=== PATIENT | male | born 1950 | race Caucasian/White ===

== ENCOUNTER 2021-03-04 07:46 | Outpatient (REF) | payer MEDICARE, BC, SELFPAY ==
[2021-03-04 09:03] LABS: MANUAL DIFF FLAG NO
[2021-03-04 09:13] LABS: Basophils Percent Auto 0.3 % (0-2); Eosinophils Absolute Auto 0.1 X10*3/uL (0.0-0.4); Eosinophils Percent Auto 2.2 % (0-4); Hematocrit 40.5 % (42-52); Hemoglobin 14.3 g/dl (14.0-18.0); Imm Gran Abs Auto 0.01 X10*3/uL (0.00-0.03); Imm Gran Pct Auto 0.2 % (0.0-0.4); Lymphocytes Absolute Auto 2.3 X10*3/uL (1.2-4.9); Lymphocytes Percent Auto 35.2 % (20-40); Mean Corpuscular HGB Conc 35.3 g/dl (31.0-36.0); Mean Corpuscular Hemoglobin 35.3 pg (27.0-33.0); Mean Platelet Volume 10.2 fL (9.4-12.4); Monocytes Absolute Auto 0.5 X10*3/uL (0.1-1.2); Monocytes Percent Auto 8.3 % (2-11); Neutrophils Absolute Auto 3.4 X10*3/uL (2.0-8.3); Neutrophils Percent Auto 53.8 % (45-73); Red Blood Count 4.05 X10*6/uL (4.60-5.80); Red Cell Distribution Width 14.3 % (11.0-16.0); White Blood Count 6.4 X10*3/uL (4.8-10.8)
[2021-03-04 09:30] LABS: Alanine Aminotransferase 22 U/L (0-40); Albumin Level 3.4 g/dL (3.5-5.0); Alkaline Phosphatase 81 U/L (39-117); Anion Gap 16 (12-20); Aspartate Amino Transferase 39 U/L (5-37); Bilirubin Total 2.1 mg/dL (0.0-1.0); Blood Urea Nitrogen 15 mg/dL (9-16); Calcium 8.9 mg/dL (8.4-10.2); Carbon Dioxide 22 mmol/L (22-29); Chloride 106 mmol/L (96-108); Cholesterol 153 mg/dL; Estimated Glomerular Filt Rate > 60; Glucose Fasting 100 mg/dL (60-99); HDL Cholesterol 60 mg/dL; LDL Cholesterol Calculated 81 mg/dl; Potassium 4.2 mmol/L (3.3-5.1); Sodium 140 mmol/L (135-145); Total Protein 6.5 g/dL (6.5-8.0); Triglycerides 60 mg/dL
[2021-03-04 09:51] LABS: Thyroid Stimulating Hormone 1.54 uIU/mL (0.32-4.0)
[2021-03-04 13:17] LABS: Platelet Count 86 X10*3/uL (160-400)
== END 2021-03-04 07:47 | disposition home or self-care (01) ==
LOC: HO.LAB 07:46
PROVIDERS: PCP Internal Medicine; Visit Provider Internal Medicine
DX: Z00.00 Encounter for general adult medical examination without abnormal findings (principal); E11.9 Type 2 diabetes mellitus without complications; E03.9 Hypothyroidism, unspecified
CPT/HCPCS: 36415; 80053; 80061; 84443; 85025

== ENCOUNTER 2021-04-08 08:14 | Outpatient (REF) | payer MEDICARE, BC, SELFPAY ==
[2021-04-08 09:02] LABS: MANUAL DIFF FLAG NO
[2021-04-08 09:12] LABS: Basophils Percent Auto 0.4 % (0-2); Eosinophils Absolute Auto 0.1 X10*3/uL (0.0-0.4); Hematocrit 39.3 % (42-52); Hemoglobin 13.9 g/dl (14.0-18.0); Imm Gran Abs Auto 0.02 X10*3/uL (0.00-0.03); Imm Gran Pct Auto 0.4 % (0.0-0.4); Lymphocytes Absolute Auto 1.7 X10*3/uL (1.2-4.9); Lymphocytes Percent Auto 31.8 % (20-40); Mean Corpuscular HGB Conc 35.4 g/dl (31.0-36.0); Mean Corpuscular Hemoglobin 35.5 pg (27.0-33.0); Mean Corpuscular Volume 100.3 fL (80-98); Mean Platelet Volume 9.7 fL (9.4-12.4); Monocytes Absolute Auto 0.4 X10*3/uL (0.1-1.2); Neutrophils Absolute Auto 3.1 X10*3/uL (2.0-8.3); Neutrophils Percent Auto 57.4 % (45-73); Red Blood Count 3.92 X10*6/uL (4.60-5.80); Red Cell Distribution Width 14.8 % (11.0-16.0); White Blood Count 5.4 X10*3/uL (4.8-10.8)
[2021-04-08 09:15] LABS: Platelet Count 84 X10*3/uL (160-400)
[2021-04-08 09:46] LABS: Alanine Aminotransferase 24 U/L (0-40); Albumin Level 3.2 g/dL (3.5-5.0); Alkaline Phosphatase 87 U/L (39-117); Anion Gap 11 (12-20); Aspartate Amino Transferase 35 U/L (5-37); Bilirubin Total 1.9 mg/dL (0.0-1.0); Blood Urea Nitrogen 13 mg/dL (9-16); Calcium 8.7 mg/dL (8.4-10.2); Carbon Dioxide 26 mmol/L (22-29); Chloride 107 mmol/L (96-108); Cholesterol 151 mg/dL; Estimated Glomerular Filt Rate 60; Glucose Fasting 116 mg/dL (60-99); HDL Cholesterol 57 mg/dL; LDL Cholesterol Calculated 82 mg/dl; Potassium 3.9 mmol/L (3.3-5.1); Sodium 140 mmol/L (135-145); Triglycerides 61 mg/dL
== END 2021-04-08 08:15 | disposition home or self-care (01) ==
LOC: HO.LAB 08:14
PROVIDERS: PCP Internal Medicine; Visit Provider Internal Medicine
DX: Z00.00 Encounter for general adult medical examination without abnormal findings (principal); E11.9 Type 2 diabetes mellitus without complications
CPT/HCPCS: 36415; 80053; 80061; 85025

== ENCOUNTER 2021-07-17 09:02 | Outpatient (REF) | payer MEDICARE, BC, SELFPAY ==
[2021-07-17 10:07] LABS: Cholesterol 151 mg/dL; HDL Cholesterol 51 mg/dL; LDL Cholesterol Calculated 86 mg/dl; Triglycerides 72 mg/dL
== END 2021-07-17 09:03 | disposition home or self-care (01) ==
LOC: HO.LAB 09:02
PROVIDERS: PCP Internal Medicine; Visit Provider Internal Medicine
DX: E11.9 Type 2 diabetes mellitus without complications (principal)
CPT/HCPCS: 36415; 80061

== ENCOUNTER 2022-01-10 12:50 | Outpatient (REF) | payer MEDICARE, BC, SELFPAY ==
[2022-01-10 13:10] LABS: MANUAL DIFF FLAG NO
[2022-01-10 13:33] LABS: Basophils Percent Auto 0.5 % (0-2); Eosinophils Absolute Auto 0.2 X10*3/uL (0.0-0.4); Eosinophils Percent Auto 2.6 % (0-4); Hematocrit 36.8 % (42.0-52.0); Imm Gran Abs Auto 0.03 X10*3/uL (0.00-0.03); Imm Gran Pct Auto 0.5 % (0.0-0.4); Lymphocytes Absolute Auto 1.6 X10*3/uL (1.2-4.9); Lymphocytes Percent Auto 25.8 % (20-40); Mean Corpuscular HGB Conc 35.3 g/dl (31.0-36.0); Mean Corpuscular Hemoglobin 34.5 pg (27.0-33.0); Mean Corpuscular Volume 97.6 fL (80.0-98.0); Mean Platelet Volume 9.8 fL (9.4-12.4); Monocytes Absolute Auto 0.5 X10*3/uL (0.1-1.2); Monocytes Percent Auto 8.7 % (2-11); Neutrophils Absolute Auto 3.9 x10*3/uL (2.0-8.3); Neutrophils Percent Auto 61.9 % (45-73); Red Blood Count 3.77 X10*6/uL (4.60-5.80); White Blood Count 6.2 X10*3/uL (4.8-10.8)
[2022-01-10 13:34] LABS: Platelet Count 91 X10*3/uL (160-400)
[2022-01-10 13:54] LABS: Alanine Aminotransferase 45 U/L (0-40); Alkaline Phosphatase 112 U/L (39-117); Anion Gap 10 (12-20); Aspartate Amino Transferase 52 U/L (5-37); Bilirubin Total 2.2 mg/dL (0.0-1.0); Blood Urea Nitrogen 17 mg/dL (9-16); Calcium 8.7 mg/dL (8.4-10.2); Carbon Dioxide 27 mmol/L (22-29); Chloride 104 mmol/L (96-108); Cholesterol 144 mg/dL; Estimated Glomerular Filt Rate > 60; Glucose Fasting 114 mg/dL (60-99); HDL Cholesterol 46 mg/dL; LDL Cholesterol Calculated 87 mg/dl; Potassium 4.1 mmol/L (3.3-5.1); Sodium 137 mmol/L (135-145); Total Protein 6.3 g/dL (6.5-8.0); Triglycerides 58 mg/dL
[2022-01-10 14:14] LABS: Thyroid Stimulating Hormone 1.53 uIU/mL (0.32-4.0)
== END 2022-01-10 12:51 | disposition home or self-care (01) ==
LOC: HO.LAB 12:50
PROVIDERS: PCP Internal Medicine; Visit Provider Internal Medicine
DX: Z00.00 Encounter for general adult medical examination without abnormal findings (principal); Z13.0 Encounter for screening for diseases of the blood and blood-forming organs and certain disorders involving the immune mechanism; E78.5 Hyperlipidemia, unspecified
CPT/HCPCS: 36415; 80053; 80061; 84443; 85025

== ENCOUNTER 2022-06-11 17:40 | Inpatient (IN) | payer MEDICARE, BC, SELFPAY ==
--- NOTE | ~2022-06-11 | XR_ITS ---
EXAMINATION: XR chest 1V CLINICAL INFORMATION: Reason for Exam chf COMPARISON: 03/11/2018 TECHNIQUE: XR chest 1V Tubes and lines: None Lungs and pleura: Prominence of the pulmonary vasculature vasculature suggesting mild congestion. Blunting of right costophrenic angle probably small pleural effusion.. Heart and mediastinum: The mediastinum is within normal limits for AP technique.. Bones/soft tissue: Skeletal structures included are normal for patient's age. XR/XR chest 1V IMPRESSION: Mild CHF. Blunting of costophrenic angle suggesting small subpulmonic pleural effusion.
[2022-06-11 17:45] VITALS: BP 118/53; BP 118/70; PULSE 88; PULSE 92; RESP 20; TEMP 36.6; O2SAT 93; O2SAT 99; BMI 46.6
--- NOTE | 2022-06-11 17:55 | ECG_ITS ---
Test Reason : CHF Blood Pressure : / mmHG Vent. Rate : 083 BPM Atrial Rate : 083 BPM P-R Int : 184 ms QRS Dur : 090 ms QT Int : 388 ms P-R-T Axes : 071 -21 044 degrees QTc Int : 455 ms Sinus rhythm with Premature supraventricular complexes Low voltage QRS Abnormal ECG When compared with ECG of 08-MAR-2018 00:31, Sinus rhythm has replaced Atrial fibrillation Vent. rate has decreased BY 73 BPM Referred By: Jennifer Garza Electronically Signed By:ROLAN HENRIQUEZ MD
--- NOTE | 2022-06-11 17:57 | ED_ITS ---
HPI - General Adult General Chief complaint: Extremity Problem Stated complaint: sob hx chf Time Seen by Provider: 06/11/22 17:41 Source: patient and EMS Mode of arrival: EMS Limitations: no limitations History of Present Illness HPI narrative: 72-year-old male with history of COPD and congestive heart failure on O2 home supplemental oxygen 2.5 L, patient brought in by ambulance for worsening of lower extremity swelling and edema, patient take Lasix 40 mg twice a day which he has been compliant with, patient reported blisters formation on bilateral lower extremities with clear fluid drainage, no fever or chills, no redness or hotness. Related Data Home Medications Medication Instructions Recorded Confirmed lactulose 20 gram/30 mL oral 20 g PO BID 06/11/22 06/11/22 solution Previous Rx's Medication Instructions Recorded albuterol sulfate 90 mcg/actuation 2 puff inhalation Q4-6H PRN 04/17/21 aerosol inhaler (Ventolin HFA) bronchospasm 30 days #8.5 grams spironolactone 25 mg tablet 25 mg PO DAILY #90 tabs 09/16/21 furosemide 80 mg tablet 40 mg PO BID #90 caps 02/17/22 folic acid 1 mg tablet 1 mg PO DAILY #90 tabs 02/19/22 tiotropium bromide 18 mcg capsule 1 cap inhalation DAILY #90 03/20/22 with inhalation device (Spiriva inhalations with HandiHaler) chair, wheel (Wheel chair) #1 ea 05/30/22 potassium chloride 20 mEq 20 meq PO BID #60 tabs 06/03/22 tablet,extended release(part/cryst) Allergies Allergy/AdvReac Type Severity Reaction Status Date / Time Penicillins [PENICILLINS] Allergy Unknown ASTHMA Verified 05/29/22 13:55 ATTACK Review of Systems Review of Systems: All other systems are reviewed and are negative Constitutional: Reports as per HPI and Reports no additional constitutional complaints Eyes: Reports as per HPI and Reports no additional eye complaints Reports system reviewed and no additional complaints, except as documented Cardiovascular: Reports as per HPI and Reports no additional cardiovascular complaints Respiratory: Reports as per HPI and Reports no additional respiratory complaints Gastrointestinal: Reports as per HPI and Reports no additional gastrointestinal complaints Genitourinary: Reports no additional female genitourinary complaints Musculoskeletal: Reports no additional musculoskeletal complaints Skin/Breast: Reports system reviewed and no additional complaints, except as docu Psychiatric: Reports no additional psychiatric complaints Endocrine: Reports no additional endocrine complaints Hematologic/Lymphatic: Reports no additional hematologic/lymphatic complaints Allergic/Immunologic: Reports no additional allergic/immunologic complaints Reports system reviewed and no additional complaints, except as documented and Reports Abnormal speech present [facility] Past Medical History Medical History CHF (congestive heart failure) COPD (chronic obstructive pulmonary disease) Hyperlipidemia Morbid obesity Surgical History History of tonsillectomy Family History Family History Father No problems noted. Mother No problems noted. Social History Social History Housing: House (mobile home) Alcohol intake: never Patient Tobacco Use Status: Former Tobacco user Tobacco use type: Cigarette e-Cigarette/Vaping Use: Never Used Second Hand Smoke Exposure: No Advance Directives: No Advance Directives Information Provided: Yes service: No Current occupational status: retired and disabled Cognitive needs: Yes (walker) Hearing needs: Yes (hearing aide) Vision needs: Yes (glasses) Physical Exam ED Vital Signs: Vital Signs - 24 hr 06/11/22 17:45 06/11/22 18:40 Temperature 97.9 F Pulse Rate 88 80 Respiratory Rate 20 18 Blood Pressure 118/53 L Pulse Oximetry 99 Oxygen Delivery Method Nasal Cannula BMI result Body Mass Index 46.6 Vital signs have been reviewed as appeared to be correct. Blood pressure abhay l. Heart rate normal. Respiration rate normal. Temperature normal. Oxygen saturation normal. Appearance: Alert. Oriented X3. No acute distress. Head: Normal external exam. Normocephalic. Atraumatic. No Valerio signs noted. No raccoon eyes noted Eyes: PERRLA. EOMI. Conjunctiva and sclera normal. Eyelids normal. ENT: TM's Normal. Pharynx normal. Uvula midline. Moist mucous membranes. No trismus noted. No drooling noted. No muffled voice noted. Neck: Normal inspection. Neck supple. FROM. No adenopathy. Thyroid Normal. No meningeal signs. No neck mass noted. CVS: Normal heart rate and rhythm. Heart sound normal. No murmurs noted. Pulses normal throughout. Respiratory: No respiratory distress. Painless inspiration. Breath sounds normal. Bilateral fine rales up to 1/3 of bilateral lung hansen.. Chest nontender. No accessory muscle usage noted or decreased air movement noted. Abdomen: Soft and nontender. Bowel sounds normal in all 4 quadrants. No diste ntion noted. No organomegaly noted. No visible injury noted. Back: No CVA tenderness. Full range of motion noted. Skin: Skin warm and dry. Normal skin color. Normal skin turgor. No rashes/lesions/lacerations noted. Extremities: Bilateral lower extremity edema +3, with blisters and clear fluid drainage.. Extremities exhibit normal range of motion. Extremities nontender. Neuro: Oriented X 3. Cranial nerve exam: II-XII are grossly intact No motor deficit. No sensory deficit. Reflexes normal. Course Course Course Narrative: 71-year-old male with history of COPD/congestive heart failure he is on daily Lasix 40 mg twice a day came in for increased ease edema to lower extremities wi th blistering and exudative fluid drainage, no definitive cellulitis, patient will need aggressive diuresis, patient also with mild COPD exacerbation that improved with bronchodilator treatment in the emergency department. Medications Administered Discontinued Medications Generic Name Dose Route Start Last Admin Trade Name Freq PRN Reason Stop Dose Admin Albuterol Sulfate 2.5 mg 06/11/22 18:30 06/11/22 18:39 Albuterol Sulfate (0.083%) 2.5 Mg/3 Ml Vial.Neb INHALE 06/11/22 18:31 2.5 mg ONCE ONE Administration Albuterol/Ipratropium 3 ml 06/11/22 18:30 06/11/22 18:39 Albuterol/Iprat 2.5/0.5mg 3 Ml Ampul.Neb INHALE 06/11/22 18:31 3 ml ONCE ONE Administration Furosemide 40 mg 06/11/22 17:55 06/11/22 18:30 Furosemide 40 Mg/4 Ml Vial IVPUSH 06/11/22 17:56 40 mg ONCE ONE Administration Protocol Medical Decision Making Medical Records Medical records reviewed: Yes I reviewed the patient's medical records. Lab Data Lab results reviewed: Yes I reviewed the patient's lab results. Result diagrams: 06/11/22 18:27 11/23/22 18:27 Labs: Lab Results 06/11/22 06/11/22 06/11/22 Range/Units 18:27 18:27 18:27 WBC 6.1 (4.8-10.8) X10*3/uL RBC 3.21 L (4.60-5.80) X10*6/uL Hgb 11.2 L (14.0-18.0) g/dl Hct 33.7 L (42.0-52.0) % MCV 105.0 H (80.0-98.0) fL MCH 34.9 H (27.0-33.0) pg MCHC 33.2 (31.0-36.0) g/dl RDW 15.8 (11.0-16.0) % Plt Count 91 L (160-400) X10*3/uL MPV 10.1 (9.4-12.4) fL Immature Gran % (Auto) 0.3 (0.0-0.4) % Neut % (Auto) 75.8 H (45-73) % Lymph % (Auto) 13.1 L (20-40) % [place] % (Auto) 8.9 (2-11) % Eos % (Auto) 1.6 (0-4) % Baso % (Auto) 0.3 (0-2) % Lymph # (Auto) 0.8 L (1.2-4.9) X10*3/uL [place] # (Auto) 0.5 (0.1-1.2) X10*3/uL Eos # (Auto) 0.1 (0.0-0.4) X10*3/uL Baso # (Auto) 0.0 (0.0-0.2) X10*3/uL Abs Immat Gran (auto) 0.02 (0.00-0.03) X10*3/uL Absolute Neuts (auto) 4.6 (2.0-8.3) x10*3/uL Absolute Nucleated RBC 0.000 (0.0-0.012) X10*3/uL Nucleated RBC % (auto) 0.0 (0.0-0.2) /100WBC Sodium 137 (135-145) mmol/L Potassium 4.7 D (3.3-5.1) mmol/L Chloride 105 (96-108) mmol/L Carbon Dioxide 25 (22-29) mmol/L Anion Gap 12 (12-20) BUN 14 (9-16) mg/dL Creatinine 0.93 (0.5-1.4) mg/dL Estim Creat Clear Calc 104.3 Estimated GFR > 60 Random Glucose 109 (60-115) mg/dL Calcium 8.2 L (8.4-10.2) mg/dL Total Bilirubin 1.9 H (0.0-1.0) mg/dL Direct Bilirubin 1.0 H (0.0-0.5) mg/dL AST 104 H (5-37) U/L ALT 80 H (0-40) U/L Alkaline Phosphatase 251 H (39-117) U/L Troponin I High Sens 6.4 (<3.5-35.0) ng/L B-Natriuretic Peptide (<100) pg/mL Total Protein 5.7 L (6.5-8.0) g/dL Albumin 2.1 L (3.5-5.0) g/dL Lipase 59 (8-78) U/L Urine Color Urine Appearance Urine pH (5.0-9.0) Ur Specific [place] (1.005-1.025) Urine Protein (Neg-Trace) mg/dL Urine Glucose (UA) (Negative) mg/dL Urine Ketones (Negative) mg/dL Urine Blood (Negative) Urine Nitrite (Negative) Ur Leukocyte Esterase (Negative) Urine RBC (0-2) /HPF Urine WBC (0-5) /HPF Ur Squamous Epith Cells (0-2) /HPF Urine Bacteria (None Seen) Hyaline Casts (0-2) /LPF 06/11/22 06/11/22 Range/Units 18:27 19:02 WBC (4.8-10.8) X10*3/uL RBC (4.60-5.80) X10*6/uL Hgb (14.0-18.0) g/dl Hct (42.0-52.0) % MCV (80.0-98.0) fL MCH (27.0-33.0) pg MCHC (31.0-36.0) g/dl RDW (11.0-16.0) % Plt Count (160-400) X10*3/uL MPV (9.4-12.4) fL Immature Gran % (Auto) (0.0-0.4) % Neut % (Auto) (45-73) % Lymph % (Auto) (20-40) % [place] % (Auto) (2-11) % Eos % (Auto) (0-4) % Baso % (Auto) (0-2) % Lymph # (Auto) (1.2-4.9) X10*3/uL [place] # (Auto) (0.1-1.2) X10*3/uL Eos # (Auto) (0.0-0.4) X10*3/uL Baso # (Auto) (0.0-0.2) X10*3/uL Abs Immat Gran (auto) (0.00-0.03) X10*3/uL Absolute Neuts (auto) (2.0-8.3) x10*3/uL Absolute Nucleated RBC (0.0-0.012) X10*3/uL Nucleated RBC % (auto) (0.0-0.2) /100WBC Sodium (135-145) mmol/L Potassium (3.3-5.1) mmol/L Chloride (96-108) mmol/L Carbon Dioxide (22-29) mmol/L Anion Gap (12-20) BUN (9-16) mg/dL Creatinine (0.5-1.4) mg/dL Estim Creat Clear Calc Estimated GFR Random Glucose (60-115) mg/dL Calcium (8.4-10.2) mg/dL Total Bilirubin (0.0-1.0) mg/dL Direct Bilirubin (0.0-0.5) mg/dL AST (5-37) U/L ALT (0-40) U/L Alkaline Phosphatase (39-117) U/L Troponin I High Sens (<3.5-35.0) ng/L B-Natriuretic Peptide 237 H (<100) pg/mL Total Protein (6.5-8.0) g/dL Albumin (3.5-5.0) g/dL Lipase (8-78) U/L Urine Color Yellow Urine Appearance Clear Urine pH 6.5 (5.0-9.0) Ur Specific [place] 1.015 (1.005-1.025) Urine Protein Negative (Neg-Trace) mg/dL Urine Glucose (UA) Negative (Negative) mg/dL Urine Ketones Negative (Negative) mg/dL Urine Blood Negative (Negative) Urine Nitrite Negative (Negative) Ur Leukocyte Esterase Trace H (Negative) Urine RBC 0-2 (0-2) /HPF Urine WBC 0-5 (0-5) /HPF Ur Squamous Epith Cells 0-2 (0-2) /HPF Urine Bacteria None Seen (None Seen) Hyaline Casts 0-2 (0-2) /LPF Imaging Data Chest x-ray: Attestation: I personally reviewed and interpreted this imaging study as follows: Radiologist's impression: Mild CHF. ? Blunting of costophrenic angle suggesting small subpulmonic pleural effusion. ECG Data Attestation: I personally reviewed and interpreted this ECG as follows: Interpretation: Normal sinus rhythm at 83 beats per minute, with occasional premature supraventricular complex, left axis deviation, normal intervals. Discharge Plan Discharge Clinical Impression: COPD (chronic obstructive pulmonary disease), CHF (congestive heart failure), Anasarca Patient Disposition: Admitted As Inpatient
--- NOTE | 2022-06-11 18:20 | PC.NURSE ---
PT reports increase BLL swelling for about a week. Reddened areas noted, +2 edema noted.
--- NOTE | 2022-06-11 18:20 | PHA.MEDREC ---
Pharmacy Consult ? Medication Reconciliation Pharmacy has completed the medication reconciliation. Patient on lactulose Sam
[2022-06-11] MEDS: Furosemide 40 MG/4 ML VIAL IVPUSH (18:30)
--- NOTE | 2022-06-11 18:30 | PC.NURSE ---
PT lung sounds wheezing. Provider notified. Resp tx ordered.
--- NOTE | 2022-06-11 18:30 | PC.NURSE ---
Meds given as documented.
[2022-06-11 18:31] LABS: MANUAL DIFF FLAG NO
[2022-06-11 18:33] LABS: Basophils Percent Auto 0.3 % (0-2); Eosinophils Absolute Auto 0.1 X10*3/uL (0.0-0.4); Eosinophils Percent Auto 1.6 % (0-4); Hematocrit 33.7 % (42.0-52.0); Hemoglobin 11.2 g/dl (14.0-18.0); Imm Gran Abs Auto 0.02 X10*3/uL (0.00-0.03); Imm Gran Pct Auto 0.3 % (0.0-0.4); Lymphocytes Absolute Auto 0.8 X10*3/uL (1.2-4.9); Lymphocytes Percent Auto 13.1 % (20-40); Mean Corpuscular HGB Conc 33.2 g/dl (31.0-36.0); Mean Corpuscular Hemoglobin 34.9 pg (27.0-33.0); Mean Platelet Volume 10.1 fL (9.4-12.4); Monocytes Absolute Auto 0.5 X10*3/uL (0.1-1.2); Monocytes Percent Auto 8.9 % (2-11); Neutrophils Absolute Auto 4.6 x10*3/uL (2.0-8.3); Neutrophils Percent Auto 75.8 % (45-73); Red Blood Count 3.21 X10*6/uL (4.60-5.80); Red Cell Distribution Width 15.8 % (11.0-16.0); White Blood Count 6.1 X10*3/uL (4.8-10.8)
[2022-06-11 18:36] LABS: Platelet Count 91 X10*3/uL (160-400)
[2022-06-11] MEDS: Albuterol Sulfate (0.083%) 2.5 MG/3 ML VIAL.NEB INHALE (18:39)
[2022-06-11] MEDS: Albuterol/Iprat 2.5/0.5MG 3 ML AMPUL.NEB INHALE (18:39)
[2022-06-11 18:40] VITALS: PULSE 80; RESP 18; O2SAT 98
--- NOTE | 2022-06-11 18:41 | PC.NURSE ---
Respiratory therapist at bedside.
[2022-06-11 18:53] LABS: Alanine Aminotransferase 80 U/L (0-40); Albumin Level 2.1 g/dL (3.5-5.0); Alkaline Phosphatase 251 U/L (39-117); Anion Gap 12 (12-20); Aspartate Amino Transferase 104 U/L (5-37); Bilirubin Total 1.9 mg/dL (0.0-1.0); Blood Urea Nitrogen 14 mg/dL (9-16); Calcium 8.2 mg/dL (8.4-10.2); Carbon Dioxide 25 mmol/L (22-29); Chloride 105 mmol/L (96-108); Creatinine Clr Calc Pharmacy 104.3; Estimated Glomerular Filt Rate > 60; Glucose Random 109 mg/dL (60-115); Lipase 59 U/L (8-78); Potassium 4.7 mmol/L (3.3-5.1); Sodium 137 mmol/L (135-145); Total Protein 5.7 g/dL (6.5-8.0)
[2022-06-11 18:56] LABS: B Type Natriuretic Peptide 237 pg/mL (<100)
[2022-06-11 18:57] LABS: Troponin-I High Sensitivity 6.4 ng/L (<3.5-35.0)
[2022-06-11 19:11] LABS: Appearance Urine Clear; Color Urine Yellow; Glucose Urine UA Negative (Negative); Leukocyte Esterase Urine Trace (Negative); Nitrite Urine Negative (Negative); PH 6.5 (5.0-9.0); Specific Gravity - Urine 1.015 (1.005-1.025); UMIC TRIGGER UACC YES; Urine Blood Negative (Negative); Urine Ketones Negative (Negative); Urine Protein Negative (Neg-Trace)
[2022-06-11 19:17] LABS: Bacteria Urine None Seen (None Seen); Hyaline Casts Urine 0-2 /LPF (0-2); RBC Urine 0-2 /HPF (0-2); Squamous Epithelial Cell Urine 0-2 /HPF (0-2); WBC Urine 0-5 /HPF (0-5)
[2022-06-11 20:28] LABS: COVID-19 Test Negative (Negative); IDNOW Serial# 16C4AD1C
--- NOTE | 2022-06-11 22:43 | P.HPHOSP_ITS ---
History of Present Illness Date of Service: 06/11/22 Chief Complaint: leg swelling 71-year-old male with past medical history of CHF, COPD, hyperlipidemia, morbid obesity, presents to the hospital with complaints of leg swelling. Patient reports that he noticed his leg swelling worsened in the past week. He denies any orthopnea, no PND, he has baseline shortness of breath with his history of COPD that has not worsened, no increased cough or sputum production. Denies any fever or chills. He reports that the swelling has gotten to the point that he has difficulty ambulating. Denies any chest pain, no palpitations, no abdominal pain nausea or vomiting, no urinary symptoms. Reports compliance with his furosemide, denies any increased salt intake On arrival to the ED patient hemodynamically stable with no significant abnormal vitals Labs are significant for WBC count of 6.1, hemoglobin of 11.2, medical stage III 0.7, MCV of 105, lactic acid of 2.1 resolved, total bili of 1.9, direct bili of 1.0, AST of 104, ALT of 80, alk-phos of 251, BNP of 237, troponin negative, UA shows trace leukocyte For chest x-ray shows mild CHF Patient given Lasix and will be admitted for further management Review of Systems Review of Systems: Yes all other systems are reviewed and are negative [facility] Medical History (Updated 06/12/22 @ 06:32 by Ti Staples MD) Acute exacerbation of CHF (congestive heart failure) CHF (congestive heart failure) COPD (chronic obstructive pulmonary disease) Hyperlipidemia Morbid obesity Family History Father No problems noted. Mother No problems noted. Surgical History History of tonsillectomy Social History Household Members: Spouse Housing: Other Housing Other:: mobile home Do you presently have visiting nurse or other home services: Yes Alcohol intake: never Patient Tobacco Use Status: Former Tobacco user Quit Date: years ago per pt Tobacco use type: Cigarette Smoked in Last 30 Days: No e-Cigarette/Vaping Use: Never Used Second Hand Smoke Exposure: No Use of substances other than those prescribed or required for medical reasons: No Currently Displaying Signs/Symptoms of Drug Intoxication Withdrawal: No Any prior treatment program specific to substance use: No Have you been hit, kicked, punched, or otherwise hurt by someone within the past year? If so, by whom?: No Do you feel safe in your current relationship?: Yes Is there a partner from a previous relationship who is making you feel unsafe now?: No Are you made to feel afraid or neglected: No Advance Directives: No Advance Directives Information Provided: Yes Do you have thoughts of harming others: None Do you have a plan to hurt others: No Plan Recently lost weight without trying: No Eating poorly because of decreased appetite: No Nutrition Risks: Difficulty chewing Poor oral hygiene: Yes (several missing natural teeth) service: No Current occupational status: retired and disabled Cognitive needs: Yes (walker) Hearing needs: Yes (hearing aide) Vision needs: Yes (glasses) Meds Allergies Allergy/AdvReac Type Severity Reaction Status Date / Time Penicillins [PENICILLINS] Allergy Unknown ASTHMA Verified 05/29/22 13:55 ATTACK Active Medications: Current Medications Acetaminophen (Acetaminophen 325 Mg Tablet) 650 mg PO Q6H PRN PRN Reason: Pain, Mild (Pain Scale 1-3) Albuterol/Ipratropium (Albuterol/Iprat 2.5/0.5mg 3 Ml Ampul.Neb) 3 ml INHALE RQ4H PRN PRN Reason: Shortness of Breath/Wheezing Docusate Sodium (Docusate Sodium 100 Mg Capsule) 100 mg PO DAILY PRN PRN Reason: Constipation Enoxaparin Sodium (Enoxaparin Sodium 40 Mg/0.4 Ml Syringe) 40 mg SUBCUT Q24H RUFUS Folic Acid (Folic Acid 1 Mg Tablet) 1 mg PO DAILY RUFUS Furosemide (Furosemide 100 Mg/10 Ml Vial) 80 mg IVPUSH Q12H RUFUS; Protocol Lactulose (Lactulose 20 Gm/30 Ml Solution) 20 gm PO BID RUFUS Ondansetron HCl (Ondansetron Hcl 4 Mg/2 Ml Vial) 4 mg IVPUSH Q8H PRN PRN Reason: Nausea and Vomiting Pharmacy Consult (Consult Rx Perform Med Rec) 1 each MISCELLANE ONCE PRN PRN Reason: Consult order Sodium Chloride (0.9 % Sodium Chloride Flush 3 Ml Syringe) 3 ml IVFLUSH QSHIFT RUFUS Spironolactone (Spironolactone 25 Mg Tablet) 25 mg PO DAILY [facility]; Protocol Tiotropium [place] (Tiotropium [place] 18 Mcg Cap.W.Dev) 1 puff INHALE RDAILY [facility] Home Medications Medication Instructions Recorded Confirmed Last Taken Type lactulose 20 gram/30 mL oral 20 g PO BID 06/11/22 06/11/22 06/11/22 History solution Physical Exam Vital Signs and Narrative: Vital Signs: Last Vital Signs Temp 97.9 F 06/11/22 17:45 Pulse 80 06/11/22 18:40 Resp 18 06/11/22 18:40 BP 118/53 L 06/11/22 17:45 Pulse Ox 99 06/11/22 17:45 O2 Del Method 06/11/22 17:45 Oxygen Flow Rate 3 06/11/22 17:45 BMI result Body Mass Index 46.6 Const: General: cooperative and no acute distress Orientation/consciousness: patient oriented x3 Eyes: General: appearance normal, both eyes and all related structures Resp: Other: Crackles bilaterally Effort & Inspection: normal respiratory effort Cardio: Rate: regular rate Rhythm: regular rhythm GI: Palpation (GI): Soft to palpation Auscultation: normal bowel sounds Skin: Other: Has skin changes of chronic venous stasis in the lower extremities Has also erythema, once, edema of right lower extremity Neuro: General: patient oriented x3 Cognition (Neuro): normal cognition Extrem: General: Yes normal to inspection and Yes no pedal edema Results Labs CBC and Chem 7: 06/12/22 05:22 06/12/22 05:22 Labs: Laboratory Results - last 24 hr 06/11/22 06/11/22 06/11/22 18:27 18:27 18:27 MCV 105.0 H MCH 34.9 H MCHC 33.2 RDW 15.8 Plt Count 91 L MPV 10.1 Immature Gran % (Auto) 0.3 Neut % (Auto) 75.8 H Lymph % (Auto) 13.1 L [place] % (Auto) 8.9 Eos % (Auto) 1.6 Baso % (Auto) 0.3 Lymph # (Auto) 0.8 L [place] # (Auto) 0.5 Eos # (Auto) 0.1 Baso # (Auto) 0.0 Abs Immat Gran (auto) 0.02 Absolute Neuts (auto) 4.6 Absolute Nucleated RBC 0.000 Nucleated RBC % (auto) 0.0 Anion Gap 12 Estim Creat Clear Calc 104.3 Estimated GFR > 60 Random Glucose 109 Calcium 8.2 L Total Bilirubin 1.9 H Direct Bilirubin 1.0 H AST 104 H ALT 80 H Alkaline Phosphatase 251 H Troponin I High Sens 6.4 B-Natriuretic Peptide Total Protein 5.7 L Albumin 2.1 L Lipase 59 Urine Color Urine Appearance Urine pH Ur Specific [place] Urine Protein Urine Glucose (UA) Urine Ketones Urine Blood Urine Nitrite Ur Leukocyte Esterase Urine RBC Urine WBC Ur Squamous Epith Cells Urine Bacteria Hyaline Casts COVID-19 (PATTI) COVID-19 Clin Com 06/11/22 06/11/22 06/11/22 18:27 19:02 20:06 MCV MCH MCHC RDW Plt Count MPV Immature Gran % (Auto) Neut % (Auto) Lymph % (Auto) [place] % (Auto) Eos % (Auto) Baso % (Auto) Lymph # (Auto) [place] # (Auto) Eos # (Auto) Baso # (Auto) Abs Immat Gran (auto) Absolute Neuts (auto) Absolute Nucleated RBC Nucleated RBC % (auto) Anion Gap Estim Creat Clear Calc Estimated GFR Random Glucose Calcium Total Bilirubin Direct Bilirubin AST ALT Alkaline Phosphatase Troponin I High Sens B-Natriuretic Peptide 237 H Total Protein Albumin Lipase Urine Color Yellow Urine Appearance Clear Urine pH 6.5 Ur Specific [place] 1.015 Urine Protein Negative Urine Glucose (UA) Negative Urine Ketones Negative Urine Blood Negative Urine Nitrite Negative Ur Leukocyte Esterase Trace H Urine RBC 0-2 Urine WBC 0-5 Ur Squamous Epith Cells 0-2 Urine Bacteria None Seen Hyaline Casts 0-2 COVID-19 (PATTI) Negative COVID-19 Clin Com See Note Imaging Radiologist's Impressions: Impressions Chest X-Ray 06/11/22 18:40 IMPRESSION: Mild CHF. Blunting of costophrenic angle suggesting small subpulmonic pleural effusion. Assessment and Plan (1) Acute exacerbation of CHF (congestive heart failure): Qualifiers: Heart failure type: unspecified Qualified Code(s): I50.9 - Heart failure, unspecified Status: Acute (2) Cellulitis of right lower extremity: Status: Acute (3) Morbid obesity: Status: Acute Plan This is a 71-year-old male with past medical history of CHF ( unknown ejection fraction) , COPD presents to the hospital with lower extremity swelling # acute CHF exacerbation - has increased lower extremity edema, as well as evidence of pulmonary congestion on checks x-ray - on baseline Lasix at home, will hold oral Lasix - will treat with IV Lasix - strict I&O, daily weight, low-sodium diet - cardiology consult, will obtain echocardiogram - monitor respiratory status # right lower extremity cellulitis - has wounds, erythema, as well as edema and tenderness of the right lower extremity - will treat with IV antibiotics - follow cultures # morbid obesity - follow plan for weight loss # hypertension - slightly on the lower end - will hold antihypertensives, monitor blood pressure improved, resume spironolactone DVT prophylaxis: Heparin subQ Given patient's acute CHF exacerbation requiring IV Lasix patient will require minimum 2 night inpatient hospital stay for further management and monitoring Quality Stroke Does the patient have a stroke diagnosis?: No VTE Prior VTE?: No VTE Risk Level:: Medical - moderate - high VTE Device Contraindication: Treatment Not Indicated VTE Drug Contraindication: N/A - Med Ordered
[2022-06-11] MEDS: Furosemide 100 MG/10 ML VIAL 80 MG IVPUSH (23:57)
[2022-06-11] MEDS: 0.9 % Sodium Chloride Flush 3 ML SYRINGE IVFLUSH (23:57)
[2022-06-11] MEDS: ceFAZolin Sodium/Dextrose,Iso 2 GM/50 ML PIGGYBACK IV (23:57)
[2022-06-11] MEDS: Enoxaparin Sodium 40 MG/0.4 ML SYRINGE SUBCUT (23:58)
[2022-06-12] VITALS (8 sets, daily range): BP systolic 101–138; BP diastolic 53–61; PULSE 67–86; RESP 18–20; TEMP 36.1–36.5; O2SAT 90–98; BMI 48.4; BMI 48.0
[2022-06-12 00:18] LABS: Lactic Acid 2.1 mmol/L (0.5-2.0)
[2022-06-12 01:45] LABS: Reflex Lactate? Lactic Acid Added
[2022-06-12 02:27] LABS: ~Lactic Acid-LAB USE ONLY 1.6 mmol/L (0.5-2.0)
[2022-06-12 05:48] LABS: MANUAL DIFF FLAG NO
[2022-06-12 05:58] LABS: Basophils Percent Auto 0.5 % (0-2); Eosinophils Absolute Auto 0.2 X10*3/uL (0.0-0.4); Hematocrit 33.4 % (42.0-52.0); Hemoglobin 11.1 g/dl (14.0-18.0); Imm Gran Abs Auto 0.03 X10*3/uL (0.00-0.03); Imm Gran Pct Auto 0.5 % (0.0-0.4); Lymphocytes Absolute Auto 0.8 X10*3/uL (1.2-4.9); Lymphocytes Percent Auto 14.2 % (20-40); Mean Corpuscular HGB Conc 33.2 g/dl (31.0-36.0); Mean Corpuscular Hemoglobin 34.8 pg (27.0-33.0); Mean Corpuscular Volume 104.7 fL (80.0-98.0); Mean Platelet Volume 10.7 fL (9.4-12.4); Monocytes Absolute Auto 0.6 X10*3/uL (0.1-1.2); Monocytes Percent Auto 10.5 % (2-11); Neutrophils Absolute Auto 4.1 x10*3/uL (2.0-8.3); Neutrophils Percent Auto 71.3 % (45-73); Platelet Count 101 X10*3/uL (160-400); Red Blood Count 3.19 X10*6/uL (4.60-5.80); Red Cell Distribution Width 15.7 % (11.0-16.0); White Blood Count 5.7 X10*3/uL (4.8-10.8)
[2022-06-12 06:19] LABS: Anion Gap 10 (12-20); Blood Urea Nitrogen 14 mg/dL (9-16); Carbon Dioxide 26 mmol/L (22-29); Chloride 105 mmol/L (96-108); Creatinine Clr Calc Pharmacy 96.3; Estimated Glomerular Filt Rate > 60; Glucose Random 116 mg/dL (60-115); Potassium 3.6 mmol/L (3.3-5.1); Sodium 137 mmol/L (135-145)
[2022-06-12] MEDS: Albuterol/Iprat 2.5/0.5MG 3 ML AMPUL.NEB INHALE (06:23)
[2022-06-12] MEDS: ceFAZolin Sodium/Dextrose,Iso 2 GM/50 ML PIGGYBACK IV ×3 (06:43→23:22)
--- NOTE | 2022-06-12 07:19 | P.PNIM_ITS ---
Subjective Subjective Date of Service: 06/12/22 Interval History: Seen in f/u for acute heart failure interval history: less sob, legs still swollen Review of Systems no sob swelling in limbs no chest pain Physical Exam Vital Signs: Vital Signs: Last Vital Signs Temp 97.1 F 06/12/22 04:00 Pulse 85 06/12/22 06:23 Resp 18 06/12/22 06:23 BP 120/56 L 06/12/22 04:00 Pulse Ox 97 06/12/22 04:00 O2 Del Method 06/12/22 04:00 O2 Flow Rate 2 06/12/22 04:00 Oxygen Flow Rate 3 06/11/22 17:45 BMI result Body Mass Index 48.4 Const: Other: General: AO X 3, no acute distress Resp: CTA bilateral CVS: S1,S2,RRR GI: +BS, NT, no distention Skin: No rash Neuro: motor grossly intact Psych: appropriate affect Objective Data Active Medications Acetaminophen (Acetaminophen 325 Mg Tablet) 650 mg PO Q6H PRN PRN Reason: Pain, Mild (Pain Scale 1-3) Albuterol/Ipratropium (Albuterol/Iprat 2.5/0.5mg 3 Ml Ampul.Neb) 3 ml INHALE RQ4H PRN PRN Reason: Shortness of Breath/Wheezing Last Admin: 06/12/22 06:23 Dose: 3 ml Documented By: ANGEL Docusate Sodium (Docusate Sodium 100 Mg Capsule) 100 mg PO DAILY PRN PRN Reason: Constipation Enoxaparin Sodium (Enoxaparin Sodium 40 Mg/0.4 Ml Syringe) 40 mg SUBCUT Q24H [facility] Last Admin: 06/11/22 23:58 Dose: 40 mg Documented By: GUME Folic Acid (Folic Acid 1 Mg Tablet) 1 mg PO DAILY [facility] Furosemide (Furosemide 100 Mg/10 Ml Vial) 80 mg IVPUSH Q12H [facility]; Protocol Last Admin: 06/11/22 23:57 Dose: 80 mg Documented By: GUME Cefazolin Sodium/Dextrose (Ancef) 2 gm in 50 mls @ 100 mls/hr IV Q8H [facility] Last Admin: 06/12/22 06:43 Dose: 100 mls/hr Documented By: GUME Lactulose (Lactulose 20 Gm/30 Ml Solution) 20 gm PO BID [facility] Ondansetron HCl (Ondansetron Hcl 4 Mg/2 Ml Vial) 4 mg IVPUSH Q8H PRN PRN Reason: Nausea and Vomiting Pharmacy Consult (Consult Rx Perform Med Rec) 1 each MISCELLANE ONCE PRN PRN Reason: Consult order Sodium Chloride (0.9 % Sodium Chloride Flush 3 Ml Syringe) 3 ml IVFLUSH QSHIFT [facility] Last Admin: 06/11/22 23:57 Dose: 3 ml Documented By: GUME Tiotropium [place] (Tiotropium [place] 18 Mcg Cap.W.Dev) 1 puff INHALE RDAILY [facility] Labs CBC & Chem 7: 06/12/22 05:22 06/12/22 05:22 Labs: Laboratory Results - last 24 hr 06/11/22 06/11/22 06/11/22 18:27 18:27 18:27 MCV 105.0 H MCH 34.9 H MCHC 33.2 RDW 15.8 Plt Count 91 L MPV 10.1 Immature Gran % (Auto) 0.3 Neut % (Auto) 75.8 H Lymph % (Auto) 13.1 L [place] % (Auto) 8.9 Eos % (Auto) 1.6 Baso % (Auto) 0.3 Lymph # (Auto) 0.8 L [place] # (Auto) 0.5 Eos # (Auto) 0.1 Baso # (Auto) 0.0 Abs Immat Gran (auto) 0.02 Absolute Neuts (auto) 4.6 Absolute Nucleated RBC 0.000 Nucleated RBC % (auto) 0.0 Anion Gap 12 Estim Creat Clear Calc 104.3 Estimated GFR > 60 Random Glucose 109 Lactic Acid Lactic Acid F/U @ 2Hr Calcium 8.2 L Total Bilirubin 1.9 H Direct Bilirubin 1.0 H AST 104 H ALT 80 H Alkaline Phosphatase 251 H Troponin I High Sens 6.4 B-Natriuretic Peptide Total Protein 5.7 L Albumin 2.1 L Lipase 59 Urine Color Urine Appearance Urine pH Ur Specific [place] Urine Protein Urine Glucose (UA) Urine Ketones Urine Blood Urine Nitrite Ur Leukocyte Esterase Urine RBC Urine WBC Ur Squamous Epith Cells Urine Bacteria Hyaline Casts COVID-19 (PATTI) COVID-19 Clin Com 06/11/22 06/11/22 06/11/22 18:27 19:02 20:06 MCV MCH MCHC RDW Plt Count MPV Immature Gran % (Auto) Neut % (Auto) Lymph % (Auto) [place] % (Auto) Eos % (Auto) Baso % (Auto) Lymph # (Auto) [place] # (Auto) Eos # (Auto) Baso # (Auto) Abs Immat Gran (auto) Absolute Neuts (auto) Absolute Nucleated RBC Nucleated RBC % (auto) Anion Gap Estim Creat Clear Calc Estimated GFR Random Glucose Lactic Acid Lactic Acid F/U @ 2Hr Calcium Total Bilirubin Direct Bilirubin AST ALT Alkaline Phosphatase Troponin I High Sens B-Natriuretic Peptide 237 H Total Protein Albumin Lipase Urine Color Yellow Urine Appearance Clear Urine pH 6.5 Ur Specific [place] 1.015 Urine Protein Negative Urine Glucose (UA) Negative Urine Ketones Negative Urine Blood Negative Urine Nitrite Negative Ur Leukocyte Esterase Trace H Urine RBC 0-2 Urine WBC 0-5 Ur Squamous Epith Cells 0-2 Urine Bacteria None Seen Hyaline Casts 0-2 COVID-19 (PATTI) Negative COVID-19 Clin Com See Note 06/11/22 06/12/22 06/12/22 23:39 02:12 05:22 MCV 104.7 H MCH 34.8 H MCHC 33.2 RDW 15.7 Plt Count 101 L MPV 10.7 Immature Gran % (Auto) 0.5 H Neut % (Auto) 71.3 Lymph % (Auto) 14.2 L [place] % (Auto) 10.5 Eos % (Auto) 3.0 Baso % (Auto) 0.5 Lymph # (Auto) 0.8 L [place] # (Auto) 0.6 Eos # (Auto) 0.2 Baso # (Auto) 0.0 Abs Immat Gran (auto) 0.03 Absolute Neuts (auto) 4.1 Absolute Nucleated RBC 0.000 Nucleated RBC % (auto) 0.0 Anion Gap Estim Creat Clear Calc Estimated GFR Random Glucose Lactic Acid 2.1 H* Lactic Acid F/U @ 2Hr 1.6 Calcium Total Bilirubin Direct Bilirubin AST ALT Alkaline Phosphatase Troponin I High Sens B-Natriuretic Peptide Total Protein Albumin Lipase Urine Color Urine Appearance Urine pH Ur Specific [place] Urine Protein Urine Glucose (UA) Urine Ketones Urine Blood Urine Nitrite Ur Leukocyte Esterase Urine RBC Urine WBC Ur Squamous Epith Cells Urine Bacteria Hyaline Casts COVID-19 (PATTI) COVID-19 Clin Com 06/12/22 05:22 MCV MCH MCHC RDW Plt Count MPV Immature Gran % (Auto) Neut % (Auto) Lymph % (Auto) [place] % (Auto) Eos % (Auto) Baso % (Auto) Lymph # (Auto) [place] # (Auto) Eos # (Auto) Baso # (Auto) Abs Immat Gran (auto) Absolute Neuts (auto) Absolute Nucleated RBC Nucleated RBC % (auto) Anion Gap 10 L Estim Creat Clear Calc 96.3 Estimated GFR > 60 Random Glucose 116 H Lactic Acid Lactic Acid F/U @ 2Hr Calcium 8.0 L Total Bilirubin Direct Bilirubin AST ALT Alkaline Phosphatase Troponin I High Sens B-Natriuretic Peptide Total Protein Albumin Lipase Urine Color Urine Appearance Urine pH Ur Specific [place] Urine Protein Urine Glucose (UA) Urine Ketones Urine Blood Urine Nitrite Ur Leukocyte Esterase Urine RBC Urine WBC Ur Squamous Epith Cells Urine Bacteria Hyaline Casts COVID-19 (PATTI) COVID-19 Clin Com Assessment and Plan (1) Acute exacerbation of CHF (congestive heart failure): Status: Acute Plan 71-year-old male with past medical history of CHF ( unknown ejection fraction) , COPD presents to the hospital with lower extremity swelling # Acute unspecified CHF exacerbation-- but suspect systolic -continue IV diuretics -track I/O, weight, limit salt intake -Get echo -Cardiology evaluation # riight lower extremity cellulitis - has wounds, erythema, as well as edema and tenderness of the right lower extremity - IV Cefazolin D2, change to PO Doxy by tomorrowf - follow cultures # morbid obesity--weight loss advised # HTN--nl, restart home meds need for inpatient: exacerbation of heart failure needing IV Lasix Quality Stroke Does the patient have a stroke diagnosis?: No VTE Prior VTE?: No VTE Risk Level:: Medical - moderate - high VTE Device Contraindication: Treatment Not Indicated VTE Drug Contraindication: N/A - Med Ordered
[2022-06-12] MEDS: Folic Acid 1 MG TABLET PO (08:57)
[2022-06-12] MEDS: Lactulose 20 GM/30 ML SOLUTION PO ×2 (08:57→20:28)
[2022-06-12] MEDS: Potassium Chloride ER 20 MEQ TAB.ER.PRT PO ×2 (08:57→20:28)
[2022-06-12] MEDS: Furosemide 100 MG/10 ML VIAL 80 MG IVPUSH ×2 (08:58→23:28)
[2022-06-12] MEDS: 0.9 % Sodium Chloride Flush 3 ML SYRINGE IVFLUSH ×2 (08:58→20:28)
--- NOTE | 2022-06-12 10:28 | PM.CNCAR ---
History of Present Illness History of Present Illness Date of Service: 06/12/22 Chief complaint: CHF exacerbation Narrative: This is a cardiology consultation regarding congestive heart failure. Listed to have multiple medical comorbidities including congestive heart failure, COPD, cirrhosis among others. He is morbidly obese. He states that he has legs have been having increasing swelling recently and that led to the hospitalization. He does have some baseline shortness of breath and cannot walk too much but he states that is at baseline. Shortness of breath is not any worse than in the past. No anginal-type chest pains. No history of any coronary disease. No history of any myocardial infarction. Review of Systems Review of Systems: Yes all other systems are reviewed and are negative Constitutional: Constitutional: Reports as per HPI Eyes: Eyes: Reports as per HPI ENT: Reports as per HPI Cardiovascular: Cardiovascular: Reports as per HPI, Denies acrocyanosis, Denies cool extremities, Denies chest pain, Reports leg edema, Denies lightheadedness, Denies palpitations and Denies dyspnea Respiratory: Respiratory: Reports as per HPI, Reports no additional respiratory complaints and Denies dyspnea Gastrointestinal: Gastrointestinal: Reports as per HPI and Reports no additional gastrointestinal complaints Genitourinary: Genitourinary: Reports no additional male genitourinary complaints and Reports as per HPI Musculoskeletal: Musculoskeletal: Reports no additional musculoskeletal complaints and Reports as per HPI Integumentary/Breasts: Skin/Breast: Reports system reviewed and no additional complaints, except as docu Neurologic: Reports system reviewed and no additional complaints, except as documented and Reports as per HPI Psychiatric: Psychiatric: Reports no additional psychiatric complaints and Reports as per HPI Endocrine: Endocrine: Reports no additional endocrine complaints, Reports as per HPI and Denies palpitations Hematologic/Lymphatic: Hematologic/Lymphatic: Reports no additional hematologic/lymphatic complaints and Reports as per HPI Allergic/Immunologic: Allergic/Immunologic: Reports no additional allergic/immunologic complaints and Reports as per HPI PMFSH Past Medical History Medical History (Updated 06/12/22 @ 10:33 by Joe Bravo MD) Acute exacerbation of CHF (congestive heart failure) CHF (congestive heart failure) Cirrhosis COPD (chronic obstructive pulmonary disease) Hyperlipidemia Morbid obesity Family History Family History Father No problems noted. Mother No problems noted. Surgical History Surgical History History of tonsillectomy Social History Social History Household Members: Spouse Housing: Other Housing Other:: mobile home Do you presently have visiting nurse or other home services: Yes Alcohol intake: never Patient Tobacco Use Status: Former Tobacco user Quit Date: years ago per pt Tobacco use type: Cigarette Smoked in Last 30 Days: No e-Cigarette/Vaping Use: Never Used Second Hand Smoke Exposure: No Use of substances other than those prescribed or required for medical reasons: No Currently Displaying Signs/Symptoms of Drug Intoxication Withdrawal: No Any prior treatment program specific to substance use: No Have you been hit, kicked, punched, or otherwise hurt by someone within the past year? If so, by whom?: No Do you feel safe in your current relationship?: Yes Is there a partner from a previous relationship who is making you feel unsafe now?: No Are you made to feel afraid or neglected: No Advance Directives: No Advance Directives Information Provided: Yes Do you have thoughts of harming others: None Do you have a plan to hurt others: No Plan Recently lost weight without trying: No Eating poorly because of decreased appetite: No Nutrition Risks: Difficulty chewing Poor oral hygiene: Yes (several missing natural teeth) service: No Current occupational status: retired and disabled Cognitive needs: Yes (walker) Hearing needs: Yes (hearing aide) Vision needs: Yes (glasses) Meds Allergies Allergy/AdvReac Type Severity Reaction Status Date / Time Penicillins [PENICILLINS] Allergy Unknown ASTHMA Verified 05/29/22 13:55 ATTACK Active Medications: Current Medications Acetaminophen (Acetaminophen 325 Mg Tablet) 650 mg PO Q6H PRN PRN Reason: Pain, Mild (Pain Scale 1-3) Albuterol Sulfate (Albuterol Sulfate 90 Mcg 8 Gm Inhaler) 2 puff INHALE Q4H PRN PRN Reason: bronchospasm Albuterol/Ipratropium (Albuterol/Iprat 2.5/0.5mg 3 Ml Ampul.Neb) 3 ml INHALE RQ4H PRN PRN Reason: Shortness of Breath/Wheezing Last Admin: 06/12/22 06:23 Dose: 3 ml Docusate Sodium (Docusate Sodium 100 Mg Capsule) 100 mg PO DAILY PRN PRN Reason: Constipation Enoxaparin Sodium (Enoxaparin Sodium 40 Mg/0.4 Ml Syringe) 40 mg SUBCUT Q24H [facility] Last Admin: 06/11/22 23:58 Dose: 40 mg Folic Acid (Folic Acid 1 Mg Tablet) 1 mg PO DAILY [facility] Last Admin: 06/12/22 08:57 Dose: 1 mg Furosemide (Furosemide 100 Mg/10 Ml Vial) 80 mg IVPUSH Q12H [facility]; Protocol Last Admin: 06/12/22 08:58 Dose: 80 mg Cefazolin Sodium/Dextrose (Ancef) 2 gm in 50 mls @ 100 mls/hr IV Q8H [facility] Last Infusion: 06/12/22 08:11 Dose: Infused Lactulose (Lactulose 20 Gm/30 Ml Solution) 20 gm PO BID [facility] Last Admin: 06/12/22 08:57 Dose: 20 gm Ondansetron HCl (Ondansetron Hcl 4 Mg/2 Ml Vial) 4 mg IVPUSH Q8H PRN PRN Reason: Nausea and Vomiting Pharmacy Consult (Consult Rx Perform Med Rec) 1 each MISCELLANE ONCE PRN PRN Reason: Consult order Potassium Chloride (Potassium Chloride Er 20 Meq Tab.Er.Prt) 20 meq PO BID [facility] Last Admin: 06/12/22 08:57 Dose: 20 meq Sodium Chloride (0.9 % Sodium Chloride Flush 3 Ml Syringe) 3 ml IVFLUSH QSHIFT [facility] Last Admin: 06/12/22 08:58 Dose: 3 ml Tiotropium [place] (Tiotropium [place] 18 Mcg Cap.W.Dev) 1 puff INHALE RDAILY [facility] Last Admin: 06/12/22 08:54 Dose: 1 puff Home Medications Medication Instructions Recorded Confirmed Last Taken Type lactulose 20 gram/30 mL oral 20 g PO BID 06/11/22 06/11/22 06/11/22 History solution Physical Exam Vital Signs: Vital Signs: Last Vital Signs Temp 97.1 F 06/12/22 07:54 Pulse 67 06/12/22 08:57 Resp 20 06/12/22 08:57 BP 113/53 L 06/12/22 07:54 Pulse Ox 98 06/12/22 07:54 O2 Del Method 06/12/22 07:54 O2 Flow Rate 2 06/12/22 07:54 Oxygen Flow Rate 3 06/11/22 17:45 BMI result Body Mass Index 48.0 Const: General: comfortable, no acute distress, ill appearing and poor hygiene Nutritional Appearance: obese Orientation/consciousness: patient oriented x3 HEENT: Other: Unremarkable Head: Yes normal to inspection Neck: Neck: Yes normal visual inspection Chest: Chest palpation & inspection: normal inspection of the chest Resp: Auscultation: clear to auscultation bilaterally Cardio: Palpation: normal PMI Heart sounds: S1 normal heart sound present, S2 normal heart sound present, no gallops, no murmurs and no rubs GI: Palpation (GI): Soft to palpation Back/Spine/Pelvis: Other: unremarkable Skin: General skin exam: no rashes or lesions noted Neuro: General: patient oriented x3 Extrem: Other: Bilateral, 3 to 4+ lower extremity edema with scratch smith. General: Yes normal to inspection Psych: Mental Status: mental status grossly normal Objective Labs and Meds Result diagrams: 06/12/22 05:22 06/12/22 05:22 Lab results: Laboratory Results - last 24 hr 06/11/22 06/11/22 06/11/22 18:27 18:27 18:27 WBC 6.1 RBC 3.21 L Hgb 11.2 L Hct 33.7 L MCV 105.0 H MCH 34.9 H MCHC 33.2 RDW 15.8 Plt Count 91 L MPV 10.1 Immature Gran % (Auto) 0.3 Neut % (Auto) 75.8 H Lymph % (Auto) 13.1 L [place] % (Auto) 8.9 Eos % (Auto) 1.6 Baso % (Auto) 0.3 Lymph # (Auto) 0.8 L [place] # (Auto) 0.5 Eos # (Auto) 0.1 Baso # (Auto) 0.0 Abs Immat Gran (auto) 0.02 Absolute Neuts (auto) 4.6 Absolute Nucleated RBC 0.000 Nucleated RBC % (auto) 0.0 Sodium 137 Potassium 4.7 D Chloride 105 Carbon Dioxide 25 Anion Gap 12 BUN 14 Creatinine 0.93 Estim Creat Clear Calc 104.3 Estimated GFR > 60 Random Glucose 109 Lactic Acid Lactic Acid F/U @ 2Hr Calcium 8.2 L Total Bilirubin 1.9 H Direct Bilirubin 1.0 H AST 104 H ALT 80 H Alkaline Phosphatase 251 H Troponin I High Sens 6.4 B-Natriuretic Peptide Total Protein 5.7 L Albumin 2.1 L Lipase 59 Urine Color Urine Appearance Urine pH Ur Specific [place] Urine Protein Urine Glucose (UA) Urine Ketones Urine Blood Urine Nitrite Ur Leukocyte Esterase Urine RBC Urine WBC Ur Squamous Epith Cells Urine Bacteria Hyaline Casts COVID-19 (PATTI) COVID-19 Clin Com 06/11/22 06/11/22 06/11/22 18:27 19:02 20:06 WBC RBC Hgb Hct MCV MCH MCHC RDW Plt Count MPV Immature Gran % (Auto) Neut % (Auto) Lymph % (Auto) [place] % (Auto) Eos % (Auto) Baso % (Auto) Lymph # (Auto) [place] # (Auto) Eos # (Auto) Baso # (Auto) Abs Immat Gran (auto) Absolute Neuts (auto) Absolute Nucleated RBC Nucleated RBC % (auto) Sodium Potassium Chloride Carbon Dioxide Anion Gap BUN Creatinine Estim Creat Clear Calc Estimated GFR Random Glucose Lactic Acid Lactic Acid F/U @ 2Hr Calcium Total Bilirubin Direct Bilirubin AST ALT Alkaline Phosphatase Troponin I High Sens B-Natriuretic Peptide 237 H Total Protein Albumin Lipase Urine Color Yellow Urine Appearance Clear Urine pH 6.5 Ur Specific [place] 1.015 Urine Protein Negative Urine Glucose (UA) Negative Urine Ketones Negative Urine Blood Negative Urine Nitrite Negative Ur Leukocyte Esterase Trace H Urine RBC 0-2 Urine WBC 0-5 Ur Squamous Epith Cells 0-2 Urine Bacteria None Seen Hyaline Casts 0-2 COVID-19 (PATTI) Negative COVID-19 Clin Com See Note 06/11/22 06/12/22 06/12/22 23:39 02:12 05:22 WBC 5.7 RBC 3.19 L Hgb 11.1 L Hct 33.4 L MCV 104.7 H MCH 34.8 H MCHC 33.2 RDW 15.7 Plt Count 101 L MPV 10.7 Immature Gran % (Auto) 0.5 H Neut % (Auto) 71.3 Lymph % (Auto) 14.2 L [place] % (Auto) 10.5 Eos % (Auto) 3.0 Baso % (Auto) 0.5 Lymph # (Auto) 0.8 L [place] # (Auto) 0.6 Eos # (Auto) 0.2 Baso # (Auto) 0.0 Abs Immat Gran (auto) 0.03 Absolute Neuts (auto) 4.1 Absolute Nucleated RBC 0.000 Nucleated RBC % (auto) 0.0 Sodium Potassium Chloride Carbon Dioxide Anion Gap BUN Creatinine Estim Creat Clear Calc Estimated GFR Random Glucose Lactic Acid 2.1 H* Lactic Acid F/U @ 2Hr 1.6 Calcium Total Bilirubin Direct Bilirubin AST ALT Alkaline Phosphatase Troponin I High Sens B-Natriuretic Peptide Total Protein Albumin Lipase Urine Color Urine Appearance Urine pH Ur Specific [place] Urine Protein Urine Glucose (UA) Urine Ketones Urine Blood Urine Nitrite Ur Leukocyte Esterase Urine RBC Urine WBC Ur Squamous Epith Cells Urine Bacteria Hyaline Casts COVID-19 (PATTI) COVID-19 [place] Com 06/12/22 05:22 WBC RBC Hgb Hct MCV MCH MCHC RDW Plt Count MPV Immature Gran % (Auto) Neut % (Auto) Lymph % (Auto) [place] % (Auto) Eos % (Auto) Baso % (Auto) Lymph # (Auto) [place] # (Auto) Eos # (Auto) Baso # (Auto) Abs Immat Gran (auto) Absolute Neuts (auto) Absolute Nucleated RBC Nucleated RBC % (auto) Sodium 137 Potassium 3.6 D Chloride 105 Carbon Dioxide 26 Anion Gap 10 L BUN 14 Creatinine 1.03 Estim Creat Clear Calc 96.3 Estimated GFR > 60 Random Glucose 116 H Lactic Acid Lactic Acid F/U @ 2Hr Calcium 8.0 L Total Bilirubin Direct Bilirubin AST ALT Alkaline Phosphatase Troponin I High Sens B-Natriuretic Peptide Total Protein Albumin Lipase Urine Color Urine Appearance Urine pH Ur Specific [place] Urine Protein Urine Glucose (UA) Urine Ketones Urine Blood Urine Nitrite Ur Leukocyte Esterase Urine RBC Urine WBC Ur Squamous Epith Cells Urine Bacteria Hyaline Casts COVID-19 (PATTI) COVID-19 Clin Com ECG Interpretation: EKG with sinus rhythm at 83/Min with premature atrial complexes; low-voltage complexes. Imaging Radiologist's impression: Impressions Chest X-Ray 06/11/22 18:40 IMPRESSION: Mild CHF. Blunting of costophrenic angle suggesting small subpulmonic pleural effusion. Assessment and Plan (1) Anasarca: Status: Acute (2) Acute exacerbation of CHF (congestive heart failure): Qualifiers: Heart failure type: unspecified Qualified Code(s): I50.9 - Heart failure, unspecified Status: Acute (3) COPD (chronic obstructive pulmonary disease): Status: Acute (4) Morbid obesity: Status: Acute (5) Cirrhosis: Status: Acute Plan Chest x-ray reported to have mild CHF. High sensitivity troponin within normal limits. Cardiac BNP is 237. Low albumin at 2.1. Lower extremity edema could be multifactorial from some combination of cor pulmonale/cirrhosis. Difficult to say which is more prominent. Can plan on Lasix drip with metolazone. Monitor renal function and electrolytes and correct accordingly. Echocardiogram can be performed to assess cardiac function. Discussed with Dr. Shea. Procedures Date of Service Date of Service: 06/12/22
[2022-06-12] MEDS: Furosemide 200 MG in 0.9 % Sodium Chloride 80 ML IVCONT (11:37)
[2022-06-12] MEDS: metOLazone 5 MG TABLET PO (13:27)
--- NOTE | 2022-06-12 14:27 | MHC.CM.PN ---
PT REPORTS HE LIVES AT HOME WITH HIS AND SON HE HAS HOME O2 AND A WALKER-IS WAITING FOR A BARIATRIC BED AND W/C HE REPORTS HE HAS A VNA THAT WAS SET UP BY THE STR THAT JUST DISCHARGED HIM HE DOES NOT KNOW THE NAME OF THE AGENCY PT REPORTS HE IS VAX WITH [facility] HE SAYS HE HAS A HCP NAMING HIS AND DAUGHTER, COPY REQUESTED PCP: PATRICIA WIGGINS IMM DELIVERED PT REPORTS HE IS FEELING BETTER AND WOULD LIKE TO DC HOME HE DOES HAVE STAIRS TO ENTER HOWEVER SO WILL NEED A PT EVAL WITH STIR TRIAL PRIOR TO DC IF CLEARED, CAN TRANSPORT
--- NOTE | 2022-06-12 16:00 | PC.NURSE ---
report received from morning RN, pt A+O, no c/o pain. BLE edema - pitting +3 noted, lasix gtt running per SEP. call bailey within reach, safety precautions taken.
[2022-06-12] MEDS: Enoxaparin Sodium 40 MG/0.4 ML SYRINGE SUBCUT (23:22)
[2022-06-13] VITALS (7 sets, daily range): BP systolic 105–130; BP diastolic 50–73; PULSE 81–120; RESP 16–18; TEMP 36.1–36.4; O2SAT 90–97; BMI 45.9
--- NOTE | 2022-06-13 | ECG_ITS ---
Test Reason : Tachycardia Blood Pressure : / mmHG Vent. Rate : 101 BPM Atrial Rate : 000 BPM P-R Int : 000 ms QRS Dur : 090 ms QT Int : 356 ms P-R-T Axes : 000 -33 030 degrees QTc Int : 461 ms Atrial fibrillation with rapid ventricular response Left axis deviation Intra-ventricular conduction delay Nonspecific ST abnormality Abnormal ECG When compared with ECG of 11-JUN-2022 18:07, Atrial fibrillation has replaced Sinus rhythm Referred By: Ti Staples Electronically Signed By:ROLAN HENRIQUEZ MD
--- NOTE | 2022-06-13 00:28 | PC.NURSE ---
Patient heart rate 113-125 on cardiac tech, no fever, Pt denies SOB or lightheadedness. Hospitalist is aware. Will continue to monitor.
--- NOTE | 2022-06-13 04:52 | PM.EVENT ---
Event Note Date of Service: 06/13/22 Event Note: pt HR in the 120s. Monitor reading A fib. will obtain ekg, give 2.5 lopressor. no hx of arrhythmias
--- NOTE | 2022-06-13 05:00 | PC.NURSE ---
Pt is AFIB on monitoring tech at a rate of 120-125, Dr. Staples aware, 2.5 mg Metoprolol given and EKG completed, pt denies SOB or chest pain. Will continue to monitor.
[2022-06-13] MEDS: Metoprolol Tartrate 5 MG/5 ML VIAL 2.5 MG IVPUSH (05:01)
[2022-06-13] MEDS: ceFAZolin Sodium/Dextrose,Iso 2 GM/50 ML PIGGYBACK IV ×3 (06:28→22:51)
--- NOTE | 2022-06-13 07:00 | CA_ITS ---
Transthoracic Echocardiogram Patient (Last, First, Middle): Elgin Salvador E Gender: Male Date of : 1950 Age: 71 Procedure Date: 06/13/2022 Procedure Type: Transthoracic Echocardiogram Location: S3E Height: 177.8 cm Weight: 145.15 kg BSA: 2.55 m2 Heart Rate: 109 bpm BP: 107 / 63 mmHg Development Technologist: SB Referring MD: Ti Staples MD Symptoms: CHF Study Quality: Technically Difficult/BSA/Restricted mobility ECG Rhythm: Sinus Conclusions: - The left ventricular systolic function is normal. The visually estimated ejection fraction is between 55-60%. - No obvious valvular pathology seen on this study.(poor visualization) Findings Procedure Information Contrast agent, definity, is being given per protocol without apparent complications. Left Ventricle Normal left ventricular cavity size. There is normal left ventricular wall thickness. The left ventricular systolic function is normal. The visually estimated ejection fraction is between 55-60%. Regional wall motion abnormalities can not be excluded due to suboptimal endocardial definition. Diastolic function is indeterminate on the basis of available data. Right Ventricle The right ventricle was not well visualized. Atria The left atrium was not well visualized. The right atrium is normal in size. Aortic Valve The aortic valve was not well visualized. There is no aortic valve stenosis. There is no aortic valve regurgitation. Mitral Valve The mitral valve was not well visualized. Pulmonic Valve The pulmonic valve was not well visualized. Tricuspid Valve The tricuspid valve was not well visualized. There is trace tricuspid valve regurgitation. Tricuspid regurgitation envelope is inadequate for calculation of right ventricular systolic pressure. Great Vessels The asc aorta is normal in size. Venous The inferior vena cava is normal in size and collapses greater than 50% with inspiration. Pericardium/Pleural The pericardium was not well visualized. Prior Study Comparison No significant change compared to prior study dated: 03/08/2018. Recommendations, Care & Conclusions No obvious valvular pathology seen on this study. Measurements 2D Linear Measurements IVSd: 0.89 0.6-0.9/0.6-1.0 cm LVIDd: 4.81 3.9-5.3/4.2-5.9 cm LVIDd Index: 1.89 2.4-3.2/2.2-3.1 cm/m2 LVIDs: 3.44 2.0-3.6 cm LVPWd: 0.96 0.7-1.1 cm LV Mass: 192.32 67-162/88-224 g LV Mass Index: 75.42 43-95/49-115 g/m2 LVOT Diam: 2.40 3.0+(-)1.3 cm 2D Systolic Function EF 4C: 64.60 >55% Mitral Valve MV Pk E: 0.78 MV PK A: 0.70 MV Decel Time: 140.00 E/A: 1.10 PHT: 41.00 MVA PHT: 5.37 Decel Tyrrell: 5.56 Aortic Valve AoV Pk En: 1.50 AoV Mn En: 0.99 AoV VTI: 0.25 AoV Pk Grad: 9.00 Aov Mn Grad: 5.00 ABEL Cont.VTI: 3.52 LVOT LVOT Pk En: 1.22 LVOT Mn En: 0.80 LVOT VTI: 0.19 LVOT Pk Grad: 6.00 LVOT Mn Grad: 3.00 LVOT Diam: 2.40 LVOT Area: 4.52 Diastolic Function MV Pk E: 0.78 MV Pk A: 0.70 E/A: 1.10 Tricuspid Valve RA Press: 3.00 Great Vessels Aorta Sinus of Valsalva: 3.80 2.0-3.5 cm Ao Asc: 3.50 2.1-3.4 cm Pulmonary Valve PV Pk En: 0.88 Peak PV Grad: 3.00 Updated in Other Vendor System with Status of Final Joe Bravo MD electronically signed on 06/13/2022 12:51:09 PM with status of Final
[2022-06-13 08:14] LABS: Anion Gap 13 (12-20); Blood Urea Nitrogen 15 mg/dL (9-16); Carbon Dioxide 30 mmol/L (22-29); Chloride 97 mmol/L (96-108); Creatinine Clr Calc Pharmacy 76.3; Estimated Glomerular Filt Rate 56; Glucose Random 106 mg/dL (60-115); Potassium 3.2 mmol/L (3.3-5.1); Sodium 137 mmol/L (135-145)
[2022-06-13 08:23] LABS: Calcium 8.8 mg/dL (8.4-10.2)
[2022-06-13] MEDS: 0.9 % Sodium Chloride Flush 3 ML SYRINGE IVFLUSH ×3 (09:43→23:56)
[2022-06-13] MEDS: Lactulose 20 GM/30 ML SOLUTION PO ×2 (09:44→21:22)
[2022-06-13] MEDS: Potassium Chloride ER 20 MEQ TAB.ER.PRT PO ×2 (09:44→21:34)
[2022-06-13] MEDS: Folic Acid 1 MG TABLET PO (09:44)
--- NOTE | 2022-06-13 09:46 | HO.PM.IMPN ---
Subjective Subjective Date of Service: 06/13/22 Interval History: Seen in f/u for acute heart failure interval history: feels better, negative 7 liters Review of Systems no sob swelling in limbs no chest pain Physical Exam Vital Signs: Vital Signs: Last Vital Signs Temp 97.5 F 06/13/22 08:00 Pulse 101 H 06/13/22 08:19 Resp 18 06/13/22 08:19 BP 105/58 L 06/13/22 08:00 Pulse Ox 90 L 06/13/22 08:00 O2 Del Method 06/13/22 08:00 O2 Flow Rate 2 06/13/22 00:00 Oxygen Flow Rate 3 06/11/22 17:45 BMI result Body Mass Index 45.9 Const: Other: General: AO X 3, no acute distress Resp: CTA bilateral CVS: S1,S2,RRR GI: +BS, NT, no distention Skin: No rash Neuro: motor grossly intact Psych: appropriate affect Objective Data Active Medications Acetaminophen (Acetaminophen 325 Mg Tablet) 650 mg PO Q6H PRN PRN Reason: Pain, Mild (Pain Scale 1-3) Albuterol Sulfate (Albuterol Sulfate 90 Mcg 8 Gm Inhaler) 2 puff INHALE Q4H PRN PRN Reason: bronchospasm Albuterol/Ipratropium (Albuterol/Iprat 2.5/0.5mg 3 Ml Ampul.Neb) 3 ml INHALE RQ4H PRN PRN Reason: Shortness of Breath/Wheezing Last Admin: 06/12/22 06:23 Dose: 3 ml Documented By: ANGEL Docusate Sodium (Docusate Sodium 100 Mg Capsule) 100 mg PO DAILY PRN PRN Reason: Constipation Enoxaparin Sodium (Enoxaparin Sodium 40 Mg/0.4 Ml Syringe) 40 mg SUBCUT Q24H [facility] Last Admin: 06/12/22 23:22 Dose: 40 mg Documented By: RAEANN Folic Acid (Folic Acid 1 Mg Tablet) 1 mg PO DAILY [facility] Last Admin: 06/13/22 09:44 Dose: 1 mg Documented By: PAXTON Furosemide (Furosemide 100 Mg/10 Ml Vial) 80 mg IVPUSH Q12H [facility]; Protocol Last Admin: 06/13/22 09:45 Dose: Not Given Documented By: PAXTON Non-Admin Reason: per md Cefazolin Sodium/Dextrose (Ancef) 2 gm in 50 mls @ 100 mls/hr IV Q8H [facility] Last Infusion: 06/13/22 07:15 Dose: 100 mls/hr Documented By: PAXTON Furosemide 200 mg/ Sodium (Chloride) 100 mls @ 2.5 mls/hr IVCONT .Q24H [facility] Last Admin: 06/12/22 11:37 Dose: 5 mg/hr, 2.5 mls/hr Documented By: PAXTON Lactulose (Lactulose 20 Gm/30 Ml Solution) 20 gm PO BID [facility] Last Admin: 06/13/22 09:44 Dose: 20 gm Documented By: PAXTON Ondansetron HCl (Ondansetron Hcl 4 Mg/2 Ml Vial) 4 mg IVPUSH Q8H PRN PRN Reason: Nausea and Vomiting Pharmacy Consult (Consult Rx Perform Med Rec) 1 each MISCELLANE ONCE PRN PRN Reason: Consult order Potassium Chloride (Potassium Chloride Er 20 Meq Tab.Er.Prt) 20 meq PO BID [facility] Last Admin: 06/13/22 09:44 Dose: 20 meq Documented By: PAXTON Sodium Chloride (0.9 % Sodium Chloride Flush 3 Ml Syringe) 3 ml IVFLUSH QSHIFT [facility] Last Admin: 06/13/22 09:43 Dose: 3 ml Documented By: PAXTON Tiotropium [place] (Tiotropium [place] 18 Mcg Cap.W.Dev) 1 puff INHALE RDAILY [facility] Last Admin: 06/13/22 08:17 Dose: 1 puff Documented By: JACLYN Labs CBC & Chem 7: 06/12/22 05:22 06/13/22 07:41 Labs: Laboratory Results - last 24 hr 06/13/22 07:41 Anion Gap 13 Estim Creat Clear Calc 76.3 Estimated GFR 56 Random Glucose 106 Calcium 8.8 D Microbiology Microbiology Results: Microbiology 06/11/22 23:39 Blood Culture - Preliminary Blood - Venous No growth after 24 hours. 06/11/22 23:39 Blood Culture - Preliminary Blood - Venous No growth after 24 hours. Assessment and Plan (1) Acute exacerbation of CHF (congestive heart failure): Status: Acute Plan 71-year-old male with past medical history of CHF ( unknown ejection fraction) , COPD presents to the hospital with lower extremity swelling # Acute unspecified CHF exacerbation-- but suspect systolic -continue IV lasix drip -track I/O, weight, limit salt intake -Get echo -follow bmp #Hypokalemia--replace with PO K #mild VALERIE--monitor while on diuretics # riight lower extremity cellulitis - has wounds, erythema, as well as edema and tenderness of the right lower extremity - IV Cefazolin D2, change to PO Doxy by tomorrowf - follow cultures # morbid obesity--weight loss advised # HTN--nl, restart home meds need for inpatient: exacerbation of heart failure needing IV Lasix Quality Stroke Does the patient have a stroke diagnosis?: No VTE Prior VTE?: No VTE Risk Level:: Medical - moderate - high VTE Device Contraindication: Treatment Not Indicated VTE Drug Contraindication: N/A - Med Ordered
[2022-06-13] MEDS: Furosemide 200 MG in 0.9 % Sodium Chloride 80 ML IVCONT (14:15)
--- NOTE | 2022-06-13 15:43 | MHC.CM.PN ---
[facility]. WILL DETERMINE ONCE PATIENT TRIALS STAIRS.
[2022-06-13] MEDS: Enoxaparin Sodium 40 MG/0.4 ML SYRINGE SUBCUT (21:24)
[2022-06-14] VITALS (8 sets, daily range): BP systolic 103–136; BP diastolic 49–60; PULSE 82–132; RESP 16–18; TEMP 35.9–37.1; O2SAT 88–97; BMI 45.3
[2022-06-14] MEDS: ceFAZolin Sodium/Dextrose,Iso 2 GM/50 ML PIGGYBACK IV ×3 (06:01→22:32)
[2022-06-14] MEDS: ondansetron HCL 4 MG/2 ML VIAL IVPUSH (06:44)
[2022-06-14] MEDS: Lactulose 20 GM/30 ML SOLUTION PO ×2 (07:49→19:56)
[2022-06-14] MEDS: Folic Acid 1 MG TABLET PO (07:50)
[2022-06-14] MEDS: 0.9 % Sodium Chloride Flush 3 ML SYRINGE IVFLUSH ×3 (07:50→19:56)
[2022-06-14] MEDS: Potassium Chloride ER 20 MEQ TAB.ER.PRT PO ×2 (07:57→19:56)
--- NOTE | 2022-06-14 10:34 | PC.NURSE ---
IV lasix drip hung 06/13/22 at 1415, next bag scheduled for 1100 06/14/22. First bag still running. Called pharmacy and spoke to microbiological laboratory technician Bradford who confirmed with Pharmacist that new lasix IV bag does not need to be hung now.
--- NOTE | 2022-06-14 10:37 | P.PNIM_ITS ---
Subjective Subjective Date of Service: 06/14/22 Interval History: Seen in f/u for acute heart failure interval history: breathing is better, continues to diuresse well Review of Systems no sob swelling in limbs no chest pain Physical Exam Vital Signs: Vital Signs: Last Vital Signs Temp 98.6 F 06/14/22 08:00 Pulse 132 H 06/14/22 08:14 Resp 16 06/14/22 08:14 BP 103/55 L 06/14/22 08:00 Pulse Ox 97 06/14/22 08:00 O2 Del Method 06/14/22 08:00 O2 Flow Rate 3.0 06/14/22 08:00 Oxygen Flow Rate 3 06/11/22 17:45 BMI result Body Mass Index 45.3 Const: Other: General: AO X 3, no acute distress Resp: CTA bilateral CVS: S1,S2,RRR GI: +BS, NT, no distention Skin: No rash Neuro: motor grossly intact Psych: appropriate affect Objective Data Active Medications Acetaminophen (Acetaminophen 325 Mg Tablet) 650 mg PO Q6H PRN PRN Reason: Pain, Mild (Pain Scale 1-3) Albuterol Sulfate (Albuterol Sulfate 90 Mcg 8 Gm Inhaler) 2 puff INHALE Q4H PRN PRN Reason: bronchospasm Albuterol/Ipratropium (Albuterol/Iprat 2.5/0.5mg 3 Ml Ampul.Neb) 3 ml INHALE RQ4H PRN PRN Reason: Shortness of Breath/Wheezing Last Admin: 06/12/22 06:23 Dose: 3 ml Documented By: ANGEL Docusate Sodium (Docusate Sodium 100 Mg Capsule) 100 mg PO DAILY PRN PRN Reason: Constipation Enoxaparin Sodium (Enoxaparin Sodium 40 Mg/0.4 Ml Syringe) 40 mg SUBCUT Q24H [facility] Last Admin: 06/13/22 21:24 Dose: 40 mg Documented By: NYDIA Folic Acid (Folic Acid 1 Mg Tablet) 1 mg PO DAILY [facility] Last Admin: 06/14/22 07:50 Dose: 1 mg Documented By: HÉCTOR Cefazolin Sodium/Dextrose (Ancef) 2 gm in 50 mls @ 100 mls/hr IV Q8H [facility] Last Infusion: 06/14/22 06:43 Dose: 0 mls/hr Documented By: CLAUS Furosemide 200 mg/ Sodium (Chloride) 100 mls @ 2.5 mls/hr IVCONT .Q24H [facility] Last Admin: 06/14/22 10:34 Dose: Not Given Documented By: HÉCTOR Non-Admin Reason: IV Running Lactulose (Lactulose 20 Gm/30 Ml Solution) 20 gm PO BID [facility] Last Admin: 06/14/22 07:49 Dose: 20 gm Documented By: HÉCTOR Ondansetron HCl (Ondansetron Hcl 4 Mg/2 Ml Vial) 4 mg IVPUSH Q8H PRN PRN Reason: Nausea and Vomiting Last Admin: 06/14/22 06:44 Dose: 4 mg Documented By: CLAUS Pharmacy Consult (Consult Rx Perform Med Rec) 1 each MISCELLANE ONCE PRN PRN Reason: Consult order Potassium Chloride (Potassium Chloride Er 20 Meq Tab.Er.Prt) 20 meq PO BID [facility] Last Admin: 06/14/22 07:57 Dose: 20 meq Documented By: HÉCTOR Sodium Chloride (0.9 % Sodium Chloride Flush 3 Ml Syringe) 3 ml IVFLUSH QSHIFT [facility] Last Admin: 06/14/22 07:50 Dose: 3 ml Documented By: HÉCTOR Tiotropium [place] (Tiotropium [place] 18 Mcg Cap.W.Dev) 1 puff INHALE RDAILY [facility] Last Admin: 06/14/22 08:14 Dose: 1 puff Documented By: JACLYN Labs CBC & Chem 7: 06/12/22 05:22 06/13/22 07:41 Microbiology Microbiology Results: Microbiology 06/11/22 23:39 Blood Culture - Preliminary Blood - Venous No growth after 48 hours. 06/11/22 23:39 Blood Culture - Preliminary Blood - Venous No growth after 48 hours. Assessment and Plan (1) Acute exacerbation of CHF (congestive heart failure): Status: Acute Plan 71-year-old male with past medical history of CHF ( unknown ejection fraction) , COPD presents to the hospital with lower extremity swelling # Acute unspecified CHF exacerbation-- but suspect systolic -continue IV lasix drip -track I/O, weight, limit salt intake -Get echo -follow bmp -check BMP -negative 9.6L #Hypokalemia--replace with PO K #mild VALERIE--monitor while on diuretics # riight lower extremity cellulitis - has wounds, erythema, as well as edema and tenderness of the right lower extremity - IV Cefazolin D2, change to PO Doxy by tomorrowf - follow cultures # morbid obesity--weight loss advised # HTN--nl, restart home meds need for inpatient: exacerbation of heart failure needing IV Lasix Quality Stroke Does the patient have a stroke diagnosis?: No VTE Prior VTE?: No VTE Risk Level:: Medical - moderate - high VTE Device Contraindication: Treatment Not Indicated VTE Drug Contraindication: N/A - Med Ordered
--- NOTE | 2022-06-14 11:33 | PM.PNCARD ---
Subjective Subjective Date of Service: 06/14/22 Interval history: He states he is feeling better. No new complaints from cardiac. Review of Systems Review of Systems Yes all other systems are reviewed and are negative Constitutional: Reports as per HPI Eyes: Reports as per HPI Reports as per HPI Cardiovascular: Reports as per HPI, Denies acrocyanosis, Denies cool extremities, Denies chest pain, Reports pedal edema, Denies leg edema, Denies lightheadedness, Denies palpitations and Reports dyspnea Respiratory: Reports as per HPI, Reports no additional respiratory complaints and Reports dyspnea Gastrointestinal: Reports as per HPI and Reports no additional gastrointestinal complaints Genitourinary: Reports no additional male genitourinary complaints and Reports as per HPI Musculoskeletal: Reports no additional musculoskeletal complaints and Reports as per HPI Skin/Breast: Reports system reviewed and no additional complaints, except as docu Reports system reviewed and no additional complaints, except as documented and Reports as per HPI Psychiatric: Reports no additional psychiatric complaints and Reports as per HPI Endocrine: Reports no additional endocrine complaints, Reports as per HPI and Denies palpitations Hematologic/Lymphatic: Reports no additional hematologic/lymphatic complaints and Reports as per HPI Allergic/Immunologic: Reports no additional allergic/immunologic complaints and Reports as per HPI Physical Exam Vital Signs: Last Vital Signs Temp 98.7 F 06/14/22 11:24 Pulse 87 06/14/22 11:24 Resp 17 06/14/22 11:24 BP 136/54 L 06/14/22 11:24 Pulse Ox 97 06/14/22 08:00 O2 Del Method 06/14/22 11:24 O2 Flow Rate 3.0 06/14/22 08:00 Oxygen Flow Rate 3 06/11/22 17:45 BMI result Body Mass Index 45.3 Const General: comfortable, no acute distress, ill appearing and poor hygiene Nutritional Appearance: obese Orientation/consciousness: patient oriented x3 HEENT Other: Unremarkable Head: Yes normal to inspection Neck Neck: Yes normal visual inspection Chest Chest palpation & inspection: normal inspection of the chest Resp Auscultation: clear to auscultation bilaterally Cardio Palpation: normal PMI Heart sounds: S1 normal heart sound present, S2 normal heart sound present, no gallops, no murmurs and no rubs GI Palpation (GI): Soft to palpation Back/Spine/Pelvis Other: unremarkable Skin General skin exam: no rashes or lesions noted Neuro General: patient oriented x3 Extrem Other: Bilateral, 2-3+ lower extremity edema with scratch smith. General: Yes normal to inspection Psych Mental Status: mental status grossly normal Objective Labs and Meds Result diagrams: 06/12/22 05:22 06/13/22 07:41 Progress Note: A&P Assessment and plan (1) Anasarca: Status: Acute (2) COPD (chronic obstructive pulmonary disease): Status: Acute (3) Morbid obesity: Status: Acute (4) Cirrhosis: Status: Acute Plan Chest x-ray reported to have mild CHF. High sensitivity troponin within normal limits. Cardiac BNP is 237. Low albumin at 2.1. Echocardiogram with LVEF of 55-60%. Right ventricle was not well visualized. No obvious valvular issues but again not much of visualization due to body habitus. IVC seems normal size with normal respiratory variability. Based on the above, less likely cardiac etiology for his edema. More to be from cirrhosis as well as hypoalbuminemia, morbid obesity. With regard diuretic management, when he is a bit more euvolemic, can convert to oral diuretics. Discussed with Dr. Shea. Time Spent With Patient Time: Total time spent is greater than 50% in coordination of care (as documented) at patient's floor/unit and/or counseling patient: 30min. Progress Note: Quality Stroke Does the patient have a stroke diagnosis?: No Procedures Date of Service Date of Service: 06/14/22
[2022-06-14 11:42] LABS: Anion Gap 13 (12-20); Blood Urea Nitrogen 17 mg/dL (9-16); Calcium 8.5 mg/dL (8.4-10.2); Carbon Dioxide 32 mmol/L (22-29); Chloride 93 mmol/L (96-108); Creatinine Clr Calc Pharmacy 78.3; Estimated Glomerular Filt Rate 58; Glucose Random 134 mg/dL (60-115); Potassium 2.9 mmol/L (3.3-5.1); Sodium 135 mmol/L (135-145)
[2022-06-14] MEDS: Furosemide 200 MG in 0.9 % Sodium Chloride 80 ML IVCONT (15:36)
[2022-06-14] MEDS: Enoxaparin Sodium 40 MG/0.4 ML SYRINGE SUBCUT (21:17)
[2022-06-15 03:59] VITALS: BP 136/60; PULSE 80; RESP 16; TEMP 36.4; O2SAT 93
[2022-06-15 06:00] VITALS: BMI 45.5
[2022-06-15] MEDS: ceFAZolin Sodium/Dextrose,Iso 2 GM/50 ML PIGGYBACK IV (06:02)
[2022-06-15] MEDS: 0.9 % Sodium Chloride Flush 3 ML SYRINGE IVFLUSH ×2 (07:43→16:17)
[2022-06-15] MEDS: Lactulose 20 GM/30 ML SOLUTION PO ×2 (07:43→21:21)
[2022-06-15] MEDS: Potassium Chloride ER 20 MEQ TAB.ER.PRT PO ×2 (07:43→21:21)
[2022-06-15] MEDS: Folic Acid 1 MG TABLET PO (07:43)
[2022-06-15 08:00] VITALS: BP 92/68; PULSE 71; RESP 17; TEMP 36.4; O2SAT 93
[2022-06-15 08:29] LABS: Anion Gap 13 (12-20); Blood Urea Nitrogen 20 mg/dL (9-16); Calcium 8.4 mg/dL (8.4-10.2); Carbon Dioxide 34 mmol/L (22-29); Chloride 91 mmol/L (96-108); Creatinine Clr Calc Pharmacy 76.6; Estimated Glomerular Filt Rate 57; Glucose Random 107 mg/dL (60-115); Potassium 2.5 mmol/L (3.3-5.1); Sodium 135 mmol/L (135-145)
[2022-06-15 08:37] VITALS: PULSE 71; RESP 20; O2SAT 93
--- NOTE | 2022-06-15 08:48 | HO.PM.IMPN ---
Subjective Subjective Date of Service: 06/15/22 Physical Exam Vital Signs: Vital Signs: Last Vital Signs Temp 97.6 F 06/15/22 08:00 Pulse 71 06/15/22 08:37 Resp 20 06/15/22 08:37 BP 92/68 06/15/22 08:00 Pulse Ox 93 06/15/22 08:00 O2 Del Method 06/15/22 08:00 O2 Flow Rate 2.0 06/15/22 08:00 Oxygen Flow Rate 3 06/11/22 17:45 BMI result Body Mass Index 45.5 Objective Data Active Medications Acetaminophen (Acetaminophen 325 Mg Tablet) 650 mg PO Q6H PRN PRN Reason: Pain, Mild (Pain Scale 1-3) Albuterol Sulfate (Albuterol Sulfate 90 Mcg 8 Gm Inhaler) 2 puff INHALE Q4H PRN PRN Reason: bronchospasm Albuterol/Ipratropium (Albuterol/Iprat 2.5/0.5mg 3 Ml Ampul.Neb) 3 ml INHALE RQ4H PRN PRN Reason: Shortness of Breath/Wheezing Last Admin: 06/12/22 06:23 Dose: 3 ml Documented By: ANGEL Docusate Sodium (Docusate Sodium 100 Mg Capsule) 100 mg PO DAILY PRN PRN Reason: Constipation Enoxaparin Sodium (Enoxaparin Sodium 40 Mg/0.4 Ml Syringe) 40 mg SUBCUT Q24H [facility] Last Admin: 06/14/22 21:17 Dose: 40 mg Documented By: NYDIA Folic Acid (Folic Acid 1 Mg Tablet) 1 mg PO DAILY [facility] Last Admin: 06/15/22 07:43 Dose: 1 mg Documented By: HÉCTOR Cefazolin Sodium/Dextrose (Ancef) 2 gm in 50 mls @ 100 mls/hr IV Q8H [facility] Last Infusion: 06/15/22 06:34 Dose: 0 mls/hr Documented By: NYDIA Furosemide 200 mg/ Sodium (Chloride) 100 mls @ 2.5 mls/hr IVCONT .Q24H [facility] Last Admin: 06/14/22 15:36 Dose: 5 mg/hr, 2.5 mls/hr Documented By: HÉCTOR Potassium Chloride (Potassium Chloride/H20) 10 meq in 100 mls @ 100 mls/hr IV Q1H [facility] Stop: 06/15/22 10:44 Lactulose (Lactulose 20 Gm/30 Ml Solution) 20 gm PO BID [facility] Last Admin: 06/15/22 07:43 Dose: 20 gm Documented By: HÉCTOR Ondansetron HCl (Ondansetron Hcl 4 Mg/2 Ml Vial) 4 mg IVPUSH Q8H PRN PRN Reason: Nausea and Vomiting Last Admin: 06/14/22 06:44 Dose: 4 mg Documented By: CLAUS Pharmacy Consult (Consult Rx Perform Med Rec) 1 each MISCELLANE ONCE PRN PRN Reason: Consult order Potassium Chloride (Potassium Chloride Er 20 Meq Tab.Er.Prt) 20 meq PO BID [facility] Last Admin: 06/15/22 07:43 Dose: 20 meq Documented By: HÉCTOR Sodium Chloride (0.9 % Sodium Chloride Flush 3 Ml Syringe) 3 ml IVFLUSH QSHIFT [facility] Last Admin: 06/15/22 07:43 Dose: 3 ml Documented By: HÉCTOR Tiotropium [place] (Tiotropium [place] 18 Mcg Cap.W.Dev) 1 puff INHALE RDAILY [facility] Last Admin: 06/15/22 08:37 Dose: 1 puff Documented By: JACLYN Labs CBC & Chem 7: 06/12/22 05:22 06/15/22 07:50 Labs: Laboratory Results - last 24 hr 06/14/22 06/15/22 10:49 07:50 Anion Gap 13 13 Estim Creat Clear Calc 78.3 76.6 Estimated GFR 58 57 Random Glucose 134 H 107 Calcium 8.5 8.4 Assessment and Plan (1) Acute exacerbation of CHF (congestive heart failure): Status: Acute Plan 71-year-old male with past medical history of CHF ( unknown ejection fraction) , COPD presents to the hospital with lower extremity swelling # Acute unspecified CHF exacerbation-- but suspect systolic -continue IV lasix drip -track I/O, weight, limit salt intake -Get echo -follow bmp -check BMP -negative 10.6 L #Hypokalemia--replace with IV and PO K and check Mag #mild VALERIE--monitor while on diuretics, stabe # iight lower extremity cellulitis - has wounds, erythema, as well as edema and tenderness of the right lower extremity - IV Cefazolin D3, change to PO Doxy - follow cultures # morbid obesity--weight loss advised # HTN--nl, restart home meds need for inpatient: exacerbation of heart failure needing IV Lasix and monitoring of electrolytes DVT P: LMWH Quality Stroke Does the patient have a stroke diagnosis?: No VTE Prior VTE?: No VTE Risk Level:: Medical - moderate - high VTE Device Contraindication: Treatment Not Indicated VTE Drug Contraindication: N/A - Med Ordered
[2022-06-15] MEDS: Potassium Chloride Packet 20 MEQ PACKET PO (08:54)
[2022-06-15] MEDS: Potassium Chloride/H20 10 MEQ/100 ML PIGGYBACK 100 MEQ IV ×2 (08:54→09:55)
[2022-06-15 08:57] LABS: Magnesium 1.8 mg/dL (1.6-2.6)
[2022-06-15] MEDS: Doxycycline Monohydrate 100 MG CAPSULE PO ×2 (09:55→21:21)
[2022-06-15 11:22] VITALS: BP 119/57; PULSE 84; RESP 17; TEMP 36.3; O2SAT 92
[2022-06-15] MEDS: Furosemide 200 MG in 0.9 % Sodium Chloride 80 ML IVCONT (11:29)
[2022-06-15 15:28] VITALS: BP 127/56; PULSE 89; RESP 17; TEMP 36.4; O2SAT 95
[2022-06-15 19:45] VITALS: BP 116/58; PULSE 83; RESP 16; TEMP 36.6; O2SAT 95
[2022-06-15] MEDS: Enoxaparin Sodium 40 MG/0.4 ML SYRINGE SUBCUT (21:30)
[2022-06-16] VITALS (8 sets, daily range): BP systolic 95–123; BP diastolic 52–65; PULSE 78–90; RESP 16–18; TEMP 35.6–36.4; O2SAT 91–97; BMI 45.1
[2022-06-16] MEDS: 0.9 % Sodium Chloride Flush 3 ML SYRINGE IVFLUSH ×4 (00:15→20:42)
[2022-06-16] MEDS: Potassium Chloride ER 20 MEQ TAB.ER.PRT PO ×2 (07:51→20:41)
[2022-06-16] MEDS: Lactulose 20 GM/30 ML SOLUTION PO ×2 (07:52→20:42)
[2022-06-16] MEDS: Folic Acid 1 MG TABLET PO (07:52)
[2022-06-16] MEDS: Doxycycline Monohydrate 100 MG CAPSULE PO ×2 (07:52→20:41)
--- NOTE | 2022-06-16 09:04 | P.PNIM_ITS ---
Subjective Subjective Date of Service: 06/16/22 Interval History: Seen in f/u for acute heart failure interval history: breathing is easier, continues to diuresse well, feels weak Review of Systems no sob swelling in limbs no chest pain Physical Exam Vital Signs: Vital Signs: Last Vital Signs Temp 97 F 06/16/22 07:09 Pulse 87 06/16/22 08:11 Resp 18 06/16/22 08:11 BP 95/52 L 06/16/22 07:09 Pulse Ox 94 06/16/22 07:09 O2 Del Method 06/16/22 07:09 O2 Flow Rate 2 06/16/22 07:09 Oxygen Flow Rate 3 06/11/22 17:45 BMI result Body Mass Index 45.1 Const: Other: General: AO X 3, no acute distress Resp: CTA bilateral CVS: S1,S2,RRR, 2+ leg edema GI: +BS, NT, no distention Skin: No rash Neuro: motor grossly intact Psych: appropriate affect Objective Data Active Medications Acetaminophen (Acetaminophen 325 Mg Tablet) 650 mg PO Q6H PRN PRN Reason: Pain, Mild (Pain Scale 1-3) Albuterol Sulfate (Albuterol Sulfate 90 Mcg 8 Gm Inhaler) 2 puff INHALE Q4H PRN PRN Reason: bronchospasm Albuterol/Ipratropium (Albuterol/Iprat 2.5/0.5mg 3 Ml Ampul.Neb) 3 ml INHALE RQ4H PRN PRN Reason: Shortness of Breath/Wheezing Last Admin: 06/12/22 06:23 Dose: 3 ml Documented By: ANGEL Docusate Sodium (Docusate Sodium 100 Mg Capsule) 100 mg PO DAILY PRN PRN Reason: Constipation Doxycycline Monohydrate (Doxycycline Monohydrate 100 Mg Capsule) 100 mg PO Q12H [facility] Last Admin: 06/16/22 07:52 Dose: 100 mg Documented By: PAXTON Enoxaparin Sodium (Enoxaparin Sodium 40 Mg/0.4 Ml Syringe) 40 mg SUBCUT Q24H [facility] Last Admin: 06/15/22 21:30 Dose: 40 mg Documented By: ZACH Folic Acid (Folic Acid 1 Mg Tablet) 1 mg PO DAILY [facility] Last Admin: 06/16/22 07:52 Dose: 1 mg Documented By: PAXTON Furosemide 200 mg/ Sodium (Chloride) 100 mls @ 2.5 mls/hr IVCONT .Q24H [facility] Last Admin: 06/15/22 11:29 Dose: 5 mg/hr, 2.5 mls/hr Documented By: HÉCTOR Lactulose (Lactulose 20 Gm/30 Ml Solution) 20 gm PO BID [facility] Last Admin: 06/16/22 07:52 Dose: 20 gm Documented By: PAXTON Ondansetron HCl (Ondansetron Hcl 4 Mg/2 Ml Vial) 4 mg IVPUSH Q8H PRN PRN Reason: Nausea and Vomiting Last Admin: 06/14/22 06:44 Dose: 4 mg Documented By: CLAUS Pharmacy Consult (Consult Rx Perform Med Rec) 1 each MISCELLANE ONCE PRN PRN Reason: Consult order Potassium Chloride (Potassium Chloride Er 20 Meq Tab.Er.Prt) 20 meq PO BID [facility] Last Admin: 06/16/22 07:51 Dose: 20 meq Documented By: PAXTON Sodium Chloride (0.9 % Sodium Chloride Flush 3 Ml Syringe) 3 ml IVFLUSH QSHIFT [facility] Last Admin: 06/16/22 07:52 Dose: 3 ml Documented By: PAXTON Tiotropium [place] (Tiotropium [place] 18 Mcg Cap.W.Dev) 1 puff INHALE RDAILY [facility] Last Admin: 06/16/22 08:11 Dose: 1 puff Documented By: FÁTIMA Labs CBC & Chem 7: 06/12/22 05:22 06/15/22 07:50 Assessment and Plan (1) Acute exacerbation of CHF (congestive heart failure): Status: Acute Plan 71-year-old male with past medical history of CHF ( unknown ejection fraction) , COPD presents to the hospital with lower extremity swelling # Acute unspecified CHF exacerbation-- but suspect systolic -continue IV lasix drip to IV Push and later PO -track I/O, weight, limit salt intake -Get echo -follow bmp -check BMP -negative 11.5 L #Hypokalemia--replaced with IV and PO K, Mag 1.8 #mild VALERIE--monitor while on diuretics, stabe # iight lower extremity cellulitis - has wounds, erythema, as well as edema and tenderness of the right lower extremity - IV Cefazolin x D3, changed to PO Doxy D2/5 - follow cultures # morbid obesity--weight loss advised # HTN--nl, restart home meds need for inpatient: exacerbation of heart failure needing IV Lasix and monitori ng of electrolytes DVT P: LMWH Quality Stroke Does the patient have a stroke diagnosis?: No VTE Prior VTE?: No VTE Risk Level:: Medical - moderate - high VTE Device Contraindication: Treatment Not Indicated VTE Drug Contraindication: N/A - Med Ordered
[2022-06-16 09:31] LABS: Anion Gap 12 (12-20); Blood Urea Nitrogen 23 mg/dL (9-16); Calcium 8.3 mg/dL (8.4-10.2); Carbon Dioxide 31 mmol/L (22-29); Chloride 93 mmol/L (96-108); Creatinine Clr Calc Pharmacy 88.1; Estimated Glomerular Filt Rate > 60; Glucose Random 92 mg/dL (60-115); Potassium 2.8 mmol/L (3.3-5.1); Sodium 133 mmol/L (135-145)
[2022-06-16] MEDS: Potassium Chloride Packet 20 MEQ PACKET 40 MEQ PO ×2 (11:54→20:42)
[2022-06-16] MEDS: Potassium Chloride/H20 10 MEQ/100 ML PIGGYBACK 100 MEQ IV ×2 (12:10→12:59)
[2022-06-16] MEDS: Furosemide 200 MG in 0.9 % Sodium Chloride 80 ML IVCONT (12:40)
--- NOTE | 2022-06-16 13:31 | MHC.CM.PN ---
EMR REVIEWED, CM MET W/PT HOSPITALIST REPORTED HE WILL LIKELY NEED STR, CM MET W/PT TO DISCUSS DISPO AND PT REPORTS HIS PREFERRED [facility] IS [facility] HOWEVER PT DOES REPORT HE WAS ABLE TO WALK ALL AROUND THE ROOM TODAY AFTER HE HAD SEEN HOSPITALIST AND BELIEVES HE WILL BE ABLE TO D/C HOME W/SERVICES. CM WILL CONT TO FOLLOW.
[2022-06-16] MEDS: Milk of Magnesia 30 ML ORAL.SUSP PO (16:26)
[2022-06-16] MEDS: polyethylene glycoL 3350 17 GM POWD.PACK PO (16:26)
[2022-06-16 18:00] LABS: Anion Gap 12 (12-20); Carbon Dioxide 32 mmol/L (22-29); Chloride 91 mmol/L (96-108); Potassium 3.3 mmol/L (3.3-5.1); Sodium 132 mmol/L (135-145)
--- NOTE | 2022-06-16 18:54 | PC.NURSE ---
Patient reported no BM for few days stated he feels the urge but is unable to move bowels, msg was sent to Dr. Shea and order for Milk of Magnesia and Miralax was received, patient received both medications and was educated on how the administered medication should affect him.
[2022-06-16] MEDS: Enoxaparin Sodium 40 MG/0.4 ML SYRINGE SUBCUT (20:42)
[2022-06-17 06:00] VITALS: BMI 46.2
[2022-06-17 06:42] LABS: Anion Gap 11 (12-20); Blood Urea Nitrogen 26 mg/dL (9-16); Calcium 8.8 mg/dL (8.4-10.2); Carbon Dioxide 31 mmol/L (22-29); Chloride 94 mmol/L (96-108); Creatinine Clr Calc Pharmacy 83.2; Estimated Glomerular Filt Rate > 60; Glucose Random 108 mg/dL (60-115); Potassium 3.4 mmol/L (3.3-5.1); Sodium 133 mmol/L (135-145)
[2022-06-17 07:07] VITALS: BP 110/52; PULSE 81; RESP 18; TEMP 36.4; O2SAT 95
[2022-06-17 07:59] VITALS: PULSE 81; RESP 18; O2SAT 95
--- NOTE | 2022-06-17 08:14 | P.PNIM_ITS ---
Subjective Subjective Date of Service: 06/17/22 Interval History: Seen in f/u for acute heart failure interval history: no trouble breathing swelling is less in the legs, feels constipated Review of Systems no sob swelling in limbs no chest pain Physical Exam Vital Signs: Vital Signs: Last Vital Signs Temp 97.6 F 06/17/22 07:07 Pulse 81 06/17/22 07:59 Resp 18 06/17/22 07:59 BP 110/52 L 06/17/22 07:07 Pulse Ox 95 06/17/22 07:07 O2 Del Method 06/17/22 07:07 O2 Flow Rate 2 06/17/22 07:07 Oxygen Flow Rate 3 06/11/22 17:45 BMI result Body Mass Index 46.2 Const: Other: General: AO X 3, no acute distress Resp: CTA bilateral CVS: S1,S2,RRR, 2+ leg edema GI: +BS, NT, no distention Skin: No rash Neuro: motor grossly intact Psych: appropriate affect Objective Data Active Medications Acetaminophen (Acetaminophen 325 Mg Tablet) 650 mg PO Q6H PRN PRN Reason: Pain, Mild (Pain Scale 1-3) Albuterol Sulfate (Albuterol Sulfate 90 Mcg 8 Gm Inhaler) 2 puff INHALE Q4H PRN PRN Reason: bronchospasm Albuterol/Ipratropium (Albuterol/Iprat 2.5/0.5mg 3 Ml Ampul.Neb) 3 ml INHALE RQ4H PRN PRN Reason: Shortness of Breath/Wheezing Last Admin: 06/12/22 06:23 Dose: 3 ml Documented By: ANGEL Docusate Sodium (Docusate Sodium 100 Mg Capsule) 100 mg PO DAILY PRN PRN Reason: Constipation Doxycycline Monohydrate (Doxycycline Monohydrate 100 Mg Capsule) 100 mg PO Q12H [facility] Last Admin: 06/16/22 20:41 Dose: 100 mg Documented By: TEQUILA Enoxaparin Sodium (Enoxaparin Sodium 40 Mg/0.4 Ml Syringe) 40 mg SUBCUT Q24H [facility] Last Admin: 06/16/22 20:42 Dose: 40 mg Documented By: TEQUILA Folic Acid (Folic Acid 1 Mg Tablet) 1 mg PO DAILY [facility] Last Admin: 06/16/22 07:52 Dose: 1 mg Documented By: PAXTON Furosemide (Furosemide 100 Mg/10 Ml Vial) 60 mg IVPUSH BID@0900,1800 [facility]; Protocol Lactulose (Lactulose 20 Gm/30 Ml Solution) 20 gm PO BID [facility] Last Admin: 06/16/22 20:42 Dose: 20 gm Documented By: TEQUILA Ondansetron HCl (Ondansetron Hcl 4 Mg/2 Ml Vial) 4 mg IVPUSH Q8H PRN PRN Reason: Nausea and Vomiting Last Admin: 06/14/22 06:44 Dose: 4 mg Documented By: CLAUS Pharmacy Consult (Consult Rx Perform Med Rec) 1 each MISCELLANE ONCE PRN PRN Reason: Consult order Potassium Chloride (Potassium Chloride Er 20 Meq Tab.Er.Prt) 20 meq PO BID [facility] Last Admin: 06/16/22 20:41 Dose: 20 meq Documented By: TEQUILA Potassium Chloride (Potassium Chloride Packet 20 Meq Packet) 40 meq PO BID [facility] Last Admin: 06/16/22 20:42 Dose: 40 meq Documented By: TEQUILA Sodium Chloride (0.9 % Sodium Chloride Flush 3 Ml Syringe) 3 ml IVFLUSH QSHIFT [facility] Last Admin: 06/16/22 20:42 Dose: 3 ml Documented By: TEQUILA Tiotropium [place] (Tiotropium [place] 18 Mcg Cap.W.Dev) 1 puff INHALE RDAILY [facility] Last Admin: 06/17/22 07:57 Dose: 1 puff Documented By: FÁTIMA Labs CBC & Chem 7: 06/12/22 05:22 06/17/22 05:32 Labs: Laboratory Results - last 24 hr 06/16/22 06/16/22 06/17/22 05:23 17:17 05:32 Anion Gap 12 12 11 L Estim Creat Clear Calc 88.1 83.2 Estimated GFR > 60 > 60 Random Glucose 92 108 Calcium 8.3 L 8.8 D Microbiology Microbiology Results: Microbiology 06/11/22 23:39 Blood Culture - Final Blood - Venous No growth after 5 days. 06/11/22 23:39 Blood Culture - Final Blood - Venous No growth after 5 days. Assessment and Plan (1) Acute exacerbation of CHF (congestive heart failure): Status: Acute Plan 71-year-old male with past medical history of CHF ( unknown ejection fraction) , COPD presents to the hospital with lower extremity swelling # Acute unspecified CHF exacerbation-- but suspect systolic -continue IV lasix drip to IV Push and later PO -track I/O, weight, limit salt intake -Get echo, EF 55 to 60 -follow bmp -check BMP -negative 11.+L #Hypokalemia--replaced with IV and PO K, and now normal, continue oral supplement #Constipation--bowel regimen #mild VALERIE--resolved # iight lower extremity cellulitis - has wounds, erythema, as well as edema and tenderness of the right lower extremity - IV Cefazolin x D3, changed to PO Doxy D4/5 - follow cultures # morbid obesity--weight loss advised # HTN--nl, restart home meds need for inpatient: exacerbation of heart failure needing IV Lasix and monitoring of electrolytes DVT P: LMWH PT recommends STR, ready for dc in a day Quality Stroke Does the patient have a stroke diagnosis?: No VTE Prior VTE?: No VTE Risk Level:: Medical - moderate - high VTE Device Contraindication: Treatment Not Indicated VTE Drug Contraindication: N/A - Med Ordered
[2022-06-17] MEDS: Lactulose 20 GM/30 ML SOLUTION PO ×2 (08:21→20:37)
[2022-06-17] MEDS: Potassium Chloride Packet 20 MEQ PACKET 40 MEQ PO ×2 (08:21→20:37)
[2022-06-17] MEDS: Folic Acid 1 MG TABLET PO (08:21)
[2022-06-17] MEDS: Docusate Sodium 100 MG CAPSULE PO (08:21)
[2022-06-17] MEDS: Doxycycline Monohydrate 100 MG CAPSULE PO ×2 (08:21→20:37)
[2022-06-17] MEDS: Furosemide 100 MG/10 ML VIAL 60 MG IVPUSH ×3 (08:22→17:24)
[2022-06-17] MEDS: 0.9 % Sodium Chloride Flush 3 ML SYRINGE IVFLUSH ×3 (08:22→20:37)
[2022-06-17] MEDS: polyethylene glycoL 3350 17 GM POWD.PACK PO (10:22)
[2022-06-17 11:11] VITALS: BP 149/70; PULSE 79; RESP 18; TEMP 36.6; O2SAT 95
[2022-06-17 15:16] VITALS: BP 117/58; PULSE 80; RESP 18; TEMP 36.8; O2SAT 91
[2022-06-17 19:12] VITALS: BP 124/60; PULSE 78; RESP 18; TEMP 36.8; O2SAT 94
[2022-06-17] MEDS: Enoxaparin Sodium 40 MG/0.4 ML SYRINGE SUBCUT (20:37)
[2022-06-17 23:39] VITALS: BP 112/52; PULSE 85; RESP 18; TEMP 36.4; O2SAT 95
[2022-06-18] VITALS (7 sets, daily range): BP systolic 104–118; BP diastolic 51–58; PULSE 75–99; RESP 14–20; TEMP 36.1–37; O2SAT 93–98; BMI 46.0
[2022-06-18 08:03] LABS: Anion Gap 10 (12-20); Blood Urea Nitrogen 25 mg/dL (9-16); Calcium 8.7 mg/dL (8.4-10.2); Carbon Dioxide 33 mmol/L (22-29); Chloride 95 mmol/L (96-108); Creatinine Clr Calc Pharmacy 93.5; Estimated Glomerular Filt Rate > 60; Glucose Random 93 mg/dL (60-115); Potassium 3.7 mmol/L (3.3-5.1); Sodium 134 mmol/L (135-145)
[2022-06-18] MEDS: 0.9 % Sodium Chloride Flush 3 ML SYRINGE IVFLUSH ×3 (09:05→23:49)
[2022-06-18] MEDS: Docusate Sodium 100 MG CAPSULE PO (09:05)
[2022-06-18] MEDS: Furosemide 100 MG/10 ML VIAL 60 MG IVPUSH ×2 (09:06→17:40)
[2022-06-18] MEDS: polyethylene glycoL 3350 17 GM POWD.PACK PO (09:06)
[2022-06-18] MEDS: Folic Acid 1 MG TABLET PO (09:06)
[2022-06-18] MEDS: Lactulose 20 GM/30 ML SOLUTION PO ×2 (09:06→20:51)
[2022-06-18] MEDS: Doxycycline Monohydrate 100 MG CAPSULE PO ×2 (09:06→20:51)
[2022-06-18] MEDS: Potassium Chloride Packet 20 MEQ PACKET 40 MEQ PO ×2 (09:06→20:51)
--- NOTE | 2022-06-18 14:36 | MHC.CM.PN ---
PER PATIENT REQUEST, CALL TO [facility] @ [phone] POST CONVERSATION, REFERRALS TO [facility] (REFUSE [employer])
[2022-06-18] MEDS: Enoxaparin Sodium 40 MG/0.4 ML SYRINGE SUBCUT (20:50)
[2022-06-19 04:00] VITALS: BP 110/51; PULSE 78; RESP 16; TEMP 36.6; O2SAT 95
[2022-06-19 06:00] VITALS: BMI 45.8
[2022-06-19 07:12] VITALS: PULSE 71; RESP 18; O2SAT 93
[2022-06-19 07:47] VITALS: BP 116/54; PULSE 75; RESP 16; TEMP 37.4; O2SAT 96
[2022-06-19] MEDS: Potassium Chloride Packet 20 MEQ PACKET 40 MEQ PO (08:21)
[2022-06-19] MEDS: Lactulose 20 GM/30 ML SOLUTION PO (08:21)
[2022-06-19] MEDS: polyethylene glycoL 3350 17 GM POWD.PACK PO (08:21)
[2022-06-19] MEDS: Doxycycline Monohydrate 100 MG CAPSULE PO (08:22)
[2022-06-19] MEDS: Furosemide 100 MG/10 ML VIAL 60 MG IVPUSH (08:22)
[2022-06-19] MEDS: Folic Acid 1 MG TABLET PO (08:22)
[2022-06-19] MEDS: 0.9 % Sodium Chloride Flush 3 ML SYRINGE IVFLUSH (08:23)
--- NOTE | 2022-06-19 09:25 | P.DS_ITS ---
DS: Providers Provider Date of Service: 06/19/22 Date of admission: 06/11/22 22:29 Primary care physician: Jared Garcia MD Consults: 06/11/22 22:28 Consult to Cardiology Routine Consulting Provider: Joe Bravo Reason for consultation: CHF DS: Diagnosis Discharge Diagnosis (1) Acute exacerbation of CHF (congestive heart failure): Status: Acute DS: Summary Hospital Course Hospital Course: Chief Complaint: leg swelling 71-year-old male with past medical history of CHF, COPD, hyperlipidemia, morbid obesity, presents to the hospital with complaints of leg swelling.? Patient reports that he noticed his leg swelling worsened in the past week.? He denies any orthopnea, no PND, he has baseline shortness of breath with his history of COPD that has not worsened, no increased cough or sputum production.? Denies any fever or chills.? He reports that the swelling has gotten to the point that he has difficulty ambulating.? Denies any chest pain, no palpitations, no abdominal pain nausea or vomiting, no urinary symptoms.? Reports compliance with his furosemide, denies any increased salt intake On arrival to the ED patient hemodynamically stable with no significant abnormal vitals Labs are significant for WBC count of 6.1, hemoglobin of 11.2, medical stage III 0.7, MCV of 105, lactic acid of 2.1 resolved, total bili of 1.9, direct bili of 1.0, AST of 104, ALT of 80, alk-phos of 251, BNP of 237, troponin negative, UA shows trace leukocyte For chest x-ray shows mild CHF Patient given Lasix and will be admitted for further management Hospital course: # Acute on chronic diastolic CHF with marked fluid overload. Was treated with IV Lasix drip and one time dose of Metalozone one time. Was seen by cardiology. Overall has diuressed 11 liters and feels better. He was on Lasix 40 bid and will incrased to 80 bid, should avoid salty food and limit fluid input. #Hypokalemia-- due to diuretic was replaced with IV and PO potassium and is doing better #Constipation--bowel regimen and resolved. #mild VALERIE--resolved # Cellulitis of the leg--treated with Abx and resolved. # morbid obesity--weight loss advised # HTN--nl, restart home meds He was offered rehab following PT eval but has declined this. Time Spent with Patient Time attestation: Total time spent providing and/or coordinating discharge services: Discharge coordination time: Greater than 30 minutes Quality: Safe Use of Opioids Does Pt have an Active Cancer Diagnosis on the Problem List?: No Quality: Stroke Does the patient have a stroke diagnosis?: No Physical Exam Vital Signs: Vital Signs: Last Vital Signs Temp 99.4 F 06/19/22 07:47 Pulse 75 06/19/22 07:47 Resp 16 06/19/22 07:47 BP 116/54 L 06/19/22 07:47 Pulse Ox 96 06/19/22 07:47 O2 Del Method 06/19/22 07:47 O2 Flow Rate 3.0 06/19/22 07:47 Oxygen Flow Rate 3 06/11/22 17:45 BMI result Body Mass Index 45.8 Const: Other: General: AO X 3, no acute distress Resp: CTA bilateral CVS: S1,S2,RRR, 2+ edema GI: +BS, NT, no distention Skin: No rash Neuro: motor grossly intact Psych: appropriate affect Discharge Plan Discharge Anticipated Discharge Date/Time: 06/19/22 09:28 Patient Disposition: Home Health Service Discharge Diagnosis: Acute on chronic heart failure Referrals: [facility] [Outside] - 1 Week Jared Garcia MD [Primary Care Provider] - 1 Week Discharge Medications: New furosemide [Lasix] 80 mg tablet 80 mg PO BID Qty: 60 0RF Continued spironolactone 25 mg tablet 25 mg PO DAILY Qty: 90 8RF folic acid 1 mg tablet 1 mg PO DAILY Qty: 90 8RF Spiriva with HandiHaler 18 mcg capsule, w/inhalation device 1 cap inhalation DAILY Qty: 90 8RF Rx Instructions: puncture 1 cap using device; one dose = 2 inhalations (DME) Wheel chair Kit See Rx Instructions .Route Qty: 1 0RF Rx Instructions: As directed potassium chloride 20 mEq tablet,ER particles/crystals 20 meq PO BID Qty: 60 8RF lactulose 20 gram/30 mL Solution 20 g PO BID albuterol sulfate [Ventolin HFA] 90 mcg/actuation HFA aerosol inhaler 2 puff inhalation Q4-6H PRN (Reason: bronchospasm) 30 Days Qty: 8.5 8RF Discontinued furosemide 80 mg tablet 40 mg PO BID Qty: 90 8RF Discharge Orders: Discharge Order (Routine); Ordered 06/19/22 Ordered By: Isai Shea Diet: Advance to usual diet Activity on Discharge: As tolerated Stand Alone Forms: Patient Portal Discharge page Care Plan Goals: Control of heart failure Health Concerns: Heart failure morboid obesity Plan of Treatment: Take Lasix as dircted, dose has been increased to 80 bid Weight yourslef daily and if your weight goes up by 3Ib in 24 Assessment: as above Discharge Date/Time: 06/19/22 18:10
--- NOTE | 2022-06-19 09:48 | P.F2F_ITS ---
Service Date Service Date: 06/19/22 Encounter Date of encounter: 06/19/22 Reasons for Services Signs and symptoms assessed: Heart failure with sob Reason for nursing home: medication treatment and teach disease management Reason for physical therapy: home safety and mobility, gait/transfer training and energy conservation Homebound: Leaving the home is medically contraindicated at this time without the asist of a device and/or another person due th the listed conditions above and below. Reason homebound: leg weakness, shortness of breath with minimal effort and weakness related to hospital stay Certification: Based on the above findings, I certify that this patient is confined to the home and needs intermittent nursing home care, physical therapy and/or speech therapy, or continues to need occupational therapy. The patient is under my care, and I have initiated the establishment of the plan of care. The patient will be followed by a physician who will periodically review the plan of care.
[2022-06-19 10:49] LABS: Anion Gap 13 (12-20); Blood Urea Nitrogen 26 mg/dL (9-16); Calcium 8.6 mg/dL (8.4-10.2); Carbon Dioxide 30 mmol/L (22-29); Chloride 97 mmol/L (96-108); Creatinine Clr Calc Pharmacy 83.5; Estimated Glomerular Filt Rate > 60; Glucose Random 121 mg/dL (60-115); Potassium 3.8 mmol/L (3.3-5.1); Sodium 136 mmol/L (135-145)
[2022-06-19 11:20] VITALS: BP 106/55; PULSE 80; RESP 16; TEMP 36.8; O2SAT 91
--- NOTE | 2022-06-19 14:28 | MHC.CM.PN ---
Addendum entered by Anika Lewis 06/19/22 14:58: CM MET WITH PT WHO REPORTS HE WOULD LIKE TO TAKE AN AMBULANCE HOME ALTHOUGH HE IS AWARE HE MAY BE BILLED BLS TRANSPORT ARRANGED VIA [facility] FOR [phone] HOURS Original Note: CM RECEIVED A CALL FROM PTS SHE REPORTS SHE WANTED TO CONFIRM THE PT IS GOING TO DC TODAY SHE SAYS SHE KNOWS STR WAS RECOMMENDED BUT HE DOES NOT WANT TO GO SHE REPORTS SHE CAN PROVIDE TRANSPORT BUT IT HAS TO BE BEFORE 1530 BECAUSE SHE HAS BINGO LATER SHE DID ASK IF AN AMBULANCE WOULD BE COVERED HOWEVER CM IS UNABLE TO GUARANTEE THIS SHE REPORTS SHE FEELS THE PT CAN GET INTO THE HOME, SHE SAYS THERE IS A GRAB BAR AT THE TOP OF THE STAIRS AND HER SON IS THERE TO ASSIST SHE WILL BELLSTAFF PT AROUND 1500 HOURS PT WILL DC HOME WITH RESUMPTION OF AMEDYSIS [facility]
[2022-06-19 15:29] VITALS: BP 127/58; PULSE 78; RESP 16; TEMP 36.4; O2SAT 95
== END 2022-06-19 18:10 | disposition home health service (06) | DRG 291 ==
LOC: HO.ED 20:26 → HO.EDOVER 22:34 → HO.S3 22:39
PROVIDERS: Admitting Provider Internal Medicine; Emergency Provider Emergency Medicine; PCP Internal Medicine; Visit Provider Internal Medicine
DX: I11.0 Hypertensive heart disease with heart failure (principal); I50.23 Acute on chronic systolic (congestive) heart failure; Z68.42 Body mass index [BMI] 45.0-49.9, adult; L03.115 Cellulitis of right lower limb; E87.6 Hypokalemia; K74.60 Unspecified cirrhosis of liver; N28.9 Disorder of kidney and ureter, unspecified; E88.09 Other disorders of plasma-protein metabolism, not elsewhere classified; E66.01 Morbid (severe) obesity due to excess calories; E78.5 Hyperlipidemia, unspecified; Z20.822 Contact with and (suspected) exposure to COVID-19; Z99.81 Dependence on supplemental oxygen; Z87.81 Personal history of (healed) traumatic fracture; Z88.0 Allergy status to penicillin; Z79.899 Other long term (current) drug therapy
CPT/HCPCS: 36415; 71045; 80048; 80051; 80076; 81001; 83605; 83690; 83735; 83880; 84484; 85025; 87040; 87635; 93005; 93306; 94640; 96374; 97110; 97162; 99285; J0690; J1650; J1940; J2405; Q9957

== ENCOUNTER 2022-07-17 17:19 | Inpatient (IN) | payer MEDICARE, BC, SELFPAY ==
--- NOTE | ~2022-07-17 | CT_ITS ---
EXAMINATION CT CHEST, ABDOMEN AND PELVIS WITH CONTRAST CLINICAL INFORMATION: Shortness breath. Lower extremity edema. Transaminitis and elevated bilirubin. COMPARISON: 03/08/2018 TECHNIQUE: Multidetector volumetric CT imaging of the chest, abdomen and pelvis was obtained after the administration of 100 mL of intravenous Omnipaque 300 without immediate adverse reactions. Coronal and sagittal reformats were reviewed. This CT examination was performed using dose optimization techniques as appropriate, variously including the following: *Automated exposure control *Adjustment of mA and/or kV according to patient size (this includes techniques or standardized protocols for targeted exams where dose is matched to indication/reason for exam; i.e. extremities or head) *Use of iterative reconstruction technique DLP: 2088 mGy-cm. FINDINGS: CHEST LUNGS/PLEURA: Right basilar pleural-parenchymal scarring and accompanying volume loss of the right lung redemonstrated. Trace right pleural effusion. Lungs otherwise clear. MEDIASTINUM/TIMMY: Cardiomegaly. No pericardial effusion. No mediastinal or hilar lymphadenopathy. CHEST WALL/AXILLA: Unremarkable. 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 There is also thrombus within the left hepatic vein and likely middle hepatic vein extending into the inferior vena cava to the level of the inferior cavoatrial junction. Cholelithiasis. No biliary dilatation. PANCREAS: Atrophic but otherwise unremarkable. SPLEEN: Mildly enlarged measuring up to 14.5 cm. ADRENAL GLANDS: Unremarkable. KIDNEYS, URETERS AND BLADDER: Kidneys enhance symmetrically. Innumerable stents present throughout the right renal collecting system and right renal pelvis, without hydronephrosis. Ureters normal in course and caliber. Bladder unremarkable.. GASTROINTESTINAL TRACT: No bowel related abnormalities. PELVIC VISCERA: Unremarkable. LYMPH NODES: No lymphadenopathy. PERITONEUM/BODY WALL: Trace ascites. VASCULAR STRUCTURES: Thrombus within the portal venous system and hepatic veins extending into the IVC as described, favored to be tumoral. Massive spontaneous splenorenal shunt. Small esophageal varices. OSSEOUS STRUCTURES No acute or suspicious osseous abnormalities. CT/CT abdomen pelvis w IV con IMPRESSION: CHEST: * Chronic volume loss of the right lung related to pleural-parenchymal scarring/round atelectasis within the right lower lobe. * Cardiomegaly. 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 Thrombus within the left hepatic vein extends into the IVC to the level of the inferior cavoatrial junction. * Mild splenomegaly. * Massive left splenorenal shunt and small esophageal varices. * Right intrarenal calculi without hydronephrosis. This critical result was discussed with JEANNE Woods at 07/18/2022 1:40 AM and it was ascertained that the content and urgency of the report was understood at the time of direct communication.
--- NOTE | ~2022-07-17 | XR_ITS ---
EXAMINATION: XR CHEST CLINICAL INFORMATION: Lower extremity edema and shortness of breath COMPARISON: Chest x-ray 06/11/2022 TECHNIQUE: Frontal view of the chest was obtained. FINDINGS: Patient is slightly rotated. Indistinct/blunted right costophrenic sulcus suggesting small pleural effusion versus mild pleural thickening. Overall similar appearance of the chest compared to prior with increased pulmonary vascular markings and some hazy indistinct opacities in the mid and lower lungs right greater than left. Evidence airspace consolidation. No pneumothorax. Cardiomediastinal silhouette is unchanged. No acute osseous injury. XR/XR chest 1V IMPRESSION: 1. Similar appearance of the chest compared to prior with increased pulmonary vascular markings and some hazy indistinct opacities in the mid and lower lungs right greater than left. Findings may represent mild pulmonary edema. 2. Possible small right pleural effusion.
[2022-07-17 17:32] VITALS: BP 109/43; BP 138/72; PULSE 80; PULSE 84; RESP 16; TEMP 36.8; O2SAT 95; O2SAT 97; BMI 46.3
--- NOTE | 2022-07-17 17:34 | ED_ITS ---
HPI - General Adult General Chief complaint: Skin/Abscess/Foreign Body Stated complaint: BLE PAIN/SWELLING PER EMS Time Seen by Provider: 07/17/22 17:34 Source: patient and EMS Mode of arrival: EMS Limitations: no limitations History of Present Illness HPI narrative: 72-year-old male with history of HLD, cirrhosis, anasarca, COPD and congestive heart failure on O2 home supplemental oxygen 2.5 L presenting to the emergency department VIA ambulance for worsening of lower extremity swelling, redness to RLE, wheeping legs and edema, patient take Lasix 80 mg twice a day which he has been compliant with as well as 25 mg of spirnolactone daily, patient reports blisters formation on bilateral lower extremities with clear fluid drainage, and reports that there is redness to RLE that terri been worsening over the past few days. Also complains of prodctive cough. Denies fevers, chills, chest pain, nausea, vomiting, headache, dizziness, weakness. He was encouraged to come in today by his home nurse. Related Data Previous Rx's Medication Instructions Recorded albuterol sulfate 90 mcg/actuation 2 puff inhalation Q4-6H PRN 04/17/21 aerosol inhaler (Ventolin HFA) bronchospasm 30 days #8.5 grams spironolactone 25 mg tablet 25 mg PO DAILY #90 tabs 09/16/21 folic acid 1 mg tablet 1 mg PO DAILY #90 tabs 02/19/22 tiotropium bromide 18 mcg capsule 1 cap inhalation DAILY #90 03/20/22 with inhalation device (Spiriva inhalations with HandiHaler) chair, wheel (Wheel chair) #1 ea 05/30/22 potassium chloride 20 mEq 20 meq PO BID #60 tabs 06/03/22 tablet,extended release(part/cryst) furosemide 80 mg tablet (Lasix) 80 mg PO BID #60 tabs 06/19/22 lactulose 20 gram/30 mL oral 20 g (30 mL) PO BID #1,200 mL 07/08/22 solution doxycycline hyclate 100 mg capsule 100 mg PO BID 10 days #20 caps 07/17/22 albuterol sulfate 90 mcg/actuation 2 inh inhalation Q4-6H PRN 07/18/22 breath activated powder inhaler shortness of breath or wheezing #1 ea azithromycin 250 mg tablet See Rx Instructions PO .COMPLEX #6 07/18/22 tabs prednisone 20 mg tablet 20 mg PO DAILY 5 days #5 tabs 07/18/22 Allergies Allergy/AdvReac Type Severity Reaction Status Date / Time Penicillins [PENICILLINS] Allergy Unknown ASTHMA Verified 05/29/22 13:55 ATTACK Review of Systems Review of Systems: Constitutional : No Weight loss, No Fever, No Chills, No Fatigue, No Malaise ENT/Mouth : No sore throat, No Rhinorrhea Eyes: No Eye Pain, No Swelling, No Redness Cardiovascular : No Chest Pain, No SOB, No Dyspnea on Exertion, No Orthopnea, + Edema, No Palpitations Respiratory : No Cough, No Sputum, No Wheezing Gastrointestinal : No Nausea, No Vomiting, No Diarrhea, No Constipation, No abdominal Pain, No Hematochezia, No Melena Genitourinary : No Dysuria, No Urinary Frequency, No Hematuria, Musculoskeletal : No joint pain, No Myalgias, No Joint Swelling, + LE swelling Skin : No Skin Lesions, No rash, + redness to RLE Neuro : No Weakness, No Numbness, No Dizziness, No Headache Psych : No Anxiety/Panic, No Depression All other systems reviewed and are negative Yes all other systems are reviewed and are negative [facility] Past Medical History Attestation statement: The following information was validated with the patient. Source: old records reviewed and nursing notes reviewed Medical History (Updated 07/18/22 @ 00:58 by JEANNE Woods) Acute exacerbation of CHF (congestive heart failure) Anasarca CHF (congestive heart failure) Cirrhosis COPD (chronic obstructive pulmonary disease) Hyperlipidemia Morbid obesity Surgical History History of tonsillectomy Family History Family History Father No problems noted. Mother No problems noted. Social History Social History Household Members: Spouse Housing: Other Housing Other:: mobile home Do you presently have visiting nurse or other home services: Yes Alcohol intake: never Patient Tobacco Use Status: Former Tobacco user Quit Date: years ago per pt Tobacco use type: Cigarette Smoked in Last 30 Days: No e-Cigarette/Vaping Use: Never Used Second Hand Smoke Exposure: No Use of substances other than those prescribed or required for medical reasons: No Advance Directives: No Advance Directives Information Provided: No service: No Current occupational status: retired and disabled Cognitive needs: Yes (walker) Hearing needs: Yes (hearing aide) Vision needs: Yes (glasses) Physical Exam ED Vital Signs: Vital Signs - 24 hr 07/17/22 17:32 07/17/22 17:37 07/17/22 20:54 Temperature 98.3 F 98.3 F 98.5 F Pulse Rate 80 81 86 Respiratory Rate 16 23 H 21 H Blood Pressure 109/43 L 109/43 L 104/36 L Pulse Oximetry 95 92 99 Oxygen Delivery Method Nasal Cannula Nasal Cannula Nasal Cannula Oxygen Flow Rate 2.5 2.5 07/17/22 22:08 07/17/22 22:12 07/18/22 00:22 Temperature 98.7 F Pulse Rate 90 76 88 Respiratory Rate 24 H 20 Blood Pressure 145/93 H 108/36 L 92/45 L Pulse Oximetry 97 94 Oxygen Delivery Method Nasal Cannula Room Air Oxygen Flow Rate 1 BMI result Body Mass Index 46.3 vss Appearance: Alert.? Oriented X3.? No acute distress.? Head: Normocephalic, atraumatic, no step-offs or deformities Eyes: Pupils equal, round and reactive to light.? ENT: Pharynx normal.? Neck: Normal inspection.? Neck supple.? CVS: Normal heart rate and rhythm.? Pulses normal.? Respiratory: No respiratory distress.? Breath sounds normal.? Abdomen: Soft and nontender.? Skin: Skin warm and dry.? Normal skin color.? Normal skin turgor.? Extremities: ?Bilateral lower extremity non pitting edema +3, with blisters and clear fluid drainage.?RLE cellulitis noted overlying corea No calf ttp. Global weakness Back: No midline tenderness, no C-spine tenderness, full range of motion, no CVA tenderness bilaterally Neuro: Oriented X 3.? No motor deficit.? No sensory deficit. CN 2-12 intact Course Reevaluation(s) Reevaluation #1: CBC showing a macrocytic anemia which appears to be patient's baseline. Chemistry with slightly elevated BUN however this appears to be patient's baseline. Patient is noted to have a significantly elevated bilirubin, transaminases and alk-phos. On abdominal palpation patient is not tender. I did however order CT of the abdomen and pelvis to rule out intra-abdominal etiologies. Patient's BNP 124. COVID negative. Trop added. X-ray of the chest similar appearance of chest compared to prior studies. Increased pulmonary vascular markings and some hazy indistinct opacities in the mid and lower lungs right greater than left. Likely pulmonary edema. There is a small right pleural effusion noted. Patient not complaining of shortness of breath or chest pain. Time: 22:32 Reevaluation #2: Pending CT of the abdomen and pelvis and CT of chest. Will give 1st dose of doxycycline for cellulitis here. Patient allergic to penicillin therefore will not give Keflex. Time: 23:15 Reevaluation #3: Sign out given to Dr. Garza pending scans. If normal suspected DC home. Time: 01:32 Medications Administered Discontinued Medications Generic Name Dose Route Start Last Admin Trade Name Freq PRN Reason Stop Dose Admin Acetaminophen 650 mg 07/17/22 22:17 07/17/22 23:22 Acetaminophen 325 Mg Tablet PO 07/17/22 22:18 650 mg ONCE ONE Administration Doxycycline Monohydrate 100 mg 07/17/22 23:15 07/17/22 23:22 Doxycycline Monohydrate 100 Mg Capsule PO 07/17/22 23:16 100 mg ONCE ONE Administration Iohexol 100 ml 07/18/22 00:56 07/18/22 00:57 Iohexol 350 Mg/Ml 100 Ml Infus..Btl IV 07/18/22 00:57 100 ml ONCE ONE Administration Medical Decision Making Medical Decision Making [facility] Narrative: 1740 71-year-old male with history of COPD/congestive heart failure on daily Lasix 80 mg twice a day, and 25 mg of spirnolactone daily comes in for increased LE edema to b/l lower extremities with blistering and exudative fluid drainage and redness to RLE also complains of wet cough PE w/ bilateral lower extremity non pitting edema +3, with blisters and clear fluid drainage.?RLE cellulitis noted No calf ttp. Global weakness. RRR. Lungs clear. VSS Concerns for CHF, third spacing, anasarca and cellulitis. Palpable pulses unlikley DVT, arterial occlusion. Cough likely viral/bronchitits. I do not suspect CHF, PNA or COPD exacerbation. Hx and PE unlikely pulmonary embolism Plan-labs, imaging, urine, blood cultures, lactic acid, chest x-ray. Lab Data Result Diagrams: 07/17/22 19:47 07/17/22 19:47 Labs: Lab Results 07/17/22 07/17/22 07/17/22 Range/Units 19:47 19:47 19:47 WBC 7.5 (4.8-10.8) X10*3/uL RBC 3.29 L (4.60-5.80) X10*6/uL Hgb 11.0 L (14.0-18.0) g/dl Hct 33.2 L (42.0-52.0) % MCV 100.9 H (80.0-98.0) fL MCH 33.4 H (27.0-33.0) pg MCHC 33.1 (31.0-36.0) g/dl RDW 15.5 (11.0-16.0) % Plt Count 101 L (160-400) X10*3/uL MPV 9.5 (9.4-12.4) fL Immature Gran % (Auto) 0.3 (0.0-0.4) % Neut % (Auto) 78.7 H (45-73) % Lymph % (Auto) 12.7 L (20-40) % [place] % (Auto) 7.0 (2-11) % Eos % (Auto) 0.9 (0-4) % Baso % (Auto) 0.4 (0-2) % Lymph # (Auto) 1.0 L (1.2-4.9) X10*3/uL [place] # (Auto) 0.5 (0.1-1.2) X10*3/uL Eos # (Auto) 0.1 (0.0-0.4) X10*3/uL Baso # (Auto) 0.0 (0.0-0.2) X10*3/uL Abs Immat Gran (auto) 0.02 (0.00-0.03) X10*3/uL Absolute Neuts (auto) 5.9 (2.0-8.3) x10*3/uL Absolute Nucleated RBC 0.000 (0.0-0.012) X10*3/uL Nucleated RBC % (auto) 0.0 (0.0-0.2) /100WBC Sodium 135 (135-145) mmol/L Potassium 3.8 (3.3-5.1) mmol/L Chloride 104 (96-108) mmol/L Carbon Dioxide 26 (22-29) mmol/L Anion Gap 9 L (12-20) BUN 20 H (9-16) mg/dL Creatinine 1.35 (0.5-1.4) mg/dL Estim Creat Clear Calc 71.6 Estimated GFR 52 Random Glucose 147 H (60-115) mg/dL Lactic Acid 1.7 (0.5-2.0) mmol/L Calcium 8.2 L (8.4-10.2) mg/dL Magnesium 1.9 (1.6-2.6) mg/dL Total Bilirubin 3.2 H (0.0-1.0) mg/dL AST 129 H (5-37) U/L ALT 95 H (0-40) U/L Alkaline Phosphatase 395 H (39-117) U/L Troponin I High Sens (<3.5-35.0) ng/L B-Natriuretic Peptide (<100) pg/mL Total Protein 5.6 L (6.5-8.0) g/dL Albumin 2.0 L (3.5-5.0) g/dL Urine Color Urine Appearance Urine pH (5.0-9.0) Ur Specific [place] (1.005-1.025) Urine Protein (Neg-Trace) mg/dL Urine Glucose (UA) (Negative) mg/dL Urine Ketones (Negative) mg/dL Urine Blood (Negative) Urine Nitrite (Negative) Ur Leukocyte Esterase (Negative) Urine RBC (0-2) /HPF Urine WBC (0-5) /HPF Ur Squamous Epith Cells (0-2) /HPF Urine Bacteria (None Seen) Hyaline Casts (0-2) /LPF COVID-19 (PATTI) (Negative) COVID-19 Clin Com 07/17/22 07/17/22 07/17/22 Range/Units 19:47 19:47 19:47 WBC (4.8-10.8) X10*3/uL RBC (4.60-5.80) X10*6/uL Hgb (14.0-18.0) g/dl Hct (42.0-52.0) % MCV (80.0-98.0) fL MCH (27.0-33.0) pg MCHC (31.0-36.0) g/dl RDW (11.0-16.0) % Plt Count (160-400) X10*3/uL MPV (9.4-12.4) fL Immature Gran % (Auto) (0.0-0.4) % Neut % (Auto) (45-73) % Lymph % (Auto) (20-40) % [place] % (Auto) (2-11) % Eos % (Auto) (0-4) % Baso % (Auto) (0-2) % Lymph # (Auto) (1.2-4.9) X10*3/uL [place] # (Auto) (0.1-1.2) X10*3/uL Eos # (Auto) (0.0-0.4) X10*3/uL Baso # (Auto) (0.0-0.2) X10*3/uL Abs Immat Gran (auto) (0.00-0.03) X10*3/uL Absolute Neuts (auto) (2.0-8.3) x10*3/uL Absolute Nucleated RBC (0.0-0.012) X10*3/uL Nucleated RBC % (auto) (0.0-0.2) /100WBC Sodium (135-145) mmol/L Potassium (3.3-5.1) mmol/L Chloride (96-108) mmol/L Carbon Dioxide (22-29) mmol/L Anion Gap (12-20) BUN (9-16) mg/dL Creatinine (0.5-1.4) mg/dL Estim Creat Clear Calc Estimated GFR Random Glucose (60-115) mg/dL Lactic Acid (0.5-2.0) mmol/L Calcium (8.4-10.2) mg/dL Magnesium (1.6-2.6) mg/dL Total Bilirubin (0.0-1.0) mg/dL AST (5-37) U/L ALT (0-40) U/L Alkaline Phosphatase (39-117) U/L Troponin I High Sens 6.4 (<3.5-35.0) ng/L B-Natriuretic Peptide 124 H (<100) pg/mL Total Protein (6.5-8.0) g/dL Albumin (3.5-5.0) g/dL Urine Color Urine Appearance Urine pH (5.0-9.0) Ur Specific [place] (1.005-1.025) Urine Protein (Neg-Trace) mg/dL Urine Glucose (UA) (Negative) mg/dL Urine Ketones (Negative) mg/dL Urine Blood (Negative) Urine Nitrite (Negative) Ur Leukocyte Esterase (Negative) Urine RBC (0-2) /HPF Urine WBC (0-5) /HPF Ur Squamous Epith Cells (0-2) /HPF Urine Bacteria (None Seen) Hyaline Casts (0-2) /LPF COVID-19 (PATTI) Negative (Negative) COVID-19 Clin Com See Note 07/17/22 Range/Units 22:44 WBC (4.8-10.8) X10*3/uL RBC (4.60-5.80) X10*6/uL Hgb (14.0-18.0) g/dl Hct (42.0-52.0) % MCV (80.0-98.0) fL MCH (27.0-33.0) pg MCHC (31.0-36.0) g/dl RDW (11.0-16.0) % Plt Count (160-400) X10*3/uL MPV (9.4-12.4) fL Immature Gran % (Auto) (0.0-0.4) % Neut % (Auto) (45-73) % Lymph % (Auto) (20-40) % [place] % (Auto) (2-11) % Eos % (Auto) (0-4) % Baso % (Auto) (0-2) % Lymph # (Auto) (1.2-4.9) X10*3/uL [place] # (Auto) (0.1-1.2) X10*3/uL Eos # (Auto) (0.0-0.4) X10*3/uL Baso # (Auto) (0.0-0.2) X10*3/uL Abs Immat Gran (auto) (0.00-0.03) X10*3/uL Absolute Neuts (auto) (2.0-8.3) x10*3/uL Absolute Nucleated RBC (0.0-0.012) X10*3/uL Nucleated RBC % (auto) (0.0-0.2) /100WBC Sodium (135-145) mmol/L Potassium (3.3-5.1) mmol/L Chloride (96-108) mmol/L Carbon Dioxide (22-29) mmol/L Anion Gap (12-20) BUN (9-16) mg/dL Creatinine (0.5-1.4) mg/dL Estim Creat Clear Calc Estimated GFR Random Glucose (60-115) mg/dL Lactic Acid (0.5-2.0) mmol/L Calcium (8.4-10.2) mg/dL Magnesium (1.6-2.6) mg/dL Total Bilirubin (0.0-1.0) mg/dL AST (5-37) U/L ALT (0-40) U/L Alkaline Phosphatase (39-117) U/L Troponin I High Sens (<3.5-35.0) ng/L B-Natriuretic Peptide (<100) pg/mL Total Protein (6.5-8.0) g/dL Albumin (3.5-5.0) g/dL Urine Color Dark Yellow Urine Appearance Clear Urine pH 5.5 (5.0-9.0) Ur Specific [place] 1.015 (1.005-1.025) Urine Protein Negative (Neg-Trace) mg/dL Urine Glucose (UA) Negative (Negative) mg/dL Urine Ketones Negative (Negative) mg/dL Urine Blood Moderate (2+) H (Negative) Urine Nitrite Negative (Negative) Ur Leukocyte Esterase Small (1+) H (Negative) Urine RBC >20 H (0-2) /HPF Urine WBC 0-5 (0-5) /HPF Ur Squamous Epith Cells 0-2 (0-2) /HPF Urine Bacteria None Seen (None Seen) Hyaline Casts 0-2 (0-2) /LPF COVID-19 (PATTI) (Negative) COVID-19 Clin Com Critical Care Time Critical Care Time Critical Care Time: No Discharge Plan Discharge Clinical Impression: Cellulitis, Bilateral edema of lower extremity, URI (upper respiratory infection) Patient Disposition: Home, Self-Care Instructions: Cellulitis (ED), Leg Edema (ED), Edema (ED) Additional Instructions: Take your medications as prescribed. If you were prescribed antibiotics today, it is important that you take your medication to their entirety, do not skip any doses, do not finish them early. Follow-up with your primary care provider this week. Return to the emergency department with new or worsening symptoms. Such as fevers, chills, chest pain, shortness of breath, nausea, vomiting, dizziness, headache, vision changes, lethargy In case of emergency call 911 Prescriptions: New doxycycline hyclate 100 mg capsule 100 mg PO BID 10 Days Qty: 20 0RF azithromycin 250 mg tablet See Rx Instructions .ROUTE .COMPLEX Qty: 6 0RF Rx Instructions: For 250 mg dose pack: take 500 mg today (day 1), then 250 mg for 4 days (days 2-5) prednisone 20 mg tablet 20 mg PO DAILY 5 Days Qty: 5 0RF albuterol sulfate 90 mcg/actuation aerosol powdr breath activated 2 inh inhalation Q4-6H PRN (Reason: shortness of breath or wheezing) Qty: 1 0RF No Action spironolactone 25 mg tablet 25 mg PO DAILY Qty: 90 8RF folic acid 1 mg tablet 1 mg PO DAILY Qty: 90 8RF Spiriva with HandiHaler 18 mcg capsule, w/inhalation device 1 cap inhalation DAILY Qty: 90 8RF Rx Instructions: puncture 1 cap using device; one dose = 2 inhalations (DME) Wheel chair Kit See Rx Instructions .Route Qty: 1 0RF Rx Instructions: As directed potassium chloride 20 mEq tablet,ER particles/crystals 20 meq PO BID Qty: 60 8RF lactulose 20 gram/30 mL solution 20 g PO BID Qty: 1200 0RF furosemide [Lasix] 80 mg tablet 80 mg PO BID Qty: 60 0RF albuterol sulfate [Ventolin HFA] 90 mcg/actuation HFA aerosol inhaler 2 puff inhalation Q4-6H PRN (Reason: bronchospasm) 30 Days Qty: 8.5 8RF Referrals: Jared Garcia MD [Primary Care Provider] - 2 days
[2022-07-17 17:37] VITALS: BP 109/43; PULSE 81; RESP 23; TEMP 36.8; O2SAT 92
--- NOTE | 2022-07-17 19:51 | PC.NURSE ---
Assumed care of pt. Resting quietly, no apparent distress.
[2022-07-17 19:54] LABS: MANUAL DIFF FLAG NO
[2022-07-17 19:56] LABS: Basophils Percent Auto 0.4 % (0-2); Eosinophils Absolute Auto 0.1 X10*3/uL (0.0-0.4); Eosinophils Percent Auto 0.9 % (0-4); Hematocrit 33.2 % (42.0-52.0); Imm Gran Abs Auto 0.02 X10*3/uL (0.00-0.03); Imm Gran Pct Auto 0.3 % (0.0-0.4); Lymphocytes Percent Auto 12.7 % (20-40); Mean Corpuscular HGB Conc 33.1 g/dl (31.0-36.0); Mean Corpuscular Hemoglobin 33.4 pg (27.0-33.0); Mean Corpuscular Volume 100.9 fL (80.0-98.0); Mean Platelet Volume 9.5 fL (9.4-12.4); Monocytes Absolute Auto 0.5 X10*3/uL (0.1-1.2); Neutrophils Absolute Auto 5.9 x10*3/uL (2.0-8.3); Neutrophils Percent Auto 78.7 % (45-73); Platelet Count 101 X10*3/uL (160-400); Red Blood Count 3.29 X10*6/uL (4.60-5.80); Red Cell Distribution Width 15.5 % (11.0-16.0); White Blood Count 7.5 X10*3/uL (4.8-10.8)
[2022-07-17 20:11] LABS: Lactic Acid 1.7 mmol/L (0.5-2.0)
[2022-07-17 20:15] LABS: Alanine Aminotransferase 95 U/L (0-40); Alkaline Phosphatase 395 U/L (39-117); Anion Gap 9 (12-20); Aspartate Amino Transferase 129 U/L (5-37); Bilirubin Total 3.2 mg/dL (0.0-1.0); Blood Urea Nitrogen 20 mg/dL (9-16); COVID-19 Test Negative (Negative); Calcium 8.2 mg/dL (8.4-10.2); Carbon Dioxide 26 mmol/L (22-29); Chloride 104 mmol/L (96-108); Creatinine Clr Calc Pharmacy 71.6; Estimated Glomerular Filt Rate 52; Glucose Random 147 mg/dL (60-115); Magnesium 1.9 mg/dL (1.6-2.6); Potassium 3.8 mmol/L (3.3-5.1); Sodium 135 mmol/L (135-145); Total Protein 5.6 g/dL (6.5-8.0)
[2022-07-17 20:18] LABS: B Type Natriuretic Peptide 124 pg/mL (<100)
[2022-07-17 20:54] VITALS: BP 104/36; PULSE 86; RESP 21; TEMP 36.9; O2SAT 99
--- NOTE | 2022-07-17 20:59 | PC.NURSE ---
dropped O2 to 1L NC d/t 99% on 2.5L NC, will continue to monitor
[2022-07-17 22:08] VITALS: BP 145/93; PULSE 90
[2022-07-17 22:12] VITALS: BP 108/36; PULSE 76; RESP 24; O2SAT 97
--- NOTE | 2022-07-17 22:36 | PC.NURSE ---
Pt off of supplemental O2, maintaining O2Sat of 96% on RA.
[2022-07-17 22:52] LABS: Appearance Urine Clear; Color Urine Dark Yellow; Glucose Urine UA Negative (Negative); Leukocyte Esterase Urine Small (1+) (Negative); Nitrite Urine Negative (Negative); PH 5.5 (5.0-9.0); Specific Gravity - Urine 1.015 (1.005-1.025); UMIC TRIGGER UACC YES; Urine Blood Moderate (2+) (Negative); Urine Ketones Negative (Negative); Urine Protein Negative (Neg-Trace)
--- NOTE | 2022-07-17 22:55 | PC.NURSE ---
Pt sleeping no apparent distress; 74 HR, 95% on RA, 18 RR.
[2022-07-17 22:58] LABS: Bacteria Urine None Seen (None Seen); Hyaline Casts Urine 0-2 /LPF (0-2); RBC Urine >20 /HPF (0-2); Squamous Epithelial Cell Urine 0-2 /HPF (0-2); UACC Culture Trigger YES; WBC Urine 0-5 /HPF (0-5)
[2022-07-17 23:00] LABS: Troponin-I High Sensitivity 6.4 ng/L (<3.5-35.0)
[2022-07-17] MEDS: Doxycycline Monohydrate 100 MG CAPSULE PO (23:22)
[2022-07-17] MEDS: Acetaminophen 325 MG TABLET 650 MG PO (23:22)
[2022-07-18] VITALS (8 sets, daily range): BP systolic 88–132; BP diastolic 42–87; PULSE 78–88; RESP 18–23; TEMP 36.4–37.1; O2SAT 94–97
--- NOTE | 2022-07-18 | ECG_ITS ---
Test Reason : baseline Blood Pressure : / mmHG Vent. Rate : 078 BPM Atrial Rate : 078 BPM P-R Int : 162 ms QRS Dur : 094 ms QT Int : 400 ms P-R-T Axes : -24 -36 045 degrees QTc Int : 456 ms Normal sinus rhythm Left axis deviation Low voltage QRS Abnormal ECG When compared with ECG of 13-JUN-2022 05:10, Sinus rhythm has replaced Atrial fibrillation Referred By: Rosa Ferraro Electronically Signed By:PETER PEREA MD
--- NOTE | 2022-07-18 00:25 | PC.NURSE ---
Pt requested water. However, he is going to CT scan shortly. No apparent distress.
[2022-07-18] MEDS: iohexoL 350 MG/ML 100 ML INFUS..BTL IV (00:57)
[2022-07-18 02:32] LABS: INTERNATIONAL NORM RATIO 1.3 (0.9-1.1); Prothrombin Time 14.7 SEC (10.0-13.1)
[2022-07-18 02:34] LABS: PTT Heparin Drip 35.6 SEC (53-77.9)
[2022-07-18] MEDS: Heparin Sodium,Porcine/1/2NS 25,000 UNIT/250 ML IV.SOLN 20.51 UNIT IVCONT (03:00)
--- NOTE | 2022-07-18 04:13 | PM.IMHP ---
History of Present Illness Date of Service: 07/18/22 Chief Complaint: leg swelling This is a 71-year-old male with past medical history of liver cirrhosis secondary to alcohol abuse, congestive heart failure, chronic hypoxic respiratory failure on chronic 2.5 L, COPD, who presents to the hospital with complaints of lower extremity swelling as well as ulcer on his right leg. patient is very obese, reports that he is not able to see his legs, therefore was his son who noticed the swelling as well as the ulcer. This was noticed day after Mark[place]. He reports no fever no chills. reports chronic shortness of breath that has not worsened, reports chronic cough that has not worsened, as well as no increased sputum production. Patient denies any abdominal pain nausea or vomiting, no diarrhea constipation, no urinary symptoms. He reports no recent weight loss. On arrival to the ED patient slightly tachypneic but now normal respiratory rate, otherwise no significant abnormality Labs are significant for WBC count of 7.5, hemoglobin of 11, medic of stay 3.2, PT of 14.7, INR of 1.3, bilirubin of 3.2, AST of 129, ALT of 95, alk-phos of 395, BNP of 124, troponin of 6.4, albumin of 2.0, urine positive for leukocyte Estrace and WBC imaging including chest, abdomen, and pelvic CT shows in the chest there is chronic volume loss of the right lung related to pleural parenchymal scarring with atelectasis within the right lower lobe, Abdomen pelvic CT shows infiltrative mass throughout the left lobe of the liver likely with 2 more all thrombus of the portal venous system including the main portal vein to the level of the portal splenic confluence, thrombus within the left hepatic vein extends into the IVC to the level of the inferior cavoatrial junction. Massive left splenorenal shunt and small esophageal varices, patient started on heparin drip and will be admitted for further management Review of Systems Review of Systems: Yes all other systems are reviewed and are negative [facility] Medical History (Updated 07/18/22 @ 06:02 by Ti Staples MD) Acute exacerbation of CHF (congestive heart failure) Anasarca CHF (congestive heart failure) Cirrhosis COPD (chronic obstructive pulmonary disease) History of alcohol abuse History of cirrhosis of liver Hyperlipidemia Morbid obesity Family History Father No problems noted. Mother No problems noted. Surgical History History of tonsillectomy Social History Household Members: Spouse Housing: Other Housing Other:: mobile home Do you presently have visiting nurse or other home services: Yes Alcohol intake: never Patient Tobacco Use Status: Former Tobacco user Quit Date: years ago per pt Tobacco use type: Cigarette Smoked in Last 30 Days: No e-Cigarette/Vaping Use: Never Used Second Hand Smoke Exposure: No Use of substances other than those prescribed or required for medical reasons: No Advance Directives: No Advance Directives Information Provided: No service: No Current occupational status: retired and disabled Cognitive needs: Yes (walker) Hearing needs: Yes (hearing aide) Vision needs: Yes (glasses) Meds Allergies Allergy/AdvReac Type Severity Reaction Status Date / Time Penicillins [PENICILLINS] Allergy Unknown ASTHMA Verified 07/18/22 02:14 ATTACK Active Medications: Current Medications Heparin Sodium (Porcine) (Heparin Sodium,Porcine 5,000 Unit/Ml Vial) 5,900 unit 40 unit/kg (5900 unit) IVPUSH PROTOCOL BOLUS PRN; Protocol PRN Reason: 40 unit/kg - Heparin Protocol Heparin Sodium (Porcine) (Heparin Sodium,Porcine 5,000 Unit/Ml Vial) 10,000 unit IVPUSH PROTOCOL BOLUS PRN; Protocol PRN Reason: 80 unit/kg - Heparin Protocol Heparin Sodium/Sodium Chloride (Heparin Sodium,Porcine/1/2ns) 25,000 unit in 250 mls @ 0 mls/hr IVCONT .Q0M [facility]; Protocol Last Admin: 07/18/22 03:00 Dose: 14 units/kg/hr, 20.51 mls/hr Pharmacy Consult (Consult Rx Perform Med Rec) 1 each MISCELLANE ONCE PRN PRN Reason: Consult order Physical Exam Vital Signs and Narrative: Vital Signs: Last Vital Signs Temp 98.7 F 07/18/22 00:22 Pulse 85 07/18/22 02:02 Resp 18 07/18/22 02:02 BP 110/42 L 07/18/22 02:02 Pulse Ox 97 07/18/22 02:02 O2 Del Method 07/18/22 02:02 O2 Flow Rate 1 07/17/22 22:12 Oxygen Flow Rate 2 07/17/22 17:32 BMI result Body Mass Index 46.3 Const: Other: patient is extremely obese, exam is very limited due to body habitus Poor hygiene General: cooperative and no acute distress Orientation/consciousness: patient oriented x3 Eyes: General: appearance normal, both eyes and all related structures Resp: Other: diminished breath sounds Effort & Inspection: normal respiratory effort Cardio: Rate: regular rate Rhythm: regular rhythm GI: Other: obese abdomen, unable to do deep palpation but from my exam there is no rebound or guarding, nontender Palpation (GI): Soft to palpation Auscultation: normal bowel sounds Skin: Other: right lower extremity erythema, warmth, lesion that is weeping with also necrotic scabs Neuro: General: patient oriented x3 Cognition (Neuro): normal cognition Extrem: Other: bilateral 3+ edema right lower extremity edema, warmth, edema, as well as draining ulcer Results Labs CBC and Chem 7: 07/17/22 19:47 07/17/22 19:47 Labs: Laboratory Results - last 24 hr 07/17/22 07/17/22 07/17/22 19:47 19:47 19:47 MCV 100.9 H MCH 33.4 H MCHC 33.1 RDW 15.5 Plt Count 101 L MPV 9.5 Immature Gran % (Auto) 0.3 Neut % (Auto) 78.7 H Lymph % (Auto) 12.7 L [place] % (Auto) 7.0 Eos % (Auto) 0.9 Baso % (Auto) 0.4 Lymph # (Auto) 1.0 L [place] # (Auto) 0.5 Eos # (Auto) 0.1 Baso # (Auto) 0.0 Abs Immat Gran (auto) 0.02 Absolute Neuts (auto) 5.9 Absolute Nucleated RBC 0.000 Nucleated RBC % (auto) 0.0 PT INR aPTT Heparin Protocol Anion Gap 9 L Estim Creat Clear Calc 71.6 Estimated GFR 52 Random Glucose 147 H Lactic Acid 1.7 Calcium 8.2 L Magnesium 1.9 Total Bilirubin 3.2 H AST 129 H ALT 95 H Alkaline Phosphatase 395 H Troponin I High Sens B-Natriuretic Peptide Total Protein 5.6 L Albumin 2.0 L Urine Color Urine Appearance Urine pH Ur Specific [place] Urine Protein Urine Glucose (UA) Urine Ketones Urine Blood Urine Nitrite Ur Leukocyte Esterase Urine RBC Urine WBC Ur Squamous Epith Cells Urine Bacteria Hyaline Casts COVID-19 (PATTI) COVID-19 Clin Com 07/17/22 07/17/22 07/17/22 19:47 19:47 19:47 MCV MCH MCHC RDW Plt Count MPV Immature Gran % (Auto) Neut % (Auto) Lymph % (Auto) [place] % (Auto) Eos % (Auto) Baso % (Auto) Lymph # (Auto) [place] # (Auto) Eos # (Auto) Baso # (Auto) Abs Immat Gran (auto) Absolute Neuts (auto) Absolute Nucleated RBC Nucleated RBC % (auto) PT INR aPTT Heparin Protocol Anion Gap Estim Creat Clear Calc Estimated GFR Random Glucose Lactic Acid Calcium Magnesium Total Bilirubin AST ALT Alkaline Phosphatase Troponin I High Sens 6.4 B-Natriuretic Peptide 124 H Total Protein Albumin Urine Color Urine Appearance Urine pH Ur Specific [place] Urine Protein Urine Glucose (UA) Urine Ketones Urine Blood Urine Nitrite Ur Leukocyte Esterase Urine RBC Urine WBC Ur Squamous Epith Cells Urine Bacteria Hyaline Casts COVID-19 (PATTI) Negative COVID-19 Clin Com See Note 07/17/22 07/18/22 22:44 02:21 MCV MCH MCHC RDW Plt Count MPV Immature Gran % (Auto) Neut % (Auto) Lymph % (Auto) [place] % (Auto) Eos % (Auto) Baso % (Auto) Lymph # (Auto) [place] # (Auto) Eos # (Auto) Baso # (Auto) Abs Immat Gran (auto) Absolute Neuts (auto) Absolute Nucleated RBC Nucleated RBC % (auto) PT 14.7 H INR 1.3 H aPTT Heparin Protocol 35.6 L Anion Gap Estim Creat Clear Calc Estimated GFR Random Glucose Lactic Acid Calcium Magnesium Total Bilirubin AST ALT Alkaline Phosphatase Troponin I High Sens B-Natriuretic Peptide Total Protein Albumin Urine Color Dark Yellow Urine Appearance Clear Urine pH 5.5 Ur Specific [place] 1.015 Urine Protein Negative Urine Glucose (UA) Negative Urine Ketones Negative Urine Blood Moderate (2+) H Urine Nitrite Negative Ur Leukocyte Esterase Small (1+) H Urine RBC >20 H Urine WBC 0-5 Ur Squamous Epith Cells 0-2 Urine Bacteria None Seen Hyaline Casts 0-2 COVID-19 (PATTI) COVID-19 Clin Com Imaging Radiologist's Impressions: Impressions Chest X-Ray 07/17/22 18:23 IMPRESSION: 1. Similar appearance of the chest compared to prior with increased pulmonary vascular markings and some hazy indistinct opacities in the mid and lower lungs right greater than left. Findings may represent mild pulmonary edema. 2. Possible small right pleural effusion. Abdomen/Pelvis CT 07/18/22 00:50 IMPRESSION: CHEST: * Chronic volume loss of the right lung related to pleural-parenchymal scarring/round atelectasis within the right lower lobe. * Cardiomegaly. 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 Thrombus within the left hepatic vein extends into the IVC to the level of the inferior cavoatrial junction. * Mild splenomegaly. * Massive left splenorenal shunt and small esophageal varices. * Right intrarenal calculi without hydronephrosis. This critical result was discussed with JEANNE Woods at 07/18/2022 1:40 AM and it was ascertained that the content and urgency of the report was understood at the time of direct communication. Chest CT 07/18/22 00:50 IMPRESSION: CHEST: * Chronic volume loss of the right lung related to pleural-parenchymal scarring/round atelectasis within the right lower lobe. * Cardiomegaly. 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 Thrombus within the left hepatic vein extends into the IVC to the level of the inferior cavoatrial junction. * Mild splenomegaly. * Massive left splenorenal shunt and small esophageal varices. * Right intrarenal calculi without hydronephrosis. This critical result was discussed with JEANNE Woods at 07/18/2022 1:40 AM and it was ascertained that the content and urgency of the report was understood at the time of direct communication. Assessment and Plan (1) Cellulitis of right lower extremity: Status: Acute (2) Bilateral edema of lower extremity: Status: Acute (3) Portal vein thrombosis: Status: Acute (4) Liver mass: Status: Acute Plan 71-year-old male with past medical history of CHF, liver cirrhosis secondary to alcohol abuse, hypertension presents to the hospital with complaints of lower extremity ulcers well as swelling found to have number cirrhosis as well as thrombus # portal veins thrombus - in the setting of liver mass concerning for malignancy - patient started on heparin drip - will consult Hematology-Oncology - GI consulted # liver mass - given history of liver cirrhosis, concerning for malignancy - will consult Hematology-Oncology - GI consulted # transaminitis - likely secondary to above - monitor LFTs # right lower extremity cellulitis - erythema, warmth, tenderness, edema - will treat with IV antibiotics - follow cultures # bilateral lower extremity edema - possibly secondary to 3rd spacing given the low albumin - patient denies any increased dyspnea, difficult to assess volume status given his obesity - chest CT does not show increased pulmonary congestion - at this time will consult Cardiology for further guidance - continue Lasix p.o. 80 mg b.i.d. # hypertension - stable - continue antihypertensives DVT prophylaxis: Heparin GGT given patient's above findings requiring heparin drip, as well as further evaluation of liver mass patient required minimum 2 night inpatient hospital stay for further management and monitor Time Spent With Patient Time: Total time managing care of this patient today ____ minutes. Quality Stroke Does the patient have a stroke diagnosis?: No VTE Prior VTE?: No VTE Risk Level:: Medical - moderate - high VTE Device Contraindication: Treatment Not Indicated VTE Drug Contraindication: N/A - Med Ordered
[2022-07-18] MEDS: levoFLOXacin/D5W 750 MG/150 ML PIGGYBACK 100 MG IV (04:47)
--- NOTE | 2022-07-18 05:04 | PC.NURSE ---
IV access obtained on R hand 22 g.
--- NOTE | 2022-07-18 06:06 | PC.NURSE ---
Repositioned pt to L lateral after providing sandwich, jello, water, chaz beth. Pt cleaned after toileting with assistance from SARAH Duque.
--- NOTE | 2022-07-18 06:40 | PC.NURSE ---
Called pharmacy about vancomycin being unverified. This nurse was told that because it was a consult it would be a little while before it would be verified.
[2022-07-18 07:09] LABS: MANUAL DIFF FLAG NO
[2022-07-18 07:10] LABS: Basophils Percent Auto 0.4 % (0-2); Eosinophils Absolute Auto 0.2 X10*3/uL (0.0-0.4); Eosinophils Percent Auto 2.8 % (0-4); Hematocrit 30.2 % (42.0-52.0); Hemoglobin 10.3 g/dl (14.0-18.0); Imm Gran Abs Auto 0.03 X10*3/uL (0.00-0.03); Imm Gran Pct Auto 0.4 % (0.0-0.4); Lymphocytes Absolute Auto 1.3 X10*3/uL (1.2-4.9); Lymphocytes Percent Auto 17.2 % (20-40); Mean Corpuscular HGB Conc 34.1 g/dl (31.0-36.0); Mean Corpuscular Hemoglobin 34.4 pg (27.0-33.0); Mean Platelet Volume 8.7 fL (9.4-12.4); Monocytes Absolute Auto 0.7 X10*3/uL (0.1-1.2); Monocytes Percent Auto 8.9 % (2-11); Neutrophils Absolute Auto 5.1 x10*3/uL (2.0-8.3); Neutrophils Percent Auto 70.3 % (45-73); Red Blood Count 2.99 X10*6/uL (4.60-5.80); Red Cell Distribution Width 15.7 % (11.0-16.0); White Blood Count 7.3 X10*3/uL (4.8-10.8)
[2022-07-18 07:11] LABS: Platelet Count 88 X10*3/uL (160-400)
[2022-07-18 08:04] LABS: Anion Gap 11 (12-20); Blood Urea Nitrogen 19 mg/dL (9-16); Calcium 8.5 mg/dL (8.4-10.2); Carbon Dioxide 22 mmol/L (22-29); Chloride 105 mmol/L (96-108); Creatinine Clr Calc Pharmacy 76.7; Estimated Glomerular Filt Rate 56; Glucose Random 128 mg/dL (60-115); Potassium 3.5 mmol/L (3.3-5.1); Sodium 134 mmol/L (135-145)
--- NOTE | 2022-07-18 08:36 | PHA.MEDREC ---
Pharmacy Consult ? Medication Reconciliation Pharmacy has completed the medication reconciliation. Patient poor historian of meds. Called Gabriella at [phone] to confirm meds.
[2022-07-18 08:37] LABS: Influenza A PCR NEGATIVE (Negative); Influenza B PCR NEGATIVE (Negative); Resp Syncy Virus RNA Qual PCR NEGATIVE (Negative); SARS COV2 PCR INHOUSE NEGATIVE (Negative)
[2022-07-18 09:52] LABS: PTT Heparin Drip 89.8 SEC (53-77.9)
[2022-07-18] MEDS: Spironolactone 25 MG TABLET PO (09:55)
[2022-07-18] MEDS: Folic Acid 1 MG TABLET PO (09:55)
[2022-07-18] MEDS: Furosemide 40 MG TABLET 80 MG PO ×2 (09:56→20:35)
[2022-07-18] MEDS: Potassium Chloride ER 20 MEQ TAB.ER.PRT PO ×2 (09:56→20:35)
[2022-07-18] MEDS: Lactulose 20 GM/30 ML SOLUTION PO (09:56)
[2022-07-18] MEDS: Thiamine HCL 100 MG TABLET PO (09:56)
[2022-07-18 10:01] LABS: Lactate Dehydrogenase 461 U/L (118-273)
--- NOTE | 2022-07-18 10:05 | P.PNHO-ONC_ITS ---
Medical Summary - Medical Summary Date of Service: 07/18/22 Chief complaint: Bilateral leg swelling Interval History Interval history: This is a 71-year-old male with past history of alcoholism, sober since 08/07 now presenting with liver mass with extensive portal vein thrombosis concerning for malignancy. He has known about liver cirrhosis but he said he never had any liver related issues that were diagnosed in the past. He presented to the ED b ecause of leg swelling and his son noticed an open area and his insisted that patient go to the emergency department. He denies any complaints such as worsening shortness of breath or cough. He has chronic orthopnea. He denies abdominal pain or change in his bowel habits. He denies nausea or emesis. No fever or chills. He has never seen a labor relations analyst about his liver cirrhosis. Workup in the ED revealed abnormal LFTs and mildly elevated PT/INR. PT of 14.7, INR of 1.3, bilirubin of 3.2, AST of 129, ALT of 95, alk-phos of 395, Imaging including chest, abdomen, and pelvis: CT shows in the chest there is chronic volume loss of the right lung related to pleural parenchymal scarring with atelectasis within the right lower lobe, Abdomen pelvic CT shows infiltrative mass throughout the left lobe of the liver likely with 2 more all thrombus of the portal venous system including the main portal vein to the level of the portal splenic confluence, thrombus within the left hepatic vein extends into the IVC to the level of the inferior cavoatrial junction. Massive left splenorenal shunt and small esophageal varices. Patient has been started on heparin drip. Review of Systems - Constitutional Reports as per HPI, Denies weight loss - Cardiovascular Reports no additional cardiovascular complaints - Respiratory Reports no additional respiratory complaints - Gastrointestinal Reports no additional gastrointestinal complaints [facility] Medical History: Medical History (Last Reviewed 07/18/22 @ 10:56 by Jose Juan Hare MD) Acute exacerbation of CHF (congestive heart failure) Anasarca CHF (congestive heart failure) Cirrhosis COPD (chronic obstructive pulmonary disease) History of alcohol abuse History of cirrhosis of liver Hyperlipidemia Morbid obesity Family History: Family History (Last Reviewed 07/18/22 @ 10:56 by Jose Juan Hare MD) Father No problems noted. Mother No problems noted. Surgical History: Surgical History (Last Reviewed 07/18/22 @ 10:56 by Jose Juan Hare MD) History of tonsillectomy Social History: Social History (Last Reviewed 07/18/22 @ 10:56 by Jose Juan Hare MD) Living Situation History: Household Members: Spouse Housing: Other Housing Other:: mobile home Do you presently have visiting nurse or other home services: Yes Tobacco History: Patient Tobacco Use Status: Former Tobacco user Tobacco use type: Cigarette Smoked in Last 30 Days: No Smoke Quit Date: years ago per pt e-Cigarette/Vaping Use: Never Used Second Hand Smoke Exposure: No Substance Use History: Use of substances other than those prescribed or required for medical reasons : No Advance Directives: Advance Directives: No Advance Directives Information Provided: No Occupation Assessmet: service: No Current occupational status: retired Current occupational status: disabled Home Medications and Allergies Current Medications: Current Medications Acetaminophen (Acetaminophen 325 Mg Tablet) 650 mg PO Q6H PRN PRN Reason: Pain, Mild (Pain Scale 1-3) Docusate Sodium (Docusate Sodium 100 Mg Capsule) 100 mg PO DAILY PRN PRN Reason: Constipation Folic Acid (Folic Acid 1 Mg Tablet) 1 mg PO DAILY [facility] Last Admin: 07/18/22 09:55 Dose: 1 mg Furosemide (Furosemide 40 Mg Tablet) 80 mg PO BID [facility] [place]; Protocol Last Admin: 07/18/22 09:56 Dose: 80 mg Heparin Sodium (Porcine) (Heparin Sodium,Porcine 5,000 Unit/Ml Vial) 5,900 unit 40 unit/kg (5900 unit) IVPUSH PROTOCOL BOLUS PRN; Protocol PRN Reason: 40 unit/kg - Heparin Protocol Heparin Sodium (Porcine) (Heparin Sodium,Porcine 5,000 Unit/Ml Vial) 10,000 unit IVPUSH PROTOCOL BOLUS PRN; Protocol PRN Reason: 80 unit/kg - Heparin Protocol Heparin Sodium/Sodium Chloride (Heparin Sodium,Porcine/1/2ns) 25,000 unit in 250 mls @ 0 mls/hr IVCONT .Q0M [facility] [place]; Protocol Last Admin: 07/18/22 03:00 Dose: 14 units/kg/hr, 20.51 mls/hr Vancomycin HCl 2,000 mg/ (Sodium Chloride) 540 mls @ 270 mls/hr IV ONCE ONE Stop: 07/18/22 10:29 Last Admin: 07/18/22 08:11 Dose: 270 mls/hr Vancomycin HCl 1,500 mg/ (Sodium Chloride) 500 mls @ 333.333 mls/hr IV Q24H [facility] [place] Lactulose (Lactulose 20 Gm/30 Ml Solution) 20 gm PO BID [facility] [place] Last Admin: 07/18/22 09:56 Dose: 20 gm Ondansetron HCl (Ondansetron Hcl 4 Mg/2 Ml Vial) 4 mg IVPUSH Q8H PRN PRN Reason: Nausea and Vomiting Pharmacy Consult (Consult Rx Perform Med Rec) 1 each MISCELLANE ONCE PRN PRN Reason: Consult order Pharmacy Consult (Consult Rx Vancomycin Dosing) 1 each MISCELLANE DAILY PRN PRN Reason: Consult order Potassium Chloride (Potassium Chloride Er 20 Meq Tab.Er.Prt) 20 meq PO BID [facility] [place] Last Admin: 07/18/22 09:56 Dose: 20 meq Sodium Chloride (0.9 % Sodium Chloride Flush 3 Ml Syringe) 3 ml IVFLUSH QSHIFT [facility] [place] Last Admin: 07/18/22 08:21 Dose: Not Given Spironolactone (Spironolactone 25 Mg Tablet) 25 mg PO DAILY [facility] [place]; Protocol Last Admin: 07/18/22 09:55 Dose: 25 mg Thiamine HCl (Thiamine Hcl 100 Mg Tablet) 100 mg PO DAILY [facility] [place] Last Admin: 07/18/22 09:56 Dose: 100 mg Tiotropium [place] (Tiotropium [place] 18 Mcg Cap.W.Dev) 1 puff INHALE RDAILY [facility] Home Medications Medication Instructions Recorded Confirmed Type thiamine HCl (vitamin B1) 100 mg 100 mg PO DAILY 07/18/22 07/18/22 History tablet Allergies Allergy/AdvReac Type Severity Reaction Status Date / Time Penicillins [PENICILLINS] Allergy Unknown ASTHMA Verified 07/18/22 02:14 ATTACK Exam Vital signs: Vital Signs Temp 97.5 F 07/18/22 07:43 Pulse 80 07/18/22 07:43 Resp 22 H 07/18/22 07:43 BP 113/56 L 07/18/22 07:43 Pulse Ox 97 07/18/22 07:43 O2 Del Method 07/18/22 07:43 O2 Flow Rate 1 07/17/22 22:12 Intake & Output 07/17/22 07/18/22 07/18/22 18:59 06:59 18:59 Intake Total 150 / 150 Balance 150 / 150 Intake: Intake, IV Amount 150 / 150 levoFLOXacin/D5W 750 mg In 150 150 / 150 ml @ 100 mls/hr IV Q24H [facility] [place] Rx# :[id number] Other: Weight 146.5 kg Weight 146.5 kg BMI result Body Mass Index 46.3 - Constitutional Present: no acute distress, morbidly obese - Routine HEENT Exam Head: Present: normal inspection Eye: Present: EOMI - Routine Neck Exam Absent: lymphadenopathy - Routine Respiratory Exam Present: decreased breath sounds. Absent: accessory muscle use, stridor, wheezes - Routine Cardiovascular Exam Cardiovascular: Present: S1, S2 - Routine Abdominal Exam Present: soft Data - Labs CBC & Chem 7: 07/18/22 07:02 07/18/22 07:02 Labs: 07/17/22 17:37 XR chest 1V Stat 07/17/22 19:47 BNP [B Type Natriuretic Peptide] Stat COVID-19 ID NOW ([place]) Stat Complete Blood Count Auto Diff Stat Comprehensive Met. Panel Stat Lactic Acid Stat Magnesium Stat Troponin-I High Sensitivity Stat 07/17/22 22:17 Acetaminophen [Tylenol] 650 mg PO ONCE ONE 07/17/22 22:31 Add Laboratory Test Stat 07/17/22 22:44 UA ClnCatch+Micro w/rflx Cult Stat 07/17/22 23:15 Doxycycline Monohydrate [Vibramycin] 100 mg PO ONCE ONE 07/18/22 00:15 CT abdomen pelvis w IV con Stat CT chest w IV con Stat 07/18/22 00:56 iohexoL 350 MG/ML [Omnipaque 350 MG/ML] 100 ml IV ONCE ONE 07/18/22 02:21 PTT Heparin Drip Stat Prothrombin Time INR Stat 07/18/22 04:15 levoFLOXacin/D5W [Levaquin] 750 mg in 150 ml IV Q24H 07/18/22 07:02 Basic Metabolic Panel DAILY@0600 Complete Blood Count Auto Diff DAILY@0600 07/18/22 07:45 vancomycin HCL 1,000 mg .ROUTE .STK-MED ONE 07/18/22 07:51 vancomycin HCL 1,000 mg .ROUTE .STK-MED ONE 07/18/22 07:52 SARS-CoV2/FLU/RSV Stat 07/18/22 09:30 PTT Heparin Drip Stat Laboratory Last Values WBC 7.3 X10*3/uL (4.8-10.8) 07/18/22 07:02 RBC 2.99 X10*6/uL (4.60-5.80) L 07/18/22 07:02 Hgb 10.3 g/dl (14.0-18.0) L 07/18/22 07:02 Hct 30.2 % (42.0-52.0) L 07/18/22 07:02 MCV 101.0 fL (80.0-98.0) H 07/18/22 07:02 MCH 34.4 pg (27.0-33.0) H 07/18/22 07:02 MCHC 34.1 g/dl (31.0-36.0) 07/18/22 07:02 RDW 15.7 % (11.0-16.0) 07/18/22 07:02 Plt Count 88 X10*3/uL (160-400) L 07/18/22 07:02 MPV 8.7 fL (9.4-12.4) L 07/18/22 07:02 Immature Gran % (Auto) 0.4 % (0.0-0.4) 07/18/22 07:02 Neut % (Auto) 70.3 % (45-73) 07/18/22 07:02 Lymph % (Auto) 17.2 % (20-40) L 07/18/22 07:02 Kerr % (Auto) 8.9 % (2-11) 07/18/22 07:02 Eos % (Auto) 2.8 % (0-4) 07/18/22 07:02 Baso % (Auto) 0.4 % (0-2) 07/18/22 07:02 Lymph # (Auto) 1.3 X10*3/uL (1.2-4.9) 07/18/22 07:02 Kerr # (Auto) 0.7 X10*3/uL (0.1-1.2) 07/18/22 07:02 Eos # (Auto) 0.2 X10*3/uL (0.0-0.4) 07/18/22 07:02 Baso # (Auto) 0.0 X10*3/uL (0.0-0.2) 07/18/22 07:02 Abs Immat Gran (auto) 0.03 X10*3/uL (0.00-0.03) 07/18/22 07:02 Absolute Neuts (auto) 5.1 x10*3/uL (2.0-8.3) 07/18/22 07:02 Absolute Nucleated RBC 0.000 X10*3/uL (0.0-0.012) 07/18/22 07:02 Nucleated RBC % (auto) 0.0 /100WBC (0.0-0.2) 07/18/22 07:02 PT 14.7 SEC (10.0-13.1) H 07/18/22 02:21 INR 1.3 (0.9-1.1) H 07/18/22 02:21 aPTT Heparin Protocol 89.8 SEC (53-77.9) H D 07/18/22 09:30 Sodium 134 mmol/L (135-145) L 07/18/22 07:02 Potassium 3.5 mmol/L (3.3-5.1) 07/18/22 07:02 Chloride 105 mmol/L (96-108) 07/18/22 07:02 Carbon Dioxide 22 mmol/L (22-29) 07/18/22 07:02 Anion Gap 11 (12-20) L 07/18/22 07:02 BUN 19 mg/dL (9-16) H 07/18/22 07:02 Creatinine 1.26 mg/dL (0.5-1.4) 07/18/22 07:02 Estim Creat Clear Calc 76.7 07/18/22 07:02 Estimated GFR 56 07/18/22 07:02 Random Glucose 128 mg/dL (60-115) H 07/18/22 07:02 Lactic Acid 1.7 mmol/L (0.5-2.0) 07/17/22 19:47 Calcium 8.5 mg/dL (8.4-10.2) 07/18/22 07:02 Magnesium 1.9 mg/dL (1.6-2.6) 07/17/22 19:47 Total Bilirubin 3.2 mg/dL (0.0-1.0) H 07/17/22 19:47 AST 129 U/L (5-37) H 07/17/22 19:47 ALT 95 U/L (0-40) H 07/17/22 19:47 Alkaline Phosphatase 395 U/L (39-117) H 07/17/22 19:47 Lactate Dehydrogenase 461 U/L (118-273) H 07/18/22 09:30 Troponin I High Sens 6.4 ng/L (<3.5-35.0) 07/17/22 19:47 B-Natriuretic Peptide 124 pg/mL (<100) H 07/17/22 19:47 Total Protein 5.6 g/dL (6.5-8.0) L 07/17/22 19:47 Albumin 2.0 g/dL (3.5-5.0) L 07/17/22 19:47 Urine Color Dark Yellow 07/17/22 22:44 Urine Appearance Clear 07/17/22 22:44 Urine pH 5.5 (5.0-9.0) 07/17/22 22:44 Ur Specific [place] 1.015 (1.005-1.025) 07/17/22 22:44 Urine Protein Negative mg/dL (Neg-Trace) 07/17/22 22:44 Urine Glucose (UA) Negative mg/dL (Negative) 07/17/22 22:44 Urine Ketones Negative mg/dL (Negative) 07/17/22 22:44 Urine Blood Moderate (2+) (Negative) H 07/17/22 22:44 Urine Nitrite Negative (Negative) 07/17/22 22:44 Ur Leukocyte Esterase Small (1+) (Negative) H 07/17/22 22:44 Urine RBC >20 /HPF (0-2) H 07/17/22 22:44 Urine WBC 0-5 /HPF (0-5) 07/17/22 22:44 Ur Squamous Epith Cells 0-2 /HPF (0-2) 07/17/22 22:44 Urine Bacteria None Seen (None Seen) 07/17/22 22:44 Hyaline Casts 0-2 /LPF (0-2) 07/17/22 22:44 COVID-19 (PATTI) Negative (Negative) 07/17/22 19:47 COVID-19 Clin Com See Note 07/17/22 19:47 Influenza Type A (PCR) NEGATIVE (Negative) 07/18/22 07:52 Influenza Type B (PCR) NEGATIVE (Negative) 07/18/22 07:52 RSV RNA Qual (PCR) NEGATIVE (Negative) 07/18/22 07:52 SARS-CoV-2 RNA (RT-PCR) NEGATIVE (Negative) 07/18/22 07:52 - Imaging Radiologist's impression: ITS Impressions Chest X-Ray 07/17/22 18:23 IMPRESSION: 1. Similar appearance of the chest compared to prior with increased pulmonary vascular markings and some hazy indistinct opacities in the mid and lower lungs right greater than left. Findings may represent mild pulmonary edema. 2. Possible small right pleural effusion. Abdomen/Pelvis CT 07/18/22 00:50 IMPRESSION: CHEST: * Chronic volume loss of the right lung related to pleural-parenchymal scarring/round atelectasis within the right lower lobe. * Cardiomegaly. 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 Thrombus within the left hepatic vein extends into the IVC to the level of the inferior cavoatrial junction. * Mild splenomegaly. * Massive left splenorenal shunt and small esophageal varices. * Right intrarenal calculi without hydronephrosis. This critical result was discussed with JEANNE Woods at 07/18/2022 1:40 AM and it was ascertained that the content and urgency of the report was understood at the time of direct communication. Chest CT 07/18/22 00:50 IMPRESSION: CHEST: * Chronic volume loss of the right lung related to pleural-parenchymal scarring/round atelectasis within the right lower lobe. * Cardiomegaly. 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 Thrombus within the left hepatic vein extends into the IVC to the level of the inferior cavoatrial junction. * Mild splenomegaly. * Massive left splenorenal shunt and small esophageal varices. * Right intrarenal calculi without hydronephrosis. This critical result was discussed with JEANNE Woods at 07/18/2022 1:40 AM and it was ascertained that the content and urgency of the report was understood at the time of direct communication. Assessment and Plan Patient Active problem list reviewed?: Yes (1) Liver mass Status: Acute Assessment and plan: 1. This is a 71-year-old male with liver cirrhosis presenting with large infiltrative mass throughout left lobe of liver associated with portal venous thrombosis involving right and left portal veins extending into main portal v ein, most likely tumoral thrombus. There is also thrombus within left hepatic and middle hepatic vein extending into the IVC. There is also splenomegaly measuring up to 14.5 cm. All of the above is highly suspicious for hepatocellular carcinoma. AFP is pending, LDH is elevated. He will need GI evaluation, EGD to look for esophageal varices. He has been started on spironolactone by Cardiology. He appears to be a Child Lim class B. Patient has portal vein tumor thrombus involvement involving the main trunk portal vein as well as both hepatic veins extending into the IVC. This portends a poor prognosis. He may not be amenable for any local ordered liver directed therapies. He has been started on anticoagulation with heparin. If this is all tumoral thrombus and not bland thrombus, he may not require anticoagulation. Depending on above results as well as workup, further recommendations will be made. I thank you for this consultation. - Time Spent With Patient Time Spent with Patient (in minutes): 20
--- NOTE | 2022-07-18 10:48 | P.CONCA_ITS ---
History of Present Illness History of Present Illness Date of Service: 07/18/22 Requesting physician: Rosa Ferraro Consult reason: other (Leg edema) Chief complaint: Portal vein thrombosis, bronchitis Narrative: I was consulted to see [place] in cardiology consultation today due to bilateral leg edema. He has a complicated past medical history with history of cirrhosis, hypoalbuminemia, COPD, diastolic heart failure with last echocardiogram with EF of 55-60%, paroxysmal atrial fibrillation, morbid obesity present to the hospital because of worsening leg edema as well as noted by his son and some redness to his lower extremity. Patient came to the emergency room and on CT scan was noted to have a liver mass with associated portal vein thrombosis extended into IVC with evidence of portal venous hypertension. Cardiology will consult was sought because of his prior history of heart failure and not present with leg edema. He is currently on Lasix 80 mg b.i.d. at home. Denies any clear orthopnea PND. He is always short of breath related to his obesity, poor functional status, COPD. He denies any wheezing or cough. Denies any chest pain. Currently noted to be in sinus rhythm. He has been started on IV heparin because of portal vein thrombosis and GI as well as oncology team have been consulted. Review of Systems Constitutional: Constitutional: Reports no additional constitutional complaints Eyes: Eyes: Reports no additional eye complaints Cardiovascular: Cardiovascular: Denies chest pain, Denies irregular heart rhythm, Reports leg edema, Denies lightheadedness, Denies Loss of Consciousness, Denies palpitations, Reports dyspnea and Denies orthopnea Respiratory: Respiratory: Reports no additional respiratory complaints and Reports dyspnea Gastrointestinal: Gastrointestinal: Reports no additional gastrointestinal complaints Musculoskeletal: Musculoskeletal: Reports no additional musculoskeletal complaints Neurologic: Reports system reviewed and no additional complaints, except as documented Endocrine: Endocrine: Denies palpitations [facility] Past Medical History Medical History Acute exacerbation of CHF (congestive heart failure) Anasarca CHF (congestive heart failure) Cirrhosis COPD (chronic obstructive pulmonary disease) History of alcohol abuse History of cirrhosis of liver Hyperlipidemia Morbid obesity Family History Family History Father No problems noted. Mother No problems noted. Surgical History Surgical History History of tonsillectomy Social History Social History Household Members: Spouse Housing: Other Housing Other:: mobile home Do you presently have visiting nurse or other home services: Yes Alcohol intake: never Patient Tobacco Use Status: Former Tobacco user Quit Date: years ago per pt Tobacco use type: Cigarette Smoked in Last 30 Days: No e-Cigarette/Vaping Use: Never Used Second Hand Smoke Exposure: No Use of substances other than those prescribed or required for medical reasons: No Advance Directives: No Advance Directives Information Provided: No service: No Current occupational status: retired and disabled Cognitive needs: Yes (walker) Hearing needs: Yes (hearing aide) Vision needs: Yes (glasses) Meds Allergies Allergy/AdvReac Type Severity Reaction Status Date / Time Penicillins [PENICILLINS] Allergy Unknown ASTHMA Verified 07/18/22 02:14 ATTACK Active Medications: Current Medications Acetaminophen (Acetaminophen 325 Mg Tablet) 650 mg PO Q6H PRN PRN Reason: Pain, Mild (Pain Scale 1-3) Docusate Sodium (Docusate Sodium 100 Mg Capsule) 100 mg PO DAILY PRN PRN Reason: Constipation Folic Acid (Folic Acid 1 Mg Tablet) 1 mg PO DAILY RUFUS Last Admin: 07/18/22 09:55 Dose: 1 mg Furosemide (Furosemide 40 Mg Tablet) 80 mg PO BID RUFUS; Protocol Last Admin: 07/18/22 09:56 Dose: 80 mg Heparin Sodium (Porcine) (Heparin Sodium,Porcine 5,000 Unit/Ml Vial) 5,900 unit 40 unit/kg (5900 unit) IVPUSH PROTOCOL BOLUS PRN; Protocol PRN Reason: 40 unit/kg - Heparin Protocol Heparin Sodium (Porcine) (Heparin Sodium,Porcine 5,000 Unit/Ml Vial) 10,000 unit IVPUSH PROTOCOL BOLUS PRN; Protocol PRN Reason: 80 unit/kg - Heparin Protocol Heparin Sodium/Sodium Chloride (Heparin Sodium,Porcine/1/2ns) 25,000 unit in 250 mls @ 0 mls/hr IVCONT .Q0M RUFUS; Protocol Last Titration: 07/18/22 10:19 Dose: 12 units/kg/hr, 17.58 mls/hr Vancomycin HCl 1,500 mg/ (Sodium Chloride) 500 mls @ 333.333 mls/hr IV Q24H RUFUS Lactulose (Lactulose 20 Gm/30 Ml Solution) 20 gm PO BID [facility] Last Admin: 07/18/22 09:56 Dose: 20 gm Ondansetron HCl (Ondansetron Hcl 4 Mg/2 Ml Vial) 4 mg IVPUSH Q8H PRN PRN Reason: Nausea and Vomiting Pharmacy Consult (Consult Rx Perform Med Rec) 1 each MISCELLANE ONCE PRN PRN Reason: Consult order Pharmacy Consult (Consult Rx Vancomycin Dosing) 1 each MISCELLANE DAILY PRN PRN Reason: Consult order Potassium Chloride (Potassium Chloride Er 20 Meq Tab.Er.Prt) 20 meq PO BID [facility] Last Admin: 07/18/22 09:56 Dose: 20 meq Sodium Chloride (0.9 % Sodium Chloride Flush 3 Ml Syringe) 3 ml IVFLUSH QSHIFT [facility] Last Admin: 07/18/22 08:21 Dose: Not Given Spironolactone (Spironolactone 25 Mg Tablet) 25 mg PO DAILY [facility]; Protocol Last Admin: 07/18/22 09:55 Dose: 25 mg Thiamine HCl (Thiamine Hcl 100 Mg Tablet) 100 mg PO DAILY [facility] Last Admin: 07/18/22 09:56 Dose: 100 mg Tiotropium [place] (Tiotropium [place] 18 Mcg Cap.W.Dev) 1 puff INHALE RDAILY [facility] Home Medications Medication Instructions Recorded Confirmed Last Taken Type thiamine HCl (vitamin B1) 100 mg 100 mg PO DAILY 07/18/22 07/18/22 07/17/22 09:00 History tablet Physical Exam Vital Signs: Vital Signs: Last Vital Signs Temp 97.5 F 07/18/22 07:43 Pulse 80 07/18/22 07:43 Resp 22 H 07/18/22 07:43 BP 113/56 L 07/18/22 07:43 Pulse Ox 97 07/18/22 07:43 O2 Del Method 07/18/22 07:43 O2 Flow Rate 1 07/17/22 22:12 Oxygen Flow Rate 2 07/17/22 17:32 BMI result Body Mass Index 46.3 Objective Labs and Meds Result diagrams: 07/18/22 07:02 07/18/22 07:02 Lab results: Laboratory Results - last 24 hr 07/17/22 07/17/22 07/17/22 19:47 19:47 19:47 WBC 7.5 RBC 3.29 L Hgb 11.0 L Hct 33.2 L MCV 100.9 H MCH 33.4 H MCHC 33.1 RDW 15.5 Plt Count 101 L MPV 9.5 Immature Gran % (Auto) 0.3 Neut % (Auto) 78.7 H Lymph % (Auto) 12.7 L [place] % (Auto) 7.0 Eos % (Auto) 0.9 Baso % (Auto) 0.4 Lymph # (Auto) 1.0 L [place] # (Auto) 0.5 Eos # (Auto) 0.1 Baso # (Auto) 0.0 Abs Immat Gran (auto) 0.02 Absolute Neuts (auto) 5.9 Absolute Nucleated RBC 0.000 Nucleated RBC % (auto) 0.0 PT INR aPTT Heparin Protocol Sodium 135 Potassium 3.8 Chloride 104 Carbon Dioxide 26 Anion Gap 9 L BUN 20 H Creatinine 1.35 Estim Creat Clear Calc 71.6 Estimated GFR 52 Random Glucose 147 H Lactic Acid 1.7 Calcium 8.2 L Magnesium 1.9 Total Bilirubin 3.2 H AST 129 H ALT 95 H Alkaline Phosphatase 395 H Lactate Dehydrogenase Troponin I High Sens B-Natriuretic Peptide Total Protein 5.6 L Albumin 2.0 L Urine Color Urine Appearance Urine pH Ur Specific [place] Urine Protein Urine Glucose (UA) Urine Ketones Urine Blood Urine Nitrite Ur Leukocyte Esterase Urine RBC Urine WBC Ur Squamous Epith Cells Urine Bacteria Hyaline Casts COVID-19 (PATTI) COVID-19 Clin Com Influenza Type A (PCR) Influenza Type B (PCR) RSV RNA Qual (PCR) SARS-CoV-2 RNA (RT-PCR) 07/17/22 07/17/22 07/17/22 19:47 19:47 19:47 WBC RBC Hgb Hct MCV MCH MCHC RDW Plt Count MPV Immature Gran % (Auto) Neut % (Auto) Lymph % (Auto) [place] % (Auto) Eos % (Auto) Baso % (Auto) Lymph # (Auto) [place] # (Auto) Eos # (Auto) Baso # (Auto) Abs Immat Gran (auto) Absolute Neuts (auto) Absolute Nucleated RBC Nucleated RBC % (auto) PT INR aPTT Heparin Protocol Sodium Potassium Chloride Carbon Dioxide Anion Gap BUN Creatinine Estim Creat Clear Calc Estimated GFR Random Glucose Lactic Acid Calcium Magnesium Total Bilirubin AST ALT Alkaline Phosphatase Lactate Dehydrogenase Troponin I High Sens 6.4 B-Natriuretic Peptide 124 H Total Protein Albumin Urine Color Urine Appearance Urine pH Ur Specific [place] Urine Protein Urine Glucose (UA) Urine Ketones Urine Blood Urine Nitrite Ur Leukocyte Esterase Urine RBC Urine WBC Ur Squamous Epith Cells Urine Bacteria Hyaline Casts COVID-19 (PATTI) Negative COVID-19 Clin Com See Note Influenza Type A (PCR) Influenza Type B (PCR) RSV RNA Qual (PCR) SARS-CoV-2 RNA (RT-PCR) 07/17/22 07/18/22 07/18/22 22:44 02:21 07:02 WBC 7.3 RBC 2.99 L Hgb 10.3 L Hct 30.2 L MCV 101.0 H MCH 34.4 H MCHC 34.1 RDW 15.7 Plt Count 88 L MPV 8.7 L Immature Gran % (Auto) 0.4 Neut % (Auto) 70.3 Lymph % (Auto) 17.2 L [place] % (Auto) 8.9 Eos % (Auto) 2.8 Baso % (Auto) 0.4 Lymph # (Auto) 1.3 [place] # (Auto) 0.7 Eos # (Auto) 0.2 Baso # (Auto) 0.0 Abs Immat Gran (auto) 0.03 Absolute Neuts (auto) 5.1 Absolute Nucleated RBC 0.000 Nucleated RBC % (auto) 0.0 PT 14.7 H INR 1.3 H aPTT Heparin Protocol 35.6 L Sodium Potassium Chloride Carbon Dioxide Anion Gap BUN Creatinine Estim Creat Clear Calc Estimated GFR Random Glucose Lactic Acid Calcium Magnesium Total Bilirubin AST ALT Alkaline Phosphatase Lactate Dehydrogenase Troponin I High Sens B-Natriuretic Peptide Total Protein Albumin Urine Color Dark Yellow Urine Appearance Clear Urine pH 5.5 Ur Specific [place] 1.015 Urine Protein Negative Urine Glucose (UA) Negative Urine Ketones Negative Urine Blood Moderate (2+) H Urine Nitrite Negative Ur Leukocyte Esterase Small (1+) H Urine RBC >20 H Urine WBC 0-5 Ur Squamous Epith Cells 0-2 Urine Bacteria None Seen Hyaline Casts 0-2 COVID-19 (PATTI) COVID-19 Clin Com Influenza Type A (PCR) Influenza Type B (PCR) RSV RNA Qual (PCR) SARS-CoV-2 RNA (RT-PCR) 07/18/22 07/18/22 07/18/22 07:02 07:52 09:30 WBC RBC Hgb Hct MCV MCH MCHC RDW Plt Count MPV Immature Gran % (Auto) Neut % (Auto) Lymph % (Auto) [place] % (Auto) Eos % (Auto) Baso % (Auto) Lymph # (Auto) [place] # (Auto) Eos # (Auto) Baso # (Auto) Abs Immat Gran (auto) Absolute Neuts (auto) Absolute Nucleated RBC Nucleated RBC % (auto) PT INR aPTT Heparin Protocol 89.8 H D Sodium 134 L Potassium 3.5 Chloride 105 Carbon Dioxide 22 Anion Gap 11 L BUN 19 H Creatinine 1.26 Estim Creat Clear Calc 76.7 Estimated GFR 56 Random Glucose 128 H Lactic Acid Calcium 8.5 Magnesium Total Bilirubin AST ALT Alkaline Phosphatase Lactate Dehydrogenase Troponin I High Sens B-Natriuretic Peptide Total Protein Albumin Urine Color Urine Appearance Urine pH Ur Specific [place] Urine Protein Urine Glucose (UA) Urine Ketones Urine Blood Urine Nitrite Ur Leukocyte Esterase Urine RBC Urine WBC Ur Squamous Epith Cells Urine Bacteria Hyaline Casts COVID-19 (PATTI) COVID-19 Clin Com Influenza Type A (PCR) NEGATIVE Influenza Type B (PCR) NEGATIVE RSV RNA Qual (PCR) NEGATIVE SARS-CoV-2 RNA (RT-PCR) NEGATIVE 07/18/22 09:30 WBC RBC Hgb Hct MCV MCH MCHC RDW Plt Count MPV Immature Gran % (Auto) Neut % (Auto) Lymph % (Auto) [place] % (Auto) Eos % (Auto) Baso % (Auto) Lymph # (Auto) [place] # (Auto) Eos # (Auto) Baso # (Auto) Abs Immat Gran (auto) Absolute Neuts (auto) Absolute Nucleated RBC Nucleated RBC % (auto) PT INR aPTT Heparin Protocol Sodium Potassium Chloride Carbon Dioxide Anion Gap BUN Creatinine Estim Creat Clear Calc Estimated GFR Random Glucose Lactic Acid Calcium Magnesium Total Bilirubin AST ALT Alkaline Phosphatase Lactate Dehydrogenase 461 H Troponin I High Sens B-Natriuretic Peptide Total Protein Albumin Urine Color Urine Appearance Urine pH Ur Specific [place] Urine Protein Urine Glucose (UA) Urine Ketones Urine Blood Urine Nitrite Ur Leukocyte Esterase Urine RBC Urine WBC Ur Squamous Epith Cells Urine Bacteria Hyaline Casts COVID-19 (PATTI) COVID-19 Clin Com Influenza Type A (PCR) Influenza Type B (PCR) RSV RNA Qual (PCR) SARS-CoV-2 RNA (RT-PCR) Imaging Radiologist's impression: Impressions Chest X-Ray 07/17/22 18:23 IMPRESSION: 1. Similar appearance of the chest compared to prior with increased pulmonary vascular markings and some hazy indistinct opacities in the mid and lower lungs right greater than left. Findings may represent mild pulmonary edema. 2. Possible small right pleural effusion. Abdomen/Pelvis CT 07/18/22 00:50 IMPRESSION: CHEST: * Chronic volume loss of the right lung related to pleural-parenchymal scarring/round atelectasis within the right lower lobe. * Cardiomegaly. 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 Thrombus within the left hepatic vein extends into the IVC to the level of the inferior cavoatrial junction. * Mild splenomegaly. * Massive left splenorenal shunt and small esophageal varices. * Right intrarenal calculi without hydronephrosis. This critical result was discussed with JEANNE Woods at 07/18/2022 1:40 AM and it was ascertained that the content and urgency of the report was understood at the time of direct communication. Chest CT 07/18/22 00:50 IMPRESSION: CHEST: * Chronic volume loss of the right lung related to pleural-parenchymal scarring/round atelectasis within the right lower lobe. * Cardiomegaly. 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 Thrombus within the left hepatic vein extends into the IVC to the level of the inferior cavoatrial junction. * Mild splenomegaly. * Massive left splenorenal shunt and small esophageal varices. * Right intrarenal calculi without hydronephrosis. This critical result was discussed with JEANNE Woods at 07/18/2022 1:40 AM and it was ascertained that the content and urgency of the report was understood at the time of direct communication. Assessment and Plan (1) Bilateral edema of lower extremity: Status: Acute Bilateral leg edema in this elderly patient without any overt other signs of heart failure. BNP is minimally elevated. He does have history of diastolic heart failure and currently on high dose of oral Lasix. Will consider adding spironolactone to his regimen for both diastolic heart failure as well as cirrhosis of the liver. His current leg edema appears to be more dependent, peripheral venous hypertension related to his obesity, IVC thrombosis, hypoalbuminemia and/or cirrhosis of the liver. Unlikely that this represents decompensated heart failure at not think he requires IV Lasix at this point in time. Continue manage his underlying other medical problems including COPD as well as cirrhosis of the liver. Liver masses concerning and currently being worked up. No further input from cardiac perspective. At this point time will sign of the case. Thank you for allowing me to partake in his care Time Spent With Patient Time: Total time managing care of this patient today ____ minutes. Procedures Date of Service Date of Service: 07/18/22
--- NOTE | 2022-07-18 13:56 | P.CNHO_ITS ---
Subjective - Subjective Chief complaint: Leg swelling Patient: new to practice Consult date: 07/18/22 Primary Care Provider: Jared Garcia MD HPI - Consult Narrative Reason for consult: liver mass with portal vein thrombosis Narrative: This is a 71-year-old male with past history of alcoholism, sober since 08/07 now presenting with liver mass with extensive portal vein thrombosis concerning for malignancy. He has known about liver cirrhosis but he said he never had any liver related issues that were diagnosed in the past. He presented to the ED because of leg swelling and his son noticed an open area and his insisted that patient go to the emergency department. He denies any complaints such as worsening shortness of breath or cough. He has chronic orthopnea. He denies abdominal pain or change in his bowel habits. He denies nausea or emesis. No fever or chills. He has never seen a veterinary assistant about his liver cirrho sis. Workup in the ED revealed abnormal LFTs and mildly elevated PT/INR. PT of 14.7, INR of 1.3, bilirubin of 3.2, AST of 129, ALT of 95, alk-phos of 395, Imaging including chest, abdomen, and pelvis: CT shows in the chest there is chronic volume loss of the right lung related to pleural parenchymal scarring with atelectasis within the right lower lobe, Abdomen pelvic CT shows infiltrative mass throughout the left lobe of the liver likely with 2 more all thrombus of the portal venous system including the main portal vein to the level of the portal splenic confluence, thrombus within the left hepatic vein extends into the IVC to the level of the inferior cavoatrial junction. Massive left splenorenal shunt and small esophageal varices. Patient has been started on heparin drip. Review of Systems - Constitutional Reports as per HPI, Reports no additional constitutional complaints, Denies anorexia, Denies chills, Denies poor appetite, Denies weight loss - Cardiovascular Reports no additional cardiovascular complaints, Denies chest pain with activity, Reports generalized swelling, Denies lightheadedness - Neurologic Reports no additional neurologic complaints [facility] Medical History: Medical History (Last Reviewed 07/18/22 @ 10:56 by Jose Juan Hare MD) Acute exacerbation of CHF (congestive heart failure) Anasarca CHF (congestive heart failure) Cirrhosis COPD (chronic obstructive pulmonary disease) History of alcohol abuse History of cirrhosis of liver Hyperlipidemia Morbid obesity Family History: Family History (Last Reviewed 07/18/22 @ 10:56 by Jose Juan Hare MD) Father No problems noted. Mother No problems noted. Surgical History: Surgical History (Last Reviewed 07/18/22 @ 10:56 by Jose Juan Hare MD) History of tonsillectomy Social History: Social History (Last Reviewed 07/18/22 @ 10:56 by Jose Juan Hare MD) Living Situation History: Household Members: Spouse Housing: Other Housing Other:: mobile home Do you presently have visiting nurse or other home services: Yes Tobacco History: Patient Tobacco Use Status: Former Tobacco user Tobacco use type: Cigarette Smoked in Last 30 Days: No Smoke Quit Date: years ago per pt e-Cigarette/Vaping Use: Never Used Second Hand Smoke Exposure: No Substance Use History: Use of substances other than those prescribed or required for medical reasons : No Advance Directives: Advance Directives: No Advance Directives Information Provided: No Occupation Assessmet: service: No Current occupational status: retired Current occupational status: disabled Home Medications and Allergies Current Medications: Current Medications Acetaminophen (Acetaminophen 325 Mg Tablet) 650 mg PO Q6H PRN PRN Reason: Pain, Mild (Pain Scale 1-3) Docusate Sodium (Docusate Sodium 100 Mg Capsule) 100 mg PO DAILY PRN PRN Reason: Constipation Folic Acid (Folic Acid 1 Mg Tablet) 1 mg PO DAILY RUFUS Last Admin: 07/18/22 09:55 Dose: 1 mg Furosemide (Furosemide 40 Mg Tablet) 80 mg PO BID RUFUS; Protocol Last Admin: 07/18/22 09:56 Dose: 80 mg Heparin Sodium (Porcine) (Heparin Sodium,Porcine 5,000 Unit/Ml Vial) 5,900 unit 40 unit/kg (5900 unit) IVPUSH PROTOCOL BOLUS PRN; Protocol PRN Reason: 40 unit/kg - Heparin Protocol Heparin Sodium (Porcine) (Heparin Sodium,Porcine 5,000 Unit/Ml Vial) 10,000 unit IVPUSH PROTOCOL BOLUS PRN; Protocol PRN Reason: 80 unit/kg - Heparin Protocol Heparin Sodium/Sodium Chloride (Heparin Sodium,Porcine/1/2ns) 25,000 unit in 250 mls @ 0 mls/hr IVCONT .Q0M RUFUS; Protocol Last Titration: 07/18/22 10:19 Dose: 12 units/kg/hr, 17.58 mls/hr Vancomycin HCl 1,500 mg/ (Sodium Chloride) 500 mls @ 333.333 mls/hr IV Q24H [facility] Lactulose (Lactulose 20 Gm/30 Ml Solution) 20 gm PO BID [facility] Last Admin: 07/18/22 09:56 Dose: 20 gm Ondansetron HCl (Ondansetron Hcl 4 Mg/2 Ml Vial) 4 mg IVPUSH Q8H PRN PRN Reason: Nausea and Vomiting Pharmacy Consult (Consult Rx Perform Med Rec) 1 each MISCELLANE ONCE PRN PRN Reason: Consult order Pharmacy Consult (Consult Rx Vancomycin Dosing) 1 each MISCELLANE DAILY PRN PRN Reason: Consult order Potassium Chloride (Potassium Chloride Er 20 Meq Tab.Er.Prt) 20 meq PO BID [facility] Last Admin: 07/18/22 09:56 Dose: 20 meq Sodium Chloride (0.9 % Sodium Chloride Flush 3 Ml Syringe) 3 ml IVFLUSH QSHIFT [facility] Last Admin: 07/18/22 08:21 Dose: Not Given Spironolactone (Spironolactone 25 Mg Tablet) 25 mg PO DAILY [facility]; Protocol Last Admin: 07/18/22 09:55 Dose: 25 mg Thiamine HCl (Thiamine Hcl 100 Mg Tablet) 100 mg PO DAILY [facility] Last Admin: 07/18/22 09:56 Dose: 100 mg Tiotropium Merriman (Tiotropium Merriman 18 Mcg Cap.W.Dev) 1 puff INHALE RDAILY [facility] Home Medications Medication Instructions Recorded Confirmed Type thiamine HCl (vitamin B1) 100 mg 100 mg PO DAILY 07/18/22 07/18/22 History tablet Allergies Allergy/AdvReac Type Severity Reaction Status Date / Time Penicillins [PENICILLINS] Allergy Unknown ASTHMA Verified 07/18/22 02:14 ATTACK Physical Exam Vital signs: Vital Signs Temp 97.5 F 07/18/22 07:43 Pulse 80 07/18/22 07:43 Resp 22 H 07/18/22 07:43 BP 113/56 L 07/18/22 07:43 Pulse Ox 97 07/18/22 07:43 O2 Del Method 07/18/22 07:43 O2 Flow Rate 1 07/17/22 22:12 Intake & Output 07/17/22 07/18/22 07/18/22 18:59 06:59 18:59 Intake Total 150 / 150 690.065 / 690.065 Balance 150 / 150 690.065 / 690.065 Intake: Intake, IV Amount 150 / 150 690.065 / 690.065 levoFLOXacin/D5W 750 mg In 150 150 / 150 ml @ 100 mls/hr IV Q24H [facility] Rx# :[id number] vancomycin HCL 2,000 mg In 0.9 540 / 540 % Sodium Chloride 500 ml @ 270 mls/hr IV ONCE ONE Rx#: [id number] Heparin Sodium,Porcine/1/2NS 25 150.065 / 150.065 ,000 unit In 250 ml @ Per Protocol IVCONT .Q0M [facility] Rx#: [id number] Other: Weight 146.5 kg Weight 146.5 kg - Constitutional Present: no acute distress, morbidly obese - Routine HEENT Exam Head: Present: atraumatic, normal inspection Eye: Present: EOMI - Routine Neck Exam Present: supple - Routine Respiratory Exam Present: decreased breath sounds. Absent: accessory muscle use - Routine Cardiovascular Exam Cardiovascular: Present: S1, S2 - Routine Abdominal Exam Present: nontender - Routine Extremities Exam Present: normal inspection Comments: bilateral leg swelling with area of erythema on right lateral corea with a scab - Routine Skin Exam Present: erythema - Routine Neurological Exam Present: alert, oriented X3 Hem/Onc Consult Result - Labs CBC & Chem 7: 07/18/22 07:02 07/18/22 07:02 Labs: Short CBC 07/17/22 07/18/22 Range/Units 19:47 07:02 WBC 7.5 7.3 (4.8-10.8) X10*3/uL Hgb 11.0 L 10.3 L (14.0-18.0) g/dl Hct 33.2 L 30.2 L (42.0-52.0) % Plt Count 101 L 88 L (160-400) X10*3/uL BMP 07/17/22 07/18/22 19:47 07:02 Sodium 135 134 L Potassium 3.8 3.5 Chloride 104 105 Carbon Dioxide 26 22 BUN 20 H 19 H Creatinine 1.35 1.26 Calcium 8.2 L 8.5 Liver Function 07/17/22 Range/Units 19:47 Total Bilirubin 3.2 H (0.0-1.0) mg/dL AST 129 H (5-37) U/L ALT 95 H (0-40) U/L Alkaline Phosphatase 395 H (39-117) U/L Albumin 2.0 L (3.5-5.0) g/dL Urine 07/17/22 Range/Units 22:44 Urine Color Dark Yellow Urine Appearance Clear Urine pH 5.5 (5.0-9.0) Ur Specific [place] 1.015 (1.005-1.025) Urine Protein Negative (Neg-Trace) mg/dL Urine Glucose (UA) Negative (Negative) mg/dL Assessment and Plan Patient Active problem list reviewed?: Yes (1) Liver mass Status: Acute Assessment and plan: 1. This is a 71-year-old male with liver cirrhosis presenting with large infiltrative mass throughout left lobe of liver associated with portal venous thrombosis involving right and left portal veins extending into main portal vein, most likely tumoral thrombus. There is also thrombus within left hepatic and middle hepatic vein extending into the IVC. There is also splenomegaly measuring up to 14.5 cm. All of the above is highly suspicious for hepatocellular carcinoma. AFP is pending, LDH is elevated. He will need GI evaluation, EGD to look for esophageal varices. He has been sta rted on spironolactone by Cardiology. He appears to be a Child Lim class B. Patient has portal vein tumor thrombus involvement involving the main trunk portal vein as well as both hepatic veins extending into the IVC. This portends a poor prognosis. He may not be amenable for any local ordered liver directed therapies. He has been started on anticoagulation with heparin. If this is all tumoral thrombus and not bland thrombus, he may not require anticoagulation. Depending on above results as well as workup, further recommendations will be made. I thank you for this consultation. - Time Spent With Patient Time Spent with Patient (in minutes): 25
--- NOTE | 2022-07-18 14:42 | PM.EVENT ---
Event Note Date of Service: 07/18/22 Event Note: The patient was seen and evaluated earlier this morning Link comfortable, denies any pain in his abdomen Continue heparin drip Cardiology input appreciated, unlikely heart failure Oncology input appreciated, has portal, hepatic vein thrombuses extending to IVC, poor prognosis, may not amenable for any liver directed therapy. Oncology also, If this is all tumoral thrombus and not bland thrombus, he may not require anticoagulation. Pending AFP Pending GI evaluation, possible EGD to rule out pheresis Continue Lasix and spironolactone Covered with IV antibiotic for possible cellulitis Time Spent With Patient Time: Total time managing care of this patient today ____ minutes.
--- NOTE | 2022-07-18 16:25 | PC.NURSE ---
Patient AOx 4 denies pain no respiratory distress noted continues on heparin drip with no adverse effect phlebotomy at bedside will CTM
[2022-07-18] MEDS: Heparin Sodium,Porcine/1/2NS 25,000 UNIT/250 ML IV.SOLN 17.58 UNIT IVCONT (16:31)
[2022-07-18] MEDS: Heparin Sodium,Porcine/1/2NS 25,000 UNIT/250 ML IV.SOLN 9 UNIT IVCONT (17:36)
--- NOTE | 2022-07-18 17:41 | PC.NURSE ---
Heparin dose reduced per protocol, patient tolerating IV heparin with no ill effect
--- NOTE | 2022-07-18 18:56 | PM.EVENT ---
Event Note Date of Service: 07/18/22 Event Note: GI Consult-Full note dictated-History via patient and EMR Imp: 71 yo male with multiple medical problems including EtOH-induced liver disease, oxygen-dependent COPD, CHF, and peripheral edema with the finding of probable hepatocellular carcinoma and extensive thrombosis involving the portal venous system. Part of his liver disease, edema, and portal HTN may also be due to a component of cor pulmonale as well. He has had no history of GI bleeding. He has a slightly elevated TBili. There is no obvious encephalopathy. The treatment options for him are severely limited due to his overall poor health and what appears to be extensive tumor in his liver. Rec: Await result of AFP. If significantly elevated then that may be enough for the diagnosis of hepatoma. He would otherwise need a biopsy of the liver lesion if plan is for aggressive treatment. I would defer decisions regarding anticoagulation and treatment of the presumed hepatoma to Oncology. I would recommend PPI therapy while on anticoagulation. I would hold the Lactulose treatment as he has not been encephalopathic as best I can tell and the associated diarrhea with his immobility is proving problematic for him. I don't think an upper endoscopy would be helpful here at this time. I would personally consider palliative care rather than treatment of the suspected hepatoma in light of all of his other significant medical issues. D/W patient in detail. Thanks Time Spent With Patient Time: Total time managing care of this patient today ____ minutes.
--- NOTE | 2022-07-18 19:59 | PC.NURSE ---
patient brought over to ED overflow bed 6 from ED bed 14 during change of shift at 1900 - previous day shift RN never received report from ED RN on this patient prior to transfer. This RN attempted to call for report to the ED but day shift nurse had already left for the day. patient is on a heparin drip running at 9u/kg/hr (on pump). pharmacy called to verify this rate as it was incorrectly entered into the mar by previous RN per pharmacy. will attempt to fix this in mar now. patient is resting comfortably on stretcher, A&Ox4, speaking clear full sentences, in no apparent distress. will continue to monitor.
--- NOTE | 2022-07-18 20:29 | PC.NURSE ---
heparin drip adjusted to proper dose rate in sep per pharmacy request. second RN Maury Marroquin called from ED to co-sign. heparin running at 9u/kg/hr. pt tolerating well
[2022-07-18] MEDS: Omeprazole 40 MG CAPSULE.DR PO (20:35)
--- NOTE | 2022-07-18 22:59 | PM.EVENT ---
I would recommed discontinuing heparin /anticoagulation as pt has had no abdominal pain and by CT this appears to be tumor thrombus. He is at increased risk of bleeding because of portal venous HTN and probable varices.
[2022-07-18 23:59] LABS: PTT Heparin Drip 75.3 SEC (53-77.9)
--- NOTE | 2022-07-19 00:35 | PC.NURSE ---
heparin drip discontinued per assistant clinical nurse manager request. see note
--- NOTE | 2022-07-19 00:37 | PC.NURSE ---
verified with MD Hahn to discontinue heparin drip
--- NOTE | 2022-07-19 01:38 | CONS_ITS ---
DATE OF SERVICE: 07/18/2022 REASON FOR CONSULTATION: Liver mass and cirrhosis. HISTORY OF PRESENT ILLNESS: The patient is a 71-year-old male who has a longstanding history of heavy alcohol use up until 12 years ago. He describes having been told that he has cirrhosis. He has multiple other significant medical problems including COPD for which he wears oxygen at bedtime and congestive heart failure. The patient came to the ER primarily due to lower extremity edema and some nonhealing leg ulcers. He denies any particular issues with abdominal pain, anorexia, jaundice, significant heartburn, dysphagia, nausea, nor vomiting. He denies any symptoms of increasing abdominal girth, change in bowel habits, melena, nor hematochezia. The patient denies any known history of liver disease in family members. He has not had any history of jaundice in himself. Since admission to the hospital, he has been afebrile. He denies any pruritus. MEDICATIONS: At home included albuterol, recent initiation of erythromycin and doxycycline, folic acid, Lasix, lactulose, potassium, prednisone, spironolactone, and thiamine. His medications here in the hospital include acetaminophen, Colace, doxycycline, folic acid, furosemide, IV heparin, lactulose, Zofran, potassium, spironolactone, thiamine, and vancomycin. PAST MEDICAL HISTORY: Oxygen dependent COPD, congestive heart failure, previous history of alcohol abuse, lower extremity edema, hyperlipidemia, obesity, reported cirrhosis. His only surgery is tonsillectomy. SOCIAL HISTORY: He is . Former smoker and alcohol abuse up until 12 years ago. FAMILY HISTORY: Noncontributory. REVIEW OF SYSTEMS: CONSTITUTIONAL: He does have fatigue and some shortness of breath in general. CARDIAC: No chest pain. PULMONARY: No coughing or hemoptysis. GI: As above. PHYSICAL EXAMINATION: GENERAL: The patient is alert, comfortable, cooperative male who answers questions appropriately. SKIN: Warm and dry. Nonjaundiced. CHEST: Clear. NECK: Supple. ABDOMEN: Soft, nondistended, nontender and without palpable mass. LABORATORY DATA: White blood cell count 7.3, hemoglobin 10.3, MCV 101, and platelets 88,000. PT 14.7 and INR 1.3. Normal electrolytes. BUN 20, creatinine 1.4, total bilirubin is 3.2, AST 129, ALT 95, alkaline phosphatase 395, LDH 461, albumin 2.0. Alpha-fetoprotein level is pending. CEA level is 5.4. CA 19-9 is pending. COVID-19 is negative. He had a CT scan of his chest and abdomen. The most notable finding is that of an infiltrative mass throughout the left lobe and medial segment of the liver. There was also associated portal venous thrombosis in the right and left portal veins, which extends into the main portal vein. This was felt to be related to tumor associated thrombus. Gallstones were noted. There was no biliary obstruction. Pancreas was unremarkable. Spleen was slightly enlarged. There is no description of this significant ascites. IMPRESSION: Given the patient's clinical history, this seems most consistent with a hepatocellular carcinoma in relation to his chronic liver disease. I suspect significant thrombosis involving the portal venous system is in relation to this tumor. His liver disease is most likely in relation to his long-standing alcohol use. He does have longstanding COPD and CHF, and there may be some component of cor pulmonale and passive congestion. At this point, I would await the results of his alpha-fetoprotein level. Again, the most likely diagnosis is that of hepatocellular carcinoma and therefore treatment options in this patient would be quite limited given his age, significant comorbid medical problems and underlying component of cirrhosis. At this point, he does not show any signs of GI bleeding, obvious hepatic encephalopathy, nor spontaneous bacterial peritonitis. If the alpha-fetoprotein level is significantly elevated that may be enough for the diagnosis of hepatoma. Otherwise, he would need a biopsy of the liver lesion if the plan is for aggressive treatment. My personal opinion, given his significant medical issues and liver disease, would be that of avoiding aggressive treatment and considering palliative care. However, I would defer decisions regarding treatment to the oncologist, as well deferring decisions regarding his anticoagulation for the portal vein thrombosis up to the oncologist as well. He has described lactulose is problematic for him with diarrhea and limited mobility. Therefore, I would not have any problem with stopping that as long as things remain stable neurologically.. I do not think an upper endoscopy is needed as I do not think any findings would affect the ultimate course of treatment in this patient. I would start him on omeprazole given his significant medical issues and underlying pathology of significant liver disease and probable portal gastropathy and varices. This has all been discussed in detail with the patient and he is comfortable with this plan. Thank you for this consultation. MD TONY Madden/KATHRYN / [phone] [id number]
[2022-07-19 02:40] VITALS: BP 108/47; PULSE 81; RESP 20; O2SAT 95
[2022-07-19 04:02] VITALS: BP 99/45; PULSE 92; RESP 20; TEMP 36.8; O2SAT 94
[2022-07-19] MEDS: Omeprazole 40 MG CAPSULE.DR PO (05:44)
--- NOTE | 2022-07-19 06:25 | PC.NURSE ---
patient cleaned up and linens changed by this RN and PCT. perineal care provided, warm blankets given. , vitals updated. call bailey within reach
[2022-07-19 07:16] LABS: Anion Gap 10 (12-20); Blood Urea Nitrogen 18 mg/dL (9-16); Calcium 8.4 mg/dL (8.4-10.2); Carbon Dioxide 26 mmol/L (22-29); Chloride 105 mmol/L (96-108); Creatinine Clr Calc Pharmacy 87.1; Estimated Glomerular Filt Rate > 60; Glucose Random 92 mg/dL (60-115); Sodium 137 mmol/L (135-145)
[2022-07-19 07:18] LABS: Alanine Aminotransferase 93 U/L (0-40); Albumin Level 1.9 g/dL (3.5-5.0); Alkaline Phosphatase 356 U/L (39-117); Aspartate Amino Transferase 116 U/L (5-37); Bilirubin Direct 1.6 mg/dL (0.0-0.5); Total Protein 5.4 g/dL (6.5-8.0)
--- NOTE | 2022-07-19 08:17 | HE.PHANOTE ---
iza solorzano continue current dose, next level due 07/21 @0600 jada
[2022-07-19 08:52] VITALS: BP 98/47; PULSE 82; RESP 19; TEMP 36.7; O2SAT 94
[2022-07-19] MEDS: Furosemide 40 MG TABLET 80 MG PO ×2 (09:44→22:23)
[2022-07-19] MEDS: Lactulose 20 GM/30 ML SOLUTION PO ×2 (09:44→22:19)
[2022-07-19] MEDS: Folic Acid 1 MG TABLET PO (09:44)
[2022-07-19] MEDS: Potassium Chloride ER 20 MEQ TAB.ER.PRT PO ×2 (09:44→22:24)
[2022-07-19] MEDS: Thiamine HCL 100 MG TABLET PO (09:44)
[2022-07-19] MEDS: Spironolactone 25 MG TABLET PO (09:45)
[2022-07-19] MEDS: vancomycin HCL 1,500 MG in 0.9 % Sodium Chloride 500 ML 333.33 MG IV (09:46)
[2022-07-19] MEDS: Heparin Sodium,Porcine 5,000 UNIT/ML VIAL 5000 UNIT SUBCUT ×2 (12:45→22:25)
--- NOTE | 2022-07-19 14:15 | HO.PM.IMPN ---
Subjective Subjective Date of Service: 07/19/22 Interval History: the patient was seen and evaluated this morning Laying in bed, feels comfortable overall with no abdominal pain Complaining of bilateral lower extremities tingling sensation No reported other overnight events. Systemic review: No fever, chills or weakness No chest pain, palpitation No shortness of breath or coughing No abdominal pain, nausea or vomiting No urinary symptoms Bilateral lower extremities rash Physical Exam Vital Signs: Vital Signs: Last Vital Signs Temp 98.0 F 07/19/22 08:52 Pulse 82 07/19/22 08:52 Resp 19 07/19/22 08:52 BP 98/47 L 07/19/22 08:52 Pulse Ox 94 07/19/22 08:52 O2 Del Method 07/19/22 08:52 O2 Flow Rate 1 07/17/22 22:12 Oxygen Flow Rate 2 07/17/22 17:32 BMI result Body Mass Index 46.3 Const: Other: Constitutional: Awake, interactive, morbidly obese, not in distress Neck: Normal inspection, Supple Cardiovascular: RRR, no JVP, +2 bilateral lower extremity edema Respiratory: Fair bilateral air entry, no crackles, wheezes or rhonchi Gastrointestinal: soft, lax, Normal bowel sounds, Non tender Skin: Warm, Dry Neurological: Alert & oriented x3, No focal deficit Objective Data Active Medications Acetaminophen (Acetaminophen 325 Mg Tablet) 650 mg PO Q6H PRN PRN Reason: Pain, Mild (Pain Scale 1-3) Docusate Sodium (Docusate Sodium 100 Mg Capsule) 100 mg PO DAILY PRN PRN Reason: Constipation Folic Acid (Folic Acid 1 Mg Tablet) 1 mg PO DAILY [facility] Last Admin: 07/19/22 09:44 Dose: 1 mg Documented By: AFUA Furosemide (Furosemide 40 Mg Tablet) 80 mg PO BID [facility]; Protocol Last Admin: 07/19/22 09:44 Dose: 80 mg Documented By: AFUA Heparin Sodium (Porcine) (Heparin Sodium,Porcine 5,000 Unit/Ml Vial) 5,000 unit SUBCUT Q12H [facility] Last Admin: 07/19/22 12:45 Dose: 5,000 unit Documented By: AFUA Vancomycin HCl 1,500 mg/ (Sodium Chloride) 500 mls @ 333.333 mls/hr IV Q24H [facility] Last Infusion: 07/19/22 12:46 Dose: 0 mls/hr Documented By: AFUA Lactulose (Lactulose 20 Gm/30 Ml Solution) 20 gm PO BID [facility] Last Admin: 07/19/22 09:44 Dose: 20 gm Documented By: AFUA Omeprazole (Omeprazole 40 Mg Capsule.Dr) 40 mg PO DAILY@0630 [facility] Last Admin: 07/19/22 05:44 Dose: 40 mg Documented By: NEFTALI Ondansetron HCl (Ondansetron Hcl 4 Mg/2 Ml Vial) 4 mg IVPUSH Q8H PRN PRN Reason: Nausea and Vomiting Pharmacy Consult (Consult Rx Perform Med Rec) 1 each MISCELLANE ONCE PRN PRN Reason: Consult order Pharmacy Consult (Consult Rx Vancomycin Dosing) 1 each MISCELLANE DAILY PRN PRN Reason: Consult order Potassium Chloride (Potassium Chloride Er 20 Meq Tab.Er.Prt) 20 meq PO BID [facility] Last Admin: 07/19/22 09:44 Dose: 20 meq Documented By: AFUA Sodium Chloride (0.9 % Sodium Chloride Flush 3 Ml Syringe) 3 ml IVFLUSH QSHIFT [facility] Last Admin: 07/19/22 10:05 Dose: Not Given Documented By: AFUA Non-Admin Reason: given, unable to scan Spironolactone (Spironolactone 25 Mg Tablet) 25 mg PO DAILY [facility]; Protocol Last Admin: 07/19/22 09:45 Dose: 25 mg Documented By: AFUA Thiamine HCl (Thiamine Hcl 100 Mg Tablet) 100 mg PO DAILY [facility] Last Admin: 07/19/22 09:44 Dose: 100 mg Documented By: AFUA Tiotropium [place] (Tiotropium [place] 18 Mcg Cap.W.Dev) 1 puff INHALE RDAILY [facility] Last Admin: 07/19/22 07:48 Dose: Not Given Documented By: ULRICC Non-Admin Reason: med not avail/pharm contacted Labs CBC & Chem 7: 07/18/22 07:02 07/19/22 06:36 Labs: Laboratory Results - last 24 hr 07/18/22 07/18/22 07/18/22 07:02 09:30 16:14 aPTT Heparin Protocol 96.0 H Anion Gap Estim Creat Clear Calc Estimated GFR Random Glucose Calcium Total Bilirubin Direct Bilirubin AST ALT Alkaline Phosphatase Total Protein Albumin Carcinoembryonic Ag 4.90 5.40 07/18/22 07/19/22 07/19/22 23:35 06:36 06:36 aPTT Heparin Protocol 75.3 D Anion Gap 10 L Estim Creat Clear Calc 87.1 Estimated GFR > 60 Random Glucose 92 Calcium 8.4 Total Bilirubin 3.0 H Direct Bilirubin 1.6 H AST 116 H ALT 93 H Alkaline Phosphatase 356 H Total Protein 5.4 L Albumin 1.9 L Carcinoembryonic Ag Microbiology Microbiology Results: Microbiology 07/17/22 22:59 Urine Culture - Final Urine clean catch - Urine wilkins top 07/17/22 19:47 Blood Culture - Preliminary Blood - Venous No growth after 24 hours. 07/17/22 19:47 Blood Culture - Preliminary Blood - Venous No growth after 24 hours. Assessment and Plan (1) Liver mass: Status: Acute (2) Cellulitis of right lower extremity: Status: Acute (3) Bilateral edema of lower extremity: Status: Acute Plan ?71-year-old male with past medical history of CHF, liver cirrhosis secondary to alcohol abuse, hypertension presents to the hospital with complaints of lower extremity ulcers well as swelling found to have number cirrhosis as well as thrombus #? portal veins thrombus in the setting of liver mass concerning for? malignancy Started on heparin drip which was discontinued by Oncology team Oncology team input appreciated GI input appreciated #? liver mass w transaminitis given history of liver cirrhosis, concerning for malignancy Hematology-Oncology recommended to wait until AFPs pack, ifc high IV note diagnosis, if low then we can go for biopsy monitor LFTs #? right lower extremity cellulitis Improving Continue IV antibiotics follow cultures #? bilateral lower extremity edema Likely secondary to 3rd spacing given the low albumin, cirrhosis No evidence of CHF Cardiology input appreciated, continue diuresis continue Lasix p.o. 80 mg? b.i.d. Add spironolactone #? hypertension continue antihypertensives # morbid obesity BMI of 46.3 Advised weight loss ?DVT prophylaxis:? Heparin The patient will need overnight hospital stay for further evaluation of liver mass and treatment of right lower extremity cellulitis pending safe discharge plan. Time Spent With Patient Time: Total time managing care of this patient today ____ minutes. Quality Stroke Does the patient have a stroke diagnosis?: No VTE Prior VTE?: No VTE Risk Level:: Medical - moderate - high VTE Device Contraindication: Treatment Not Indicated VTE Drug Contraindication: N/A - Med Ordered
--- NOTE | 2022-07-19 14:58 | P.PNHO-ONC_ITS ---
Medical Summary - Medical Summary Date of Service: 07/19/22 Chief complaint: Liver mass Interval History Interval history: He was seen today in the emergency room overflow. He is comfortable and denies any pain, although he is anxious. He has been able to eat and drink. No tissue is yet available. Review of Systems - Constitutional Reports anorexia, Reports body ache(s) - ENT Reports system reviewed and no additional complaints, except as documented - Cardiovascular Reports fast heart rate, Reports foot swelling - Respiratory Reports chest congestion - Gastrointestinal Reports abdominal pain - Genitourinary Genitourinary: Reports urinary frequency - Musculoskeletal Reports other - Neurologic Reports system reviewed and no additional complaints, except as documented [facility] Medical History: Medical History (Last Reviewed 07/18/22 @ 10:56 by Jose Juan Hare MD) Acute exacerbation of CHF (congestive heart failure) Anasarca CHF (congestive heart failure) Cirrhosis COPD (chronic obstructive pulmonary disease) History of alcohol abuse History of cirrhosis of liver Hyperlipidemia Morbid obesity Family History: Family History (Last Reviewed 07/18/22 @ 10:56 by Jose Juan Hare MD) Father No problems noted. Mother No problems noted. Surgical History: Surgical History (Last Reviewed 07/18/22 @ 10:56 by Jose Juan Hare MD) History of tonsillectomy Social History: Social History (Last Reviewed 07/18/22 @ 10:56 by Jose Juan Hare MD) Living Situation History: Household Members: Spouse Housing: Other Housing Other:: mobile home Do you presently have visiting nurse or other home services: Yes Tobacco History: Patient Tobacco Use Status: Former Tobacco user Tobacco use type: Cigarette Smoked in Last 30 Days: No Smoke Quit Date: years ago per pt e-Cigarette/Vaping Use: Never Used Second Hand Smoke Exposure: No Substance Use History: Use of substances other than those prescribed or required for medical reasons : No Advance Directives: Advance Directives: No Advance Directives Information Provided: No Occupation Assessmet: service: No Current occupational status: retired Current occupational status: disabled Home Medications and Allergies Current Medications: Current Medications Acetaminophen (Acetaminophen 325 Mg Tablet) 650 mg PO Q6H PRN PRN Reason: Pain, Mild (Pain Scale 1-3) Docusate Sodium (Docusate Sodium 100 Mg Capsule) 100 mg PO DAILY PRN PRN Reason: Constipation Folic Acid (Folic Acid 1 Mg Tablet) 1 mg PO DAILY [facility] Last Admin: 12/31/22 09:44 Dose: 1 mg Furosemide (Furosemide 40 Mg Tablet) 80 mg PO BID [facility]; Protocol Last Admin: 07/19/22 09:44 Dose: 80 mg Heparin Sodium (Porcine) (Heparin Sodium,Porcine 5,000 Unit/Ml Vial) 5,000 unit SUBCUT Q12H [facility] Last Admin: 07/19/22 12:45 Dose: 5,000 unit Vancomycin HCl 1,500 mg/ (Sodium Chloride) 500 mls @ 333.333 mls/hr IV Q24H [facility] Last Infusion: 07/19/22 12:46 Dose: Infused Lactic Acid (Ammonium Lactate 12 % Lotion 226 Gm Bottle) 1 appl TOPICAL BID [facility]; Protocol Lactulose (Lactulose 20 Gm/30 Ml Solution) 20 gm PO BID [facility] Last Admin: 07/19/22 09:44 Dose: 20 gm Omeprazole (Omeprazole 40 Mg Capsule.Dr) 40 mg PO DAILY@0630 [facility] Last Admin: 07/19/22 05:44 Dose: 40 mg Ondansetron HCl (Ondansetron Hcl 4 Mg/2 Ml Vial) 4 mg IVPUSH Q8H PRN PRN Reason: Nausea and Vomiting Pharmacy Consult (Consult Rx Perform Med Rec) 1 each MISCELLANE ONCE PRN PRN Reason: Consult order Pharmacy Consult (Consult Rx Vancomycin Dosing) 1 each MISCELLANE DAILY PRN PRN Reason: Consult order Potassium Chloride (Potassium Chloride Er 20 Meq Tab.Er.Prt) 20 meq PO BID [facility] Last Admin: 07/19/22 09:44 Dose: 20 meq Sodium Chloride (0.9 % Sodium Chloride Flush 3 Ml Syringe) 3 ml IVFLUSH QSHIFT [facility] Last Admin: 07/19/22 10:05 Dose: Not Given Spironolactone (Spironolactone 25 Mg Tablet) 25 mg PO DAILY [facility]; Protocol Last Admin: 07/19/22 09:45 Dose: 25 mg Thiamine HCl (Thiamine Hcl 100 Mg Tablet) 100 mg PO DAILY [facility] Last Admin: 07/19/22 09:44 Dose: 100 mg Tiotropium [place] (Tiotropium [place] 18 Mcg Cap.W.Dev) 1 puff INHALE RDAILY [facility] Last Admin: 07/19/22 07:48 Dose: Not Given Home Medications Medication Instructions Recorded Confirmed Type thiamine HCl (vitamin B1) 100 mg 100 mg PO DAILY 07/18/22 07/18/22 History tablet Allergies Allergy/AdvReac Type Severity Reaction Status Date / Time Penicillins [PENICILLINS] Allergy Unknown ASTHMA Verified 07/18/22 02:14 ATTACK Exam Vital signs: Vital Signs Temp 98.0 F 07/19/22 08:52 Pulse 82 07/19/22 08:52 Resp 19 07/19/22 08:52 BP 98/47 L 07/19/22 08:52 Pulse Ox 94 07/19/22 08:52 O2 Del Method 07/19/22 08:52 O2 Flow Rate 1 07/17/22 22:12 Intake & Output 07/18/22 07/19/22 07/19/22 18:59 06:59 18:59 Intake Total 792.051 / 873.966 81.915 / 873.966 500 / 500 Balance 792.051 / 873.966 81.915 / 873.966 500 / 500 Intake: Intake, IV Amount 792.051 / 873.966 81.915 / 873.966 500 / 500 vancomycin HCL 2,000 mg In 0.9 540 / 540 % Sodium Chloride 500 ml @ 270 mls/hr IV ONCE ONE Rx#: [id number] vancomycin HCL 1,500 mg In 0.9 500 / 500 % Sodium Chloride 500 ml @ 333. 333 mls/hr IV Q24H [facility] Rx#: [id number] Heparin Sodium,Porcine/1/2NS 25 252.051 / 333.966 81.915 / 333.966 ,000 unit In 250 ml @ Per Protocol IVCONT .Q0M [facility] Rx#: [id number] Other: Number of Incontinent Voids 2 Weight 146.5 kg BMI result Body Mass Index 46.3 - Constitutional Present: no acute distress, morbidly obese - Routine HEENT Exam Head: Present: atraumatic, normal inspection ENT: Present: mucous membranes moist - Routine Neck Exam Present: full ROM - Routine Chest/Breast/Axilla Exam Breast: Present: Normal Exam - Routine Respiratory Exam Present: decreased breath sounds. Absent: accessory muscle use - Routine Cardiovascular Exam Cardiovascular: Present: RRR, S1, S2 - Routine Abdominal Exam Present: nontender - Routine Rectal Exam Patient deferred: visual exam - Routine Extremities Exam Present: full ROM, normal inspection, nontender - Routine Skin Exam Present: erythema - Routine Neurological Exam Present: alert, oriented X3 Data - Labs CBC & Chem 7: 07/18/22 07:02 07/19/22 06:36 Labs: 07/17/22 17:37 XR chest 1V Stat 07/17/22 19:47 BNP [B Type Natriuretic Peptide] Stat COVID-19 ID NOW ([place]) Stat Complete Blood Count Auto Diff Stat Comprehensive Met. Panel Stat Lactic Acid Stat Magnesium Stat Troponin-I High Sensitivity Stat 07/17/22 22:17 Acetaminophen [Tylenol] 650 mg PO ONCE ONE 07/17/22 22:31 Add Laboratory Test Stat 07/17/22 22:44 UA ClnCatch+Micro w/rflx Cult Stat 07/17/22 22:59 Urine Culture Routine 07/17/22 23:15 Doxycycline Monohydrate [Vibramycin] 100 mg PO ONCE ONE 07/18/22 ECG 12 lead EKG Stat 07/18/22 00:15 CT abdomen pelvis w IV con Stat CT chest w IV con Stat 07/18/22 00:56 iohexoL 350 MG/ML [Omnipaque 350 MG/ML] 100 ml IV ONCE ONE 07/18/22 02:00 Heparin Sodium,Porcine/1/2NS 25,000 unit in 250 ml IVCONT Per Protocol units/kg/hr 07/18/22 02:21 PTT Heparin Drip Stat Prothrombin Time INR Stat 07/18/22 04:15 levoFLOXacin/D5W [Levaquin] 750 mg in 150 ml IV Q24H 07/18/22 07:02 Basic Metabolic Panel DAILY@0600 CEA [Carcinoembryonic Antigen] Stat Complete Blood Count Auto Diff DAILY@0600 07/18/22 07:45 vancomycin HCL 1,000 mg .ROUTE .STK-MED ONE 07/18/22 07:51 vancomycin HCL 1,000 mg .ROUTE .STK-MED ONE 07/18/22 07:52 SARS-CoV2/FLU/RSV Stat 07/18/22 08:30 vancomycin HCL 2,000 mg 0.9 % Sodium Chloride [Ns] 500 ml IV ONCE 07/18/22 09:30 Carcinoembryonic Antigen Stat LDH [Lactate Dehydrogenase] Stat PTT Heparin Drip Stat 07/18/22 10:40 EKG Documentation DIRECTED 07/18/22 16:14 PTT Heparin Drip Stat 07/18/22 23:35 PTT Heparin Drip Stat 07/19/22 06:36 Basic Metabolic Panel AM Liver Panel DAILY@0600 07/19/22 09:23 vancomycin HCL 1,500 mg IV .STK-MED ONE Laboratory Last Values WBC 7.3 X10*3/uL (4.8-10.8) 07/18/22 07:02 RBC 2.99 X10*6/uL (4.60-5.80) L 07/18/22 07:02 Hgb 10.3 g/dl (14.0-18.0) L 07/18/22 07:02 Hct 30.2 % (42.0-52.0) L 07/18/22 07:02 MCV 101.0 fL (80.0-98.0) H 07/18/22 07:02 MCH 34.4 pg (27.0-33.0) H 07/18/22 07:02 MCHC 34.1 g/dl (31.0-36.0) 07/18/22 07:02 RDW 15.7 % (11.0-16.0) 07/18/22 07:02 Plt Count 88 X10*3/uL (160-400) L 07/18/22 07:02 MPV 8.7 fL (9.4-12.4) L 07/18/22 07:02 Immature Gran % (Auto) 0.4 % (0.0-0.4) 07/18/22 07:02 Neut % (Auto) 70.3 % (45-73) 07/18/22 07:02 Lymph % (Auto) 17.2 % (20-40) L 07/18/22 07:02 [place] % (Auto) 8.9 % (2-11) 07/18/22 07:02 Eos % (Auto) 2.8 % (0-4) 07/18/22 07:02 Baso % (Auto) 0.4 % (0-2) 07/18/22 07:02 Lymph # (Auto) 1.3 X10*3/uL (1.2-4.9) 07/18/22 07:02 Henry # (Auto) 0.7 X10*3/uL (0.1-1.2) 07/18/22 07:02 Eos # (Auto) 0.2 X10*3/uL (0.0-0.4) 07/18/22 07:02 Baso # (Auto) 0.0 X10*3/uL (0.0-0.2) 07/18/22 07:02 Abs Immat Gran (auto) 0.03 X10*3/uL (0.00-0.03) 07/18/22 07:02 Absolute Neuts (auto) 5.1 x10*3/uL (2.0-8.3) 07/18/22 07:02 Absolute Nucleated RBC 0.000 X10*3/uL (0.0-0.012) 07/18/22 07:02 Nucleated RBC % (auto) 0.0 /100WBC (0.0-0.2) 07/18/22 07:02 PT 14.7 SEC (10.0-13.1) H 07/18/22 02:21 INR 1.3 (0.9-1.1) H 07/18/22 02:21 aPTT Heparin Protocol 75.3 SEC (53-77.9) D 07/18/22 23:35 Sodium 137 mmol/L (135-145) 07/19/22 06:36 Potassium 4.0 mmol/L (3.3-5.1) 07/19/22 06:36 Chloride 105 mmol/L (96-108) 07/19/22 06:36 Carbon Dioxide 26 mmol/L (22-29) 07/19/22 06:36 Anion Gap 10 (12-20) L 07/19/22 06:36 BUN 18 mg/dL (9-16) H 07/19/22 06:36 Creatinine 1.11 mg/dL (0.5-1.4) 07/19/22 06:36 Estim Creat Clear Calc 87.1 07/19/22 06:36 Estimated GFR > 60 07/19/22 06:36 Random Glucose 92 mg/dL (60-115) 07/19/22 06:36 Lactic Acid 1.7 mmol/L (0.5-2.0) 07/17/22 19:47 Calcium 8.4 mg/dL (8.4-10.2) 07/19/22 06:36 Magnesium 1.9 mg/dL (1.6-2.6) 07/17/22 19:47 Total Bilirubin 3.0 mg/dL (0.0-1.0) H 07/19/22 06:36 Direct Bilirubin 1.6 mg/dL (0.0-0.5) H 07/19/22 06:36 AST 116 U/L (5-37) H 07/19/22 06:36 ALT 93 U/L (0-40) H 07/19/22 06:36 Alkaline Phosphatase 356 U/L (39-117) H 07/19/22 06:36 Lactate Dehydrogenase 461 U/L (118-273) H 07/18/22 09:30 Troponin I High Sens 6.4 ng/L (<3.5-35.0) 07/17/22 19:47 B-Natriuretic Peptide 124 pg/mL (<100) H 07/17/22 19:47 Total Protein 5.4 g/dL (6.5-8.0) L 07/19/22 06:36 Albumin 1.9 g/dL (3.5-5.0) L 07/19/22 06:36 Carcinoembryonic Ag 5.40 ng/mL 07/18/22 09:30 Urine Color Dark Yellow 07/17/22 22:44 Urine Appearance Clear 07/17/22 22:44 Urine pH 5.5 (5.0-9.0) 07/17/22 22:44 Ur Specific [place] 1.015 (1.005-1.025) 07/17/22 22:44 Urine Protein Negative mg/dL (Neg-Trace) 07/17/22 22:44 Urine Glucose (UA) Negative mg/dL (Negative) 07/17/22 22:44 Urine Ketones Negative mg/dL (Negative) 07/17/22 22:44 Urine Blood Moderate (2+) (Negative) H 07/17/22 22:44 Urine Nitrite Negative (Negative) 07/17/22 22:44 Ur Leukocyte Esterase Small (1+) (Negative) H 07/17/22 22:44 Urine RBC >20 /HPF (0-2) H 07/17/22 22:44 Urine WBC 0-5 /HPF (0-5) 07/17/22 22:44 Ur Squamous Epith Cells 0-2 /HPF (0-2) 07/17/22 22:44 Urine Bacteria None Seen (None Seen) 07/17/22 22:44 Hyaline Casts 0-2 /LPF (0-2) 07/17/22 22:44 COVID-19 (PATTI) Negative (Negative) 07/17/22 19:47 COVID-19 Clin Com See Note 07/17/22 19:47 Influenza Type A (PCR) NEGATIVE (Negative) 07/18/22 07:52 Influenza Type B (PCR) NEGATIVE (Negative) 07/18/22 07:52 RSV RNA Qual (PCR) NEGATIVE (Negative) 07/18/22 07:52 SARS-CoV-2 RNA (RT-PCR) NEGATIVE (Negative) 07/18/22 07:52 - Imaging Radiologist's impression: ITS Impressions Chest X-Ray 07/17/22 18:23 IMPRESSION: 1. Similar appearance of the chest compared to prior with increased pulmonary vascular markings and some hazy indistinct opacities in the mid and lower lungs right greater than left. Findings may represent mild pulmonary edema. 2. Possible small right pleural effusion. Abdomen/Pelvis CT 07/18/22 00:50 IMPRESSION: CHEST: * Chronic volume loss of the right lung related to pleural-parenchymal scarring/round atelectasis within the right lower lobe. * Cardiomegaly. 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 Thrombus within the left hepatic vein extends into the IVC to the level of the inferior cavoatrial junction. * Mild splenomegaly. * Massive left splenorenal shunt and small esophageal varices. * Right intrarenal calculi without hydronephrosis. This critical result was discussed with JEANNE Woods at 07/18/2022 1:40 AM and it was ascertained that the content and urgency of the report was understood at the time of direct communication. Chest CT 07/18/22 00:50 IMPRESSION: CHEST: * Chronic volume loss of the right lung related to pleural-parenchymal scarring/round atelectasis within the right lower lobe. * Cardiomegaly. 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 Thrombus within the left hepatic vein extends into the IVC to the level of the inferior cavoatrial junction. * Mild splenomegaly. * Massive left splenorenal shunt and small esophageal varices. * Right intrarenal calculi without hydronephrosis. This critical result was discussed with JEANNE Woods at 07/18/2022 1:40 AM and it was ascertained that the content and urgency of the report was understood at the time of direct communication. Assessment and Plan Patient Active problem list reviewed?: Yes (1) Liver mass Status: Acute Assessment and plan: He is medically stable today. We continue to follow at the alpha-fetoprotein. Tissue can be obtained if necessary. No change in his regimen was indicated. - Time Spent With Patient Time Spent with Patient (in minutes): 15
[2022-07-19 15:25] VITALS: BP 119/57; PULSE 80; RESP 17; TEMP 37.2; O2SAT 93
[2022-07-19] MEDS: Ammonium Lactate 12 % Lotion 226 GM BOTTLE 1 APPL TOPICAL ×2 (15:43→22:24)
[2022-07-19 15:55] VITALS: BP 119/57; PULSE 80; O2SAT 93
[2022-07-19 20:22] VITALS: BP 107/54; PULSE 79; RESP 18; O2SAT 95
[2022-07-19] MEDS: 0.9 % Sodium Chloride Flush 3 ML SYRINGE IVFLUSH (22:25)
--- NOTE | 2022-07-19 23:40 | PM.EVENT ---
Event Note Date of Service: 07/19/22 Event Note: pt incontinent of urine and on diuretic. Having skin breakdown. will order leon cath for skin integrity Time Spent With Patient Time: Total time managing care of this patient today ____ minutes.
[2022-07-20 03:12] VITALS: BP 118/56; PULSE 88; RESP 16; TEMP 36.4; O2SAT 94
[2022-07-20] MEDS: Omeprazole 40 MG CAPSULE.DR PO (06:12)
[2022-07-20 06:13] LABS: Hematocrit 32.1 % (42.0-52.0); Hemoglobin 10.8 g/dl (14.0-18.0); Mean Corpuscular HGB Conc 33.6 g/dl (31.0-36.0); Mean Corpuscular Volume 100.9 fL (80.0-98.0); Red Blood Count 3.18 X10*6/uL (4.60-5.80); Red Cell Distribution Width 15.9 % (11.0-16.0); White Blood Count 7.8 X10*3/uL (4.8-10.8)
[2022-07-20 06:17] LABS: Platelet Count 96 X10*3/uL (160-400)
[2022-07-20 06:41] LABS: Anion Gap 10 (12-20); Blood Urea Nitrogen 17 mg/dL (9-16); Calcium 8.5 mg/dL (8.4-10.2); Carbon Dioxide 26 mmol/L (22-29); Chloride 106 mmol/L (96-108); Creatinine Clr Calc Pharmacy 81.9; Estimated Glomerular Filt Rate > 60; Glucose Random 99 mg/dL (60-115); Potassium 4.3 mmol/L (3.3-5.1); Sodium 138 mmol/L (135-145)
[2022-07-20 06:42] LABS: Alanine Aminotransferase 92 U/L (0-40); Alkaline Phosphatase 344 U/L (39-117); Aspartate Amino Transferase 110 U/L (5-37); Bilirubin Direct 1.6 mg/dL (0.0-0.5); Bilirubin Total 2.9 mg/dL (0.0-1.0); Total Protein 5.4 g/dL (6.5-8.0)
[2022-07-20] MEDS: Thiamine HCL 100 MG TABLET PO (07:50)
[2022-07-20] MEDS: Folic Acid 1 MG TABLET PO (07:50)
[2022-07-20] MEDS: Lactulose 20 GM/30 ML SOLUTION PO (07:50)
[2022-07-20] MEDS: Potassium Chloride ER 20 MEQ TAB.ER.PRT PO ×2 (07:50→20:30)
[2022-07-20] MEDS: Spironolactone 25 MG TABLET PO (07:51)
[2022-07-20] MEDS: vancomycin HCL 1,500 MG in 0.9 % Sodium Chloride 500 ML 333.33 MG IV (07:51)
[2022-07-20] MEDS: Furosemide 40 MG TABLET 80 MG PO ×2 (07:51→20:29)
[2022-07-20] MEDS: 0.9 % Sodium Chloride Flush 3 ML SYRINGE IVFLUSH ×3 (07:55→20:30)
[2022-07-20 07:59] VITALS: BP 107/54; PULSE 87; RESP 18; TEMP 36.1; O2SAT 96
--- NOTE | 2022-07-20 11:21 | P.PNIM_ITS ---
Subjective Subjective Date of Service: 07/20/22 Interval History: the patient was seen and evaluated feels comfortable overall with no abdominal pain improved bilateral lower extremities tingling sensation pending AFP No reported other overnight events. Systemic review: No fever, chills or weakness No chest pain, palpitation No shortness of breath or coughing No abdominal pain, nausea or vomiting No urinary symptoms Bilateral lower extremities rash Physical Exam Vital Signs: Vital Signs: Last Vital Signs Temp 96.9 F 07/20/22 07:59 Pulse 87 07/20/22 07:59 Resp 18 07/20/22 07:59 BP 107/54 L 07/20/22 07:59 Pulse Ox 96 07/20/22 07:59 O2 Del Method 07/20/22 07:59 O2 Flow Rate 1 07/17/22 22:12 Oxygen Flow Rate 2 07/17/22 17:32 BMI result Body Mass Index 46.3 Const: Other: Constitutional: Awake, interactive, morbidly obese, not in distress Neck: Normal inspection, Supple Cardiovascular: RRR, no JVP, +2 bilateral lower extremity edema Respiratory: Fair bilateral air entry, no crackles, wheezes or rhonchi Gastrointestinal: soft, lax, Normal bowel sounds, Non tender Skin: Warm, Dry Neurological: Alert & oriented x3, No focal deficit Objective Data Active Medications Acetaminophen (Acetaminophen 325 Mg Tablet) 650 mg PO Q6H PRN PRN Reason: Pain, Mild (Pain Scale 1-3) Docusate Sodium (Docusate Sodium 100 Mg Capsule) 100 mg PO DAILY PRN PRN Reason: Constipation Doxycycline Monohydrate (Doxycycline Monohydrate 100 Mg Capsule) 100 mg PO Q12H [facility] Folic Acid (Folic Acid 1 Mg Tablet) 1 mg PO DAILY [facility] Last Admin: 07/20/22 07:50 Dose: 1 mg Documented By: PAXTON Furosemide (Furosemide 40 Mg Tablet) 80 mg PO BID [facility]; Protocol Last Admin: 07/20/22 07:51 Dose: 80 mg Documented By: PAXTON Heparin Sodium (Porcine) (Heparin Sodium,Porcine 5,000 Unit/Ml Vial) 5,000 unit SUBCUT Q12H [facility] Last Admin: 07/19/22 22:25 Dose: 5,000 unit Documented By: BEAU Lactic Acid (Ammonium Lactate 12 % Lotion 226 Gm Bottle) 1 appl TOPICAL BID [facility]; Protocol Last Admin: 07/19/22 22:24 Dose: 1 appl Documented By: BEAU Lactulose (Lactulose 20 Gm/30 Ml Solution) 20 gm PO DAILY [facility] Omeprazole (Omeprazole 40 Mg Capsule.Dr) 40 mg PO DAILY@0630 [facility] Last Admin: 07/20/22 06:12 Dose: 40 mg Documented By: BEAU Ondansetron HCl (Ondansetron Hcl 4 Mg/2 Ml Vial) 4 mg IVPUSH Q8H PRN PRN Reason: Nausea and Vomiting Pharmacy Consult (Consult Rx Perform Med Rec) 1 each MISCELLANE ONCE PRN PRN Reason: Consult order Potassium Chloride (Potassium Chloride Er 20 Meq Tab.Er.Prt) 20 meq PO BID [facility] Last Admin: 07/20/22 07:50 Dose: 20 meq Documented By: PAXTON Sodium Chloride (0.9 % Sodium Chloride Flush 3 Ml Syringe) 3 ml IVFLUSH QSHIFT [facility] Last Admin: 07/20/22 07:55 Dose: 3 ml Documented By: PAXTON Spironolactone (Spironolactone 25 Mg Tablet) 25 mg PO DAILY [facility]; Protocol Last Admin: 07/20/22 07:51 Dose: 25 mg Documented By: PAXTON Thiamine HCl (Thiamine Hcl 100 Mg Tablet) 100 mg PO DAILY [facility] Last Admin: 07/20/22 07:50 Dose: 100 mg Documented By: PAXTON Tiotropium [place] (Tiotropium [place] 18 Mcg Cap.W.Dev) 1 puff INHALE RDAILY [facility] Last Admin: 07/20/22 07:38 Dose: Not Given Documented By: TEO Non-Admin Reason: pt asleep at this time Labs CBC & Chem 7: 07/20/22 05:29 07/20/22 05:29 Labs: Laboratory Results - last 24 hr 07/20/22 07/20/22 07/20/22 05:29 05:29 05:29 MCV 100.9 H MCH 34.0 H MCHC 33.6 RDW 15.9 Plt Count 96 L MPV 9.0 L Absolute Nucleated RBC 0.000 Nucleated RBC % (auto) 0.0 Anion Gap 10 L Estim Creat Clear Calc 81.9 Estimated GFR > 60 Random Glucose 99 Calcium 8.5 Total Bilirubin 2.9 H Direct Bilirubin 1.6 H AST 110 H ALT 92 H Alkaline Phosphatase 344 H Total Protein 5.4 L Albumin 2.0 L Microbiology Microbiology Results: Microbiology 07/17/22 19:47 Blood Culture - Preliminary Blood - Venous No growth after 48 hours. 07/17/22 19:47 Blood Culture - Preliminary Blood - Venous No growth after 48 hours. 07/17/22 22:59 Urine Culture - Final Urine clean catch - Urine wilkins top Assessment and Plan (1) Liver mass: Status: Acute (2) Cellulitis of right lower extremity: Status: Acute (3) Bilateral edema of lower extremity: Status: Acute Plan ?71-year-old male with past medical history of CHF, liver cirrhosis secondary to alcohol abuse, hypertension presents to the hospital with complaints of lower extremity ulcers well as swelling found to have number cirrhosis as well as thrombus #? portal veins tumer thrombus in the setting of liver mass concerning for? malignancy Heparin was DC as it looks tumer thrombus Oncology team input appreciated, wait AFP before considering biopsy GI input appreciated, given his significant medical issues and liver disease, would be that of not for an aggressive treatment and considering palliative care start Omeprazole #? liver mass w transaminitis given history of liver cirrhosis, concerning for malignancy Hematology-Oncology recommended to wait until AFPs pack, ifc high IV note diagnosis, if low then we can go for biopsy monitor LFTs #? right lower extremity cellulitis Improving DC IV antibiotics, Start Doxycycline follow cultures #? bilateral lower extremity edema Likely secondary to 3rd spacing given the low albumin, cirrhosis No evidence of CHF Cardiology input appreciated, continue diuresis continue Lasix p.o. 80 mg? b.i.d. Add spironolactone #? hypertension continue antihypertensives # morbid obesity BMI of 46.3 Advised weight loss ?DVT prophylaxis:? Heparin The patient will need overnight hospital stay for further evaluation of liver mass and treatment of right lower extremity cellulitis pending safe discharge plan. Time Spent With Patient Time: Total time managing care of this patient today ____ minutes. Quality Stroke Does the patient have a stroke diagnosis?: No VTE Prior VTE?: No VTE Risk Level:: Medical - moderate - high VTE Device Contraindication: Treatment Not Indicated VTE Drug Contraindication: N/A - Med Ordered
[2022-07-20] MEDS: Heparin Sodium,Porcine 5,000 UNIT/ML VIAL 5000 UNIT SUBCUT ×2 (12:33→22:18)
[2022-07-20] MEDS: Ammonium Lactate 12 % Lotion 226 GM BOTTLE 1 APPL TOPICAL ×2 (12:33→20:31)
--- NOTE | 2022-07-20 16:18 | MHC.CM.PN ---
CM MET WITH PT AND WHO WAS AT BEDSIDE PT LIVES AT HOME WITH AND SON AND THEY ASSIST HIM WITH HIS CARE PT IS MOSTLY BED BOUND PER HIS AND HAS ONLY WALKED ONE TIME WITH PT AT HOME IN RECENT WEEKS SHE REPORTS HE HAS A WALKER AND O2 AT HOME HE IS SUPPOSED TO BE GETTING A W/C BUT THEY ARE WAITING ON PCP OFFICE PT IS COVID VAX WITH [facility] THEY REPORT HE HAS A HCP, COPY REQUESTED PCP: PATRICIA WIGGINS IMM DELIVERED CURRENT DC PLAN: HOME, RESUME [facility] VS STR PT IS ACTIVE WITH [facility] HE MAY NEED BLS TRANSPORT
[2022-07-20 17:50] VITALS: BP 110/58; PULSE 82; RESP 20; TEMP 36.2; O2SAT 98
[2022-07-20] MEDS: Doxycycline Monohydrate 100 MG CAPSULE PO (20:29)
[2022-07-20 20:47] VITALS: BP 130/65; PULSE 70; RESP 20; TEMP 36.6; O2SAT 98
[2022-07-21 03:16] VITALS: BP 114/55; PULSE 83; RESP 17; TEMP 36.1; O2SAT 91
[2022-07-21] MEDS: Omeprazole 40 MG CAPSULE.DR PO (05:11)
[2022-07-21 06:18] LABS: Vancomycin Trough 14.5 mcg/mL (10.0-20.0)
[2022-07-21 07:36] VITALS: BP 114/53; PULSE 84; RESP 16; TEMP 36.7; O2SAT 95
[2022-07-21] MEDS: Spironolactone 25 MG TABLET PO (07:49)
[2022-07-21] MEDS: Folic Acid 1 MG TABLET PO (07:49)
[2022-07-21] MEDS: 0.9 % Sodium Chloride Flush 3 ML SYRINGE IVFLUSH ×3 (07:49→20:10)
[2022-07-21] MEDS: Thiamine HCL 100 MG TABLET PO (07:49)
[2022-07-21] MEDS: Potassium Chloride ER 20 MEQ TAB.ER.PRT PO ×2 (07:50→20:10)
[2022-07-21] MEDS: Doxycycline Monohydrate 100 MG CAPSULE PO ×2 (07:50→20:10)
[2022-07-21] MEDS: Furosemide 40 MG TABLET 80 MG PO ×2 (07:50→20:10)
[2022-07-21] MEDS: Ammonium Lactate 12 % Lotion 226 GM BOTTLE 1 APPL TOPICAL ×2 (07:50→20:11)
[2022-07-21] MEDS: Lactulose 20 GM/30 ML SOLUTION PO (07:51)
[2022-07-21] MEDS: Heparin Sodium,Porcine 5,000 UNIT/ML VIAL 5000 UNIT SUBCUT (10:12)
--- NOTE | 2022-07-21 10:52 | P.PNIM_ITS ---
Subjective Subjective Date of Service: 07/21/22 Interval History: the patient was seen and evaluated feels comfortable overall with no abdominal pain improved bilateral lower extremities tingling sensation pending AFP No reported other overnight events. Systemic review: No fever, chills or weakness No chest pain, palpitation No shortness of breath or coughing No abdominal pain, nausea or vomiting No urinary symptoms Bilateral lower extremities rash Physical Exam Vital Signs: Vital Signs: Last Vital Signs Temp 98.0 F 07/21/22 07:36 Pulse 84 07/21/22 07:36 Resp 16 07/21/22 07:36 BP 114/53 L 07/21/22 07:36 Pulse Ox 95 07/21/22 07:36 O2 Del Method 07/21/22 07:36 O2 Flow Rate 1 07/17/22 22:12 Oxygen Flow Rate 2 07/17/22 17:32 BMI result Body Mass Index 46.3 Const: Other: Constitutional: Awake, interactive, morbidly obese, not in distress Neck: Normal inspection, Supple Cardiovascular: RRR, no JVP, +2 bilateral lower extremity edema Respiratory: Fair bilateral air entry, no crackles, wheezes or rhonchi Gastrointestinal: soft, lax, Normal bowel sounds, Non tender Skin: Warm, Dry Neurological: Alert & oriented x3, No focal deficit Objective Data Active Medications Acetaminophen (Acetaminophen 325 Mg Tablet) 650 mg PO Q6H PRN PRN Reason: Pain, Mild (Pain Scale 1-3) Docusate Sodium (Docusate Sodium 100 Mg Capsule) 100 mg PO DAILY PRN PRN Reason: Constipation Doxycycline Monohydrate (Doxycycline Monohydrate 100 Mg Capsule) 100 mg PO Q12H [facility] Last Admin: 07/21/22 07:50 Dose: 100 mg Documented By: MARIAELENA Folic Acid (Folic Acid 1 Mg Tablet) 1 mg PO DAILY [facility] Last Admin: 07/21/22 07:49 Dose: 1 mg Documented By: MARIAELENA Furosemide (Furosemide 40 Mg Tablet) 80 mg PO BID [facility]; Protocol Last Admin: 07/21/22 07:50 Dose: 80 mg Documented By: MARIAELENA Heparin Sodium (Porcine) (Heparin Sodium,Porcine 5,000 Unit/Ml Vial) 5,000 unit SUBCUT Q12H [facility] Last Admin: 07/21/22 10:12 Dose: 5,000 unit Documented By: MARIAELENA Lactic Acid (Ammonium Lactate 12 % Lotion 226 Gm Bottle) 1 appl TOPICAL BID [facility]; Protocol Last Admin: 07/21/22 07:50 Dose: 1 appl Documented By: MARIAELENA Lactulose (Lactulose 20 Gm/30 Ml Solution) 20 gm PO DAILY [facility] Last Admin: 07/21/22 07:51 Dose: 20 gm Documented By: MARIAELENA Omeprazole (Omeprazole 40 Mg Capsule.Dr) 40 mg PO DAILY@0630 [facility] Last Admin: 07/21/22 05:11 Dose: 40 mg Documented By: ADEN Ondansetron HCl (Ondansetron Hcl 4 Mg/2 Ml Vial) 4 mg IVPUSH Q8H PRN PRN Reason: Nausea and Vomiting Pharmacy Consult (Consult Rx Perform Med Rec) 1 each MISCELLANE ONCE PRN PRN Reason: Consult order Potassium Chloride (Potassium Chloride Er 20 Meq Tab.Er.Prt) 20 meq PO BID [facility] Last Admin: 07/21/22 07:50 Dose: 20 meq Documented By: MARIAELENA Sodium Chloride (0.9 % Sodium Chloride Flush 3 Ml Syringe) 3 ml IVFLUSH QSHIFT [facility] Last Admin: 07/21/22 07:49 Dose: 3 ml Documented By: MARIAELENA Spironolactone (Spironolactone 25 Mg Tablet) 25 mg PO DAILY [facility]; Protocol Last Admin: 07/21/22 07:49 Dose: 25 mg Documented By: MARIAELENA Thiamine HCl (Thiamine Hcl 100 Mg Tablet) 100 mg PO DAILY [facility] Last Admin: 07/21/22 07:49 Dose: 100 mg Documented By: MARIAELENA Tiotropium [place] (Tiotropium [place] 18 Mcg Cap.W.Dev) 1 puff INHALE RDAILY [facility] Last Admin: 07/20/22 07:38 Dose: Not Given Documented By: TEO Non-Admin Reason: pt asleep at this time Labs CBC & Chem 7: 07/20/22 05:29 07/20/22 05:29 Labs: Laboratory Results - last 24 hr 07/21/22 05:10 Vancomycin Trough 14.5 Assessment and Plan (1) Liver mass: Status: Acute (2) Cellulitis of right lower extremity: Status: Acute (3) Bilateral edema of lower extremity: Status: Acute Plan ?71-year-old male with past medical history of CHF, liver cirrhosis secondary to alcohol abuse, hypertension presents to the hospital with complaints of lower extremity ulcers well as swelling found to have number cirrhosis as well as thrombus #? portal veins tumer thrombus in the setting of liver mass concerning for? malignancy Heparin was DC as it looks tumer thrombus Oncology team input appreciated, wait AFP before considering biopsy GI input appreciated, given his significant medical issues and liver disease, would be that of not for an aggressive treatment and considering palliative care start Omeprazole #? liver mass w transaminitis given history of liver cirrhosis, concerning for malignancy Hematology-Oncology recommended to wait until AFPs pack, ifc high IV note diagnosis, if low then we can go for biopsy monitor LFTs #? right lower extremity cellulitis Improving DC IV antibiotics, Start Doxycycline follow cultures #? bilateral lower extremity edema Likely secondary to 3rd spacing given the low albumin, cirrhosis No evidence of CHF Cardiology input appreciated, continue diuresis continue Lasix p.o. 80 mg? b.i.d. Add spironolactone #? hypertension continue antihypertensives # morbid obesity BMI of 46.3 Advised weight loss ?DVT prophylaxis:? Heparin The patient will need overnight hospital stay for further evaluation of liver mass and treatment of right lower extremity cellulitis pending safe discharge plan. Time Spent With Patient Time: Total time managing care of this patient today ____ minutes. Quality Stroke Does the patient have a stroke diagnosis?: No VTE Prior VTE?: No VTE Risk Level:: Medical - moderate - high VTE Device Contraindication: Treatment Not Indicated VTE Drug Contraindication: N/A - Med Ordered
[2022-07-21 12:07] VITALS: PULSE 894; RESP 16; O2SAT 95
--- NOTE | 2022-07-21 13:49 | PM.HEMONCPN ---
Medical Summary - Medical Summary Date of Service: 07/21/22 Medical Summary: He is a 71-year-old man who's images shows lesions in his liver that could be metastatic disease. He has rapidly become stable and biopsy has become feasible. Interval History Interval history: He was seen today in the emergency room overflow. He is comfortable and denies any pain, although he is anxious. He has been able to eat and drink. No tissue is yet available. Review of Systems - Neurologic Reports system reviewed and no additional complaints, except as documented PMF Medical History: Medical History (Last Reviewed 07/18/22 @ 10:56 by Jose Juan Hare MD) Acute exacerbation of CHF (congestive heart failure) Anasarca CHF (congestive heart failure) Cirrhosis COPD (chronic obstructive pulmonary disease) History of alcohol abuse History of cirrhosis of liver Hyperlipidemia Morbid obesity Family History: Family History (Last Reviewed 07/18/22 @ 10:56 by Jose Juan Hare MD) Father No problems noted. Mother No problems noted. Surgical History: Surgical History (Last Reviewed 07/18/22 @ 10:56 by Jose Juan Hare MD) History of tonsillectomy Social History: Social History (Last Reviewed 07/18/22 @ 10:56 by Jose Juan Hare MD) Living Situation History: Household Members: Spouse Household Members: Children Housing: Other Housing Other:: trailer Do you presently have visiting nurse or other home services: No Tobacco History: Patient Tobacco Use Status: Former Tobacco user Tobacco use type: Cigarette Smoke Quit Date: 2011 e-Cigarette/Vaping Use: Never Used Second Hand Smoke Exposure: No Occupation Assessmet: service: No Current occupational status: retired Current occupational status: disabled Home Medications and Allergies Current Medications: Current Medications Acetaminophen (Acetaminophen 325 Mg Tablet) 650 mg PO Q6H PRN PRN Reason: Pain, Mild (Pain Scale 1-3) Docusate Sodium (Docusate Sodium 100 Mg Capsule) 100 mg PO DAILY PRN PRN Reason: Constipation Doxycycline Monohydrate (Doxycycline Monohydrate 100 Mg Capsule) 100 mg PO Q12H [facility] Last Admin: 07/21/22 07:50 Dose: 100 mg Folic Acid (Folic Acid 1 Mg Tablet) 1 mg PO DAILY [facility] Last Admin: 07/21/22 07:49 Dose: 1 mg Furosemide (Furosemide 40 Mg Tablet) 80 mg PO BID [facility]; Protocol Last Admin: 07/21/22 07:50 Dose: 80 mg Heparin Sodium (Porcine) (Heparin Sodium,Porcine 5,000 Unit/Ml Vial) 5,000 unit SUBCUT Q12H [facility] Last Admin: 07/21/22 10:12 Dose: 5,000 unit Lactic Acid (Ammonium Lactate 12 % Lotion 226 Gm Bottle) 1 appl TOPICAL BID [facility]; Protocol Last Admin: 07/21/22 07:50 Dose: 1 appl Lactulose (Lactulose 20 Gm/30 Ml Solution) 20 gm PO DAILY [facility] Last Admin: 07/21/22 07:51 Dose: 20 gm Omeprazole (Omeprazole 40 Mg Capsule.Dr) 40 mg PO DAILY@0630 [facility] Last Admin: 07/21/22 05:11 Dose: 40 mg Ondansetron HCl (Ondansetron Hcl 4 Mg/2 Ml Vial) 4 mg IVPUSH Q8H PRN PRN Reason: Nausea and Vomiting Pharmacy Consult (Consult Rx Perform Med Rec) 1 each MISCELLANE ONCE PRN PRN Reason: Consult order Potassium Chloride (Potassium Chloride Er 20 Meq Tab.Er.Prt) 20 meq PO BID [facility] Last Admin: 07/21/22 07:50 Dose: 20 meq Sodium Chloride (0.9 % Sodium Chloride Flush 3 Ml Syringe) 3 ml IVFLUSH QSHIFT [facility] Last Admin: 07/21/22 07:49 Dose: 3 ml Spironolactone (Spironolactone 25 Mg Tablet) 25 mg PO DAILY [facility]; Protocol Last Admin: 07/21/22 07:49 Dose: 25 mg Thiamine HCl (Thiamine Hcl 100 Mg Tablet) 100 mg PO DAILY [facility] Last Admin: 07/21/22 07:49 Dose: 100 mg Tiotropium [place] (Tiotropium [place] 18 Mcg Cap.W.Dev) 1 puff INHALE RDAILY [facility] Last Admin: 07/21/22 12:05 Dose: 1 puff Home Medications Medication Instructions Recorded Confirmed Type thiamine HCl (vitamin B1) 100 mg 100 mg PO DAILY 07/18/22 07/18/22 History tablet Allergies Allergy/AdvReac Type Severity Reaction Status Date / Time Penicillins [PENICILLINS] Allergy Unknown ASTHMA Verified 07/18/22 02:14 ATTACK Exam Vital signs: Vital Signs Temp 98.0 F 07/21/22 07:36 Pulse 894 H 07/21/22 12:07 Resp 16 07/21/22 12:07 BP 114/53 L 07/21/22 07:36 Pulse Ox 95 07/21/22 07:36 O2 Del Method 07/21/22 07:36 O2 Flow Rate 1 07/17/22 22:12 Intake & Output 07/20/22 07/21/22 07/21/22 18:59 06:59 18:59 Intake Total 980 / 1340 360 / 1340 Output Total 1200 / 1200 Balance 980 / 140 -840 / 140 Urine Output (Average ml/kg/hr) 0.68 0.68 Intake: Intake, Oral Amount 480 / 840 360 / 840 Intake, IV Amount 500 / 500 vancomycin HCL 1,500 mg In 0.9 500 / 500 % Sodium Chloride 500 ml @ 333. 333 mls/hr IV Q24H [facility] Rx#: [id number] Output: Output, Urine Amount (Catheter) 1200 / 1200 Urethral 1200 / 1200 Other: Meal Refused No NPO No Breakfast % Eaten 100% Lunch % Eaten 100% Number of Bowel Movements 1 Urine Color Concentrated Misti Last Bowel Movement 07/21/22 Stool Incontinent Stool Amount Large Stool Color Brown Stool Consistency Hard Continuous Bladder Irrigation Fluid - Amount Drained Urethral 800 Weight 146.5 kg BMI result Body Mass Index 46.3 - Constitutional Present: no acute distress, morbidly obese - Routine HEENT Exam Head: Present: atraumatic, normal inspection - Routine Neck Exam Present: full ROM - Routine Respiratory Exam Present: decreased breath sounds. Absent: accessory muscle use - Routine Cardiovascular Exam Cardiovascular: Present: RRR, S1, S2 - Routine Abdominal Exam Present: nontender - Routine Extremities Exam Present: full ROM, normal inspection, nontender - Routine Skin Exam Present: erythema - Routine Neurological Exam Present: alert, oriented X3 Data - Labs CBC & Chem 7: 07/20/22 05:29 07/20/22 05:29 - Imaging Radiologist's impression: ITS Impressions Chest X-Ray 07/17/22 18:23 IMPRESSION: 1. Similar appearance of the chest compared to prior with increased pulmonary vascular markings and some hazy indistinct opacities in the mid and lower lungs right greater than left. Findings may represent mild pulmonary edema. 2. Possible small right pleural effusion. Abdomen/Pelvis CT 07/18/22 00:50 IMPRESSION: CHEST: * Chronic volume loss of the right lung related to pleural-parenchymal scarring/round atelectasis within the right lower lobe. * Cardiomegaly. 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 Thrombus within the left hepatic vein extends into the IVC to the level of the inferior cavoatrial junction. * Mild splenomegaly. * Massive left splenorenal shunt and small esophageal varices. * Right intrarenal calculi without hydronephrosis. This critical result was discussed with JEANNE Woods at 07/18/2022 1:40 AM and it was ascertained that the content and urgency of the report was understood at the time of direct communication. Chest CT 07/18/22 00:50 IMPRESSION: CHEST: * Chronic volume loss of the right lung related to pleural-parenchymal scarring/round atelectasis within the right lower lobe. * Cardiomegaly. 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 Thrombus within the left hepatic vein extends into the IVC to the level of the inferior cavoatrial junction. * Mild splenomegaly. * Massive left splenorenal shunt and small esophageal varices. * Right intrarenal calculi without hydronephrosis. This critical result was discussed with JEANNE Woods at 07/18/2022 1:40 AM and it was ascertained that the content and urgency of the report was understood at the time of direct communication. Assessment and Plan Patient Active problem list reviewed?: Yes (1) Liver mass Status: Acute Assessment and plan: He is medically stable today. We continue to await the alpha-fetoprotein. Tissue can be obtained if necessary. No change in his regimen was indicated. - Time Spent With Patient Time Spent with Patient (in minutes): 15
[2022-07-21 15:10] VITALS: BP 130/57; PULSE 94; RESP 16; TEMP 36.8; O2SAT 92
[2022-07-21 19:17] VITALS: BP 132/63; PULSE 92; RESP 16; TEMP 36.6; O2SAT 93
[2022-07-22 03:35] VITALS: BP 111/51; PULSE 81; RESP 18; TEMP 37.1; O2SAT 94
[2022-07-22] MEDS: Omeprazole 40 MG CAPSULE.DR PO (05:02)
[2022-07-22 06:15] LABS: INTERNATIONAL NORM RATIO 1.3 (0.9-1.1); Prothrombin Time 14.5 SEC (10.0-13.1)
[2022-07-22 06:21] LABS: Anion Gap 11 (12-20); Blood Urea Nitrogen 18 mg/dL (9-16); Calcium 8.3 mg/dL (8.4-10.2); Carbon Dioxide 25 mmol/L (22-29); Chloride 106 mmol/L (96-108); Creatinine Clr Calc Pharmacy 87.9; Estimated Glomerular Filt Rate > 60; Glucose Random 102 mg/dL (60-115); Potassium 3.7 mmol/L (3.3-5.1); Sodium 138 mmol/L (135-145)
[2022-07-22 07:24] VITALS: BP 117/56; PULSE 83; RESP 18; TEMP 36.6; O2SAT 92
[2022-07-22] MEDS: 0.9 % Sodium Chloride Flush 3 ML SYRINGE IVFLUSH ×3 (07:34→23:13)
[2022-07-22] MEDS: Folic Acid 1 MG TABLET PO (07:34)
[2022-07-22] MEDS: Potassium Chloride ER 20 MEQ TAB.ER.PRT PO ×2 (07:34→21:19)
[2022-07-22] MEDS: Doxycycline Monohydrate 100 MG CAPSULE PO ×2 (07:35→21:20)
[2022-07-22] MEDS: Furosemide 40 MG TABLET 80 MG PO ×2 (07:35→21:20)
[2022-07-22] MEDS: Spironolactone 25 MG TABLET PO (07:35)
[2022-07-22] MEDS: Lactulose 20 GM/30 ML SOLUTION PO (07:35)
[2022-07-22] MEDS: Thiamine HCL 100 MG TABLET PO (07:35)
[2022-07-22] MEDS: Ammonium Lactate 12 % Lotion 226 GM BOTTLE 1 APPL TOPICAL ×2 (07:36→21:20)
[2022-07-22 08:58] VITALS: PULSE 84; RESP 18; O2SAT 95
--- NOTE | 2022-07-22 10:02 | P.PNIM_ITS ---
Subjective Subjective Date of Service: 07/22/22 Interval History: The patient was seen and evaluated improved bilateral lower extremities tingling sensation Denies abd pain, pending AFP No reported other overnight events. Systemic review: No fever, chills or weakness No chest pain, palpitation No shortness of breath or coughing No abdominal pain, nausea or vomiting No urinary symptoms Bilateral lower extremities rash improving Physical Exam Vital Signs: Vital Signs: Last Vital Signs Temp 97.9 F 07/22/22 07:24 Pulse 84 07/22/22 08:58 Resp 18 07/22/22 08:58 BP 117/56 L 07/22/22 07:24 Pulse Ox 92 07/22/22 07:24 O2 Del Method 07/22/22 07:24 O2 Flow Rate 1 07/17/22 22:12 Oxygen Flow Rate 2 07/17/22 17:32 BMI result Body Mass Index 46.3 Const: Other: Constitutional: Awake, interactive, morbidly obese, not in distress Neck: Normal inspection, Supple Cardiovascular: RRR, no JVP, +2 bilateral lower extremity edema Respiratory: Fair bilateral air entry, no crackles, wheezes or rhonchi Gastrointestinal: soft, lax, Normal bowel sounds, Non tender Skin: Warm, Dry Neurological: Alert & oriented x3, No focal deficit Objective Data Active Medications Acetaminophen (Acetaminophen 325 Mg Tablet) 650 mg PO Q6H PRN PRN Reason: Pain, Mild (Pain Scale 1-3) Docusate Sodium (Docusate Sodium 100 Mg Capsule) 100 mg PO DAILY PRN PRN Reason: Constipation Doxycycline Monohydrate (Doxycycline Monohydrate 100 Mg Capsule) 100 mg PO Q12H [facility] Last Admin: 07/22/22 07:35 Dose: 100 mg Documented By: MARIAELENA Folic Acid (Folic Acid 1 Mg Tablet) 1 mg PO DAILY [facility] Last Admin: 07/22/22 07:34 Dose: 1 mg Documented By: MARIAELENA Furosemide (Furosemide 40 Mg Tablet) 80 mg PO BID [facility]; Protocol Last Admin: 07/22/22 07:35 Dose: 80 mg Documented By: MARIAELENA Heparin Sodium (Porcine) (Heparin Sodium,Porcine 5,000 Unit/Ml Vial) 5,000 unit SUBCUT Q12H [facility] Last Admin: 07/21/22 21:56 Dose: Not Given Documented By: ADEN Non-Admin Reason: held per Lactic Acid (Ammonium Lactate 12 % Lotion 226 Gm Bottle) 1 appl TOPICAL BID [facility]; Protocol Last Admin: 07/22/22 07:36 Dose: 1 appl Documented By: MARIAELENA Lactulose (Lactulose 20 Gm/30 Ml Solution) 20 gm PO DAILY [facility] Last Admin: 07/22/22 07:35 Dose: 20 gm Documented By: MARIAELENA Omeprazole (Omeprazole 40 Mg Capsule.Dr) 40 mg PO DAILY@0630 [facility] Last Admin: 07/22/22 05:02 Dose: 40 mg Documented By: ADEN Ondansetron HCl (Ondansetron Hcl 4 Mg/2 Ml Vial) 4 mg IVPUSH Q8H PRN PRN Reason: Nausea and Vomiting Pharmacy Consult (Consult Rx Perform Med Rec) 1 each MISCELLANE ONCE PRN PRN Reason: Consult order Potassium Chloride (Potassium Chloride Er 20 Meq Tab.Er.Prt) 20 meq PO BID [facility] Last Admin: 07/22/22 07:34 Dose: 20 meq Documented By: MARIAELENA Sodium Chloride (0.9 % Sodium Chloride Flush 3 Ml Syringe) 3 ml IVFLUSH QSHIFT [facility] Last Admin: 07/22/22 07:34 Dose: 3 ml Documented By: MARIAELENA Spironolactone (Spironolactone 25 Mg Tablet) 25 mg PO DAILY [facility]; Protocol Last Admin: 07/22/22 07:35 Dose: 25 mg Documented By: MARIAELENA Thiamine HCl (Thiamine Hcl 100 Mg Tablet) 100 mg PO DAILY [facility] Last Admin: 07/22/22 07:35 Dose: 100 mg Documented By: MARIAELENA Tiotropium [place] (Tiotropium [place] 18 Mcg Cap.W.Dev) 1 puff INHALE RDAILY [facility] Last Admin: 07/22/22 08:55 Dose: 1 puff Documented By: JACLYN Labs CBC & Chem 7: 07/20/22 05:29 07/22/22 05:04 Labs: Laboratory Results - last 24 hr 07/22/22 07/22/22 05:04 05:04 PT 14.5 H INR 1.3 H Anion Gap 11 L Estim Creat Clear Calc 87.9 Estimated GFR > 60 Random Glucose 102 Calcium 8.3 L Assessment and Plan (1) Liver mass: Status: Acute (2) Bilateral edema of lower extremity: Status: Acute (3) Portal vein thrombosis: Status: Acute (4) Cellulitis of right lower extremity: Status: Acute Plan ?71-year-old male with past medical history of CHF, liver cirrhosis secondary to alcohol abuse, hypertension presents to the hospital with complaints of lower extremity ulcers well as swelling found to have number cirrhosis as well as thrombus #? portal veins tumer thrombus in the setting of liver mass concerning for? malignancy Heparin was DC as it looks tumer thrombus Oncology team input appreciated, wait AFP before considering biopsy GI input appreciated, given his significant medical issues and liver disease, would be that of not for an aggressive treatment and considering palliative care start Omeprazole #? liver mass w transaminitis given history of liver cirrhosis, concerning for malignancy Hematology-Oncology recommended to wait until AFPs pack, ifc high IV note diagnosis, if low then we can go for biopsy monitor LFTs #? right lower extremity cellulitis Improving DC IV antibiotics, Start Doxycycline follow cultures #? bilateral lower extremity edema Likely secondary to 3rd spacing given the low albumin, cirrhosis No evidence of CHF Cardiology input appreciated, continue diuresis continue Lasix p.o. 80 mg? b.i.d. Add spironolactone #? hypertension continue antihypertensives # morbid obesity BMI of 46.3 Advised weight loss ?DVT prophylaxis:? Heparin The patient will need overnight hospital stay for further evaluation of liver mass and treatment of right lower extremity cellulitis pending safe discharge plan. Time Spent With Patient Time: Total time managing care of this patient today ____ minutes. Quality Stroke Does the patient have a stroke diagnosis?: No VTE Prior VTE?: No VTE Risk Level:: Medical - moderate - high VTE Device Contraindication: Treatment Not Indicated VTE Drug Contraindication: N/A - Med Ordered
[2022-07-22] MEDS: Heparin Sodium,Porcine 5,000 UNIT/ML VIAL 5000 UNIT SUBCUT ×2 (11:47→21:20)
[2022-07-22 11:49] LABS: Alpha Fetoprotein 100.4 ng/mL (<6.1)
[2022-07-22 15:00] VITALS: BP 145/53; PULSE 84; RESP 18; TEMP 36.9; O2SAT 92
[2022-07-22 18:45] VITALS: BP 113/58; PULSE 111; RESP 18; TEMP 37.1; O2SAT 92
[2022-07-23 03:54] VITALS: BP 109/49; PULSE 85; RESP 20; TEMP 36.9; O2SAT 93
[2022-07-23] MEDS: Omeprazole 40 MG CAPSULE.DR PO (05:41)
[2022-07-23 07:22] VITALS: PULSE 86; RESP 18; O2SAT 93
[2022-07-23 07:48] VITALS: BP 104/48; PULSE 88; RESP 18; TEMP 37.1; O2SAT 92
[2022-07-23] MEDS: Spironolactone 25 MG TABLET PO (09:51)
[2022-07-23] MEDS: Doxycycline Monohydrate 100 MG CAPSULE PO ×2 (09:51→21:30)
[2022-07-23] MEDS: Furosemide 40 MG TABLET 80 MG PO ×2 (09:51→21:30)
[2022-07-23] MEDS: Folic Acid 1 MG TABLET PO (09:52)
[2022-07-23] MEDS: Ammonium Lactate 12 % Lotion 226 GM BOTTLE 1 APPL TOPICAL ×2 (09:52→21:30)
[2022-07-23] MEDS: Heparin Sodium,Porcine 5,000 UNIT/ML VIAL 5000 UNIT SUBCUT ×2 (09:52→21:30)
[2022-07-23] MEDS: Lactulose 20 GM/30 ML SOLUTION PO (09:52)
[2022-07-23] MEDS: Potassium Chloride ER 20 MEQ TAB.ER.PRT PO ×2 (09:52→21:30)
[2022-07-23] MEDS: 0.9 % Sodium Chloride Flush 3 ML SYRINGE IVFLUSH ×3 (09:53→23:42)
[2022-07-23] MEDS: Thiamine HCL 100 MG TABLET PO (10:18)
--- NOTE | 2022-07-23 10:18 | MHC.CM.PN ---
CM RECEIVED CALL FROM [facility] ASKING WHETHER PT IS IN A BARIATRIC BED THEY'RE ROOMS ARE NOT BIG ENOUGH, CM CHECKED PT'S ROOM AND W/NURSE AND PT APPEARS TO BE IN A REGULAR HOSPITAL BED. [facility] AWARE AND THEY CAN OFFER A BED AT [facility] FOR TODAY, CM TO REQUEST COVID PCR.
--- NOTE | 2022-07-23 11:07 | P.PNIM_ITS ---
Subjective Subjective Date of Service: 07/23/22 Interval History: cc: anasarca interval history:improved Cardiovascular Cardiovascular: Reports no additional cardiovascular complaints Respiratory Respiratory: Reports no additional respiratory complaints Physical Exam Vital Signs: Vital Signs: Last Vital Signs Temp 98.7 F 07/23/22 07:48 Pulse 88 07/23/22 07:48 Resp 18 07/23/22 07:48 BP 104/48 L 07/23/22 07:48 Pulse Ox 92 07/23/22 07:48 O2 Del Method 07/23/22 07:48 O2 Flow Rate 1 07/17/22 22:12 Oxygen Flow Rate 2 07/17/22 17:32 BMI result Body Mass Index 46.3 abd distended not tight temporal wasting 3+ edema with skin changes Objective Data Active Medications Acetaminophen (Acetaminophen 325 Mg Tablet) 650 mg PO Q6H PRN PRN Reason: Pain, Mild (Pain Scale 1-3) Docusate Sodium (Docusate Sodium 100 Mg Capsule) 100 mg PO DAILY PRN PRN Reason: Constipation Doxycycline Monohydrate (Doxycycline Monohydrate 100 Mg Capsule) 100 mg PO Q12H [facility] Last Admin: 07/23/22 09:51 Dose: 100 mg Documented By: ANN Folic Acid (Folic Acid 1 Mg Tablet) 1 mg PO DAILY [facility] Last Admin: 07/23/22 09:52 Dose: 1 mg Documented By: ANN Furosemide (Furosemide 40 Mg Tablet) 80 mg PO BID [facility]; Protocol Last Admin: 07/23/22 09:51 Dose: 80 mg Documented By: ANN Heparin Sodium (Porcine) (Heparin Sodium,Porcine 5,000 Unit/Ml Vial) 5,000 unit SUBCUT Q12H [facility] Last Admin: 07/23/22 09:52 Dose: 5,000 unit Documented By: ANN Lactic Acid (Ammonium Lactate 12 % Lotion 226 Gm Bottle) 1 appl TOPICAL BID [facility]; Protocol Last Admin: 07/23/22 09:52 Dose: 1 appl Documented By: ANN Lactulose (Lactulose 20 Gm/30 Ml Solution) 20 gm PO DAILY [facility] Last Admin: 07/23/22 09:52 Dose: 20 gm Documented By: ANN Omeprazole (Omeprazole 40 Mg Capsule.) 40 mg PO DAILY@0630 [facility] Last Admin: 07/23/22 05:41 Dose: 40 mg Documented By: PRO-DRAKJ Ondansetron HCl (Ondansetron Hcl 4 Mg/2 Ml Vial) 4 mg IVPUSH Q8H PRN PRN Reason: Nausea and Vomiting Pharmacy Consult (Consult Rx Perform Med Rec) 1 each MISCELLANE ONCE PRN PRN Reason: Consult order Potassium Chloride (Potassium Chloride Er 20 Meq Tab.Er.Prt) 20 meq PO BID [facility] Last Admin: 07/23/22 09:52 Dose: 20 meq Documented By: ANN Sodium Chloride (0.9 % Sodium Chloride Flush 3 Ml Syringe) 3 ml IVFLUSH QSHIFT [facility] Last Admin: 07/23/22 09:53 Dose: 3 ml Documented By: ANN Spironolactone (Spironolactone 25 Mg Tablet) 25 mg PO DAILY [facility]; Protocol Last Admin: 07/23/22 09:51 Dose: 25 mg Documented By: ANN Thiamine HCl (Thiamine Hcl 100 Mg Tablet) 100 mg PO DAILY [facility] Last Admin: 07/23/22 10:18 Dose: 100 mg Documented By: ANN Tiotropium [place] (Tiotropium [place] 18 Mcg Cap.W.Dev) 1 puff INHALE RDAILY S Last Admin: 07/23/22 07:21 Dose: 1 puff Documented By: SUNITA Labs CBC & Chem 7: 07/20/22 05:29 07/22/22 05:04 Labs: Laboratory Results - last 24 hr 07/18/22 09:30 Alpha Fetoprotein 100.4 H Microbiology Microbiology Results: Microbiology 07/17/22 19:47 Blood Culture - Final Blood - Venous No growth after 5 days. 07/17/22 19:47 Blood Culture - Final Blood - Venous No growth after 5 days. Assessment and Plan (1) Liver mass: Status: Acute (2) Bilateral edema of lower extremity: Status: Acute (3) Portal vein thrombosis: Status: Acute (4) Cellulitis of right lower extremity: Status: Acute Plan ?71-year-old male with past medical history of CHF, liver cirrhosis secondary to alcohol abuse, hypertension presents to the hospital with complaints of lower extremity ulcers well as swelling found to have number cirrhosis as well as thrombus portal veins tumer thrombus in the setting of liver mass concerning for? malignancy Heparin was DC as it looks tumor thrombus Oncology team input appreciated, afp about 100, plan for MRI anasarca with right lower extremity cellulitis Improving DC IV antibiotics, Started Doxycycline continue lasix and aldactone hypertension continue aldactone morbid obesity BMI of 46.3 Advised weight loss ?DVT prophylaxis:? Heparin reason for continued hospitalization:awaiting mri Time Spent With Patient Time: Total time managing care of this patient today ____ minutes. Quality Stroke Does the patient have a stroke diagnosis?: No VTE Prior VTE?: No VTE Risk Level:: Medical - moderate - high VTE Device Contraindication: Treatment Not Indicated VTE Drug Contraindication: N/A - Med Ordered
--- NOTE | 2022-07-23 12:19 | P.PNHO-ONC_ITS ---
Medical Summary - Medical Summary Date of Service: 07/23/22 Chief complaint: Leg swelling Medical Summary: diagnosis: Probable HCC Interval History Interval history: He is doing okay. He reports continued swelling of the leg but denies any abdominal pain or nausea. Review of Systems - Constitutional Reports as per HPI, Reports poor appetite - Cardiovascular Denies chest pain - Respiratory Reports dyspnea - Gastrointestinal Reports no additional gastrointestinal complaints - Neurologic Reports no additional neurologic complaints [facility] Medical History: Medical History (Last Reviewed 07/18/22 @ 10:56 by Jose Juan Hare MD) Acute exacerbation of CHF (congestive heart failure) Anasarca CHF (congestive heart failure) Cirrhosis COPD (chronic obstructive pulmonary disease) History of alcohol abuse History of cirrhosis of liver Hyperlipidemia Morbid obesity Family History: Family History (Last Reviewed 07/18/22 @ 10:56 by Jose Juan Hare MD) Father No problems noted. Mother No problems noted. Surgical History: Surgical History (Last Reviewed 07/18/22 @ 10:56 by Jose Juan Hare MD) History of tonsillectomy Social History: Social History (Last Reviewed 07/18/22 @ 10:56 by Jose Juan Hare MD) Living Situation History: Household Members: Spouse Household Members: Children Housing: Other Housing Other:: trailer Do you presently have visiting nurse or other home services: No Alcohol History Details: 1. How often do you have a drink containing alcohol?: a. Never AUDIT-C Alcohol total score: 0 Currently Displaying Signs/Symptoms of Alcohol Withdrawal: No Tobacco History: Patient Tobacco Use Status: Former Tobacco user Tobacco use type: Cigarette Smoked in Last 30 Days: No Smoke Quit Date: 2011 e-Cigarette/Vaping Use: Never Used Second Hand Smoke Exposure: No Substance Use History: Use of substances other than those prescribed or required for medical reasons : No Currently Displaying Signs/Symptoms of Drug Intoxication Withdrawal: No Advance Directives: Advance Directives: No Advance Directives Information Provided: No Homicidal Assessment: Do you have thoughts of harming others: None Nutrition Assessment: Recently lost weight without trying: No Nutrition Risks: No Nutritional Risk Occupation Assessmet: service: No Current occupational status: retired Current occupational status: disabled Oncology Screenings - ECOG Performance Status ECOG Performance Status: 3 Home Medications and Allergies Current Medications: Current Medications Acetaminophen (Acetaminophen 325 Mg Tablet) 650 mg PO Q6H PRN PRN Reason: Pain, Mild (Pain Scale 1-3) Docusate Sodium (Docusate Sodium 100 Mg Capsule) 100 mg PO DAILY PRN PRN Reason: Constipation Doxycycline Monohydrate (Doxycycline Monohydrate 100 Mg Capsule) 100 mg PO Q12H [facility] Last Admin: 07/23/22 09:51 Dose: 100 mg Folic Acid (Folic Acid 1 Mg Tablet) 1 mg PO DAILY [facility] Last Admin: 07/23/22 09:52 Dose: 1 mg Furosemide (Furosemide 40 Mg Tablet) 80 mg PO BID [facility]; Protocol Last Admin: 07/23/22 09:51 Dose: 80 mg Heparin Sodium (Porcine) (Heparin Sodium,Porcine 5,000 Unit/Ml Vial) 5,000 unit SUBCUT Q12H [facility] Last Admin: 07/23/22 09:52 Dose: 5,000 unit Lactic Acid (Ammonium Lactate 12 % Lotion 226 Gm Bottle) 1 appl TOPICAL BID [facility]; Protocol Last Admin: 07/23/22 09:52 Dose: 1 appl Lactulose (Lactulose 20 Gm/30 Ml Solution) 20 gm PO DAILY [facility] Last Admin: 07/23/22 09:52 Dose: 20 gm Omeprazole (Omeprazole 40 Mg Capsule.Dr) 40 mg PO DAILY@0630 [facility] Last Admin: 07/23/22 05:41 Dose: 40 mg Ondansetron HCl (Ondansetron Hcl 4 Mg/2 Ml Vial) 4 mg IVPUSH Q8H PRN PRN Reason: Nausea and Vomiting Pharmacy Consult (Consult Rx Perform Med Rec) 1 each MISCELLANE ONCE PRN PRN Reason: Consult order Potassium Chloride (Potassium Chloride Er 20 Meq Tab.Er.Prt) 20 meq PO BID [facility] Last Admin: 07/23/22 09:52 Dose: 20 meq Sodium Chloride (0.9 % Sodium Chloride Flush 3 Ml Syringe) 3 ml IVFLUSH QSHIFT [facility] Last Admin: 07/23/22 09:53 Dose: 3 ml Spironolactone (Spironolactone 25 Mg Tablet) 25 mg PO DAILY [facility]; Protocol Last Admin: 07/23/22 09:51 Dose: 25 mg Thiamine HCl (Thiamine Hcl 100 Mg Tablet) 100 mg PO DAILY [facility] Last Admin: 07/23/22 10:18 Dose: 100 mg Tiotropium [place] (Tiotropium [place] 18 Mcg Cap.W.Dev) 1 puff INHALE RDAILY [facility] Last Admin: 07/23/22 07:21 Dose: 1 puff Home Medications Medication Instructions Recorded Confirmed Type thiamine HCl (vitamin B1) 100 mg 100 mg PO DAILY 07/18/22 07/18/22 History tablet Allergies Allergy/AdvReac Type Severity Reaction Status Date / Time Penicillins [PENICILLINS] Allergy Unknown ASTHMA Verified 07/18/22 02:14 ATTACK Exam Vital signs: Vital Signs Temp 98.7 F 07/23/22 07:48 Pulse 88 07/23/22 07:48 Resp 18 07/23/22 07:48 BP 104/48 L 07/23/22 07:48 Pulse Ox 92 07/23/22 07:48 O2 Del Method 07/23/22 07:48 O2 Flow Rate 1 07/17/22 22:12 Intake & Output 07/22/22 07/23/22 07/23/22 18:59 06:59 18:59 Intake Total 480 / 1680 1200 / 1680 Output Total 600 / 2300 1700 / 2300 Balance -120 / -620 -500 / -620 Urine Output (Average ml/kg/hr) 0.34 0.97 Intake: Intake, Oral Amount 480 / 1680 1200 / 1680 Output: Output, Urine Amount 900 / 900 Output, Urine Amount (Catheter) 600 / 1400 800 / 1400 [place] 800 / 800 Urethral 600 / 600 Other: Meal Refused No No NPO No No Breakfast % Eaten 100% Lunch % Eaten 25% Dinner % Eaten 100% Number of Bowel Movements 0 Urine Color Yellow Yellow Last Bowel Movement 07/21/22 07/22/22 Continuous Bladder Irrigation Fluid - Amount Drained Urethral 100 Weight 146.5 kg BMI result Body Mass Index 46.3 - Constitutional Present: no acute distress, morbidly obese - Routine HEENT Exam Head: Present: atraumatic, normal inspection - Routine Neck Exam Present: full ROM - Routine Respiratory Exam Present: decreased breath sounds. Absent: accessory muscle use - Routine Cardiovascular Exam Cardiovascular: Present: RRR, S1, S2 - Routine Abdominal Exam Present: nontender - Routine Extremities Exam Present: full ROM, normal inspection, nontender - Routine Skin Exam Present: erythema - Routine Neurological Exam Present: alert, oriented X3 Data - Labs CBC & Chem 7: 07/20/22 05:29 07/22/22 05:04 - Imaging Radiologist's impression: ITS Impressions Chest X-Ray 07/17/22 18:23 IMPRESSION: 1. Similar appearance of the chest compared to prior with increased pulmonary vascular markings and some hazy indistinct opacities in the mid and lower lungs right greater than left. Findings may represent mild pulmonary edema. 2. Possible small right pleural effusion. Abdomen/Pelvis CT 07/18/22 00:50 IMPRESSION: CHEST: * Chronic volume loss of the right lung related to pleural-parenchymal scarring/round atelectasis within the right lower lobe. * Cardiomegaly. 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 Thrombus within the left hepatic vein extends into the IVC to the level of the inferior cavoatrial junction. * Mild splenomegaly. * Massive left splenorenal shunt and small esophageal varices. * Right intrarenal calculi without hydronephrosis. This critical result was discussed with JEANNE Woods at 07/18/2022 1:40 AM and it was ascertained that the content and urgency of the report was understood at the time of direct communication. Chest CT 07/18/22 00:50 IMPRESSION: CHEST: * Chronic volume loss of the right lung related to pleural-parenchymal scarring/round atelectasis within the right lower lobe. * Cardiomegaly. 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 Thrombus within the left hepatic vein extends into the IVC to the level of the inferior cavoatrial junction. * Mild splenomegaly. * Massive left splenorenal shunt and small esophageal varices. * Right intrarenal calculi without hydronephrosis. This critical result was discussed with JEANNE Woods at 07/18/2022 1:40 AM and it was ascertained that the content and urgency of the report was understood at the time of direct communication. Assessment and Plan Patient Active problem list reviewed?: Yes (1) Liver mass Status: Acute Assessment and plan: 1. This is a 71-year-old male with liver cirrhosis presenting with large infiltrative mass throughout left lobe of liver associated with portal venous thrombosis involving right and left portal veins extending into main portal vein, most likely tumoral thrombus. There is also thrombus within left hepatic and middle hepatic vein extending into the IVC. There is also splenomegaly measuring up to 14.5 cm. His presenting with extensive bilateral leg swelling which could be result of malignancy, hypoalbuminemia as well as portal hypertension /venous congestion. AFP elevated at 100.4. MRI liver with and without contrast has been recommended by radiologist for further clarification of diagnosis. Treatment recommendations to follow. I will follow up with him upon discharge. - Time Spent With Patient Time Spent with Patient (in minutes): 10
--- NOTE | 2022-07-23 12:33 | MHC.CM.PN ---
Addendum entered by Aicha Willson, RN 07/23/22 13:44: PER HOSPITALIST MRI WONT BE UNTIL LATER THIS EVENING AND PT WILL BE HELD OVER NIGHT, BRITTANI UPDATED OVER [facility] Original Note: PT MET W/DR RUBIO REGRDING LIVER MASS AND PT TO HAVE MRI PRIOR TO D/C, CM UNCERTAIN IF MRI WILL BE DONE N TIME FOR D/C TODAY, CM ADRIANNA CONT TO FOLLOW.
[2022-07-23 13:39] VITALS: PULSE 96; O2SAT 91
[2022-07-23 15:01] VITALS: BP 117/59; PULSE 79; RESP 16; TEMP 36.5; O2SAT 93
[2022-07-23 15:03] LABS: Influenza A PCR NEGATIVE (Negative); Influenza B PCR NEGATIVE (Negative); Resp Syncy Virus RNA Qual PCR NEGATIVE (Negative); SARS COV2 PCR INHOUSE NEGATIVE (Negative)
[2022-07-23 20:00] VITALS: BP 114/55; PULSE 74; RESP 17; TEMP 36.5; O2SAT 93
[2022-07-24 03:43] VITALS: BP 120/62; PULSE 77; RESP 17; TEMP 36.4; O2SAT 93
[2022-07-24] MEDS: Omeprazole 40 MG CAPSULE.DR PO (05:55)
[2022-07-24 07:33] VITALS: PULSE 78; RESP 18; O2SAT 92
[2022-07-24 07:41] VITALS: BP 108/55; PULSE 86; RESP 18; TEMP 36.7; O2SAT 92
--- NOTE | 2022-07-24 09:50 | PM.DS ---
DS: Providers Provider Date of Service: 07/24/22 Date of admission: 07/18/22 04:10 Primary care physician: Jared Garcia MD Consults: 07/18/22 04:13 Consult to Hematology / Oncology Routine Consulting Provider: Robyn Ramirez Reason for consultation: lilve lesions 07/18/22 05:53 Consult to Gastroenterology Routine Consulting Provider: Fly Villanueva Reason for consultation: live mass, esophageal varices Has provider been notified: No 07/18/22 06:03 Consult to Cardiology Routine Consulting Provider: Jose Juan Hare Reason for consultation: lower extremity swelling, difficult to assess volume status Has provider been notified: No DS: Diagnosis Discharge Diagnosis (1) Liver mass: Status: Acute DS: Summary Hospital Course Hospital Course: from initial hpi: This is a 71-year-old male with past medical history of liver cirrhosis secondary to alcohol abuse, congestive heart failure,? chronic hypoxic respiratory failure on chronic 2.5 L, COPD, ?who presents to the hospital with complaints of lower extremity swelling as well as ulcer on his right leg.? patient is very obese, reports that he is not able to see his legs, therefore was his son who noticed the swelling as well as the ulcer.? This was noticed day after [place].? He reports no fever no chills. reports chronic shortness of breath that has not worsened, reports chronic cough that has not worsened, as well as no increased sputum production.? Patient denies any abdominal pain nausea or vomiting, no diarrhea constipation, no urinary symptoms.? He reports no recent weight loss. ? On arrival to the ED patient slightly tachypneic but now normal respiratory rate, otherwise no significant abnormality Labs are significant for WBC count of 7.5, hemoglobin of 11, medic of stay 3.2, PT of 14.7, INR of 1.3, bilirubin of 3.2,? AST of 129, ALT of 95, alk-phos of 395, BNP of 124, troponin of 6.4, albumin of 2.0, urine positive for leukocyte Estrace and WBC ?imaging including chest, abdomen, and pelvic CT shows in the chest there is chronic volume loss of the right lung related to pleural parenchymal scarring with atelectasis within the right lower lobe, Abdomen pelvic CT shows infiltrative mass throughout the left lobe of the liver likely with 2 more all thrombus of the portal venous system including the main portal vein to the? level of the portal splenic confluence, thrombus within the left hepatic vein extends into the IVC to the level of the inferior cavoatrial junction.? Massive left splenorenal shunt and small esophageal varices, ?patient started on heparin drip and will be admitted for further management hospital course: Patient was admitted for anasarca with right lower extremity superimposed cellulitis. Was treated with broad-spectrum IV antibiotics with improvement and transition to doxycycline. Patient initially had concern for portal vein thrombosis, however, this appears more likely to be tumor thrombosis so anticoagulation was discontinued. Alpha-fetoprotein was about 100. Patient was unable to fit in MRI machine. He will follow-up with Oncology as outpatient for further treatment of presumed hepatocellular carcinoma. First hypertension use continue on Aldactone. For his morbid obesity weight loss is advised. Patient will be discharged to long term facility. Time Spent with Patient Time attestation: Total time managing care of this patient today ____ minutes. Discharge coordination time: Greater than 30 minutes Quality: Safe Use of Opioids Does Pt have an Active Cancer Diagnosis on the Problem List?: Yes Opioid Measure Date for [facility] Report: 06/24/22 Opioid Measure Time for [facility] Report: 09:52 Quality: Stroke Does the patient have a stroke diagnosis?: No Physical Exam Vital Signs: Vital Signs: Last Vital Signs Temp 98.1 F 07/24/22 07:41 Pulse 86 07/24/22 07:41 Resp 18 07/24/22 07:41 BP 108/55 L 07/24/22 07:41 Pulse Ox 92 07/24/22 07:41 O2 Del Method 07/24/22 07:41 O2 Flow Rate 1 07/23/22 20:00 Oxygen Flow Rate 2 07/17/22 17:32 BMI result Body Mass Index 46.3 abd distended not tight temporal wasting 3+ edema with skin changes DS: Data Data Completed and Pending Labs on day of discharge: Laboratory Results - last 24 hr 07/23/22 13:46 Influenza Type A (PCR) NEGATIVE Influenza Type B (PCR) NEGATIVE RSV RNA Qual (PCR) NEGATIVE SARS-CoV-2 RNA (RT-PCR) NEGATIVE Discharge Plan Discharge Anticipated Discharge Date/Time: 07/24/22 09:47 Patient Disposition: Xfer SNF Discharge Diagnosis: liver mass Referrals: [facility] [Outside] - 1 Day (SHORT TERM REHAB ) Jared Garcia MD [Primary Care Provider] - 2 days (call pcp office to schedule follow up visit ) Discharge Medications: New doxycycline hyclate 100 mg capsule 100 mg PO BID 10 Days Qty: 20 0RF azithromycin 250 mg tablet See Rx Instructions .ROUTE .COMPLEX Qty: 6 0RF Rx Instructions: For 250 mg dose pack: take 500 mg today (day 1), then 250 mg for 4 days (days 2-5) prednisone 20 mg tablet 20 mg PO DAILY 5 Days Qty: 5 0RF albuterol sulfate 90 mcg/actuation aerosol powdr breath activated 2 inh inhalation Q4-6H PRN (Reason: shortness of breath or wheezing) Qty: 1 0RF Continued spironolactone 25 mg tablet 25 mg PO DAILY Qty: 90 8RF folic acid 1 mg tablet 1 mg PO DAILY Qty: 90 8RF Spiriva with HandiHaler 18 mcg capsule, w/inhalation device 1 cap inhalation DAILY Qty: 90 8RF Rx Instructions: puncture 1 cap using device; one dose = 2 inhalations (DME) Wheel chair Kit See Rx Instructions .Route Qty: 1 0RF Rx Instructions: As directed potassium chloride 20 mEq tablet,ER particles/crystals 20 meq PO BID Qty: 60 8RF lactulose 20 gram/30 mL solution 20 g PO BID Qty: 1200 0RF thiamine HCl (vitamin B1) 100 mg Tablet 100 mg PO DAILY furosemide [Lasix] 80 mg tablet 80 mg PO BID Qty: 60 0RF Discharge Orders: Discharge Order (Routine); Ordered 07/24/22 Ordered By: Donal Oleary Diet: Advance to usual diet Activity on Discharge: As tolerated Stand Alone Forms: Patient Portal Discharge page Activity Restrictions/Additional Instructions: Take your medications as prescribed. If you were prescribed antibiotics today, it is important that you take your medication to their entirety, do not skip any doses, do not finish them early. Follow-up with your primary care provider this week. Return to the emergency department with new or worsening symptoms. Such as fevers, chills, chest pain, shortness of breath, nausea, vomiting, dizziness, headache, vision changes, lethargy In case of emergency call 911 Care Plan Goals: manage HCC Health Concerns: HCC Plan of Treatment: follow up with oncology Assessment: see above
[2022-07-24] MEDS: Thiamine HCL 100 MG TABLET PO (09:51)
[2022-07-24] MEDS: Doxycycline Monohydrate 100 MG CAPSULE PO (09:51)
[2022-07-24] MEDS: 0.9 % Sodium Chloride Flush 3 ML SYRINGE IVFLUSH (09:51)
[2022-07-24] MEDS: Furosemide 40 MG TABLET 80 MG PO (09:51)
[2022-07-24] MEDS: Spironolactone 25 MG TABLET PO (09:51)
[2022-07-24] MEDS: Potassium Chloride ER 20 MEQ TAB.ER.PRT PO (09:51)
[2022-07-24] MEDS: Lactulose 20 GM/30 ML SOLUTION PO (09:51)
[2022-07-24] MEDS: Folic Acid 1 MG TABLET PO (09:51)
[2022-07-24] MEDS: Ammonium Lactate 12 % Lotion 226 GM BOTTLE 1 APPL TOPICAL (09:52)
--- NOTE | 2022-07-24 12:07 | MHC.CM.PN ---
Addendum entered by Aicha Willson RN 07/24/22 12:19: PT WILL NEED OUTPT FOLLOW-UP W/DR RUBIO Original Note: PER HOSPITALIST MRI NOT DONE D/T PT SIZE, PT WILL TRANSFER TO [facility] TODAY AT 1:30PM VIA [address] FOR BLS
[2022-07-24] MEDS: Heparin Sodium,Porcine 5,000 UNIT/ML VIAL 5000 UNIT SUBCUT (12:35)
[2022-07-25 08:58] LABS: CA-125 90 U/mL (<35); Carbohydrate Antigen 19-9 442 U/mL (<34)
== END 2022-07-24 14:51 | disposition skilled nursing facility (03) | DRG 435 ==
LOC: HO.ED 07-18 01:54 → HO.EDOVER 07-18 04:17 → HO.S3 07-19 18:55
PROVIDERS: Internal Medicine; Physician Assistant; Student in an Organized Health Care Education/Training Program; Admitting Provider Internal Medicine; Emergency Provider Emergency Medicine; PCP Internal Medicine; Visit Provider Internal Medicine
DX: C22.0 Liver cell carcinoma (principal); I81 Portal vein thrombosis; L03.115 Cellulitis of right lower limb; Z68.42 Body mass index [BMI] 45.0-49.9, adult; L03.116 Cellulitis of left lower limb; J96.11 Chronic respiratory failure with hypoxia; I50.32 Chronic diastolic (congestive) heart failure; E66.01 Morbid (severe) obesity due to excess calories; I11.0 Hypertensive heart disease with heart failure; J44.9 Chronic obstructive pulmonary disease, unspecified; F10.21 Alcohol dependence, in remission; E78.5 Hyperlipidemia, unspecified; K70.30 Alcoholic cirrhosis of liver without ascites; Z20.822 Contact with and (suspected) exposure to COVID-19; Z87.891 Personal history of nicotine dependence; Z99.81 Dependence on supplemental oxygen; Z88.0 Allergy status to penicillin; Z79.899 Other long term (current) drug therapy
CPT/HCPCS: 0241U; 36415; 71045; 71260; 74177; 80048; 80053; 80076; 80202; 81001; 82105; 82378; 83605; 83615; 83735; 83880; 84484; 85025; 85027; 85610; 85730; 86301; 86304; 87040; 87086; 87635; 93005; 96365; 97162; 97530; 99285; C1758; J1956; J3370; Q9967

== ENCOUNTER 2022-08-12 12:21 | Inpatient (IN) | payer MEDICARE, BC, SELFPAY ==
[2022-08-12] VITALS (11 sets, daily range): BP systolic 82–150; BP diastolic 42–87; PULSE 87–119; RESP 17–20; TEMP 36.6–37.1; O2SAT 94–98; BMI 50.2
--- NOTE | ~2022-08-12 | XR_ITS ---
EXAMINATION: XR CHEST CLINICAL INFORMATION: Weakness, chest pain, rule out pneumonia. COMPARISON: 07/17/2022 chest radiograph. TECHNIQUE: Frontal view of the chest was obtained. FINDINGS: Penetration at the lung bases is suboptimal secondary to patient body habitus. The lungs show mild bibasilar linear markings, but otherwise are clear. The heart and mediastinal structures are unremarkable. XR/XR chest 1V IMPRESSION: Mild bibasilar linear atelectasis versus scarring. No acute cardiopulmonary process. Overall appearance on the right is improved.
--- NOTE | 2022-08-12 11:10 | ECG_ITS ---
Test Reason : PALPITATIONS Blood Pressure : / mmHG Vent. Rate : 118 BPM Atrial Rate : 000 BPM P-R Int : 000 ms QRS Dur : 084 ms QT Int : 270 ms P-R-T Axes : 000 -56 047 degrees QTc Int : 378 ms Atrial fibrillation with rapid ventricular response Low voltage QRS Left axis deviation Abnormal ECG When compared with ECG of 18-JUL-2022 11:05, Atrial fibrillation has replaced Sinus rhythm Vent. rate has increased BY 40 BPM Referred By: Lee Busby Electronically Signed By:ALEXANDRIA MORRISSEY
--- NOTE | 2022-08-12 12:32 | PC.NURSE ---
71 y/o M BIBA from SNF with afib found to have HR at facility in 120s, on arrival patient in afib to 101. pt denies any cp/palps/sob, denies any other complaints. pt in gown, on monitor, awaiting further recs.
--- NOTE | 2022-08-12 12:55 | ED_ITS ---
HPI - Arrhythmia/Palpitations General Chief Complaint: Arrhythmia/Palpitations Stated Complaint: WEAKNESS PER EMS Time Seen by Provider: 08/12/22 12:54 History of Present Illness HPI narrative: 71-year-old male sent in from his assisted facility for atrial fibrillation with a ventricular rate the 110 range. This information came from the paramedics. I did review the senior living notes and there was no specific information as to why they sent into the hospital. The patient has no complaints. Currently denies chest pain or shortness of breath. He states that he has been having a sore throat and a dry cough over the past several days but he thinks it secondary to not getting enough water. He denied fever, chills, rhinorrhea, chest pain, shortness of breath, nausea, vomiting. He states that he has constant diarrhea. He denied abdominal pain. He denied dysuria. States that his mainly bedbound but he is able to get up and walk with assistance. I did review the patient's cardiology consult note from 07/18/2022 who is admitted for increased peripheral edema. From this note the past medical history was obtained:cirrhosis, hypoalbuminemia, COPD, diastolic heart failure with last echocardiogram with EF of 55-60%, paroxysmal atrial fibrillation, morbid obesity. Patient's peripheral edema was felt to be more related to his cirrhosis and not related to his diastolic congestive heart failure Related Data Home Medications Medication Instructions Recorded Confirmed thiamine HCl (vitamin B1) 100 mg 100 mg PO DAILY 07/18/22 08/06/22 tablet acetaminophen 325 mg tablet 650 mg PO Q6H PRN Pain 08/06/22 08/06/22 bisacodyl 10 mg rectal suppository 10 mg IN DAILY 08/06/22 08/06/22 (Dulcolax (bisacodyl)) magnesium hydroxide 800 mg/5 mL 1,200 mg PO USEASDIRECTD 08/06/22 08/06/22 oral suspension nystatin 100,000 unit/gram topical 1 appl topical BID 08/06/22 08/06/22 powder sodium phosphates 19 gram-7 118 ml IN BEDTIME PRN Constipation 08/06/22 08/06/22 gram/118 mL enema (Enema Disposable) Previous Rx's Medication Instructions Recorded spironolactone 25 mg tablet 25 mg PO DAILY #90 tabs 09/16/21 folic acid 1 mg tablet 1 mg PO DAILY #90 tabs 02/19/22 tiotropium bromide 18 mcg capsule 1 cap inhalation DAILY #90 03/20/22 with inhalation device (Spiriva inhalations with HandiHaler) chair, wheel (Wheel chair) #1 ea 05/30/22 potassium chloride 20 mEq 20 meq PO BID #60 tabs 06/03/22 tablet,extended release(part/cryst) furosemide 80 mg tablet (Lasix) 80 mg PO BID #60 tabs 06/19/22 lactulose 20 gram/30 mL oral 20 g (30 mL) PO BID #1,200 mL 07/08/22 solution doxycycline hyclate 100 mg capsule 100 mg PO BID 10 days #20 caps 07/17/22 albuterol sulfate 90 mcg/actuation 2 inh inhalation Q4-6H PRN 07/18/22 breath activated powder inhaler shortness of breath or wheezing #1 ea prednisone 20 mg tablet 20 mg PO DAILY 5 days #5 tabs 07/18/22 Allergies Allergy/AdvReac Type Severity Reaction Status Date / Time Penicillins [PENICILLINS] Allergy Unknown ASTHMA Verified 07/18/22 02:14 ATTACK Review of Systems Review of Systems: Yes all other systems are reviewed and are negative [facility] Past Medical History [facility] Narrative: Past medical history: Reviewed below, also include hypoalbuminemia, diastolic heart failure- echocardiogram with EF of 55-60%, paroxysmal atrial fibrillation. Social history: The patient is resident of a nursing facility. He does not smoke cigarettes, drink alcohol or use drugs. Medical History Acute exacerbation of CHF (congestive heart failure) Anasarca CHF (congestive heart failure) Cirrhosis COPD (chronic obstructive pulmonary disease) History of alcohol abuse History of cirrhosis of liver Hyperlipidemia Morbid obesity Surgical History History of tonsillectomy Family History Family History Father No problems noted. Mother No problems noted. Social History Social History Household Members: Spouse and Children Housing: Other Housing Other:: trailer Do you presently have visiting nurse or other home services: No Alcohol intake: never Patient Tobacco Use Status: Former Tobacco user Quit Date: 2011 Tobacco use type: Cigarette e-Cigarette/Vaping Use: Never Used Second Hand Smoke Exposure: No Advance Directives: Yes Advance Directives Information Provided: Yes Advance Directives on File: No service: No Current occupational status: retired and disabled Cognitive needs: Yes (walker) Hearing needs: Yes (hearing aide) Vision needs: Yes (glasses) Physical Exam Vital Signs: Vital Signs: Last Vital Signs Temp 97.9 F 08/12/22 21:21 Pulse 89 08/12/22 21:49 Resp 17 08/12/22 21:49 BP 105/45 L 08/12/22 21:21 Pulse Ox 96 08/12/22 21:49 O2 Del Method 08/12/22 21:49 BMI result Body Mass Index 50.2 Const: Other: Awake, alert, male patient, has no complaints, answers all questions ap propriately, does not appear to be in distress, elevated BMI of 50.2 [place] ation/consciousness: oriented to person and oriented to place HEENT: Head: Yes normal to inspection, Yes normocephalic and Yes atraumatic Ears: external ears normal General nose exam: Normal external nose present Face and sinus: Yes normal facial exam Mouth: Normal oral and palatal mucosa present Throat: Yes posterior oropharynx normal Eyes: General: appearance normal, both eyes and all related structures Pupils: Equal, round and reactive pupils present Neck: Neck: Yes normal visual inspection, Yes no lymphadenopathy, Yes trachea midline and Yes supple Chest: Chest palpation & inspection: normal inspection of the chest and normal palpation of entire chest wall Resp: Effort & Inspection: normal respiratory effort and able to speak in complete sentences Auscultation: clear to auscultation bilaterally Cardio: Other: Irregularly irregular rhythm, very quiet heart sounds secondary to large chest wall GI: Inspection: Yes normal to inspection Palpation (GI): Soft to palpation, nontender and no guarding Auscultation: normal bowel sounds : General: Yes no CVA tenderness Back/Spine/Pelvis: Back: no CVA tenderness Skin: General skin exam: no rashes or lesions noted Neuro: General: oriented to person and oriented to place Cranial nerves: Yes CN's II-XII intact bilaterally and Yes Equal, round and reactive pupils present Cognition (Neuro): normal cognition Motor exam (neuro): Other motor observations present (Patient appears be very deconditioned, can move all his extremities symmetr) Extrem: Other: 1+ pitting edema bilaterally symmetric Psych: Appearance: grossly normal Speech and movement: Normal speech and movement present Affect: normal affect Attitude: cooperative Medications Administered Discontinued Medications Generic Name Dose Route Start Last Admin Trade Name Fredis PRN Reason Stop Dose Admin Digoxin 0.25 mg 08/12/22 19:25 08/12/22 19:31 Digoxin 0.5 Mg/2 Ml Ampul IVPUSH 08/12/22 19:26 0.25 mg ONCE ONE Administration Digoxin 0.25 mg 08/12/22 19:48 08/12/22 20:21 Digoxin 0.5 Mg/2 Ml Ampul IVPUSH 08/12/22 19:49 0.25 mg ONCE ONE Administration Diltiazem HCl 15 mg 08/12/22 15:00 08/12/22 15:31 Diltiazem Hcl 50 Mg/10 Ml Vial IVPUSH 08/12/22 15:01 15 mg STAT STA Administration Lactated Ringer's 500 mls @ 999 mls/hr 08/12/22 15:15 08/12/22 16:12 Lr IV 08/12/22 15:45 Infused .Q31M RUFUS Infusion Lactated Ringer's 500 mls @ 999 mls/hr 08/12/22 19:30 08/12/22 20:22 Lr IV 08/12/22 20:00 Infused .Q31M RUFUS Infusion Medical Decision Making Medical Decision Making MDM Narrative: 71-year-old male with significant past medical history including cirrhosis caused chronic peripheral edema, diastolic congestive heart failure and paroxysmal atrial fibrillation who was sent to the emergency department from his assisted facility for evaluation atrial fibrillation with a ventricular rate of 110. Patient has no complaints. Patient does appear to be very deconditioned, his initial blood pressure was 150/87 and repeat blood pressure was 82/42. I did order laboratory evaluation to include CBC, CMP, troponin, lactic acid, BNP, COVID-19, influenza, RSV and blood cultures x2. I will also obtain one-view chest x-ray. 1501: My interpretation of the patient's laboratory evaluation as follows: Mild anemia with an H&H of 11 and 36 with an elevated MCV of 105, this is chronic. Platelet count is low 102,000 again this is chronic. Sodium is low 133, BUN is elevated 35 with a normal creatinine of 1.26. His BUN is elevated above his baseline. This BUN is elevated above his baseline, the patient may be volume depleted therefore he was ordered to get lactated Ringer's 500 cc x1. Total bilirubin elevated 5.8, AST, ALT and alk-phos elevated 190, 131 in 549-these are elevated above his baseline but I do not think that there is significant since he has no abdominal pain or tenderness. This most likely related to his cirrhosis. COVID-19, influenza and RSV are negative. Patient still has an elevated heart rate of 120 to 130s secondary to his atrial fibrillation. He was ordered to get diltiazem 15 mg IV to try to slow his rate down, the fluid may also slow his rate down as well. 1923: The patient's 1st troponin was detectable but not elevated at 7.5, 3 hour troponin was unchanged at 9.0. The patient's monitor shows that he still in atrial fibrillation in his ventricular rate did not improve. Patient's systolic blood pressures are in the 80-90 range, I ordered a 2nd lactated Ringer bolus of 500 cc. I also ordered digoxin 250 mcg IV. At this time I do not think that patient obese sent back to his nursing facility and that we need to admit him to try to control his ventricular rate. I will discuss admission with the covering hospitalist. 2234: I did discuss the patient's presentation with the covering hospitalist after the discussion, there was a concerned about the patient's hypotension and elevated ventricular rate. The patient was treated with digoxin 250 mcg IV x2 any did complete his 2nd lactated Ringer 500 cc bolus. The patient's systolic pressures have been above 90 and the patient's heart rate has been in the ED to 100 range. I did discuss the case again with the covering hospitalist, Dr. Bel st and the patient will be admitted to the hospitalist service for further management Lab Data MDM Lab Attestation statement: I reviewed the patient's lab results. 08/12/22 12:49 08/12/22 12:49 Labs: Lab Results 08/12/22 08/12/22 08/12/22 Range/Units 12:49 12:49 13:15 WBC 9.0 (4.8-10.8) X10*3/uL RBC 3.44 L (4.60-5.80) X10*6/uL Hgb 11.7 L (14.0-18.0) g/dl Hct 36.3 L (42.0-52.0) % MCV 105.5 H (80.0-98.0) fL MCH 34.0 H (27.0-33.0) pg MCHC 32.2 (31.0-36.0) g/dl RDW 16.5 H (11.0-16.0) % Plt Count 102 L (160-400) X10*3/uL MPV 10.1 (9.4-12.4) fL Immature Gran % (Auto) 0.3 (0.0-0.4) % Neut % (Auto) 73.4 H (45-73) % Lymph % (Auto) 14.1 L (20-40) % [place] % (Auto) 10.5 (2-11) % Eos % (Auto) 1.4 (0-4) % Baso % (Auto) 0.3 (0-2) % Lymph # (Auto) 1.3 (1.2-4.9) X10*3/uL [place] # (Auto) 1.0 (0.1-1.2) X10*3/uL Eos # (Auto) 0.1 (0.0-0.4) X10*3/uL Baso # (Auto) 0.0 (0.0-0.2) X10*3/uL Abs Immat Gran (auto) 0.03 (0.00-0.03) X10*3/uL Absolute Neuts (auto) 6.6 (2.0-8.3) x10*3/uL Absolute Nucleated RBC 0.000 (0.0-0.012) X10*3/uL Nucleated RBC % (auto) 0.0 (0.0-0.2) /100WBC Sodium (135-145) mmol/L Potassium (3.3-5.1) mmol/L Chloride (96-108) mmol/L Carbon Dioxide (22-29) mmol/L Anion Gap (12-20) BUN (9-16) mg/dL Creatinine (0.5-1.4) mg/dL Estim Creat Clear Calc Estimated GFR Fasting Glucose (60-99) mg/dL Lactic Acid 1.5 (0.5-2.0) mmol/L Calcium (8.4-10.2) mg/dL Total Bilirubin (0.0-1.0) mg/dL AST (5-37) U/L ALT (0-40) U/L Alkaline Phosphatase (39-117) U/L Troponin I High Sens (<3.5-35.0) ng/L B-Natriuretic Peptide (<100) pg/mL Total Protein (6.5-8.0) g/dL Albumin (3.5-5.0) g/dL Influenza Type A (PCR) NEGATIVE (Negative) Influenza Type B (PCR) NEGATIVE (Negative) RSV RNA Qual (PCR) NEGATIVE (Negative) SARS-CoV-2 RNA (RT-PCR) NEGATIVE (Negative) 08/12/22 08/12/22 08/12/22 Range/Units 14:16 14:16 14:16 WBC (4.8-10.8) X10*3/uL RBC (4.60-5.80) X10*6/uL Hgb (14.0-18.0) g/dl Hct (42.0-52.0) % MCV (80.0-98.0) fL MCH (27.0-33.0) pg MCHC (31.0-36.0) g/dl RDW (11.0-16.0) % Plt Count (160-400) X10*3/uL MPV (9.4-12.4) fL Immature Gran % (Auto) (0.0-0.4) % Neut % (Auto) (45-73) % Lymph % (Auto) (20-40) % [place] % (Auto) (2-11) % Eos % (Auto) (0-4) % Baso % (Auto) (0-2) % Lymph # (Auto) (1.2-4.9) X10*3/uL [place] # (Auto) (0.1-1.2) X10*3/uL Eos # (Auto) (0.0-0.4) X10*3/uL Baso # (Auto) (0.0-0.2) X10*3/uL Abs Immat Gran (auto) (0.00-0.03) X10*3/uL Absolute Neuts (auto) (2.0-8.3) x10*3/uL Absolute Nucleated RBC (0.0-0.012) X10*3/uL Nucleated RBC % (auto) (0.0-0.2) /100WBC Sodium 133 L (135-145) mmol/L Potassium 4.7 D (3.3-5.1) mmol/L Chloride 102 (96-108) mmol/L Carbon Dioxide 23 (22-29) mmol/L Anion Gap 13 (12-20) BUN 35 H (9-16) mg/dL Creatinine 1.26 (0.5-1.4) mg/dL Estim Creat Clear Calc 78.0 Estimated GFR 56 Fasting Glucose 105 H (60-99) mg/dL Lactic Acid (0.5-2.0) mmol/L Calcium 9.2 D (8.4-10.2) mg/dL Total Bilirubin 5.8 H (0.0-1.0) mg/dL AST 190 H (5-37) U/L ALT 131 H (0-40) U/L Alkaline Phosphatase 549 H (39-117) U/L Troponin I High Sens 7.5 (<3.5-35.0) ng/L B-Natriuretic Peptide 256 H (<100) pg/mL Total Protein 5.6 L (6.5-8.0) g/dL Albumin 1.8 L (3.5-5.0) g/dL Influenza Type A (PCR) (Negative) Influenza Type B (PCR) (Negative) RSV RNA Qual (PCR) (Negative) SARS-CoV-2 RNA (RT-PCR) (Negative) 08/12/22 Range/Units 17:17 WBC (4.8-10.8) X10*3/uL RBC (4.60-5.80) X10*6/uL Hgb (14.0-18.0) g/dl Hct (42.0-52.0) % MCV (80.0-98.0) fL MCH (27.0-33.0) pg MCHC (31.0-36.0) g/dl RDW (11.0-16.0) % Plt Count (160-400) X10*3/uL MPV (9.4-12.4) fL Immature Gran % (Auto) (0.0-0.4) % Neut % (Auto) (45-73) % Lymph % (Auto) (20-40) % [place] % (Auto) (2-11) % Eos % (Auto) (0-4) % Baso % (Auto) (0-2) % Lymph # (Auto) (1.2-4.9) X10*3/uL [place] # (Auto) (0.1-1.2) X10*3/uL Eos # (Auto) (0.0-0.4) X10*3/uL Baso # (Auto) (0.0-0.2) X10*3/uL Abs Immat Gran (auto) (0.00-0.03) X10*3/uL Absolute Neuts (auto) (2.0-8.3) x10*3/uL Absolute Nucleated RBC (0.0-0.012) X10*3/uL Nucleated RBC % (auto) (0.0-0.2) /100WBC Sodium (135-145) mmol/L Potassium (3.3-5.1) mmol/L Chloride (96-108) mmol/L Carbon Dioxide (22-29) mmol/L Anion Gap (12-20) BUN (9-16) mg/dL Creatinine (0.5-1.4) mg/dL Estim Creat Clear Calc Estimated GFR Fasting Glucose (60-99) mg/dL Lactic Acid (0.5-2.0) mmol/L Calcium (8.4-10.2) mg/dL Total Bilirubin (0.0-1.0) mg/dL AST (5-37) U/L ALT (0-40) U/L Alkaline Phosphatase (39-117) U/L Troponin I High Sens 9.0 (<3.5-35.0) ng/L B-Natriuretic Peptide (<100) pg/mL Total Protein (6.5-8.0) g/dL Albumin (3.5-5.0) g/dL Influenza Type A (PCR) (Negative) Influenza Type B (PCR) (Negative) RSV RNA Qual (PCR) (Negative) SARS-CoV-2 RNA (RT-PCR) (Negative) Radiology Impression Discussion of test interpretation with radiology: I have reviewed the radiologist's reading. Radiologist Impression: XR/XR chest 1V IMPRESSION: Mild bibasilar linear atelectasis versus scarring. No acute cardiopulmonary process. Overall appearance on the right is improved. Dictated By:Carlos Bhandari MDSigned By:<Electronically signed by Carlos Bhandari MD in [place]>08/12/22 1456 Critical Care Time Critical Care Time Critical Care Time: Yes Total Critical Care Time: 45 Attestation: Critical Care: The patient was critically ill with a high probability of imminent or life threatening deterioration. I spent greater than 30 minutes of discontinuous time evaluating the patient,delivering critical care at the bedside, discussing and evaluating pertinent data with consultants. Critical care time does not include time spent performing separately billable procedures or teaching. Total time spent performing critical care was 45 minutes. Discharge Plan Discharge Patient Disposition: Admitted As Inpatient Prescriptions: No Action spironolactone 25 mg tablet 25 mg PO DAILY Qty: 90 8RF folic acid 1 mg tablet 1 mg PO DAILY Qty: 90 8RF Spiriva with HandiHaler 18 mcg capsule, w/inhalation device 1 cap inhalation DAILY Qty: 90 8RF Rx Instructions: puncture 1 cap using device; one dose = 2 inhalations (DME) Wheel chair Kit See Rx Instructions .Route Qty: 1 0RF Rx Instructions: As directed potassium chloride 20 mEq tablet,ER particles/crystals 20 meq PO BID Qty: 60 8RF lactulose 20 gram/30 mL solution 20 g PO BID Qty: 1200 0RF doxycycline hyclate 100 mg capsule 100 mg PO BID 10 Days Qty: 20 0RF prednisone 20 mg tablet 20 mg PO DAILY 5 Days Qty: 5 0RF albuterol sulfate 90 mcg/actuation aerosol powdr breath activated 2 inh inhalation Q4-6H PRN (Reason: shortness of breath or wheezing) Qty: 1 0RF thiamine HCl (vitamin B1) 100 mg Tablet 100 mg PO DAILY furosemide [Lasix] 80 mg tablet 80 mg PO BID Qty: 60 0RF acetaminophen 325 mg Tablet 650 mg PO Q6H PRN (Reason: Pain) bisacodyl [Dulcolax (bisacodyl)] 10 mg Suppository 10 mg IN DAILY Enema Disposable 19-7 gram/118 mL Enema 118 ml IN BEDTIME PRN (Reason: Constipation) Milk of Magnesia 800 mg/5 mL Suspension 1,200 mg PO USEASDIRECTD nystatin 100,000 unit/gram Powder 1 appl TOPICAL BID
[2022-08-12 13:12] LABS: MANUAL DIFF FLAG NO
[2022-08-12 13:14] LABS: Basophils Percent Auto 0.3 % (0-2); Eosinophils Absolute Auto 0.1 X10*3/uL (0.0-0.4); Eosinophils Percent Auto 1.4 % (0-4); Hematocrit 36.3 % (42.0-52.0); Hemoglobin 11.7 g/dl (14.0-18.0); Imm Gran Abs Auto 0.03 X10*3/uL (0.00-0.03); Imm Gran Pct Auto 0.3 % (0.0-0.4); Lymphocytes Absolute Auto 1.3 X10*3/uL (1.2-4.9); Lymphocytes Percent Auto 14.1 % (20-40); Mean Corpuscular HGB Conc 32.2 g/dl (31.0-36.0); Mean Corpuscular Volume 105.5 fL (80.0-98.0); Mean Platelet Volume 10.1 fL (9.4-12.4); Monocytes Percent Auto 10.5 % (2-11); Neutrophils Absolute Auto 6.6 x10*3/uL (2.0-8.3); Neutrophils Percent Auto 73.4 % (45-73); Platelet Count 102 X10*3/uL (160-400); Red Blood Count 3.44 X10*6/uL (4.60-5.80); Red Cell Distribution Width 16.5 % (11.0-16.0)
[2022-08-12 13:31] LABS: Lactic Acid 1.5 mmol/L (0.5-2.0)
[2022-08-12 14:10] LABS: Influenza A PCR NEGATIVE (Negative); Influenza B PCR NEGATIVE (Negative); Resp Syncy Virus RNA Qual PCR NEGATIVE (Negative); SARS COV2 PCR INHOUSE NEGATIVE (Negative)
[2022-08-12 14:51] LABS: B Type Natriuretic Peptide 256 pg/mL (<100)
[2022-08-12 14:54] LABS: Troponin-I High Sensitivity 7.5 ng/L (<3.5-35.0)
[2022-08-12 14:57] LABS: Alanine Aminotransferase 131 U/L (0-40); Albumin Level 1.8 g/dL (3.5-5.0); Alkaline Phosphatase 549 U/L (39-117); Anion Gap 13 (12-20); Aspartate Amino Transferase 190 U/L (5-37); Bilirubin Total 5.8 mg/dL (0.0-1.0); Blood Urea Nitrogen 35 mg/dL (9-16); Calcium 9.2 mg/dL (8.4-10.2); Carbon Dioxide 23 mmol/L (22-29); Chloride 102 mmol/L (96-108); Estimated Glomerular Filt Rate 56; Glucose Fasting 105 mg/dL (60-99); Potassium 4.7 mmol/L (3.3-5.1); Sodium 133 mmol/L (135-145); Total Protein 5.6 g/dL (6.5-8.0)
[2022-08-12] MEDS: dilTIAZem HCL 50 MG/10 ML VIAL 15 MG IVPUSH (15:31)
[2022-08-12] MEDS: Lactated Ringers 500 ML 999 ML IV ×3 (15:32→23:06)
--- NOTE | 2022-08-12 19:28 | PC.NURSE ---
assumed care of patient at 1900 - patient resting quietly, in no apparent distress. on monitor technician. HR 130s. BP soft 97/46. will administer digoxin iv and LR 500ml per providers orders. will continue to monitor closely.
[2022-08-12] MEDS: Digoxin 0.5 MG/2 ML AMPUL 0.25 MG IVPUSH ×2 (19:31→20:21)
--- NOTE | 2022-08-12 21:51 | PC.NURSE ---
patient cleaned up, linens changed, moved into hospital bed. patient appears more comfortable. on quality assurance monitor final .HR more controlled 80s-100. will continue to monitor closely
[2022-08-13] VITALS (9 sets, daily range): BP systolic 82–140; BP diastolic 39–94; PULSE 68–92; RESP 16–20; TEMP 36.1–36.6; O2SAT 93–96; BMI 48.8
[2022-08-13 01:08] LABS: Anion Gap 11 (12-20); Blood Urea Nitrogen 33 mg/dL (9-16); Calcium 8.7 mg/dL (8.4-10.2); Carbon Dioxide 22 mmol/L (22-29); Chloride 105 mmol/L (96-108); Creatinine Clr Calc Pharmacy 84.7; Estimated Glomerular Filt Rate > 60; Glucose Random 107 mg/dL (60-115); Potassium 4.3 mmol/L (3.3-5.1); Sodium 134 mmol/L (135-145)
--- NOTE | 2022-08-13 02:25 | PC.NURSE ---
report called to Ric[facility]
--- NOTE | 2022-08-13 06:11 | P.HPHOSP_ITS ---
History of Present Illness Date of Service: 08/13/22 Chief Complaint: Tachycardia This is a 71-year-old male with past medical history of COPD on baseline 2.5 L of O2, history of liver cirrhosis, diastolic heart failure, paroxysmal AFib, hyperlipidemia, morbid obesity, resident of senior living, who was sent to the hospital for possible tachycardia. It is unclear why patient was sent, patient himself has no complaints, reports no increased shortness of breath, reports no palpitations, denies any chest pain, no abdominal pain nausea or vomiting, no diarrhea constipation, no urinary symptoms. He reports chronic lower extremity edema and is not aware of the has changed. 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 On arrival to the ED patient was found to be in AFib with RVR with a heart rate in the 130s as well as slightly hypotensive. Patient was initially given diltiazem IV 15 mg with worsening BP and no change in heart rate. He then received x2 0.25 mg of digoxin with improvement his heart rate. Patient also received 1.5 L of IV fluid. His labs are also reviewed which showed WBC count of 9.0, hemoglobin of 11.7, hematocrit of 36.3, sodium of 133, BUN of 35, creatinine of 1.46 with a baseline of around 1.1, total bili of 5.8, AST of 190, ALT of 131, alk-phos of 549, BNP of 256, albumin of 1.8, Viral serology negative Chest x-ray shows mild bibasilar atelectasis versus scarring with no acute cardiopulmonary process Patient will be admitted for further management Review of Systems Review of Systems: Yes all other systems are reviewed and are negative [facility] Medical History Acute exacerbation of CHF (congestive heart failure) Anasarca CHF (congestive heart failure) Cirrhosis COPD (chronic obstructive pulmonary disease) History of alcohol abuse History of cirrhosis of liver Hyperlipidemia Morbid obesity Family History Father No problems noted. Mother No problems noted. Surgical History History of tonsillectomy Social History Household Members: Spouse and Family Housing: Other Housing Other:: trailer Do you presently have visiting nurse or other home services: No Alcohol intake: never Patient Tobacco Use Status: Former Tobacco user Quit Date: 2011 Tobacco use type: Cigarette e-Cigarette/Vaping Use: Never Used Second Hand Smoke Exposure: No Use of substances other than those prescribed or required for medical reasons: No Currently Displaying Signs/Symptoms of Drug Intoxication Withdrawal: No Any prior treatment program specific to substance use: No Have you been hit, kicked, punched, or otherwise hurt by someone within the past year? If so, by whom?: No Do you feel safe in your current relationship?: Yes Is there a partner from a previous relationship who is making you feel unsafe now?: No Are you made to feel afraid or neglected: No Advance Directives: Yes Advance Directives Information Provided: Yes Advance Directives on File: No Advance Directives Date on File: 08/13/22 Do you have thoughts of harming others: None Do you have a plan to hurt others: No Plan Nutrition Risks: No Nutritional Risk service: No Current occupational status: retired and disabled Cognitive needs: Yes (walker) Hearing needs: Yes (hearing aide) Vision needs: Yes (glasses) Meds Allergies Allergy/AdvReac Type Severity Reaction Status Date / Time Penicillins [PENICILLINS] Allergy Unknown ASTHMA Verified 07/18/22 02:14 ATTACK Active Medications: Current Medications Acetaminophen (Acetaminophen 325 Mg Tablet) 650 mg PO Q6H PRN PRN Reason: Pain, Mild (Pain Scale 1-3) Docusate Sodium (Docusate Sodium 100 Mg Capsule) 100 mg PO DAILY PRN PRN Reason: Constipation Ondansetron HCl (Ondansetron Hcl 4 Mg/2 Ml Vial) 4 mg IVPUSH Q8H PRN PRN Reason: Nausea and Vomiting Sodium Chloride (0.9 % Sodium Chloride Flush 3 Ml Syringe) [facility]ations Medication Instructions Recorded Confirmed Last Taken Type thiamine HCl (vitamin B1) 100 mg 100 mg PO DAILY 07/18/22 08/13/22 07/17/22 09:00 History tablet acetaminophen 325 mg tablet 650 mg PO Q6H PRN Pain 08/06/22 08/13/22 Unknown History bisacodyl 10 mg rectal suppository 10 mg NH DAILY 08/06/22 08/06/22 Unknown History (Dulcolax (bisacodyl)) magnesium hydroxide 800 mg/5 mL 1,200 mg PO USEASDIRECTD 08/06/22 08/06/22 Unknown History oral suspension nystatin 100,000 unit/gram topical 1 appl topical BID 08/06/22 08/13/22 Unknown History powder sodium phosphates 19 gram-7 118 ml NH BEDTIME PRN Constipation 08/06/22 08/06/22 Unknown History gram/118 mL enema (Enema Disposable) Physical Exam Vital Signs and Narrative: Vital Signs: Last Vital Signs Temp 97.7 F 08/13/22 04:00 Pulse 83 08/13/22 04:00 Resp 16 08/13/22 04:00 BP 102/56 L 08/13/22 04:00 Pulse Ox 94 08/13/22 04:00 O2 Del Method 08/13/22 04:00 BMI result Body Mass Index 48.8 Const: Other: Patient sleeping but wakes up on verbal command and answers questions appropriately General: cooperative and no acute distress Eyes: General: appearance normal, both eyes and all related structures Resp: Other: Diminished breath sounds Effort & Inspection: normal respiratory effort Cardio: Rate: regular rate Rhythm: regular rhythm GI: Palpation (GI): Soft to palpation Auscultation: normal bowel sounds Skin: General skin exam: no rashes or lesions noted Neuro: Cognition (Neuro): normal cognition Extrem: General: Yes normal to inspection and Yes no pedal edema Results Labs 08/12/22 12:49 08/13/22 00:41 Labs: Laboratory Results - last 24 hr 08/12/22 08/12/22 08/12/22 12:49 12:49 13:15 MCV 105.5 H MCH 34.0 H MCHC 32.2 RDW 16.5 H Plt Count 102 L MPV 10.1 Immature Gran % (Auto) 0.3 Neut % (Auto) 73.4 H Lymph % (Auto) 14.1 L [place] % (Auto) 10.5 Eos % (Auto) 1.4 Baso % (Auto) 0.3 Lymph # (Auto) 1.3 [place] # (Auto) 1.0 Eos # (Auto) 0.1 Baso # (Auto) 0.0 Abs Immat Gran (auto) 0.03 Absolute Neuts (auto) 6.6 Absolute Nucleated RBC 0.000 Nucleated RBC % (auto) 0.0 Anion Gap Estim Creat Clear Calc Estimated GFR Random Glucose Fasting Glucose Lactic Acid 1.5 Calcium Total Bilirubin AST ALT Alkaline Phosphatase Troponin I High Sens B-Natriuretic Peptide Total Protein Albumin Influenza Type A (PCR) NEGATIVE Influenza Type B (PCR) NEGATIVE RSV RNA Qual (PCR) NEGATIVE SARS-CoV-2 RNA (RT-PCR) NEGATIVE 08/12/22 08/12/22 08/12/22 14:16 14:16 14:16 MCV MCH MCHC RDW Plt Count MPV Immature Gran % (Auto) Neut % (Auto) Lymph % (Auto) [place] % (Auto) Eos % (Auto) Baso % (Auto) Lymph # (Auto) [place] # (Auto) Eos # (Auto) Baso # (Auto) Abs Immat Gran (auto) Absolute Neuts (auto) Absolute Nucleated RBC Nucleated RBC % (auto) Anion Gap 13 Estim Creat Clear Calc 78.0 Estimated GFR 56 Random Glucose Fasting Glucose 105 H Lactic Acid Calcium 9.2 D Total Bilirubin 5.8 H AST 190 H ALT 131 H Alkaline Phosphatase 549 H Troponin I High Sens 7.5 B-Natriuretic Peptide 256 H Total Protein 5.6 L Albumin 1.8 L Influenza Type A (PCR) Influenza Type B (PCR) RSV RNA Qual (PCR) SARS-CoV-2 RNA (RT-PCR) 08/12/22 08/13/22 17:17 00:41 MCV MCH MCHC RDW Plt Count MPV Immature Gran % (Auto) Neut % (Auto) Lymph % (Auto) [place] % (Auto) Eos % (Auto) Baso % (Auto) Lymph # (Auto) [place] # (Auto) Eos # (Auto) Baso # (Auto) Abs Immat Gran (auto) Absolute Neuts (auto) Absolute Nucleated RBC Nucleated RBC % (auto) Anion Gap 11 L Estim Creat Clear Calc 84.7 Estimated GFR > 60 Random Glucose 107 Fasting Glucose Lactic Acid Calcium 8.7 Total Bilirubin AST ALT Alkaline Phosphatase Troponin I High Sens 9.0 B-Natriuretic Peptide Total Protein Albumin Influenza Type A (PCR) Influenza Type B (PCR) RSV RNA Qual (PCR) SARS-CoV-2 RNA (RT-PCR) Imaging Radiologist's Impressions: Impressions Chest X-Ray 08/12/22 13:40 IMPRESSION: Mild bibasilar linear atelectasis versus scarring. No acute cardiopulmonary process. Overall appearance on the right is improved. Assessment and Plan (1) Atrial fibrillation with rapid ventricular response: Status: Acute (2) Acute kidney injury: Status: Acute (3) Acute hypotension: Status: Acute Plan This is a 71-year-old male with past medical history of COPD on baseline 2.5 L of oxygen, diastolic heart failure, and recently diagnosed liver carcinoma presents to the hospital found to be in AFib with RVR # AFib with RVR - on review of cardiology note patient has history of paroxysmal AFib but does not seem to be on chronic anticoagulation - resolved with digoxin 0.25 x 2 - will consult Cardiology - monitor BP - heart rate currently controlled # VALERIE - likely secondary to dehydration - improved with IV fluids - continue gentle IVF - follow BMP # hypotension - likely multifactorial in the setting of AFib with RVR as well as dehydration - improved after receiving IV fluids and having heart rate more controlled - will hold antihypertensives # liver mass - presumed hepatic carcinoma - follow-up outpatient with Hematology-Oncology with planned liver biopsy # diastolic heart failure - not appear to be in exacerbation - will continue furosemide # COPD - not in exacerbation , denies any increased cough or sputum production or shortness of breath - continue home inhalers DVT prophylaxis: Heparin subQ Given patient's AFib with RVR and requiring further management patient required minimum 2 nights inpatient hospital stay for further management and monitoring Time Spent With Patient Time: Total time managing care of this patient today ____ minutes. Quality Stroke Does the patient have a stroke diagnosis?: No VTE Prior VTE?: No VTE Risk Level:: Medical - moderate - high VTE Device Contraindication: Treatment Not Indicated VTE Drug Contraindication: N/A - Med Ordered
[2022-08-13 07:30] LABS: Alanine Aminotransferase 119 U/L (0-40); Albumin Level 1.6 g/dL (3.5-5.0); Alkaline Phosphatase 530 U/L (39-117); Anion Gap 16 (12-20); Aspartate Amino Transferase 186 U/L (5-37); Bilirubin Total 5.4 mg/dL (0.0-1.0); Blood Urea Nitrogen 34 mg/dL (9-16); Calcium 8.8 mg/dL (8.4-10.2); Carbon Dioxide 20 mmol/L (22-29); Chloride 105 mmol/L (96-108); Creatinine Clr Calc Pharmacy 87.1; Estimated Glomerular Filt Rate > 60; Glucose Random 104 mg/dL (60-115); Potassium 4.5 mmol/L (3.3-5.1); Sodium 136 mmol/L (135-145)
[2022-08-13] MEDS: 0.9 % Sodium Chloride Flush 3 ML SYRINGE IVFLUSH (07:53)
[2022-08-13] MEDS: Thiamine HCL 100 MG TABLET PO (07:53)
[2022-08-13] MEDS: Folic Acid 1 MG TABLET PO (07:53)
[2022-08-13] MEDS: Furosemide 40 MG TABLET 80 MG PO (07:53)
[2022-08-13] MEDS: Heparin Sodium,Porcine 5,000 UNIT/ML VIAL 5000 UNIT SUBCUT ×3 (07:53→23:12)
[2022-08-13] MEDS: 0.9 % Sodium Chloride 1,000 ML 80 ML IVCONT (07:56)
--- NOTE | 2022-08-13 08:21 | PHA.MEDREC ---
Pharmacy Consult ? Medication Reconciliation Pharmacy has reviewed the medication reconciliation compelted by Berna. Patient came from [facility] with medication list. Updated missing medications including KCl ad Spirivia. Mojgan Wells, PharmD
--- NOTE | 2022-08-13 08:33 | MHC.CM.PN ---
CM met with Patient at bedside and addressed IMM with him, providing him with the original and placing a copy on the chart. Patient is from STR at [facility] and the goal is to return there to complete STR. CM has initiated and will follow for dc planning. Patient has received Covid vax X1 and his PCP is Dr. Jared Garcia.
--- NOTE | 2022-08-13 09:51 | P.CONCA_ITS ---
History of Present Illness History of Present Illness Date of Service: 08/13/22 Chief complaint: A fib w RVR Narrative: This is a cardiology consultation regarding atrial fibrillation. Patient with multiple medical issues including cirrhosis of the liver, COPD, paroxysmal atrial fibrillation, obesity among others. Apparently patient was sent to the hospital for possible tachycardia. Patient himself does not feel anything really abnormal. Chronic leg swelling. Recently diagnosed with presumed liver cancer. In the interim, ER visit revealed atrial fibrillation with rapid rate and also some degree of hypotension. We have been asked to see him for further evaluation. Patient himself does not have any clear cardiac symptoms at this time. He does not feel much palpitations. Breathing is just about the same. Review of Systems Review of Systems: Yes all other systems are reviewed and are negative Constitutional: Constitutional: Reports as per HPI Eyes: Eyes: Reports as per HPI ENT: Reports as per HPI Cardiovascular: Cardiovascular: Reports as per HPI, Denies acrocyanosis, Denies cool extremities, Denies chest pain, Denies leg edema, Denies lightheadedness, Denies palpitations and Denies dyspnea Respiratory: Respiratory: Reports as per HPI, Reports no additional respiratory complaints and Denies dyspnea Gastrointestinal: Gastrointestinal: Reports as per HPI and Reports no additional gastrointestinal complaints Genitourinary: Genitourinary: Reports no additional male genitourinary complaints and Reports as per HPI Musculoskeletal: Musculoskeletal: Reports no additional musculoskeletal complaints and Reports as per HPI Integumentary/Breasts: Skin/Breast: Reports system reviewed and no additional complaints, except as docu Neurologic: Reports system reviewed and no additional complaints, except as documented and Reports as per HPI Psychiatric: Psychiatric: Reports no additional psychiatric complaints and Reports as per HPI Endocrine: Endocrine: Reports no additional endocrine complaints, Reports as per HPI and Denies palpitations Hematologic/Lymphatic: Hematologic/Lymphatic: Reports no additional hematologic/lymphatic complaints and Reports as per HPI Allergic/Immunologic: Allergic/Immunologic: Reports no additional allergic/immunologic complaints and Reports as per HPI [facility] Past Medical History Medical History (Updated 08/13/22 @ 09:54 by Joe Bravo MD) Acute exacerbation of CHF (congestive heart failure) Anasarca CHF (congestive heart failure) Cirrhosis COPD (chronic obstructive pulmonary disease) History of alcohol abuse History of cirrhosis of liver Hyperlipidemia Morbid obesity Family History Family History Father No problems noted. Mother No problems noted. Surgical History Surgical History History of tonsillectomy Social History Social History Household Members: Spouse and Family Housing: Other Housing Other:: trailer Do you presently have visiting nurse or other home services: No Alcohol intake: never Patient Tobacco Use Status: Former Tobacco user Quit Date: 2011 Tobacco use type: Cigarette e-Cigarette/Vaping Use: Never Used Second Hand Smoke Exposure: No Use of substances other than those prescribed or required for medical reasons: No Currently Displaying Signs/Symptoms of Drug Intoxication Withdrawal: No Any prior treatment program specific to substance use: No Have you been hit, kicked, punched, or otherwise hurt by someone within the past year? If so, by whom?: No Do you feel safe in your current relationship?: Yes Is there a partner from a previous relationship who is making you feel unsafe now?: No Are you made to feel afraid or neglected: No Advance Directives: Yes Advance Directives Information Provided: Yes Advance Directives on File: No Advance Directives Date on File: 08/13/22 Do you have thoughts of harming others: None Do you have a plan to hurt others: No Plan Nutrition Risks: No Nutritional Risk service: No Current occupational status: retired and disabled Cognitive needs: Yes (walker) Hearing needs: Yes (hearing aide) Vision needs: Yes (glasses) Meds Allergies Allergy/AdvReac Type Severity Reaction Status Date / Time Penicillins [PENICILLINS] Allergy Unknown ASTHMA Verified 07/18/22 02:14 ATTACK Active Medications: Current Medications Acetaminophen (Acetaminophen 325 Mg Tablet) 650 mg PO Q6H PRN PRN Reason: Pain, Mild (Pain Scale 1-3) Albuterol Sulfate (Albuterol Sulfate 90 Mcg 8 Gm Inhaler) 2 puff INHALE RQ4H PA N PRN Reason: shortness of breath or wheezing Docusate Sodium (Docusate Sodium 100 Mg Capsule) 100 mg PO DAILY PRN PRN Reason: Constipation Folic Acid (Folic Acid 1 Mg Tablet) 1 mg PO DAILY RUFUS Last Admin: 08/13/22 07:53 Dose: 1 mg Furosemide (Furosemide 40 Mg Tablet) 80 mg PO BID [facility]; Protocol Last Admin: 08/13/22 07:53 Dose: 80 mg Heparin Sodium (Porcine) (Heparin Sodium,Porcine 5,000 Unit/Ml Vial) 5,000 unit SUBCUT Q8H [facility] Last Admin: 08/13/22 07:53 Dose: 5,000 unit Sodium Chloride (Ns) 1,000 mls @ 80 mls/hr IVCONT .[id number] [facility] Last Admin: 08/13/22 07:56 Dose: 80 mls/hr Nystatin (Nystatin Powder 15 Gm Bottle) 1 appl TOPICAL BID [facility]; Protocol Ondansetron HCl (Ondansetron Hcl 4 Mg/2 Ml Vial) 4 mg IVPUSH Q8H PRN PRN Reason: Nausea and Vomiting Sodium Chloride (0.9 % Sodium Chloride Flush 3 Ml Syringe) [facility] Last Admin: 08/13/22 07:53 Dose: 3 ml Thiamine HCl (Thiamine Hcl 100 Mg Tablet) 100 mg PO DAILY [facility] Last Admin: 08/13/22 07:53 Dose: 100 mg Home Medications Medication Instructions Recorded Confirmed Last Taken Type thiamine HCl (vitamin B1) 100 mg 100 mg PO DAILY 07/18/22 08/13/22 07/17/22 09:00 History tablet acetaminophen 325 mg tablet 650 mg PO Q6H PRN Pain 08/06/22 08/13/22 Unknown History nystatin 100,000 unit/gram topical 1 appl topical QSVTFT 08/06/22 08/13/22 Unknown History powder folic acid 1 mg tablet 1 tab PO DAILY 08/13/22 08/13/22 Unknown History Physical Exam Vital Signs: Vital Signs: Last Vital Signs Temp 97.5 F 08/13/22 07:30 Pulse 83 08/13/22 07:30 Resp 20 08/13/22 07:30 BP 140/71 H 08/13/22 07:30 Pulse Ox 95 08/13/22 07:30 O2 Del Method 08/13/22 07:30 BMI result Body Mass Index 48.8 Const: General: comfortable and no acute distress Orientation/consciousness: patient oriented x3 HEENT: Other: Unremarkable Head: Yes normal to inspection Neck: Neck: Yes normal visual inspection Chest: Chest palpation & inspection: normal inspection of the chest Resp: Auscultation: clear to auscultation bilaterally Cardio: Palpation: normal PMI Heart sounds: S1 normal heart sound present, S2 normal heart sound present, no gallops, no murmurs and no rubs GI: Palpation (GI): Soft to palpation Back/Spine/Pelvis: Other: unremarkable Skin: General skin exam: no rashes or lesions noted Neuro: General: patient oriented x3 Extrem: Other: 2+ edema. General: Yes normal to inspection Psych: Mental Status: mental status grossly normal Objective Labs and Meds 08/12/22 12:49 08/13/22 06:47 Lab results: Laboratory Results - last 24 hr 08/12/22 08/12/22 08/12/22 12:49 12:49 13:15 WBC 9.0 RBC 3.44 L Hgb 11.7 L Hct 36.3 L MCV 105.5 H MCH 34.0 H MCHC 32.2 RDW 16.5 H Plt Count 102 L MPV 10.1 Immature Gran % (Auto) 0.3 Neut % (Auto) 73.4 H Lymph % (Auto) 14.1 L [place] % (Auto) 10.5 Eos % (Auto) 1.4 Baso % (Auto) 0.3 Lymph # (Auto) 1.3 [place] # (Auto) 1.0 Eos # (Auto) 0.1 Baso # (Auto) 0.0 Abs Immat Gran (auto) 0.03 Absolute Neuts (auto) 6.6 Absolute Nucleated RBC 0.000 Nucleated RBC % (auto) 0.0 Sodium Potassium Chloride Carbon Dioxide Anion Gap BUN Creatinine Estim Creat Clear Calc Estimated GFR Random Glucose Fasting Glucose Lactic Acid 1.5 Calcium Total Bilirubin AST ALT Alkaline Phosphatase Troponin I High Sens B-Natriuretic Peptide Total Protein Albumin Influenza Type A (PCR) NEGATIVE Influenza Type B (PCR) NEGATIVE RSV RNA Qual (PCR) NEGATIVE SARS-CoV-2 RNA (RT-PCR) NEGATIVE 08/12/22 08/12/22 08/12/22 14:16 14:16 14:16 WBC RBC Hgb Hct MCV MCH MCHC RDW Plt Count MPV Immature Gran % (Auto) Neut % (Auto) Lymph % (Auto) [place] % (Auto) Eos % (Auto) Baso % (Auto) Lymph # (Auto) [place] # (Auto) Eos # (Auto) Baso # (Auto) Abs Immat Gran (auto) Absolute Neuts (auto) Absolute Nucleated RBC Nucleated RBC % (auto) Sodium 133 L Potassium 4.7 D Chloride 102 Carbon Dioxide 23 Anion Gap 13 BUN 35 H Creatinine 1.26 Estim Creat Clear Calc 78.0 Estimated GFR 56 Random Glucose Fasting Glucose 105 H Lactic Acid Calcium 9.2 D Total Bilirubin 5.8 H AST 190 H ALT 131 H Alkaline Phosphatase 549 H Troponin I High Sens 7.5 B-Natriuretic Peptide 256 H Total Protein 5.6 L Albumin 1.8 L Influenza Type A (PCR) Influenza Type B (PCR) RSV RNA Qual (PCR) SARS-CoV-2 RNA (RT-PCR) 08/12/22 08/13/22 08/13/22 17:17 00:41 06:47 WBC RBC Hgb Hct MCV MCH MCHC RDW Plt Count MPV Immature Gran % (Auto) Neut % (Auto) Lymph % (Auto) [place] % (Auto) Eos % (Auto) Baso % (Auto) Lymph # (Auto) [place] # (Auto) Eos # (Auto) Baso # (Auto) Abs Immat Gran (auto) Absolute Neuts (auto) Absolute Nucleated RBC Nucleated RBC % (auto) Sodium 134 L 136 Potassium 4.3 4.5 Chloride 105 105 Carbon Dioxide 22 20 L Anion Gap 11 L 16 BUN 33 H 34 H Creatinine 1.16 1.11 Estim Creat Clear Calc 84.7 87.1 Estimated GFR > 60 > 60 Random Glucose 107 104 Fasting Glucose Lactic Acid Calcium 8.7 8.8 Total Bilirubin 5.4 H AST 186 H ALT 119 H Alkaline Phosphatase 530 H Troponin I High Sens 9.0 B-Natriuretic Peptide Total Protein 5.0 L Albumin 1.6 L Influenza Type A (PCR) Influenza Type B (PCR) RSV RNA Qual (PCR) SARS-CoV-2 RNA (RT-PCR) ECG Interpretation: EKG with atrial fibrillation at a rate of 118/Min; low-voltage complexes; leftward axis. In the previous EKG from June, sinus rhythm. Imaging Radiologist's impression: Impressions Chest X-Ray 08/12/22 13:40 IMPRESSION: Mild bibasilar linear atelectasis versus scarring. No acute cardiopulmonary process. Overall appearance on the right is improved. Assessment and Plan (1) Atrial fibrillation with rapid ventricular response: Status: Acute (2) Liver mass: Status: Acute (3) Cirrhosis: Status: Acute Plan Echocardiogram with LVEF of 55-60%. No significant valvular issues but study was suboptimal. EKG as well as telemetry shows atrial fibrillation. Overall, considering multiple medical comorbidities, primarily cirrhosis/hepatocellular cancer, poor candidate for anticoagulation. He has no clear-cut symptoms either. Recommend just rate control with beta- blockers. Discussed with Dr. Ferraro Time Spent With Patient Time: Total time managing care of this patient today 75 minutes. Procedures Date of Service Date of Service: 08/13/22
[2022-08-13] MEDS: Metoprolol Tartrate 25 MG TABLET PO (10:31)
[2022-08-13] MEDS: Nystatin Powder 15 GM BOTTLE 1 APPL TOPICAL ×2 (10:31→21:12)
--- NOTE | 2022-08-13 14:00 | PM.EVENT ---
Event Note Date of Service: 08/13/22 Event Note: Seen and evaluated this morning Heart rate better controlled, patient feels more comfortable Kidney function improving Cardiology following Continue to monitor over telemetry overnight Time Spent With Patient Time: Total time managing care of this patient today ____ minutes.
--- NOTE | 2022-08-13 17:43 | PM.EVENT ---
Event Note Date of Service: 08/13/22 Event Note: Call to see patient for blood pressure 80/60. Patient awake alert eating dinner. Repeat BP 100/60. Given albumin 1.6; will transfuse for bottles of 25% albumin overnight and reassess in a.m. Time Spent With Patient Time: Total time managing care of this patient today ____ minutes.
[2022-08-13] MEDS: Albumin Human 25 % 100 ML IV ×2 (18:48→23:08)
[2022-08-14] VITALS (7 sets, daily range): BP systolic 85–106; BP diastolic 46–55; PULSE 69–115; RESP 12–20; TEMP 36.1–36.8; O2SAT 90–96; BMI 49.2
[2022-08-14] MEDS: 0.9 % Sodium Chloride Flush 3 ML SYRINGE IVFLUSH ×4 (00:20→20:14)
[2022-08-14] MEDS: Lactated Ringers 500 ML IV (01:10)
[2022-08-14] MEDS: Albumin Human 25 % 100 ML IV ×2 (05:19→12:34)
[2022-08-14 07:08] LABS: Anion Gap 14 (12-20); Blood Urea Nitrogen 33 mg/dL (9-16); Calcium 8.9 mg/dL (8.4-10.2); Carbon Dioxide 23 mmol/L (22-29); Chloride 101 mmol/L (96-108); Creatinine Clr Calc Pharmacy 72.5; Estimated Glomerular Filt Rate 52; Glucose Random 86 mg/dL (60-115); Potassium 3.8 mmol/L (3.3-5.1); Sodium 134 mmol/L (135-145)
--- NOTE | 2022-08-14 09:32 | MHC.CDI.CONC ---
CDI Concurrent Query Documentation Clarification: PHYSICIAN'S DOCUMENTATION REQUEST Date of Query: 08/14/22 0932 Patient Name: Elgin Salvador Admit Date: 08/13/22 Dear Doctor, A review of the medical record indicates additional documentation may be needed. Please review below and update the documentation accordingly. Clinical Indicators: Is there a diagnosis that correlates to these lab findings: Risk Factors/Clinical Indicators/Treatments LABS: albumin 1.8 L 1.6 L IV Albumin Human Based on the above, could you clarify in the Progress Notes the appropriate diagnosis, if significant, that supports the above abnormalities and additional evaluation, monitoring, and/or treatment rendered: Hypoalbuminemia or other etiology of lab findings Labs indicate a diagnosis of (please specify) Other (please specify) Unable to determine Use of terms such as suspected, likely, concern for, or probable (associated with a specific diagnosis that is being evaluated, monitored, or treated as if it exists) are acceptable and can be coded in the inpatient setting, when documented at the time of discharge. Thank you, Kaila De La Garza [facility], CDIS Extension: [phone] Please use your independent medical judgment in providing your response. THIS QUERY IS PART OF THE PERMANENT MEDICAL RECORD Provider Response: Other Other Diagnosis: Hypoalbuminemia 2/2 Cirrhosis
[2022-08-14] MEDS: Thiamine HCL 100 MG TABLET PO (09:35)
[2022-08-14] MEDS: Nystatin Powder 15 GM BOTTLE 1 APPL TOPICAL ×2 (09:35→20:11)
[2022-08-14] MEDS: Heparin Sodium,Porcine 5,000 UNIT/ML VIAL 5000 UNIT SUBCUT ×2 (09:35→16:18)
[2022-08-14] MEDS: Folic Acid 1 MG TABLET PO (09:36)
--- NOTE | 2022-08-14 09:57 | P.PNCA_ITS ---
Subjective Subjective Date of Service: 08/14/22 Interval history: Patient states that he feels okay. No clear cardiac complaints. Review of Systems Review of Systems Yes all other systems are reviewed and are negative Constitutional: Reports as per HPI Eyes: Reports as per HPI Reports as per HPI Cardiovascular: Reports as per HPI, Denies acrocyanosis, Denies cool extremities, Denies chest pain, Denies leg edema, Denies lightheadedness, Denies palpitations and Denies dyspnea Respiratory: Reports as per HPI, Reports no additional respiratory complaints and Denies dyspnea Gastrointestinal: Reports as per HPI and Reports no additional gastrointestinal complaints Genitourinary: Reports no additional male genitourinary complaints and Reports as per HPI Musculoskeletal: Reports no additional musculoskeletal complaints and Reports as per HPI Skin/Breast: Reports system reviewed and no additional complaints, except as docu Reports system reviewed and no additional complaints, except as documented and Reports as per HPI Psychiatric: Reports no additional psychiatric complaints and Reports as per HPI Endocrine: Reports no additional endocrine complaints, Reports as per HPI and Denies palpitations Hematologic/Lymphatic: Reports no additional hematologic/lymphatic complaints and Reports as per HPI Allergic/Immunologic: Reports no additional allergic/immunologic complaints and Reports as per HPI Physical Exam Vital Signs: Last Vital Signs Temp 97.2 F 08/14/22 08:00 Pulse 91 08/14/22 08:00 Resp 12 08/14/22 08:00 BP 100/53 L 08/14/22 08:00 Pulse Ox 95 08/14/22 08:00 O2 Del Method 08/14/22 08:00 BMI result Body Mass Index 49.2 Const General: comfortable and no acute distress Orientation/consciousness: patient oriented x3 HEENT Other: Unremarkable Head: Yes normal to inspection Neck Neck: Yes normal visual inspection Chest Chest palpation & inspection: normal inspection of the chest Resp Auscultation: clear to auscultation bilaterally Cardio Palpation: normal PMI Heart sounds: S1 normal heart sound present, S2 normal heart sound present, no gallops, no murmurs and no rubs GI Palpation (GI): Soft to palpation Back/Spine/Pelvis Other: unremarkable Skin General skin exam: no rashes or lesions noted Neuro General: patient oriented x3 Extrem Other: 2+ edema. General: Yes normal to inspection Psych Mental Status: mental status grossly normal Objective Labs and Meds 08/12/22 12:49 08/14/22 06:19 Lab results: Laboratory Results - last 24 hr 08/14/22 06:19 Sodium 134 L Potassium 3.8 Chloride 101 Carbon Dioxide 23 Anion Gap 14 BUN 33 H Creatinine 1.34 Estim Creat Clear Calc 72.5 Estimated GFR 52 Random Glucose 86 Calcium 8.9 Progress Note: A&P Assessment and plan (1) Atrial fibrillation with rapid ventricular response: Status: Acute (2) Liver mass: Status: Acute (3) Cirrhosis: Status: Acute Plan Echocardiogram with LVEF of 55-60%. No significant valvular issues but study was suboptimal. EKG as well as telemetry shows atrial fibrillation. Today's rate seems fairly controlled. Overall, considering multiple medical comorbidities, primarily cirrh osis/hepatocellular cancer, poor candidate for anticoagulation. He has no clear-cut symptoms either. Continue beta-blockers. Discussed with Dr. Ferraro. Time Spent With Patient Time: Total time managing care of this patient today 30 minutes. Progress Note: Quality Stroke Does the patient have a stroke diagnosis?: No Procedures Date of Service Date of Service: 08/14/22
--- NOTE | 2022-08-14 09:58 | HO.PM.IMPN ---
Subjective Subjective Date of Service: 08/14/22 Interval History: Seen and evaluated Feels better No reported overnight events Still having LE edema Review of Systems Review of Systems: Yes all other systems are reviewed and are negative Physical Exam Vital Signs: Vital Signs: Last Vital Signs Temp 97.8 F 08/15/22 07:54 Pulse 78 08/15/22 07:54 Resp 20 08/15/22 07:54 BP 98/40 L 08/15/22 08:16 Pulse Ox 95 08/15/22 07:54 O2 Del Method 08/15/22 07:54 BMI result Body Mass Index 49.1 Const: Other: Constitutional : Awake, interactive, not in distress Neck : Normal inspection, Supple Cardiovascular : irregular irregular, no JVP, +1 lower extremity edema Respiratory : good bilateral air entry, no crackles, wheezes or rhonchi Gastrointestinal: soft, lax, Normal bowel sounds, Non tender Skin : Warm, Dry Neurological : Alert & oriented to self and place, No focal deficit Objective Data Active Medications Acetaminophen (Acetaminophen 325 Mg Tablet) 650 mg PO Q6H PRN PRN Reason: Pain, Mild (Pain Scale 1-3) Albuterol Sulfate (Albuterol Sulfate 90 Mcg 8 Gm Inhaler) 2 puff INHALE RQ4H PRN PRN Reason: shortness of breath or wheezing Docusate Sodium (Docusate Sodium 100 Mg Capsule) 100 mg PO DAILY PRN PRN Reason: Constipation Folic Acid (Folic Acid 1 Mg Tablet) 1 mg PO DAILY [facility] Last Admin: 08/15/22 08:17 Dose: 1 mg Documented By: LEYLA Furosemide (Furosemide 40 Mg Tablet) 80 mg PO BID [facility]; Protocol Last Admin: 08/15/22 08:32 Dose: Not Given Documented By: LEYLA Non-Admin Reason: low BP Heparin Sodium (Porcine) (Heparin Sodium,Porcine 5,000 Unit/Ml Vial) 5,000 unit SUBCUT Q8H [facility] Last Admin: 08/15/22 05:53 Dose: 5,000 unit Documented By: CRYSTAL Metoprolol Tartrate (Metoprolol Tartrate 25 Mg Tablet) 25 mg PO BID [facility]; Protocol Last Admin: 08/15/22 08:17 Dose: 25 mg Documented By: LEYLA Nystatin (Nystatin Powder 15 Gm Bottle) 1 appl TOPICAL BID [facility]; Protocol Last Admin: 08/14/22 20:11 Dose: 1 appl Documented By: CRYSTAL Ondansetron HCl (Ondansetron Hcl 4 Mg/2 Ml Vial) 4 mg IVPUSH Q8H PRN PRN Reason: Nausea and Vomiting Sodium Chloride (0.9 % Sodium Chloride Flush 3 Ml Syringe) 3 ml IVFLUSH QSHIFT [facility] Last Admin: 08/15/22 08:17 Dose: 3 ml Documented By: LEYLA Thiamine HCl (Thiamine Hcl 100 Mg Tablet) 100 mg PO DAILY [facility] Last Admin: 08/15/22 08:17 Dose: 100 mg Documented By: LEYLA Labs 08/12/22 12:49 08/14/22 06:19 Microbiology Microbiology Results: Microbiology 08/12/22 13:02 Blood Culture - Preliminary Blood - Venous No growth after 48 hours. 08/12/22 13:02 Blood Culture - Preliminary Blood - Venous No growth after 48 hours. Assessment and Plan (1) Cirrhosis: Status: Acute (2) Atrial fibrillation with rapid ventricular response: Status: Acute Plan This is a 71-year-old male with past medical history of COPD on baseline 2.5 L of oxygen, diastolic heart failure, and recently diagnosed liver carcinoma presents to the hospital found to be in AFib with RVR # AFib with RVR controlled digoxin 0.25 low dose metoprolol 12.5 mg bid appreciated Cardiology soft BP from Cirrhosis # VALERIE resolved, follow BMP # hypotension multifactorial in cirrhosis # Transaminitis 2/2 likely liver mass presumed hepatic carcinoma follow-up outpatient with Hematology-Oncology with planned liver biopsy # diastolic heart failure not appear to be in exacerbation will continue furosemide # COPD not in exacerbation , denies any increased cough or sputum production or shortness of breath continue home inhalers DVT prophylaxis: Heparin subQ Patient was planned to be discharged but facility did not return the calls on time per casework specialist to arrange transportation and dC. Time Spent With Patient Time: Total time managing care of this patient today ____ minutes. Quality Stroke Does the patient have a stroke diagnosis?: No VTE Prior VTE?: No VTE Risk Level:: Medical - moderate - high VTE Device Contraindication: Treatment Not Indicated VTE Drug Contraindication: N/A - Med Ordered
[2022-08-14] MEDS: Metoprolol Tartrate 25 MG TABLET PO (10:43)
--- NOTE | 2022-08-14 12:06 | PM.DS ---
DS: Providers Provider Date of Service: 08/14/22 Date of admission: 08/13/22 00:14 Primary care physician: Jared Garcia MD Consults: 08/13/22 00:13 Consult to Cardiology Routine Consulting Provider: Joe Bravo Reason for consultation: A fib W rvr, CHF? Has provider been notified: No DS: Diagnosis Discharge Diagnosis (1) Atrial fibrillation with rapid ventricular response: Status: Acute (2) Liver mass: Status: Acute (3) Cirrhosis: Status: Acute DS: Summary Hospital Course Hospital Course: Admission note HPI This is a 71-year-old male with past medical history of COPD on baseline 2.5 L of O2, history of liver cirrhosis, diastolic heart failure, paroxysmal AFib, hyperlipidemia, morbid obesity, resident of long term, who was sent to the hospital for possible tachycardia.? It is unclear why patient was sent, patient himself has no complaints, reports no increased shortness of breath, reports no palpitations, denies any chest pain, no abdominal pain nausea or vomiting, no diarrhea constipation, no urinary symptoms.? He reports chronic lower extremity edema and is not aware of the has changed.? Of note patient was recently discharged from the hospital on 07/24 after being managed for cellulitis as well as newly diagnosed presumed liver carcinoma and portal vein tumor thrombus, with plans for further management and liver biopsy in the near future. On arrival to the ED patient was found to be in AFib with RVR with a heart rate in the 130s as well as slightly hypotensive. Patient was initially given diltiazem IV 15 mg with worsening BP and no change in heart rate.? He then received x2 0.25 mg of digoxin with improvement his heart rate.? Patient also received 1.5 L of IV fluid.? His labs are also reviewed which showed WBC count of 9.0, hemoglobin of 11.7, hematocrit of 36.3, sodium of 133, BUN of 35, creatinine of 1.46 with a baseline of around 1.1, total bili of 5.8, AST of 190, ALT of 131, alk-phos of 549, BNP of 256, albumin of 1.8, Viral serology negative Chest x-ray shows mild bibasilar atelectasis versus scarring with no acute cardiopulmonary process Hospital course The patient was admitted for evaluation of atrial fibrillation with rapid ventricular response. Responded well to treatment with metoprolol as he was evaluated by Cardiology team who believes he is a poor candidate for anticoagulation given multiple comorbidities and primary cirrhosis with possible underlying hepatocellular cancer. Rate controlled with metoprolol. Patient made quick response and will be discharged 1 day earlier than expected. He was noticed to have mildly elevated transaminitis from previous admission. He followed with Oncology as outpatient with a plan for liver biopsy as outpatient. Continue home medications Start Metoprolol 25 mg twice daily Time Spent with Patient Time attestation: Total time managing care of this patient today ____ minutes. Discharge coordination time: Greater than 30 minutes Quality: Safe Use of Opioids Does Pt have an Active Cancer Diagnosis on the Problem List?: No Quality: Stroke Does the patient have a stroke diagnosis?: No Physical Exam Vital Signs: Vital Signs: Last Vital Signs Temp 97.2 F 08/14/22 08:00 Pulse 91 08/14/22 08:00 Resp 12 08/14/22 08:00 BP 100/53 L 08/14/22 08:00 Pulse Ox 95 08/14/22 08:00 O2 Del Method 08/14/22 08:00 BMI result Body Mass Index 49.2 Const: Other: Constitutional : Awake, interactive, not in distress Neck : Normal inspection, Supple Cardiovascular : irregular irregular, no JVP, trace lower extremity edema Respiratory : good bilateral air entry, no crackles, wheezes or rhonchi Gastrointestinal: soft, lax, Normal bowel sounds, Non tender Skin : Warm, Dry Neurological : Alert & oriented to self and place, No focal deficit DS: Data Data Completed and Pending Labs on day of discharge: Laboratory Results - last 24 hr 08/14/22 06:19 Sodium 134 L Potassium 3.8 Chloride 101 Carbon Dioxide 23 Anion Gap 14 BUN 33 H Creatinine 1.34 Estim Creat Clear Calc 72.5 Estimated GFR 52 Random Glucose 86 Calcium 8.9 Preliminary micro results at discharge 08/12/22 13:02 Blood Culture - Preliminary Blood - Venous No growth after 24 hours. 08/12/22 13:02 Blood Culture - Preliminary Blood - Venous No growth after 24 hours. Imaging Chest x-ray: Radiologist's impression: ITS Impressions Chest X-Ray 08/12/22 13:40 IMPRESSION: Mild bibasilar linear atelectasis versus scarring. No acute cardiopulmonary process. Overall appearance on the right is improved. Discharge Plan Discharge Anticipated Discharge Date/Time: 08/14/22 11:29 Patient Disposition: Xfer LTC Discharge Diagnosis: Atrial fibrillation with RVR Referrals: Jared Garcia MD [Primary Care Provider] - 1 Week Discharge Medications: New metoprolol tartrate 25 mg Tablet 25 mg PO BID Qty: 60 0RF Protocol: Hold for SBP/HR < HOLD for SBP < : 90 HOLD for HR < : 60 Continued spironolactone 25 mg tablet 25 mg PO DAILY Qty: 90 8RF Spiriva with HandiHaler 18 mcg capsule, w/inhalation device 1 cap inhalation DAILY Qty: 90 8RF Rx Instructions: puncture 1 cap using device; one dose = 2 inhalations (DME) Wheel chair Kit See Rx Instructions .Route Qty: 1 0RF Rx Instructions: As directed potassium chloride 20 mEq tablet,ER particles/crystals 20 meq PO BID Qty: 60 8RF lactulose 20 gram/30 mL solution 20 g PO BID Qty: 1200 0RF albuterol sulfate 90 mcg/actuation aerosol powdr breath activated 2 inh inhalation Q4-6H PRN (Reason: shortness of breath or wheezing) Qty: 1 0RF thiamine HCl (vitamin B1) 100 mg Tablet 100 mg PO DAILY furosemide [Lasix] 80 mg tablet 80 mg PO BID Qty: 60 0RF acetaminophen 325 mg Tablet 650 mg PO Q6H PRN (Reason: Pain) nystatin 100,000 unit/gram Powder 1 appl TOPICAL QSHIFT folic acid 1 mg tablet 1 tab PO DAILY Discharge Orders: Discharge Order (Routine); Ordered 08/14/22 Ordered By: Rosa Ferraro Diet: Advance to usual diet Activity on Discharge: As tolerated Stand Alone Forms: Patient Portal Discharge page Care Plan Goals: Read below Health Concerns: Read below Plan of Treatment: Read below Assessment: Admitted for rapid irregular heart rate. controlled with Metoprolol as you were evaluated by cardiology team. Evaluated by PT. Continue home medications Start Metoprolol 25 mg twice daily
--- NOTE | 2022-08-14 16:28 | MHC.CM.PN ---
PT eval rec STR. Sent the eval to the facility requesting transfer this evening. No response received via [facility]. A call to the liason was not answered. A VM was left requesting a call back. No call received by close of CM office.
[2022-08-15] VITALS (8 sets, daily range): BP systolic 98–139; BP diastolic 40–60; PULSE 73–82; RESP 18–20; TEMP 36.3–37.1; O2SAT 92–98; BMI 49.1
[2022-08-15] MEDS: Heparin Sodium,Porcine 5,000 UNIT/ML VIAL 5000 UNIT SUBCUT ×3 (05:53→20:45)
[2022-08-15] MEDS: Metoprolol Tartrate 25 MG TABLET PO (08:17)
[2022-08-15] MEDS: 0.9 % Sodium Chloride Flush 3 ML SYRINGE IVFLUSH (08:17)
[2022-08-15] MEDS: Folic Acid 1 MG TABLET PO (08:17)
[2022-08-15] MEDS: Thiamine HCL 100 MG TABLET PO (08:17)
[2022-08-15 10:38] LABS: Anion Gap 12 (12-20); Blood Urea Nitrogen 35 mg/dL (9-16); Calcium 9.1 mg/dL (8.4-10.2); Carbon Dioxide 24 mmol/L (22-29); Chloride 101 mmol/L (96-108); Creatinine Clr Calc Pharmacy 80.2; Estimated Glomerular Filt Rate 59; Glucose Random 93 mg/dL (60-115); Sodium 133 mmol/L (135-145)
[2022-08-15 11:03] LABS: Ammonia 44 umol/L (13-55)
[2022-08-15] MEDS: Nystatin Powder 15 GM BOTTLE 1 APPL TOPICAL ×2 (11:31→20:38)
--- NOTE | 2022-08-15 11:44 | HO.PM.IMPN ---
Subjective Subjective Date of Service: 08/15/22 Interval History: Seen and evaluated Feels more frail and weak this morning No reported overnight events Still having LE edema Review of Systems Review of Systems: Yes all other systems are reviewed and are negative Physical Exam Vital Signs: Vital Signs: Last Vital Signs Temp 97.8 F 08/15/22 07:54 Pulse 78 08/15/22 07:54 Resp 20 08/15/22 07:54 BP 98/40 L 08/15/22 08:16 Pulse Ox 95 08/15/22 07:54 O2 Del Method 08/15/22 07:54 BMI result Body Mass Index 49.1 Const: Other: Constitutional : Awake, interactive, not in distress Neck : Normal inspection, Supple Cardiovascular : irregular irregular, no JVP, +1 lower extremity edema Respiratory : good bilateral air entry, no crackles, wheezes or rhonchi Gastrointestinal: soft, lax, Normal bowel sounds, Non tender Skin : Warm, Dry Neurological : Alert & oriented to self and place, No focal deficit Objective Data Active Medications Acetaminophen (Acetaminophen 325 Mg Tablet) 650 mg PO Q6H PRN PRN Reason: Pain, Mild (Pain Scale 1-3) Albuterol Sulfate (Albuterol Sulfate 90 Mcg 8 Gm Inhaler) 2 puff INHALE RQ4H PRN PRN Reason: shortness of breath or wheezing Docusate Sodium (Docusate Sodium 100 Mg Capsule) 100 mg PO DAILY PRN PRN Reason: Constipation Folic Acid (Folic Acid 1 Mg Tablet) 1 mg PO DAILY [facility] Last Admin: 08/15/22 08:17 Dose: 1 mg Documented By: LEYLA Furosemide (Furosemide 40 Mg Tablet) 80 mg PO BID [facility]; Protocol Last Admin: 08/15/22 08:32 Dose: Not Given Documented By: LEYLA Non-Admin Reason: low BP Heparin Sodium (Porcine) (Heparin Sodium,Porcine 5,000 Unit/Ml Vial) 5,000 unit SUBCUT Q8H [facility] Last Admin: 08/15/22 05:53 Dose: 5,000 unit Documented By: CRYSTAL Lactulose (Lactulose 20 Gm/30 Ml Solution) 20 gm PO DAILY [facility] Metoprolol Tartrate (Metoprolol Tartrate 12.5 Mg Halftab) 12.5 mg PO BID [facility]; Protocol Nystatin (Nystatin Powder 15 Gm Bottle) 1 appl TOPICAL BID [facility]; Protocol Last Admin: 08/15/22 11:31 Dose: 1 appl Documented By: LEYLA Ondansetron HCl (Ondansetron Hcl 4 Mg/2 Ml Vial) 4 mg IVPUSH Q8H PRN PRN Reason: Nausea and Vomiting Sodium Chloride (0.9 % Sodium Chloride Flush 3 Ml Syringe) 3 ml IVFLUSH QSHIFT [facility] Last Admin: 08/15/22 08:17 Dose: 3 ml Documented By: LEYLA Spironolactone (Spironolactone 25 Mg Tablet) 25 mg PO DAILY [facility]; Protocol Thiamine HCl (Thiamine Hcl 100 Mg Tablet) 100 mg PO DAILY [facility] Last Admin: 08/15/22 08:17 Dose: 100 mg Documented By: LEYLA Labs 08/12/22 12:49 08/15/22 10:14 Labs: Laboratory Results - last 24 hr 08/15/22 08/15/22 10:14 10:14 Anion Gap 12 Estim Creat Clear Calc 80.2 Estimated GFR 59 Random Glucose 93 Calcium 9.1 Ammonia 44 Microbiology Microbiology Results: Microbiology 08/12/22 13:02 Blood Culture - Preliminary Blood - Venous No growth after 48 hours. 08/12/22 13:02 Blood Culture - Preliminary Blood - Venous No growth after 48 hours. Assessment and Plan (1) Atrial fibrillation with rapid ventricular response: Status: Acute (2) Cirrhosis: Status: Acute (3) Acute hypotension: Status: Acute Plan This is a 71-year-old male with past medical history of COPD on baseline 2.5 L of oxygen, diastolic heart failure, and recently diagnosed liver carcinoma presents to the hospital found to be in AFib with RVR # AFib with RVR controlled digoxin 0.25 low dose metoprolol 12.5 mg bid appreciated Cardiology soft BP from Cirrhosis # VALERIE resolved, follow BMP # hypotension multifactorial in cirrhosis # Liver cirrhosis # Transaminitis 2/2 likely liver mass worsening LFTs presumed hepatic carcinoma follow-up outpatient with Hematology-Oncology with planned liver biopsy To discuss plan with Dr Villanueva and Dr Ramirez if any inpatient procedure needed # diastolic heart failure not appear to be in exacerbation will continue furosemide # COPD not in exacerbation , denies any increased cough or sputum production or shortness of breath continue home inhalers DVT prophylaxis: Heparin subQ Patient with worsening transaminitis, fluid overload waiting GI and Oncology input. Time Spent With Patient Time: Total time managing care of this patient today ____ minutes. Quality Stroke Does the patient have a stroke diagnosis?: No VTE Prior VTE?: No VTE Risk Level:: Medical - moderate - high VTE Device Contraindication: Treatment Not Indicated VTE Drug Contraindication: N/A - Med Ordered
[2022-08-15] MEDS: guaiFENesin LA 600 MG TAB.ER.12H PO ×2 (13:43→20:38)
[2022-08-15] MEDS: Spironolactone 25 MG TABLET PO (14:04)
[2022-08-15 15:02] LABS: Alanine Aminotransferase 100 U/L (0-40); Albumin Level 2.4 g/dL (3.5-5.0); Alkaline Phosphatase 432 U/L (39-117); Aspartate Amino Transferase 140 U/L (5-37); Bilirubin Direct 4.1 mg/dL (0.0-0.5); Bilirubin Total 6.8 mg/dL (0.0-1.0); Total Protein 5.2 g/dL (6.5-8.0)
[2022-08-15] MEDS: Metoprolol Tartrate 12.5 MG HALFTAB PO (20:38)
[2022-08-15] MEDS: Furosemide 40 MG TABLET 80 MG PO (20:38)
[2022-08-16 03:52] VITALS: BP 110/56; PULSE 92; RESP 20; TEMP 36.5; O2SAT 96
[2022-08-16 06:00] VITALS: BMI 48.5
[2022-08-16 07:45] VITALS: BP 108/55; PULSE 75; RESP 20; TEMP 36.3; O2SAT 95
[2022-08-16] MEDS: Heparin Sodium,Porcine 5,000 UNIT/ML VIAL 5000 UNIT SUBCUT ×3 (08:45→22:30)
[2022-08-16] MEDS: Lactulose 20 GM/30 ML SOLUTION PO (08:46)
[2022-08-16] MEDS: Metoprolol Tartrate 12.5 MG HALFTAB PO ×2 (08:46→21:29)
[2022-08-16] MEDS: Folic Acid 1 MG TABLET PO (08:46)
[2022-08-16] MEDS: Furosemide 40 MG TABLET 80 MG PO ×2 (08:46→21:29)
[2022-08-16] MEDS: Thiamine HCL 100 MG TABLET PO (08:46)
[2022-08-16] MEDS: guaiFENesin LA 600 MG TAB.ER.12H PO ×2 (08:47→21:29)
[2022-08-16] MEDS: Nystatin Powder 15 GM BOTTLE 1 APPL TOPICAL (08:47)
[2022-08-16] MEDS: Spironolactone 25 MG TABLET PO (08:47)
[2022-08-16 11:22] VITALS: BP 104/47; PULSE 73; RESP 20; TEMP 36.4; O2SAT 95
--- NOTE | 2022-08-16 13:37 | P.PNIM_ITS ---
Subjective Subjective Date of Service: 08/16/22 Interval History: Seen and evaluated Feels more frail and weak TSB going up to 6.7 No reported overnight events Still having LE edema Review of Systems Review of Systems: Yes all other systems are reviewed and are negative Physical Exam Vital Signs: Vital Signs: Last Vital Signs Temp 97.5 F 08/16/22 11:22 Pulse 73 08/16/22 11:22 Resp 20 08/16/22 11:22 BP 104/47 L 08/16/22 11:22 Pulse Ox 95 08/16/22 11:22 O2 Del Method 08/16/22 11:22 BMI result Body Mass Index 48.5 Const: Other: Constitutional : Awake, interactive, looks frail and sick, get confused easily Neck : Normal inspection, Supple Cardiovascular : irregular irregular, no JVP, +2 lower extremity edema Respiratory : good bilateral air entry, no crackles, wheezes or rhonchi Gastrointestinal: soft, lax, Normal bowel sounds, Non tender Skin : Warm, Dry Neurological : Alert & oriented to self and place, , No focal deficit Objective Data Active Medications Acetaminophen (Acetaminophen 325 Mg Tablet) 650 mg PO Q6H PRN PRN Reason: Pain, Mild (Pain Scale 1-3) Albuterol Sulfate (Albuterol Sulfate 90 Mcg 8 Gm Inhaler) 2 puff INHALE RQ4H PRN PRN Reason: shortness of breath or wheezing Docusate Sodium (Docusate Sodium 100 Mg Capsule) 100 mg PO DAILY PRN PRN Reason: Constipation Folic Acid (Folic Acid 1 Mg Tablet) 1 mg PO DAILY [facility] Last Admin: 08/16/22 08:46 Dose: 1 mg Documented By: MARIBETH Furosemide (Furosemide 40 Mg Tablet) 80 mg PO BID [facility]; Protocol Last Admin: 08/16/22 08:46 Dose: 80 mg Documented By: MARIBETH Guaifenesin (Guaifenesin La 600 Mg Tab.Er.12h) 600 mg PO BID [facility] Last Admin: 08/16/22 08:47 Dose: 600 mg Documented By: MARIBETH Heparin Sodium (Porcine) (Heparin Sodium,Porcine 5,000 Unit/Ml Vial) 5,000 unit SUBCUT Q8H [facility] Last Admin: 08/16/22 08:45 Dose: 5,000 unit Documented By: MARIBETH Lactulose (Lactulose 20 Gm/30 Ml Solution) 20 gm PO DAILY [facility] Last Admin: 08/16/22 08:46 Dose: 20 gm Documented By: MARIBETH Metoprolol Tartrate (Metoprolol Tartrate 12.5 Mg Halftab) 12.5 mg PO BID [facility]; Protocol Last Admin: 08/16/22 08:46 Dose: 12.5 mg Documented By: MARIBETH Nystatin (Nystatin Powder 15 Gm Bottle) 1 appl TOPICAL BID [facility]; Protocol Last Admin: 08/16/22 08:47 Dose: 1 appl Documented By: MARIBETH Ondansetron HCl (Ondansetron Hcl 4 Mg/2 Ml Vial) 4 mg IVPUSH Q8H PRN PRN Reason: Nausea and Vomiting Sodium Chloride (0.9 % Sodium Chloride Flush 3 Ml Syringe) 3 ml IVFLUSH QSHIFT [facility] Last Admin: 08/16/22 08:56 Dose: Not Given Documented By: MARIBETH Non-Admin Reason: No Access Spironolactone (Spironolactone 25 Mg Tablet) 25 mg PO DAILY [facility]; Protocol Last Admin: 08/16/22 08:47 Dose: 25 mg Documented By: MARIBETH Thiamine HCl (Thiamine Hcl 100 Mg Tablet) 100 mg PO DAILY [facility] Last Admin: 08/16/22 08:46 Dose: 100 mg Documented By: MARIBETH Labs 08/12/22 12:49 08/15/22 10:14 Labs: Laboratory Results - last 24 hr 08/15/22 10:14 Total Bilirubin 6.8 H Direct Bilirubin 4.1 H AST 140 H ALT 100 H Alkaline Phosphatase 432 H Total Protein 5.2 L Albumin 2.4 L Assessment and Plan (1) Cirrhosis: Status: Acute (2) Atrial fibrillation with rapid ventricular response: Status: Acute (3) Liver mass: Status: Acute (4) Bilateral edema of lower extremity: Status: Acute Plan This is a 71-year-old male with past medical history of COPD on baseline 2.5 L of oxygen, diastolic heart failure, and recently diagnosed liver carcinoma p resents to the hospital found to be in AFib with RVR # Liver cirrhosis # Transaminitis 2/2 likely liver mass worsening LFTs, TSB of 6.7 presumed hepatic carcinoma with elevated AFP, mass and clot follow-up outpatient with Hematology-Oncology with planned liver biopsy Discussed plan with Dr Villanueva and Dr Ramirez, both agree the elevation in TSB is from infiltrative mass as the most recent CT scan did not show any billiary disease. biopsy is not needed given his overall condition. no realistic melissa atment for hepatoma given cirrhosis and other comorbidities Consider palliative\hospice care # AFib with RVR controlled digoxin 0.25 low dose metoprolol 12.5 mg bid appreciated Cardiology soft BP from Cirrhosis # VALERIE resolved, follow BMP # hypotension multifactorial in cirrhosis # diastolic heart failure not appear to be in exacerbation will continue furosemide # COPD not in exacerbation , denies any increased cough or sputum production or shortness of breath continue home inhalers DVT prophylaxis: Heparin subQ Patient needs to stay overnight for worsening transaminitis, fluid overload to discuss goals of care and discharge plan Time Spent With Patient Time: Total time managing care of this patient today ____ minutes. Quality Stroke Does the patient have a stroke diagnosis?: No VTE Prior VTE?: No VTE Risk Level:: Medical - moderate - high VTE Device Contraindication: Treatment Not Indicated VTE Drug Contraindication: N/A - Med Ordered
--- NOTE | 2022-08-16 14:18 | MHC.CM.PN ---
CM assisted Patient in completing a HCP.
[2022-08-16 15:04] VITALS: BP 104/52; PULSE 62; RESP 20; TEMP 36.1; O2SAT 94
--- NOTE | 2022-08-16 15:07 | MHC.CM.PN ---
Per MD's request after speaking with Patient and family, a referral has been made to [facility], requesting a Hospice Informational. CM will follow.
[2022-08-16] MEDS: 0.9 % Sodium Chloride Flush 3 ML SYRINGE IVFLUSH (15:58)
[2022-08-16 19:11] VITALS: BP 126/72; PULSE 72; RESP 20; TEMP 36.1; O2SAT 95
[2022-08-16 23:36] VITALS: BP 122/66; PULSE 76; RESP 20; TEMP 36.2; O2SAT 97
[2022-08-17] VITALS (7 sets, daily range): BP systolic 89–121; BP diastolic 51–61; PULSE 75–139; RESP 18–20; TEMP 36.3–36.7; O2SAT 90–95; BMI 48.8
[2022-08-17] MEDS: 0.9 % Sodium Chloride Flush 3 ML SYRINGE IVFLUSH ×3 (00:32→15:05)
[2022-08-17] MEDS: Heparin Sodium,Porcine 5,000 UNIT/ML VIAL 5000 UNIT SUBCUT ×3 (06:04→22:30)
[2022-08-17 06:15] LABS: INTERNATIONAL NORM RATIO 1.4 (0.9-1.1); Prothrombin Time 15.8 SEC (10.0-13.1)
[2022-08-17 06:46] LABS: Anion Gap 12 (12-20); Blood Urea Nitrogen 34 mg/dL (9-16); Calcium 8.7 mg/dL (8.4-10.2); Carbon Dioxide 25 mmol/L (22-29); Chloride 102 mmol/L (96-108); Creatinine Clr Calc Pharmacy 79.2; Estimated Glomerular Filt Rate 58; Glucose Random 91 mg/dL (60-115); Potassium 3.9 mmol/L (3.3-5.1); Sodium 135 mmol/L (135-145)
[2022-08-17 06:52] LABS: Alanine Aminotransferase 96 U/L (0-40); Albumin Level 2.1 g/dL (3.5-5.0); Alkaline Phosphatase 416 U/L (39-117); Aspartate Amino Transferase 128 U/L (5-37); Bilirubin Direct 3.8 mg/dL (0.0-0.5); Bilirubin Total 5.6 mg/dL (0.0-1.0)
[2022-08-17] MEDS: Lactulose 20 GM/30 ML SOLUTION PO (10:22)
[2022-08-17] MEDS: Spironolactone 25 MG TABLET PO (10:22)
[2022-08-17] MEDS: Folic Acid 1 MG TABLET PO (10:22)
[2022-08-17] MEDS: Thiamine HCL 100 MG TABLET PO (10:22)
[2022-08-17] MEDS: guaiFENesin LA 600 MG TAB.ER.12H PO ×2 (10:22→20:22)
[2022-08-17] MEDS: Metoprolol Tartrate 12.5 MG HALFTAB PO ×2 (10:23→20:22)
[2022-08-17] MEDS: Furosemide 40 MG TABLET 80 MG PO ×2 (10:23→20:22)
--- NOTE | 2022-08-17 14:52 | HO.PM.IMPN ---
Subjective Subjective Date of Service: 08/17/22 Interval History: Seen and evaluated Feels more frail and weak No reported overnight events having LE edema Review of Systems Review of Systems: Yes Unobtainable due to mental condition Physical Exam Vital Signs: Vital Signs: Last Vital Signs Temp 97.3 F 08/17/22 12:00 Pulse 87 08/17/22 12:00 Resp 20 08/17/22 12:00 BP 89/52 L 08/17/22 12:00 Pulse Ox 95 08/17/22 12:00 O2 Del Method 08/17/22 12:00 BMI result Body Mass Index 48.8 Const: Other: Constitutional : Awake, interactive, looks frail and sick, get confused easily Neck : Normal inspection, Supple Cardiovascular : irregular irregular, no JVP, +2 lower extremity edema Respiratory : good bilateral air entry, no crackles, wheezes or rhonchi Gastrointestinal: soft, lax, Normal bowel sounds, Non tender Skin : Warm, Dry Neurological : Alert & oriented to self and place, , No focal deficit Objective Data Active Medications Acetaminophen (Acetaminophen 325 Mg Tablet) 650 mg PO Q6H PRN PRN Reason: Pain, Mild (Pain Scale 1-3) Albuterol Sulfate (Albuterol Sulfate 90 Mcg 8 Gm Inhaler) 2 puff INHALE RQ4H PRN PRN Reason: shortness of breath or wheezing Docusate Sodium (Docusate Sodium 100 Mg Capsule) 100 mg PO DAILY PRN PRN Reason: Constipation Folic Acid (Folic Acid 1 Mg Tablet) 1 mg PO DAILY [facility] Last Admin: 08/17/22 10:22 Dose: 1 mg Documented By: HERBERT Furosemide (Furosemide 40 Mg Tablet) 80 mg PO BID [facility]; Protocol Last Admin: 08/17/22 10:23 Dose: 80 mg Documented By: HERBERT Guaifenesin (Guaifenesin La 600 Mg Tab.Er.12h) 600 mg PO BID [facility] Last Admin: 08/17/22 10:22 Dose: 600 mg Documented By: HERBERT Heparin Sodium (Porcine) (Heparin Sodium,Porcine 5,000 Unit/Ml Vial) 5,000 unit SUBCUT Q8H [facility] Last Admin: 08/17/22 06:04 Dose: 5,000 unit Documented By: GUME Lactulose (Lactulose 20 Gm/30 Ml Solution) 20 gm PO DAILY [facility] Last Admin: 08/17/22 10:22 Dose: 20 gm Documented By: HERBERT Metoprolol Tartrate (Metoprolol Tartrate 12.5 Mg Halftab) 12.5 mg PO BID [facility]; Protocol Last Admin: 08/17/22 10:23 Dose: 12.5 mg Documented By: HERBERT Nystatin (Nystatin Powder 15 Gm Bottle) 1 appl TOPICAL BID [facility]; Protocol Last Admin: 08/16/22 21:30 Dose: Not Given Documented By: SUN Non-Admin Reason: Med Not Available Ondansetron HCl (Ondansetron Hcl 4 Mg/2 Ml Vial) 4 mg IVPUSH Q8H PRN PRN Reason: Nausea and Vomiting Sodium Chloride (0.9 % Sodium Chloride Flush 3 Ml Syringe) 3 ml IVFLUSH QSHIFT [facility] Last Admin: 08/17/22 10:23 Dose: 3 ml Documented By: HERBERT Spironolactone (Spironolactone 25 Mg Tablet) 25 mg PO DAILY [facility]; Protocol Last Admin: 08/17/22 10:22 Dose: 25 mg Documented By: HERBERT Thiamine HCl (Thiamine Hcl 100 Mg Tablet) 100 mg PO DAILY [facility] Last Admin: 08/17/22 10:22 Dose: 100 mg Documented By: HERBERT Labs 08/12/22 12:49 08/17/22 05:24 Labs: Laboratory Results - last 24 hr 08/17/22 08/17/22 08/17/22 05:24 05:24 05:24 PT 15.8 H INR 1.4 H Anion Gap 12 Estim Creat Clear Calc 79.2 Estimated GFR 58 Random Glucose 91 Calcium 8.7 Total Bilirubin 5.6 H Direct Bilirubin 3.8 H AST 128 H ALT 96 H Alkaline Phosphatase 416 H Total Protein 5.0 L Albumin 2.1 L Assessment and Plan (1) Cirrhosis: Status: Acute (2) Atrial fibrillation with rapid ventricular response: Status: Acute (3) Acute kidney injury: Status: Acute (4) Liver mass: Status: Acute Plan This is a 71-year-old male with past medical history of COPD on baseline 2.5 L of oxygen, diastolic heart failure, and recently diagnosed liver carcinoma presents to the hospital found to be in AFib with RVR # Liver cirrhosis # Transaminitis 2/2 likely liver mass worsening LFTs, TSB of 6.7 presumed hepatic carcinoma with elevated AFP, mass and clot follow-up outpatient with Hematology-Oncology with planned liver biopsy Discussed plan with Dr Villanueva and Dr Ramirez, both agree the elevation in TSB is from infiltrative mass as the most recent CT scan did not show any billiary disease. biopsy is not needed given his overall condition. no realistic treatment for hepatoma given cirrhosis and other comorbidities to meet with palliative\hospice care # AFib with RVR controlled digoxin 0.25 low dose metoprolol 12.5 mg bid appreciated Cardiology soft BP from Cirrhosis # VALERIE resolved, follow BMP # hypotension multifactorial in cirrhosis # diastolic heart failure not appear to be in exacerbation will continue furosemide # COPD not in exacerbation , denies any increased cough or sputum production or shortness of breath continue home inhalers DVT prophylaxis: Heparin subQ Patient needs to stay overnight for worsening transaminitis, fluid overload to discuss goals of care and discharge plan Time Spent With Patient Time: Total time managing care of this patient today ____ minutes. Quality Stroke Does the patient have a stroke diagnosis?: No VTE Prior VTE?: No VTE Risk Level:: Medical - moderate - high VTE Device Contraindication: Treatment Not Indicated VTE Drug Contraindication: N/A - Med Ordered
[2022-08-17] MEDS: Nystatin Powder 15 GM BOTTLE 1 APPL TOPICAL (15:05)
[2022-08-18 04:00] VITALS: BP 152/64; PULSE 75; RESP 18; TEMP 36.7; O2SAT 95
[2022-08-18] MEDS: Heparin Sodium,Porcine 5,000 UNIT/ML VIAL 5000 UNIT SUBCUT (05:17)
[2022-08-18 06:00] VITALS: BMI 49.1
[2022-08-18 07:57] VITALS: BP 97/56; PULSE 74; RESP 20; TEMP 36.3; O2SAT 95
[2022-08-18] MEDS: guaiFENesin LA 600 MG TAB.ER.12H PO (08:49)
[2022-08-18] MEDS: Lactulose 20 GM/30 ML SOLUTION PO (08:49)
[2022-08-18] MEDS: Thiamine HCL 100 MG TABLET PO (08:49)
[2022-08-18] MEDS: 0.9 % Sodium Chloride Flush 3 ML SYRINGE IVFLUSH (08:49)
[2022-08-18] MEDS: Folic Acid 1 MG TABLET PO (08:49)
[2022-08-18] MEDS: Spironolactone 25 MG TABLET PO (09:11)
[2022-08-18] MEDS: Metoprolol Tartrate 12.5 MG HALFTAB PO (09:11)
[2022-08-18] MEDS: Furosemide 40 MG TABLET 80 MG PO (10:22)
--- NOTE | 2022-08-18 11:24 | PM.DS ---
DS: Providers Provider Date of Service: 08/18/22 Date of admission: 08/13/22 00:14 Primary care physician: Jared Garcia MD Consults: 08/13/22 00:13 Consult to Cardiology Routine Consulting Provider: Joe Bravo Reason for consultation: A fib W rvr, CHF? Has provider been notified: No DS: Diagnosis Discharge Diagnosis (1) Cirrhosis: Status: Acute (2) Atrial fibrillation with rapid ventricular response: Status: Acute (3) Acute kidney injury: Status: Acute (4) Liver mass: Status: Acute (5) Bilateral edema of lower extremity: Status: Acute DS: Summary Hospital Course Hospital Course: Admission note HPI This is a 71-year-old male with past medical history of COPD on baseline 2.5 L of O2, history of liver cirrhosis, diastolic heart failure, paroxysmal AFib, hyperlipidemia, morbid obesity, resident of residential, who was sent to the hospital for possible tachycardia.? It is unclear why patient was sent, patient himself has no complaints, reports no increased shortness of breath, reports no palpitations, denies any chest pain, no abdominal pain nausea or vomiting, no diarrhea constipation, no urinary symptoms.? He reports chronic lower extremity edema and is not aware of the has changed.? Of note patient was recently discharged from the hospital on 07/24 after being managed for cellulitis as well as newly diagnosed presumed liver carcinoma and portal vein tumor thrombus, with plans for further management and liver biopsy in the near future. On arrival to the ED patient was found to be in AFib with RVR with a heart rate in the 130s as well as slightly hypotensive. Patient was initially given diltiazem IV 15 mg with worsening BP and no change in heart rate.? He then received x2 0.25 mg of digoxin with improvement his heart rate.? Patient also received 1.5 L of IV fluid.? His labs are also reviewed which showed WBC count of 9.0, hemoglobin of 11.7, hematocrit of 36.3, sodium of 133, BUN of 35, creatinine of 1.46 with a baseline of around 1.1, total bili of 5.8, AST of 190, ALT of 131, alk-phos of 549, BNP of 256, albumin of 1.8, Viral serology negative Chest x-ray shows mild bibasilar atelectasis versus scarring with no acute cardiopulmonary process Hospital course The patient was admitted for evaluation of atrial fibrillation with rapid ventricular response. Responded well to treatment with metoprolol as he was evaluated by Cardiology team who believes he is a poor candidate for anticoagulation given multiple comorbidities and primary cirrhosis with possible underlying hepatocellular cancer. Rate controlled with metoprolol. Patient made quick response and will be discharged 1 day earlier than expected. He was noticed to have mildly elevated transaminitis from previous admission. He followed with Oncology as outpatient with a plan for liver biopsy as outpatient. the underlying liver mass seems to be a hepatic cancer (hepatoma) per oncology and GI team and both high concerned over the need of the biopsy given overall deconditioning and being unlikely to tolerate any cancer treatment 2/2 cirrhosis and other comorbidities. discussions started about comfort measures in the hospital with patient and family who would prefer to go back to SNF for rehab before deciding on the next step. Continue home medications Start Metoprolol 12.5 mg twice daily Continue rehab, follow with oncology as outpatient Increase protein intake Keep legs elevated, restrict fluids intake to 1.5L daily Time Spent with Patient Time attestation: Total time managing care of this patient today ____ minutes. Discharge coordination time: Greater than 30 minutes Quality: Safe Use of Opioids Does Pt have an Active Cancer Diagnosis on the Problem List?: No Quality: Stroke Does the patient have a stroke diagnosis?: No Physical Exam Vital Signs: Vital Signs: Last Vital Signs Temp 97.3 F 08/18/22 07:57 Pulse 74 08/18/22 07:57 Resp 20 08/18/22 07:57 BP 97/56 L 08/18/22 07:57 Pulse Ox 95 08/18/22 07:57 O2 Del Method 08/18/22 07:57 BMI result Body Mass Index 49.1 Const: Other: Constitutional : Awake, interactive, looks frail Neck : Normal inspection, Supple Cardiovascular : irregular irregular, no JVP, +2 lower extremity edema Respiratory : good bilateral air entry, no crackles, wheezes or rhonchi Gastrointestinal: soft, lax, Normal bowel sounds, Non tender Skin : Warm, Dry Neurological : Alert & oriented to self and place, , No focal deficit DS: Data Imaging Chest x-ray: Radiologist's impression: ITS Impressions Chest X-Ray 08/12/22 13:40 IMPRESSION: Mild bibasilar linear atelectasis versus scarring. No acute cardiopulmonary process. Overall appearance on the right is improved. Discharge Plan Discharge Anticipated Discharge Date/Time: 08/14/22 11:29 Patient Disposition: Xfer SNF Discharge Diagnosis: Atrial fibrillation with RVR Referrals: [facility] [Outside] - 1 Week Jared Garcia MD [Primary Care Provider] - 1 Week Discharge Medications: New metoprolol tartrate 25 mg tablet 12.5 mg PO BID Qty: 30 0RF Continued spironolactone 25 mg tablet 25 mg PO DAILY Qty: 90 8RF Spiriva with HandiHaler 18 mcg capsule, w/inhalation device 1 cap inhalation DAILY Qty: 90 8RF Rx Instructions: puncture 1 cap using device; one dose = 2 inhalations (DME) Wheel chair Kit See Rx Instructions .Route Qty: 1 0RF Rx Instructions: As directed potassium chloride 20 mEq tablet,ER particles/crystals 20 meq PO BID Qty: 60 8RF lactulose 20 gram/30 mL solution 20 g PO BID Qty: 1200 0RF albuterol sulfate 90 mcg/actuation aerosol powdr breath activated 2 inh inhalation Q4-6H PRN (Reason: shortness of breath or wheezing) Qty: 1 0RF thiamine HCl (vitamin B1) 100 mg Tablet 100 mg PO DAILY furosemide [Lasix] 80 mg tablet 80 mg PO BID Qty: 60 0RF acetaminophen 325 mg Tablet 650 mg PO Q6H PRN (Reason: Pain) nystatin 100,000 unit/gram Powder 1 appl TOPICAL QSHIFT folic acid 1 mg tablet 1 tab PO DAILY Discharge Orders: Discharge Order (Routine); Ordered 08/18/22 Ordered By: Rosa Ferraro Diet: Advance to usual diet Activity on Discharge: As tolerated Stand Alone Forms: Patient Portal Discharge page Care Plan Goals: Read below Health Concerns: Read below Plan of Treatment: Read below Assessment: Admitted for rapid irregular heart rate. controlled with Metoprolol as you were evaluated by cardiology team. Evaluated by PT. Continue home medications Start Metoprolol 12.5 mg twice daily Continue rehab, follow with oncology as outpatient
[2022-08-18 11:58] VITALS: BP 114/56; PULSE 69; RESP 20; TEMP 36.1; O2SAT 95
--- NOTE | 2022-08-18 13:21 | MHC.CM.PN ---
IMM 08/18/22 Male patient is discharged today. He will return to [facility] this afternoon. DC Summary and Packet have been sent to the facility. The PCR covid is still pending. Spoke with the patients this am. She is aware of transfer back to [facility] this afternoon. Covid test is pending. Transport is booked for 3pm [employer].
[2022-08-18 13:22] LABS: Influenza A PCR NEGATIVE (Negative); Influenza B PCR NEGATIVE (Negative); Resp Syncy Virus RNA Qual PCR NEGATIVE (Negative); SARS COV2 PCR INHOUSE NEGATIVE (Negative)
== END 2022-08-18 16:00 | disposition skilled nursing facility (03) | DRG 309 ==
LOC: HO.ED 22:37 → HO.EDOVER 08-13 00:29 → HO.IMC 08-13 02:11
PROVIDERS: Admitting Provider Internal Medicine; Emergency Provider Emergency Medicine Emergency Medical Services; PCP Internal Medicine; Visit Provider Student in an Organized Health Care Education/Training Program
DX: I48.0 Paroxysmal atrial fibrillation (principal); C22.0 Liver cell carcinoma; Z68.43 Body mass index [BMI] 50.0-59.9, adult; N17.9 Acute kidney failure, unspecified; E78.5 Hyperlipidemia, unspecified; E66.01 Morbid (severe) obesity due to excess calories; J44.9 Chronic obstructive pulmonary disease, unspecified; K74.60 Unspecified cirrhosis of liver; Z99.81 Dependence on supplemental oxygen; E86.0 Dehydration; F10.11 Alcohol abuse, in remission; E88.09 Other disorders of plasma-protein metabolism, not elsewhere classified; Z20.822 Contact with and (suspected) exposure to COVID-19; Z87.891 Personal history of nicotine dependence; Z88.0 Allergy status to penicillin; Z79.899 Other long term (current) drug therapy
CPT/HCPCS: 0241U; 36415; 71045; 80048; 80053; 80076; 82140; 83605; 83880; 84484; 85025; 85610; 87040; 93005; 97162; 99285; J1160; J1643; P9047